=== PATIENT | male | born 1965 | race Caucasian/White ===

== ENCOUNTER 2019-09-10 14:20 | Outpatient (CLI) | payer MEDICARE, MEDICAID, SELFPAY ==
[2019-09-10 14:41] LABS: Basophils Absolute Auto 0.04 K/mm3 (0.00-0.10); Basophils Percent Auto 0.7 % (0.0-1.0); Eosinophils Absolute Auto 0.11 K/mm3 (0.02-0.50); Hematocrit 46.8 % (40.0-54.0); Hemoglobin 16.3 g/dL (14.0-18.0); Immature Granulocyte Absolute 0.02 K/mm3 (0.00-0.00); Immature Granulocyte Percent A 0.4 % (0.0-0.0); Lymphocytes Absolute Auto 1.41 K/mm3 (1.10-4.50); Lymphocytes Percent Auto 25.5 % (18.0-42.0); Mean Corpuscular HGB Conc 34.8 g/dL (32.0-36.0); Mean Corpuscular Hemoglobin 31.8 pg (27.0-31.0); Mean Corpuscular Volume 91.4 fL (78.0-102.0); Monocytes Absolute Auto 0.76 K/mm3 (0.10-0.90); Monocytes Percent Auto 13.8 % (2.0-11.0); Neutrophils Absolute Auto 3.2 K/mm3 (1.7-7.2); Neutrophils Percent Auto 57.6 % (50.0-70.0); Platelet Count Result 239 K/mm3 (150-420); Red Blood Count 5.12 M/mm3 (4.70-6.10); Red Cell Distribution Width 11.8 % (11.6-14.4); White Blood Count 5.5 K/mm3 (4.8-10.8)
[2019-09-10 15:07] LABS: Hemoglobin A1C 5.6 % (<5.7)
[2019-09-10 16:10] LABS: Thyroid Stimulating Hormone Reflex 2.29 u/IU/mL (0.36-3.74)
[2019-09-10 16:43] LABS: Alanine Aminotransferase 29 U/L (16-63); Albumin Level 4.3 g/dL (3.4-5.0); Alkaline Phosphatase 102 U/L (46-116); Anion Gap 17.3 mmol/L (7-16); Aspartate Amino Transferase 16 U/L (15-37); Bilirubin,Total 0.5 mg/dL (0.00-1.00); Blood Urea Nitrogen 12 mg/dL (7-18); Calcium 9.1 mg/dL (8.5-10.1); Carbon Dioxide 23 mmol/L (21-32); Chloride 104 mmol/L (98-108); Cholesterol 141 mg/dL (0-200); Estimated Glomerular Filt Rate 57; Glucose 92 mg/dL (70-99); HDL Direct 23 mg/dL (40-60); LDL Cholesterol Calculated 77 mg/dL (<130); Osmolality Calculated 289 mOsm/kg (285-295); Potassium 4.3 mmol/L (3.5-5.1); Sodium 140 mmol/L (136-145); Total Protein 7.4 g/dL (6.4-8.2); Triglycerides 203 mg/dL (0-150)
== END 2019-09-10 14:21 | disposition home or self-care (01) ==
PROVIDERS: PCP Family Medicine; Visit Provider Family Medicine
DX: G40.909 Epilepsy, unspecified, not intractable, without status epilepticus (principal); E66.9 Obesity, unspecified; R53.83 Other fatigue; Z79.899 Other long term (current) drug therapy
CPT/HCPCS: 36415; 80053; 80061; 83036; 84443; 85025

== ENCOUNTER 2020-02-03 12:07 | Emergency (ER) | payer OTHER, SELFPAY ==
--- NOTE | 2020-02-03 12:20 | ED.WOUNDLAC ---
HPI - Wound/Laceration General Chief Complaint: Wound/Laceration Stated Complaint: cut finger at work Time Seen by Provider: 02/03/20 12:20 Source: patient Mode of arrival: ambulatory Limitations: no limitations History of Present Illness HPI narrative: 54-year-old man comes in today complaining of a laceration on his left index finger that occurred just prior to arrival. Patient was opening a box at work and the razor knife slipped and cut his finger. He denies any numbness or tingling. He does not recall his last tetanus shot. Onset (ago): minute(s) (20) Extremity Location: Left: hand (volar index finger) Place: work Context: sharp object use Associated symptoms: pain Treatments prior to arrival: bandage Related Data Home Medications Medication Instructions Recorded Confirmed levetiracetam 1,500 mg PO TID 02/03/20 02/03/20 multivitamin with minerals [Daily 1 tablet PO DAILY 02/03/20 02/03/20 Multivitamin-Minerals] Allergies Allergy/AdvReac Type Severity Reaction Status Date / Time Iodinated Contrast Media Allergy Unknown Unknown Verified 01/19/20 12:59 Contrast allergy Allergy Intermediate Uncoded 01/19/20 12:59 Review of Systems Constitutional: Constitutional: Denies chills and Denies fever(s) Cardiovascular: Cardiovascular: Denies chest pain and Denies radiating jaw, neck or arm pain Respiratory: Respiratory: Denies cough, Denies dyspnea and Denies wheezing Gastrointestinal: Gastrointestinal: Denies abdominal pain, Denies nausea and Denies vomiting Musculoskeletal: Musculoskeletal: Denies arthralgias and Denies joint swelling Integumentary/Breasts: Skin/Breast: Denies pruritus, Denies erythema and Denies rash Neurologic: Denies vertigo, Denies dizziness and Denies syncope Hematologic/Lymphatic: Hematologic/Lymphatic: Denies easy bleeding and Denies easy bruising Allergic/Immunologic: Allergic/Immunologic: Denies lip swelling and Denies wheezing PMFSH Past Medical History Medical History Obesity (BMI 30-39.9) Seizure disorder Testicle cancer Surgical History Surgical History H/O brain surgery Family History Family History Father History of sinus cancer Sibling Ovarian cancer Social History Social History Smoking status: Never smoker Second hand tobacco smoke exposure: No Alcohol intake: never Substance use: never Exam Const: Other: Mild acute distress Resp: Effort & Inspection: normal respiratory effort and not labored Auscultation: clear to auscultation bilaterally, no rales, no rhonchi and no wheezes Cardio: Rate: regular rate Rhythm: regular rhythm Heart sounds: no murmurs Skin: General skin exam: normal color, no jaundice and no pallor Rashes: no rashes Neuro: Other: 1.8 cm longitudinal laceration on the volar aspect of the left index finger just proximal to the PIP. Extrem: General: normal to inspection and no clubbing, cyanosis or edema Psych: Appearance: well kempt Mental Status: mental status grossly normal Affect: normal affect Attitude: cooperative Thought content: Yes Normal thought content present Procedures Laceration Laceration 1: Date: 02/03/20 Time: 12:40 Site: hand Side (If applicable): left Size (cm): 1.8 Description: linear Depth: simple, single layer Local Anesthetic: lidocaine 1% Amount of anesthesia used (mL): 4 Pre-repair: wound explored and irrigated ====== Skin Level ====== Skin layer closed with: nylon Size (cm): 4-0 Number of sutures: 4 Technique: simple, interrupted ====== Subcutaneous Layer ====== ====== Muscle Layer ====== ====== Tendon Layer ====== Discharge Plan Dischar
[2020-02-03] MEDS: TETANUS,DIPHTHERIA,AC PERTUSSIS ADULT 0.5 ML (ADACEL) IM (12:27)
[2020-02-03 12:33] VITALS: BP 149/94; PULSE 106; RESP 16; TEMP 36.9; O2SAT 95
[2020-02-03 13:11] VITALS: RESP 16
--- NOTE | 2020-02-03 13:12 | PC.NURSE ---
SPO2 REMAINS 94% ON ROOM AIR AFTER AFFECTS OF DILAUDID WEAR OFF - ERP CALLS DR RINCON
== END 2020-02-03 13:11 | disposition home or self-care (01) ==
PROVIDERS: Emergency Provider Emergency Medicine; PCP Family Medicine
DX: S61.211A Laceration without foreign body of left index finger without damage to nail, initial encounter (principal); W26.0XXA Contact with knife, initial encounter
CPT/HCPCS: 12001; 90471; 90715; 99282

== ENCOUNTER 2020-03-06 19:04 | Emergency (ER) | payer MEDICARE, MEDICAID, SELFPAY ==
--- NOTE | ~2020-03-06 | XR_ITS ---
XR toe 5th LT min 2V 03/06/2020 19:33 Indication: Left fifth toe pain Procedure: 5 views left fifth toe Comparison: No prior studies for comparison. Findings: There is a nondisplaced oblique fracture of the left fifth proximal phalanx. Osteopenia. No intra-articular extension. No significant soft tissue abnormality. No foreign bodies. Impression: 1: Oblique nondisplaced extra-articular fracture left fifth proximal phalanx. Reviewed, dictated and finalized at location A. Impression: 1: Oblique nondisplaced extra-articular fracture left fifth proximal phalanx.
[2020-03-06 19:05] VITALS: BP 138/88; PULSE 88; RESP 16; TEMP 36.1
--- NOTE | 2020-03-06 19:16 | ED.LOWEXIN ---
HPI - Extremity Injury (Lower) General Chief Complaint: Unspecified Stated Complaint: lt foot injury Time Seen by Provider: 03/06/20 19:14 Source: patient Mode of arrival: ambulatory Limitations: no limitations History of Present Illness HPI Narrative: Patient states he was walking in his house and hit his 5th left toe on a chair. Did this just prior to arrival. complaint: foot injury (left fifth toe) Onset (ago): minute(s) (30) Type of Injury: blunt Place: home Severity: moderate Relieving factors: nothing Exacerbating factors: movement and palpation Context: direct blow and walking Associated symptoms: swelling Other symptoms: none Related Data Home Medications Medication Instructions Recorded Confirmed levetiracetam 1,500 mg PO BID 02/03/20 02/10/20 multivitamin with minerals [Daily 1 tablet PO DAILY 02/03/20 02/10/20 Multivitamin-Minerals] Allergies Allergy/AdvReac Type Severity Reaction Status Date / Time Iodinated Contrast Media Allergy Unknown Unknown Verified 02/17/20 08:15 Contrast allergy Allergy Intermediate Unknown Uncoded 02/10/20 07:51 Review of Systems Review of Systems: All systems reviewed & are unremarkable except as noted in HPI and below PMFSH Past Medical History Medical History Obesity (BMI 30-39.9) Seizure disorder Testicle cancer Surgical History Surgical History H/O brain surgery Family History Family History Father History of sinus cancer Sibling Ovarian cancer Social History Social History Smoking status: Never smoker Second hand tobacco smoke exposure: No Alcohol intake: never Substance use: never Exam Const: General: healthy appearing, no acute distress and alert Nutritional Appearance: well nourished Orientation/consciousness: patient oriented x3 HENMT: Head: normal to inspection Ears: external ears normal Mouth: Yes lip normal Eyes: Conjunctivae: conjunctivae normal Pupils: Equal, round and reactive pupils present EOM: EOMs intact bilaterally Neck: Neck: normal visual inspection Resp: Effort & Inspection: normal respiratory effort Auscultation: clear to auscultation bilaterally Cardio: Rate: regular rate Rhythm: regular rhythm Heart sounds: no murmurs GI: GI Palp: Yes Soft to palpation and No Tenderness to palpation present (GI) Auscultation: normal bowel sounds Back/Spine/Pelvis: Cervical Spine: cervical ROM normal Thoracic/Lumbar Spine: thoraco-lumbar ROM normal Skin: General skin exam: normal color Rashes: no rashes Neuro: General: patient oriented x3, moves all extremities, no meningeal signs and no focal motor deficits Speech: normal speech Extrem: General: normal to inspection and no pedal edema Psych: Appearance: grossly normal and well kempt Mental Status: mental status grossly normal Affect: normal affect Attitude: cooperative Thought content: Yes Normal thought content present Course Course Emergency Course: Advised patient to lorena-tape change tape every 2-3 days. Use Tylenol and/or Motrin. Initial fracture management and seated in the ER. Discharge Plan Discharge Clinical Impression: Closed fracture of phalanx of left fifth toe Qualifiers: Encounter type: initial encounter Qualified Code(s): S92.502A - Displaced unspecified fracture of left lesser toe(s), initial encounter for closed fracture Patient Disposition: Home, Self-Care Condition: Stable Instructions: Toe Fracture (ED) Additional Instructions: lorena-tape as needed, ice and elevate. Tylenol and or Motrin as needed for pain. Prescriptions: No Action levetiracetam 500 mg Tablet 1,500 mg PO BID RF: 0 multivitamin with minerals [Daily Multivitamin-Minerals] Tablet 1 tablet PO DAILY RF: 0 Follow-u
--- NOTE | 2020-03-06 20:11 | PC.NURSE ---
190 triaged, initial assessment, MD seen. Back to waiting room due to no rooms in ED 1914 to [place], 1927 return to waiting room. 1937 to room 4. MD with patient reviewing xray. 1954 lorena taped toes discharge huddle.
[2020-03-06 20:13] VITALS: BP 140/78; PULSE 72; RESP 16; TEMP 36.3; O2SAT 98
== END 2020-03-06 20:07 | disposition home or self-care (01) ==
PROVIDERS: Emergency Provider Emergency Medicine; PCP Family Medicine
DX: S92.502A Displaced unspecified fracture of left lesser toe(s), initial encounter for closed fracture (principal); W22.03XA Walked into furniture, initial encounter; Y92.019 Unspecified place in single-family (private) house as the place of occurrence of the external cause; G40.909 Epilepsy, unspecified, not intractable, without status epilepticus; Z85.47 Personal history of malignant neoplasm of testis
CPT/HCPCS: 73660; 99282; 99284

== ENCOUNTER 2020-03-24 13:15 | Outpatient (CLI) | payer MEDICARE, MEDICAID, SELFPAY ==
--- NOTE | ~2020-03-24 | XR_ITS ---
EXAMINATION: XR toe 5th LT min 2V DATE: 03/24/2020 13:44 INDICATION: Nondisplaced fracture of left fifth toe. TECHNIQUE: 3 views of left fifth toe were obtained. COMPARISON: Left fifth toe radiographs 03/06/2020 FINDINGS: There is an extra-articular oblique fracture of fifth proximal phalanx. The distal fracture fragment demonstrates 1.5 mm dorsal displacement. No callus is identified. Joint spaces are normal. IMPRESSION: 1. Extra-articular oblique fracture of fifth proximal phalanx. Reviewed, dictated and finalized at location A.
== END 2020-03-24 13:16 | disposition home or self-care (01) ==
LOC: CHSIMG 13:19
PROVIDERS: PCP Family Medicine; Visit Provider Podiatrist
DX: S92.414D Nondisplaced fracture of proximal phalanx of right great toe, subsequent encounter for fracture with routine healing (principal)
CPT/HCPCS: 73660

== ENCOUNTER 2020-04-14 09:09 | Outpatient (CLI) | payer MEDICARE, MEDICAID, SELFPAY ==
--- NOTE | ~2020-04-14 | XR_ITS ---
XR foot LT min 3V DATE: 04/14/2020 09:37 INDICATION: Fifth digit fracture TECHNIQUE: 4 views of left foot COMPARISON: 03/06/2020 left fifth toe 03/24/2020 left fifth toe FINDINGS: There is periosteal reaction along the shaft of the proximal phalanx of the fifth digit con sistent with healing nondisplaced fracture. Diffuse osteopenia. No other fracture or dislocation, periosteal reaction or bone destruction is detected. There is slight plantar and minimal posterior calcaneal enthesopathy. IMPRESSION: Healing nondisplaced fracture of proximal phalanx of fifth digit Reviewed, dictated and finalized at location A.
== END 2020-04-14 09:10 | disposition home or self-care (01) ==
LOC: CHSIMG 09:12
PROVIDERS: PCP Family Medicine; Visit Provider Podiatrist
DX: S92.502D Displaced unspecified fracture of left lesser toe(s), subsequent encounter for fracture with routine healing (principal)
CPT/HCPCS: 73630

== ENCOUNTER 2021-05-25 08:48 | Outpatient (CLI) | payer MEDICARE, MEDICAID, SELFPAY ==
[2021-05-25 09:05] LABS: Basophils Absolute Auto 0.05 K/mm3 (0.00-0.10); Basophils Percent Auto 0.8 % (0.0-1.0); Eosinophils Absolute Auto 0.19 K/mm3 (0.02-0.50); Eosinophils Percent Auto 3.1 % (1.0-6.0); Hematocrit 48.3 % (40.0-54.0); Hemoglobin 16.2 g/dL (14.0-18.0); Immature Granulocyte Absolute 0.04 K/mm3 (0.00-0.00); Immature Granulocyte Percent A 0.6 % (0.0-0.0); Lymphocytes Absolute Auto 1.62 K/mm3 (1.10-4.50); Lymphocytes Percent Auto 26.3 % (18.0-42.0); Mean Corpuscular HGB Conc 33.5 g/dL (32.0-36.0); Mean Corpuscular Hemoglobin 32.1 pg (27.0-31.0); Mean Corpuscular Volume 95.8 fL (78.0-102.0); Mean Platelet Volume 10.3 fl (8.7-11.0); Monocytes Absolute Auto 0.69 K/mm3 (0.10-0.90); Monocytes Percent Auto 11.2 % (2.0-11.0); Neutrophils Absolute Auto 3.6 K/mm3 (1.7-7.2); Platelet Count Result 236 K/mm3 (150-420); Red Blood Count 5.04 M/mm3 (4.70-6.10); White Blood Count 6.2 K/mm3 (4.8-10.8)
[2021-05-25 10:10] LABS: Alanine Aminotransferase 41 U/L (16-63); Albumin Level 3.9 g/dL (3.4-5.0); Alkaline Phosphatase 82 U/L (46-116); Anion Gap 14 mmol/L (8-16); Aspartate Amino Transferase 28 U/L (15-37); Bilirubin,Total 0.6 mg/dL (0.00-1.00); Blood Urea Nitrogen 17 mg/dL (7-18); Calcium 8.7 mg/dL (8.5-10.1); Carbon Dioxide 21 mmol/L (21-32); Chloride 105 mmol/L (98-108); Cholesterol 153 mg/dL (0-200); Estimated Glomerular Filt Rate > 60; Glucose 98 mg/dL (70-99); HDL Direct 25 mg/dL (40-60); LDL Cholesterol Calculated 93 mg/dL (<130); Osmolality Calculated 291 mOsm/kg (285-295); Potassium 4.9 mmol/L (3.5-5.1); Sodium 140 mmol/L (136-145); Triglycerides 175 mg/dL (0-150)
[2021-05-25 10:38] LABS: Thyroid Stimulating Hormone Reflex 1.58 u/IU/mL (0.36-3.74)
== END 2021-05-25 08:49 | disposition home or self-care (01) ==
LOC: CHSLAB 08:52
PROVIDERS: PCP Family Medicine; Visit Provider Family Medicine
DX: I10 Essential (primary) hypertension (principal); E78.5 Hyperlipidemia, unspecified
CPT/HCPCS: 36415; 80053; 80061; 84443; 85025

== ENCOUNTER 2021-08-12 10:11 | Emergency (ER) | payer MEDICARE, MEDICAID, SELFPAY ==
[2021-08-12 10:36] VITALS: BP 137/82; PULSE 106; RESP 18; TEMP 37.7; O2SAT 99
[2021-08-12 11:12] LABS: SARS-CoV-2 RNA PCR Positive (Negative)
--- NOTE | 2021-08-12 11:19 | ED.URI ---
HPI - URI/Sore Throat General Chief Complaint: Upper Respiratory Infection Stated Complaint: cough,chills, runny nose Source: patient Mode of arrival: ambulatory History of Present Illness HPI Narrative: this is a 55-year-old gentleman that presents with nasal congestion and drainage with no shortness of breath temperature at 99.7 with no nausea vomiting no shortness of breath no chest pain no abdominal pain no diarrhea constipation. MD elicited complaint: nasal congestion Context: sick contacts Related Data Home Medications Medication Instructions Recorded Confirmed levetiracetam 1,500 mg PO BID 02/03/20 08/12/21 multivitamin with minerals [Daily 1 tablet PO DAILY 02/03/20 08/12/21 Multivitamin-Minerals] Tylenol 1,000 mg PO DAILY 08/12/21 08/12/21 Allergies Allergy/AdvReac Type Severity Reaction Status Date / Time Iodinated Contrast Media Allergy Unknown Unknown Verified 08/12/21 10:34 Contrast allergy Allergy Intermediate Unknown Uncoded 05/25/21 08:37 Review of Systems Review of Systems: All systems reviewed & are unremarkable except as noted in HPI and below PMFSH Past Medical History Medical History Benign essential HTN Low Back Pain Obesity (BMI 30-39.9) Seizure disorder Testicle cancer Surgical History Surgical History H/O brain surgery Family History Family History Father History of sinus cancer Sibling Ovarian cancer Social History Social History Smoking status: Never smoker Second hand tobacco smoke exposure: No Alcohol intake: never Substance use: never Gender identity (if verbalized by the patient): Male Sexual Orientation (if Verbalized by the Patient): Straight or Heterosexual Exam Const: General: no acute distress Orientation/consciousness: patient oriented x3 HENMT: Head: normal to inspection Eyes: Conjunctivae: conjunctivae normal Pupils: Equal, round and reactive pupils present Neck: Neck: normal visual inspection and no lymphadenopathy Chest: Chest palpation & inspection: normal inspection of the chest Resp: Effort & Inspection: normal respiratory effort Auscultation: clear to auscultation bilaterally Cardio: Rate: regular rate Rhythm: regular rhythm GI: GI Palp: Yes Soft to palpation : Testes: Testes normal Back/Spine/Pelvis: Back: no CVA tenderness Skin: General skin exam: normal color Rashes: no rashes Neuro: General: patient oriented x3 and moves all extremities Extrem: General: normal to inspection and no pedal edema Course Course Emergency Course: Patient tested positive for COVID advised to self isolate, drink plenty of fluids and Tylenol or Motrin for fever. Vital Signs Vital signs: Vital Signs Temperature 37.7 C H 08/12/21 10:36 Pulse Rate 106 H 08/12/21 10:36 Respiratory Rate 18 08/12/21 10:36 Blood Pressure 137/82 08/12/21 10:36 Pulse Oximetry 99 08/12/21 10:36 Temperature 37.7 C H 08/12/21 10:36 Pulse Rate 106 H 08/12/21 10:36 Respiratory Rate 18 08/12/21 10:36 Blood Pressure 137/82 08/12/21 10:36 Pulse Oximetry 99 08/12/21 10:36 MDM - URI/Sore Throat Lab Data Labs: Lab Results 08/12/21 Range/Units 10:25 SARS-CoV-2 RNA (RT-PCR) Positive A (Negative) Critical Care Time Critical Care Time Critical Care Time: No Discharge Plan Discharge Clinical Impression: COVID-19 Patient Disposition: Home, Self-Care Condition: Stable Instructions: Antibiotic Form, COVID-19 (Coronavirus Disease 2019) (ED) Additional Instructions: advised to self isolate for 10 days, can drink plenty of fluids and take Tylenol or Motrin as needed. Prescriptions: No Action Tylenol 1,000 mg PO DAILY RF: 0 levetiracetam 500 mg Tablet
== END 2021-08-12 11:43 | disposition home or self-care (01) ==
PROVIDERS: Emergency Provider Emergency Medicine; PCP Family Medicine
DX: U07.1 COVID-19 (principal); I10 Essential (primary) hypertension; G40.909 Epilepsy, unspecified, not intractable, without status epilepticus; Z85.47 Personal history of malignant neoplasm of testis
CPT/HCPCS: 99282; 99283; C9803; U0003; U0005

== ENCOUNTER 2021-10-26 11:02 | Outpatient (CLI) | payer MEDICARE, MEDICAID, SELFPAY ==
[2021-10-26 11:25] LABS: Hematocrit 49.6 % (40.0-54.0); Hemoglobin 16.8 g/dL (14.0-18.0); Mean Corpuscular HGB Conc 33.9 g/dL (32.0-36.0); Mean Corpuscular Hemoglobin 31.5 pg (27.0-31.0); Mean Corpuscular Volume 92.9 fL (78.0-102.0); Mean Platelet Volume 9.6 fl (8.7-11.0); Platelet Count Result 244 K/mm3 (150-420); Red Blood Count 5.34 M/mm3 (4.70-6.10); Red Cell Distribution Width 11.9 % (11.6-14.4)
[2021-10-26 11:39] LABS: Hemoglobin A1C 5.6 % (<5.7)
[2021-10-26 12:23] LABS: Alanine Aminotransferase 47 U/L (16-63); Albumin Level 4.2 g/dL (3.4-5.0); Alkaline Phosphatase 79 U/L (46-116); Anion Gap 12 mmol/L (8-16); Aspartate Amino Transferase 16 U/L (15-37); Bilirubin,Total 0.5 mg/dL (0.00-1.00); Blood Urea Nitrogen 21 mg/dL (7-18); Calcium 9.6 mg/dL (8.5-10.1); Carbon Dioxide 25 mmol/L (21-32); Chloride 101 mmol/L (98-108); Estimated Glomerular Filt Rate 58; Glucose 89 mg/dL (70-99); Osmolality Calculated 288 mOsm/kg (285-295); Potassium 4.2 mmol/L (3.5-5.1); Sodium 138 mmol/L (136-145); Total Protein 7.3 g/dL (6.4-8.2); Vitamin B12 492 pg/mL (193-986)
[2021-10-26 12:25] LABS: Folic Acid > 20.0 ng/mL (8.6->20)
[2021-10-26 12:30] LABS: Thyroid Stimulating Hormone Reflex 1.78 u/IU/mL (0.36-3.74)
== END 2021-10-26 11:03 | disposition home or self-care (01) ==
PROVIDERS: PCP Family Medicine; Visit Provider Family Medicine
DX: G62.9 Polyneuropathy, unspecified (principal); E11.9 Type 2 diabetes mellitus without complications; E53.8 Deficiency of other specified B group vitamins
CPT/HCPCS: 36415; 80053; 82607; 82746; 83036; 84443; 85027

== ENCOUNTER 2021-11-10 22:36 | Emergency (ER) | payer MEDICARE, MEDICAID, SELFPAY ==
--- NOTE | ~2021-11-10 | XR_ITS ---
XR chest 1V portable DATE: 11/10/2021 23:10 INDICATION: Cough. Central chest pain for 2 days. TECHNIQUE: Portable upright apical lordotic AP chest on 11/10/2021 at 2312 hours COMPARISON: September 05, 2018 2 view chest FINDINGS: Normal heart size. No hilar or mediastinal enlargement. No pulmonary infiltrate or consolid ation, pleural effusion or pulmonary vascular congestion or pneumothorax. IMPRESSION: No active cardiopulmonary disease Reviewed, dictated and finalized at location A.
[2021-11-10 22:45] VITALS: BP 163/101; PULSE 99; RESP 18; TEMP 36.2; O2SAT 95
--- NOTE | 2021-11-10 23:01 | ED.GENADULT ---
HPI - General Adult General Chief complaint: Upper Respiratory Infection Stated complaint: cough, trouble swallowing Source: patient Mode of arrival: ambulatory Limitations: no limitations History of Present Illness HPI narrative: Tim came to the emergency department with a cough, runny nose and congestion that has been getting worse over the last few days. No fever, chest pain, SOB, N/V reported. Related Data Home Medications Medication Instructions Recorded Confirmed levetiracetam 1,500 mg PO BID 02/03/20 11/10/21 multivitamin with minerals [Daily 1 tablet PO DAILY 02/03/20 11/10/21 Multivitamin-Minerals] Tylenol 1,000 mg PO DAILY PRN 08/12/21 11/10/21 Allergies Allergy/AdvReac Type Severity Reaction Status Date / Time Iodinated Contrast Media Allergy Unknown Unknown Verified 11/10/21 22:53 Contrast allergy Allergy Intermediate Unknown Uncoded 05/25/21 08:37 Review of Systems Constitutional: Constitutional: Denies chills, Denies fever(s) and Denies weakness Eyes: Eyes: Reports no additional eye complaints ENT: Reports system reviewed and no additional complaints, except as documented Cardiovascular: Cardiovascular: Reports no additional cardiovascular complaints Respiratory: Respiratory: Reports as per HPI Gastrointestinal: Gastrointestinal: Reports no additional gastrointestinal complaints Genitourinary: Genitourinary: Reports no additional male genitourinary complaints Musculoskeletal: Musculoskeletal: Reports no additional musculoskeletal complaints Integumentary/Breasts: Skin/Breast: Reports system reviewed and no additional complaints, except as docu Neurologic: Reports system reviewed and no additional complaints, except as documented Psychiatric: Psychiatric: Reports no additional psychiatric complaints Endocrine: Endocrine: Reports no additional endocrine complaints Hematologic/Lymphatic: Hematologic/Lymphatic: Reports no additional hematologic/lymphatic complaints Allergic/Immunologic: Allergic/Immunologic: Reports no additional allergic/immunologic complaints [facility] Past Medical History Medical History Benign essential HTN Obesity (BMI 30-39.9) Seizure disorder Testicle cancer Surgical History Surgical History H/O brain surgery Family History Family History Father History of sinus cancer Sibling Ovarian cancer Social History Social History Second hand tobacco smoke exposure: No Alcohol intake: never Substance use: never Gender identity (if verbalized by the patient): Male Sexual Orientation (if Verbalized by the Patient): Straight or Heterosexual Exam Const: General: no acute distress and alert Orientation/consciousness: patient oriented x3 Limitations: No altered mental status HENMT: Head: normal to inspection Other: atraumatic. Posterior oropharynx cobblestoning, +rhinorrhea, boggy nasal turbinates Eyes: Conjunctivae: conjunctivae normal Pupils: Equal, round and reactive pupils present Neck: Neck: normal visual inspection Chest: Chest palpation & inspection: normal inspection of the chest Resp: Effort & Inspection: normal respiratory effort Auscultation: clear to auscultation bilaterally Cardio: Rate: regular rate GI: Inspection: non-distended GI Palp: Yes Soft to palpation and No Tenderness to palpation present (GI) Skin: General skin exam: normal color Rashes: no rashes Neuro: General: patient oriented x3 and moves all extremities Extrem: General: normal to inspection Psych: Appearance: grossly normal Mental Status: mental status grossly normal Course Course Emergency Course: Ordered CXR and flu swab. Had flu 3 months ago. Ordered benadryl and Tessalon Pearles XR chest 1V portable DATE:
[2021-11-10] MEDS: BENZONATATE 100 MG CAPSULE 200 MG PO (23:16)
[2021-11-10] MEDS: diphenhydrAMINE HCl CAP 25 MG CAPSULE 50 MG PO (23:16)
[2021-11-10 23:35] LABS: Influenza Control Valid (Valid)
== END 2021-11-10 23:47 | disposition home or self-care (01) ==
PROVIDERS: Emergency Provider Family Medicine; PCP Family Medicine
DX: J06.9 Acute upper respiratory infection, unspecified (principal)
CPT/HCPCS: 71045; 87804; 99283; A9270

== ENCOUNTER 2022-03-09 11:37 | Emergency (ER) | payer MEDICARE, MEDICAID, SELFPAY ==
[2022-03-09] VITALS (27 sets, daily range): BP systolic 108–142; BP diastolic 69–97; PULSE 77–104; RESP 12–22; TEMP 35.6–36.6; O2SAT 91–99
--- NOTE | ~2022-03-09 | XR_ITS ---
EXAMINATION: XR chest 1V portable DATE: 03/09/2022 12:30 INDICATION: Chest pain. Dyspnea. TECHNIQUE: A single frontal view of the chest was obtained. COMPARISON: Chest single view 11/10/2021, CT abdomen and pelvis 08/24/2014 FINDINGS: There is mild atelectasis at left lung base. No pleural effusion or pneumothorax. The heart size is normal. IMPRESSION: 1. Mild atelectasis at left lung base. Reviewed, dictated and finalized at location A.
--- NOTE | 2022-03-09 11:57 | ECG_ITS ---
Measurements Intervals [place] Rate: 101 P: 59 NH: 154 QRS: -51 QRSD: 94 T: 42 QT: 327 QTc: 424 Interpretive Statements SINUS TACHYCARDIA PATTERN CONSISTENT WITH PULMONARY DISEASE LEFT ANTERIOR FASCICULAR BLOCK ABNORMAL ECG NO PREVIOUS ECG AVAILABLE FOR COMPARISON Electronically Signed On 03-09-2022 15:53:38 CDT by Justo Bennett M.D.
[2022-03-09] MEDS: ASPIRIN 81 MG CHEWABLE TABLET 324 MG PO (12:05)
--- NOTE | 2022-03-09 12:05 | ED.GENADULT ---
HPI - General Adult General Chief complaint: Shortness of Breath/Dyspnea Stated complaint: SOB/chest pain History of Present Illness HPI narrative: The patient is a 56-year-old male with history of hypertension, obesity, seizure disorder, and a prior history of irineo COVID-19. He is a nonsmoker. He has no known hyperlipidemia. No prior history of myocardial infarctions or strokes. He presents with a 30 minute episode of chest discomfort, more pressure-like rather than sharp pain, in the substernal region, nonradiating, with associated dyspnea and mild dizziness. 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 No similar previous history. No abdominal pain. No nausea or vomiting. No diaphoresis with the pain but he did sweat earlier while unloading the semi. No other complaints. No fevers or chills or diaphoresis or respiratory symptoms or cough. The dyspnea dizziness and chest pain have both resolved at the present time and he feels back to baseline. Related Data Home Medications Medication Instructions Recorded Confirmed levetiracetam 500 mg tablet 1,500 mg PO BID 02/03/20 03/09/22 multivitamin with minerals (Daily 1 tablet PO DAILY 02/03/20 03/09/22 Multivitamin-Minerals tablet) Allergies Allergy/AdvReac Type Severity Reaction Status Date / Time Iodinated Contrast Media Allergy Unknown Unknown Verified 03/09/22 12:13 Contrast allergy Allergy Intermediate Unknown Uncoded 03/09/22 12:13 Review of Systems Review of Systems: All systems reviewed & are unremarkable except as noted in HPI and below Constitutional: Constitutional: Reports no additional constitutional complaints, Denies anorexia, Denies body ache(s), Denies chills, Denies excessive sweating, Denies fatigue, Denies fever(s), Denies frequent falls, Denies headache(s), Denies malaise and Denies poor appetite Eyes: Eyes: Reports no additional eye complaints, Denies blurry vision, Denies change in vision, Denies irritation, Denies itchy eyes and Denies photophobia ENT: Reports system reviewed and no additional complaints, except as documented, Reports Normal hearing present, Denies change in voice, Denies dysphagia, Denies vertigo, Reports dizziness (resolved at present), Denies ear discharge, Denies headache(s), Denies hearing loss, Denies hoarseness, Denies nasal congestion, Denies neck pain, Denies sinus pressure, Denies sore throat and Denies throat swelling Cardiovascular: Cardiovascular: Reports no additional cardiovascular complaints, Reports chest pain (substernal; resolved now), Denies syncope, Denies rapid heart rate, Denies irregular heart rhythm, Denies leg edema, Denies dyspnea and Denies slow heart rate Respiratory: Respiratory: Reports no additional respiratory complaints, Denies cough, Reports dyspnea (resolved now), Denies stridor and Denies wheezing Gastrointestinal: Gastrointestinal: Reports no additional gastrointestinal complaints, Denies abdominal pain, Denies melena, Denies hematochezia, Denies dysphagia, Denies diarrhea, Denies nausea and Denies vomiting Genitourinary: Genitourinary: Denies hematuria, Denies oliguria, Denies dysuria, Denies flank pain, Denies urinary frequency and Denies urinary urgency Musculoskeletal: Musculoskeletal: Reports no additional musculoskeletal complaints, Denies abnormal gait, Denies back pain, Denies myalgias, Denies arthralgias, Denies joint swelling, Denies limited range of motion, Denies muscle cramps, Denies muscle weakness, Denies neck pain and Denies numbness Integumentary/Breasts: Skin/Breast: Reports system reviewed and no additional complaints, except as docu, Denies breast pain, Denies change in pigmentation, Denies pruritus, Denies erythema and Denies wounds Neurologic: Reports system reviewed and no additional complaints, except as documented, Reports Normal hearing present, Denies Abnormal speech present, Denies abnormal gait, Denies confusion, Den
[2022-03-09 12:14] LABS: Basophils Absolute Auto 0.05 K/mm3 (0.00-0.10); Basophils Percent Auto 0.6 % (0.0-1.0); Eosinophils Absolute Auto 0.14 K/mm3 (0.02-0.50); Eosinophils Percent Auto 1.7 % (1.0-6.0); Hematocrit 46.3 % (40.0-54.0); Hemoglobin 15.9 g/dL (14.0-18.0); Immature Granulocyte Absolute 0.05 K/mm3 (0.00-0.00); Immature Granulocyte Percent A 0.6 % (0.0-0.0); Lymphocytes Absolute Auto 1.23 K/mm3 (1.10-4.50); Lymphocytes Percent Auto 14.6 % (18.0-42.0); Mean Corpuscular HGB Conc 34.3 g/dL (32.0-36.0); Mean Corpuscular Hemoglobin 32.3 pg (27.0-31.0); Mean Corpuscular Volume 94.1 fL (78.0-102.0); Monocytes Absolute Auto 0.74 K/mm3 (0.10-0.90); Monocytes Percent Auto 8.8 % (2.0-11.0); Neutrophils Absolute Auto 6.2 K/mm3 (1.7-7.2); Neutrophils Percent Auto 73.7 % (50.0-70.0); Platelet Count Result 252 K/mm3 (150-420); Red Blood Count 4.92 M/mm3 (4.70-6.10); Red Cell Distribution Width 12.1 % (11.6-14.4); White Blood Count 8.4 K/mm3 (4.8-10.8)
[2022-03-09 12:27] LABS: D Dimer 0.21 mg/L (0.19-0.50)
[2022-03-09 12:36] LABS: Alanine Aminotransferase 46 U/L (16-63); Albumin Level 4.1 g/dL (3.4-5.0); Alkaline Phosphatase 86 U/L (46-116); Anion Gap 12 mmol/L (8-16); Aspartate Amino Transferase 22 U/L (15-37); Bilirubin,Total 0.6 mg/dL (0.00-1.00); Blood Urea Nitrogen 20 mg/dL (7-18); Calcium 9.3 mg/dL (8.5-10.1); Carbon Dioxide 24 mmol/L (21-32); Chloride 104 mmol/L (98-108); Estimated CRCL calculation 64 ml/min; Estimated Glomerular Filt Rate 47; Glucose 106 mg/dL (70-99); NT Pro B Type Natriuretic Pept < 11 pg/mL (0-125); Osmolality Calculated 292 mOsm/kg (285-295); Sodium 140 mmol/L (136-145); Total Protein 7.5 g/dL (6.4-8.2); Troponin I 8.1 ng/L (0.00-60.4)
[2022-03-09 12:37] LABS: CRP < 0.2 mg/dL (0.0-0.9)
[2022-03-09 13:16] LABS: Erythrocyte Sedimentation Rate 4 mm/hr (0-20)
[2022-03-09 13:40] LABS: SARS-CoV-2 RNA PCR Negative (Negative)
[2022-03-09] MEDS: traMADol HCL (*CRX) 50 MG TABLET 100 MG PO (14:28)
[2022-03-09] MEDS: SODIUM CHLORIDE 0.9% IV 1,000 ML 999 ML IV CONT (14:28)
[2022-03-09] MEDS: ACETAMINOPHEN 500 MG TABLET 1000 MG PO (14:29)
[2022-03-09 15:03] LABS: Troponin I 8.3 ng/L (0.00-60.4)
--- NOTE | 2022-03-09 19:08 | ED.GENADULT ---
HPI - General Adult General Chief complaint: Shortness of Breath/Dyspnea Stated complaint: SOB/chest pain History of Present Illness HPI narrative: The patient is a 56-year-old male with history of hypertension, obesity, seizure disorder, and a prior history of irineo COVID-19.? He is a nonsmoker.? He has no known hyperlipidemia.? No prior history of myocardial infarctions or strokes. He was seen earlier today for chest pain. He had 2 troponins and an extensive workup including a chest x-ray and EKG all of which was unremarkable; he was discharged home. He did have mild dehydration and 1 L of fluid was given intravenously. He was at home in his bathroom, and slipped and fell while in the bathtub, landing on the right lower ribs laterally. No bruising noted. No loss of consciousness. No substernal chest pain or discomfort. No dyspnea. The pain is localized to that area and is nonradiating. He comes for evaluation. No other complaints. No neck pain, no back pain. Related Data Home Medications Medication Instructions Recorded Confirmed levetiracetam 500 mg tablet 1,500 mg PO BID 02/03/20 03/09/22 multivitamin with minerals (Daily 1 tablet PO DAILY 02/03/20 03/09/22 Multivitamin-Minerals tablet) Allergies Allergy/AdvReac Type Severity Reaction Status Date / Time Iodinated Contrast Media Allergy Unknown Unknown Verified 03/09/22 20:18 Contrast allergy Allergy Intermediate Unknown Uncoded 03/09/22 12:13 Review of Systems Review of Systems: All systems reviewed & are unremarkable except as noted in HPI and below Constitutional: Constitutional: Reports no additional constitutional complaints, Denies anorexia, Denies body ache(s), Denies chills, Denies excessive sweating, Denies fatigue, Denies fever(s), Denies frequent falls, Denies headache(s), Denies malaise and Denies poor appetite Eyes: Eyes: Reports no additional eye complaints, Denies blurry vision, Denies change in vision, Denies irritation, Denies itchy eyes and Denies photophobia ENT: Reports system reviewed and no additional complaints, except as documented, Reports Normal hearing present, Denies change in voice, Denies dysphagia, Denies vertigo, Denies dizziness, Denies ear discharge, Denies headache(s), Denies hearing loss, Denies hoarseness, Denies nasal congestion, Denies neck pain, Denies sinus pressure, Denies sore throat and Denies throat swelling Cardiovascular: Cardiovascular: Reports no additional cardiovascular complaints, Denies chest pain, Denies syncope, Denies rapid heart rate, Denies irregular heart rhythm, Denies leg edema, Denies dyspnea and Denies slow heart rate Respiratory: Respiratory: Reports no additional respiratory complaints, Denies cough, Denies dyspnea, Denies stridor and Denies wheezing Gastrointestinal: Gastrointestinal: Reports no additional gastrointestinal complaints, Denies abdominal pain, Denies melena, Denies hematochezia, Denies dysphagia, Denies diarrhea, Denies nausea and Denies vomiting Genitourinary: Genitourinary: Denies hematuria, Denies oliguria, Denies dysuria, Denies flank pain, Denies urinary frequency and Denies urinary urgency Musculoskeletal: Musculoskeletal: Reports no additional musculoskeletal complaints (right lateral rib pain as noted), Denies abnormal gait, Denies back pain, Denies myalgias, Denies arthralgias, Denies joint swelling, Denies limited range of motion, Denies muscle cramps, Denies muscle weakness, Denies neck pain and Denies numbness Integumentary/Breasts: Skin/Breast: Reports system reviewed and no additional complaints, except as docu, Denies breast pain, Denies change in pigmentation, Denies pruritus, Denies erythema and Denies wounds Neurologic: Reports system reviewed and no additional complaints, except as documented, Reports Normal hearing present, Denies Abnormal speech present, Denies abnormal gait, Denies confusion, Denies vertigo, Denies dizziness, Denies syncope, Denies frequent falls, Denie
== END 2022-03-09 15:48 | disposition home or self-care (01) ==
PROVIDERS: Emergency Provider Emergency Medicine; PCP Family Medicine
DX: R07.9 Chest pain, unspecified (principal); E86.0 Dehydration; I10 Essential (primary) hypertension; Z85.47 Personal history of malignant neoplasm of testis
CPT/HCPCS: 36415; 71045; 80053; 83880; 84484; 85025; 85380; 85652; 86140; 93005; 96360; 99284; A9270; C9803; J7030; U0003; U0005

== ENCOUNTER 2022-03-09 18:36 | Emergency (ER) | payer MEDICARE, MEDICAID, SELFPAY ==
[2022-03-09 18:52] VITALS: BP 126/85; PULSE 88; RESP 18; TEMP 36.3; O2SAT 95
--- NOTE | 2022-03-09 19:08 | ER_ITS ---
This report was moved to the correct visit, [id number] on 05/21/22. Original r eport was signed by Chidi Oliveira MD 03/09/222042. HPI - General Adult General Chief complaint: Shortness of Breath/Dyspnea Stated complaint: SOB/chest pain History of Present Illness HPI narrative: The patient is a 56-year-old male with history of hypertension, obesity, seizure disorder, and a prior history of irineo COVID-19.? He is a nonsmoker.? He has no known hyperlipidemia.? No prior history of myocardial infarctions or strokes. He was seen earlier today for chest pain. He had 2 troponins and an extensive workup including a chest x-ray and EKG all of which was unremarkable; he was discharged home. He did have mild dehydration and 1 L of fluid was given intravenously. He was at home in his bathroom, and slipped and fell while in the bathtub, landing on the right lower ribs laterally. No bruising noted. No loss of consciousness. No substernal chest pain or discomfort. No dyspnea. The pain is localized to that area and is nonradiating. He comes for evaluation. No other complaints. No neck pain, no back pain. Related Data Home Medications Medication Instructions Recorded Confirmed levetiracetam 500 mg tablet 1,500 mg PO BID 02/03/20 03/09/22 multivitamin with minerals (Daily 1 tablet PO DAILY 02/03/20 03/09/22 Multivitamin-Minerals tablet) Allergies Allergy/AdvReac Type Severity Reaction Status Date / Time Iodinated Contrast Media Allergy Unknown Unknown Verified 03/09/22 20:18 Contrast allergy Allergy Intermediate Unknown Uncoded 03/09/22 12:13 Review of Systems Review of Systems: All systems reviewed & are unremarkable except as noted in HPI and below Constitutional: Constitutional: Reports no additional constitutional complaints, Denies anorexia, Denies body ache(s), Denies chills, Denies excessive sweating, Denies fatigue, Denies fever(s), Denies frequent falls, Denies headache(s), Denies malaise and Denies poor appetite Eyes: Eyes: Reports no additional eye complaints, Denies blurry vision, Denies change in vision, Denies irritation, Denies itchy eyes and Denies photophobia ENT: Reports system reviewed and no additional complaints, except as documented, Reports Normal hearing present, Denies change in voice, Denies dysphagia, Denies vertigo, Denies dizziness, Denies ear discharge, Denies headache(s), Denies hearing loss, Denies hoarseness, Denies nasal congestion, Denies neck pain, Denies sinus pressure, Denies sore throat and Denies throat swelling Cardiovascular: Cardiovascular: Reports no additional cardiovascular complaints, Denies chest pain, Denies syncope, Denies rapid heart rate, Denies irregular heart rhythm, Denies leg edema, Denies dyspnea and Denies slow heart rate Respiratory: Respiratory: Reports no additional respiratory complaints, Denies cough, Denies dyspnea, Denies stridor and Denies wheezing Gastrointestinal: Gastrointestinal: Reports no additional gastrointestinal complaints, Denies abdominal pain, Denies melena, Denies hematochezia, Denies dysphagia, Denies diarrhea, Denies nausea and Denies vomiting Genitourinary: Genitourinary: Denies hematuria, Denies oliguria, Denies dysuria, Denies flank pain, Denies urinary frequency and Denies urinary urgency Musculoskeletal: Musculoskeletal: Reports no additional musculoskeletal complaints (right lateral rib pain as noted), Denies abnormal gait, Denies back pain, Denies myalgias, Denies arthralgias, Denies joint swelling, Denies limited range of motion, Denies muscle cramps, Denies muscle weakness, Denies neck pain and Denies numbness Integumentary/Breasts: Skin/Breast:
[2022-03-09 20:25] VITALS: BP 110/83; PULSE 95; RESP 18; TEMP 36.2; O2SAT 96
== END 2022-03-09 20:27 | disposition home or self-care (01) ==
PROVIDERS: Emergency Provider Emergency Medicine; PCP Family Medicine
DX: R07.81 Pleurodynia (principal); I10 Essential (primary) hypertension; G40.909 Epilepsy, unspecified, not intractable, without status epilepticus
CPT/HCPCS: 99282; 99284

== ENCOUNTER 2022-04-11 09:25 | Outpatient (CLI) | payer MEDICARE, MEDICAID, SELFPAY ==
[2022-04-11 10:08] LABS: Hemoglobin A1C 5.7 % (<5.7)
[2022-04-11 10:46] LABS: Cholesterol 156 mg/dL (0-200); HDL Direct 28 mg/dL (40-60); LDL Cholesterol Calculated 97 mg/dL (<130); Triglycerides 156 mg/dL (0-150)
[2022-04-11 10:48] LABS: Thyroid Stimulating Hormone Reflex 1.49 u/IU/mL (0.36-3.74)
[2022-04-16 07:56] LABS: Levetiracetam Keppra 43.8
== END 2022-04-11 09:26 | disposition home or self-care (01) ==
LOC: CHSLAB 09:28
PROVIDERS: PCP Family Medicine; Visit Provider Family Medicine
DX: G40.909 Epilepsy, unspecified, not intractable, without status epilepticus (principal); E11.9 Type 2 diabetes mellitus without complications; I10 Essential (primary) hypertension
CPT/HCPCS: 36415; 80061; 80177; 83036; 84443

== ENCOUNTER 2022-07-20 02:52 | Emergency (ER) | payer MEDICARE, MEDICAID, SELFPAY ==
[2022-07-20 02:52] VITALS: BP 155/98; PULSE 90; RESP 16; TEMP 36.1; O2SAT 98
[2022-07-20 03:53] LABS: Influenza A QL RT-PCR Negative (Negative); Influenza B QL RT-PCR Negative (Negative); SARS-CoV-2 RNA PCR Negative (Negative)
--- NOTE | 2022-07-20 04:41 | ED.URI ---
HPI - URI/Sore Throat General Chief Complaint: Upper Respiratory Infection Stated Complaint: Upper Respitory Complaints Source: patient Mode of arrival: ambulatory Limitations: no limitations History of Present Illness HPI Narrative: This is a 56-year-old gentleman that presents with some cough congestion clear nasal discharge with no shortness of breath no audible wheezing no fever chills. Patient saw his primary care physician about 3 days ago and was given some treatment and otherwise no audible wheezing no abdominal pain no nausea vomiting. MD elicited complaint: cough, sore throat, rhinorrhea, nasal congestion and sinus pain Related Data Home Medications Medication Instructions Recorded Confirmed levetiracetam 500 mg tablet 1,500 mg PO BID 02/03/20 07/20/22 multivitamin with minerals (Daily 1 tablet PO DAILY 02/03/20 07/20/22 Multivitamin-Minerals tablet) Allergies Allergy/AdvReac Type Severity Reaction Status Date / Time Iodinated Contrast Media Allergy Unknown Unknown Verified 07/20/22 02:59 Contrast allergy Allergy Intermediate Unknown Uncoded 07/20/22 02:59 Review of Systems Review of Systems: All systems reviewed & are unremarkable except as noted in HPI and below PMFSH Past Medical History Medical History Benign essential HTN Obesity (BMI 30-39.9) Seizure disorder Testicle cancer Surgical History Surgical History H/O brain surgery Family History Family History Father History of sinus cancer Sibling Ovarian cancer Social History Social History Smoking status: Never smoker Second hand tobacco smoke exposure: No Alcohol intake: never Substance use: never Lack of Transportation: No Lack of Food: Never True Current Housing: I Have Housing Concerned About Future Housing: No Difficulty Paying Gas/Electric Bills: No Difficulty Paying for Meds: No Currently Unemployed: No Education: High School Diploma/GED Difficulty w/ Childcare or Family Care: No Gender identity (if verbalized by the patient): Male Sexual Orientation (if Verbalized by the Patient): Straight or Heterosexual Exam Const: General: healthy appearing Nutritional Appearance: well nourished Orientation/consciousness: patient oriented x3 Limitations: no limitations HENMT: Head: normal to inspection Face/Nose/Sinus: Normal external nose present Face and sinus: normal facial exam Mouth: Yes Normal oral and palatal mucosa present Eyes: Conjunctivae: conjunctivae normal Pupils: Equal, round and reactive pupils present Neck: Neck: normal visual inspection Chest: Chest palpation & inspection: normal inspection of the chest Resp: Effort & Inspection: normal respiratory effort Auscultation: clear to auscultation bilaterally Cardio: Rate: regular rate Rhythm: regular rhythm GI: GI Palp: Yes Soft to palpation Auscultation: normal bowel sounds : General: Yes bladder normal to palpation Back/Spine/Pelvis: Back: no CVA tenderness Skin: General skin exam: normal color Rashes: no rashes Wounds: no wounds Neuro: General: patient oriented x3, moves all extremities, no meningeal signs and no focal motor deficits Extrem: General: normal to inspection, no clubbing, cyanosis or edema and no pedal edema Psych: Mental Status: mental status grossly normal Affect: normal affect Attitude: cooperative Course Course Emergency Course: COVID flu and RSV negative advised to continue current medical regimen. Vital Signs Vital signs: Vital Signs Temperature 36.1 C L 07/20/22 02:52 Pulse Rate 90 07/20/22 02:52 Respiratory Rate 16 07/20/22 02:52 Blood Pressure 155/98 H 07/20/22 02:52 Pulse Oximetry 98 07/20/22 02:52 Oxygen Delivery Room Air
--- NOTE | 2022-07-20 04:46 | PC.NURSE ---
pt was sleeping upon reassessment.
[2022-07-20 04:51] VITALS: BP 142/98; PULSE 88; RESP 18; O2SAT 98
== END 2022-07-20 04:51 | disposition home or self-care (01) ==
PROVIDERS: Emergency Provider Emergency Medicine; PCP Nurse Practitioner Family
DX: B34.9 Viral infection, unspecified (principal); I10 Essential (primary) hypertension; Z20.822 Contact with and (suspected) exposure to COVID-19
CPT/HCPCS: 87636; 99283

== ENCOUNTER 2022-08-08 21:23 | Emergency (ER) | payer MEDICARE, MEDICAID, SELFPAY ==
--- NOTE | ~2022-08-08 | XR_ITS ---
EXAMINATION: XR chest 2V Exam Date/Time: 08/08/2022 22:23 [facility] TENDER HISTORY: productive cough with midsternal chest pain x 3 days Comparison: 03/09/2022. RESULT: Lines, tubes, and devices: None. Lungs and pleura: Clear. Cardiomediastinal silhouette: Stable. Other: No acute osseous or upper abdominal finding. IMPRESSION: No acute cardiopulmonary process. Reviewed, dictated and finalized at location K. N TENDER
[2022-08-08 21:37] VITALS: BP 144/93; PULSE 85; RESP 16; TEMP 36.6; O2SAT 97
--- NOTE | 2022-08-08 22:06 | ED.URI ---
HPI - URI/Sore Throat General Chief Complaint: Upper Respiratory Infection Stated Complaint: cough Time Seen by Provider: 08/08/22 22:07 Related Data Home Medications Medication Instructions Recorded Confirmed levetiracetam 500 mg tablet 1,500 mg PO BID 02/03/20 08/08/22 multivitamin with minerals (Daily 1 tablet PO DAILY 02/03/20 08/08/22 Multivitamin-Minerals tablet) Allergies Allergy/AdvReac Type Severity Reaction Status Date / Time Iodinated Contrast Media Allergy Unknown Unknown Verified 08/08/22 21:36 Contrast allergy Allergy Intermediate Unknown Uncoded 08/08/22 21:36 Review of Systems Review of Systems: All systems reviewed & are unremarkable except as noted in HPI and below Constitutional: Constitutional: Reports no additional constitutional complaints, Denies chills, Denies fatigue, Denies fever(s) and Denies weakness Eyes: Eyes: Reports no additional eye complaints ENT: Reports system reviewed and no additional complaints, except as documented and Reports nasal congestion Cardiovascular: Cardiovascular: Reports no additional cardiovascular complaints Respiratory: Respiratory: Denies chest congestion, Reports cough, Denies dyspnea and Reports wheezing Gastrointestinal: Gastrointestinal: Reports no additional gastrointestinal complaints Genitourinary: Genitourinary: Reports no additional male genitourinary complaints Musculoskeletal: Musculoskeletal: Reports no additional musculoskeletal complaints Integumentary/Breasts: Skin/Breast: Reports system reviewed and no additional complaints, except as docu Neurologic: Reports system reviewed and no additional complaints, except as documented Psychiatric: Psychiatric: Reports no additional psychiatric complaints Endocrine: Endocrine: Reports no additional endocrine complaints Hematologic/Lymphatic: Hematologic/Lymphatic: Reports no additional hematologic/lymphatic complaints Allergic/Immunologic: Allergic/Immunologic: Reports no additional allergic/immunologic complaints [facility] Past Medical History Medical History Benign essential HTN Obesity (BMI 30-39.9) Seizure disorder Testicle cancer Surgical History Surgical History H/O brain surgery Family History Family History Father History of sinus cancer Sibling Ovarian cancer Social History Social History Smoking status: Never smoker Second hand tobacco smoke exposure: No Alcohol intake: never Substance use: never Lack of Transportation: No Lack of Food: Never True Current Housing: I Have Housing Concerned About Future Housing: No Difficulty Paying Gas/Electric Bills: No Difficulty Paying for Meds: No Currently Unemployed: No Education: High School Diploma/GED Difficulty w/ Childcare or Family Care: No Gender identity (if verbalized by the patient): Male Sexual Orientation (if Verbalized by the Patient): Straight or Heterosexual Exam Narrative: Alert male patient who appears in no acute distress. Stable vital signs with the exception of blood pressure being slightly elevated in the ER of 144/93. Patient is afebrile. SpO2 is 97% on room air. HEENT is unremarkable. There is no sinus tenderness. There is are no rhinorrhea. Posterior pharyngeal wall is clear. Neck is supple. Chest wall is nontender .. Breath sounds are audible bilaterally and are clear. There are no associated reveals rhonchi or wheezes. There is no noticeable retractions. Heart tones are regular. No murmurs are appreciated. Abdomen is nontender and obese. Extremities are atraumatic. Skin is warm and dry. Neurologic exam is grossly normal. Mood and affect are normal. Course Course Emergency Course: I have reviewed the chest x-ray as well as th
[2022-08-08 23:15] VITALS: BP 146/80; PULSE 82; RESP 18; TEMP 36.7; O2SAT 97
== END 2022-08-08 23:15 | disposition home or self-care (01) ==
PROVIDERS: Emergency Provider Emergency Medicine; PCP Family Medicine
DX: R05.9 Cough, unspecified (principal); I10 Essential (primary) hypertension; G40.909 Epilepsy, unspecified, not intractable, without status epilepticus; E66.9 Obesity, unspecified; Z68.38 Body mass index [BMI] 38.0-38.9, adult
CPT/HCPCS: 71046; 99283

== ENCOUNTER 2022-09-15 22:28 | Emergency (ER) | payer MEDICARE, MEDICAID, SELFPAY ==
[2022-09-15 22:30] VITALS: BP 149/86; PULSE 74; RESP 20; TEMP 36.4; O2SAT 96
--- NOTE | 2022-09-15 22:47 | ED.URI ---
HPI - URI/Sore Throat General Chief Complaint: Upper Respiratory Infection Stated Complaint: Cough Source: patient Mode of arrival: ambulatory Limitations: no limitations History of Present Illness HPI Narrative: this is a 56-year-old gentleman that presents with a 2 day history of sinus congestion with postnasal drip sinus pressure cough that is mildly productive of clear sputum with no shortness of breath no audible wheezing no fever chills no chest pain. MD elicited complaint: cough and sore throat Onset (ago): day(s) Consistency: constant Severity: mild Description of mucous: clear Exacerbating factors: nothing Relieving factors: nothing Associated symptoms: denies other symptoms Related Data Home Medications Medication Instructions Recorded Confirmed levetiracetam 500 mg tablet 1,500 mg PO BID 02/03/20 09/15/22 multivitamin with minerals (Daily 1 tablet PO DAILY 02/03/20 09/15/22 Multivitamin-Minerals tablet) Allergies Allergy/AdvReac Type Severity Reaction Status Date / Time Iodinated Contrast Media Allergy Unknown Unknown Verified 09/06/22 11:03 Contrast allergy Allergy Intermediate Unknown Uncoded 09/06/22 11:03 Review of Systems Review of Systems: All systems reviewed & are unremarkable except as noted in HPI and below PMFSH Past Medical History Medical History Benign essential HTN Obesity (BMI 30-39.9) Seizure disorder Testicle cancer Surgical History Surgical History H/O brain surgery Family History Family History Father History of sinus cancer Sibling Ovarian cancer Social History Social History Smoking status: Never smoker Second hand tobacco smoke exposure: No Alcohol intake: never Substance use: never Lack of Transportation: No Lack of Food: Never True Current Housing: I Have Housing Concerned About Future Housing: No Difficulty Paying Gas/Electric Bills: No Difficulty Paying for Meds: No Currently Unemployed: No Education: High School Diploma/GED Difficulty w/ Childcare or Family Care: No Living arrangements: alone Gender identity (if verbalized by the patient): Male Sexual Orientation (if Verbalized by the Patient): Straight or Heterosexual Exam Const: General: healthy appearing Nutritional Appearance: well nourished Orientation/consciousness: patient oriented x3 Limitations: no limitations HENMT: Head: normal to inspection Ears: external ears normal Face/Nose/Sinus: Normal external nose present Face and sinus: normal facial exam Mouth: Yes Normal oral and palatal mucosa present Eyes: Conjunctivae: conjunctivae normal Pupils: Equal, round and reactive pupils present EOM: EOMs intact bilaterally Direct Ophthalmoscopy: no photophobia Neck: Neck: normal visual inspection Chest: Chest palpation & inspection: normal inspection of the chest Resp: Effort & Inspection: normal respiratory effort Auscultation: clear to auscultation bilaterally Cardio: Rate: regular rate Rhythm: regular rhythm GI: GI Palp: Yes Soft to palpation Auscultation: normal bowel sounds : General: Yes bladder normal to palpation Back/Spine/Pelvis: Back: no CVA tenderness Skin: General skin exam: normal color Rashes: no rashes Wounds: no wounds Neuro: General: patient oriented x3, moves all extremities and no meningeal signs Extrem: General: normal to inspection Psych: Mental Status: mental status grossly normal Affect: normal affect Course Course Emergency Course: Will give patient a dose of p.o. Augmentin Vital Signs Vital signs: Vital Signs Temperature 36.4 C L 09/15/22 22:30 Pulse Rate 74 09/15/22 22:30 Respiratory Rate 20 09/15/22 22:30 Blood Pressure 149/86 H 09/15/22 22:30 Pulse Oximetry
[2022-09-15] MEDS: AMOXICILLIN/CLAVULANATE K 875-125 MG TAB 1 TABLET PO (22:52)
[2022-09-15 23:03] VITALS: BP 120/84; PULSE 72; RESP 18; TEMP 36.6; O2SAT 97
== END 2022-09-15 23:10 | disposition home or self-care (01) ==
PROVIDERS: Emergency Provider Emergency Medicine; PCP Family Medicine
DX: J32.9 Chronic sinusitis, unspecified (principal); I10 Essential (primary) hypertension; Z85.47 Personal history of malignant neoplasm of testis
CPT/HCPCS: 99283; A9270

== ENCOUNTER 2022-11-16 23:27 | Emergency (ER) | payer MEDICARE, MEDICAID, SELFPAY ==
[2022-11-16 23:35] VITALS: BP 140/90; PULSE 90; RESP 20; TEMP 37; O2SAT 95
--- NOTE | 2022-11-16 23:46 | ED.GENADULT ---
HPI - General Adult General Chief complaint: Extremity Problem,Nontraumatic Stated complaint: LEFT SHOULDER PAIN History of Present Illness HPI narrative: 57yo man presents with new onset pain to the outside of his left shoulder, onset tonight when laying down and putting pressure on the shoulder joint. No pain with movement. No recent heavy lifting or trauma. No fevers, chills, or rash. Pain is moderate severity, 4 out of 10. MD complaint: 57yo man presents with new onset pain to the outside of his left shoulder Related Data Home Medications Medication Instructions Recorded Confirmed levetiracetam 500 mg tablet 1,500 mg PO BID 02/03/20 09/15/22 multivitamin with minerals (Daily 1 tablet PO DAILY 02/03/20 09/15/22 Multivitamin-Minerals tablet) Allergies Allergy/AdvReac Type Severity Reaction Status Date / Time Iodinated Contrast Media Allergy Unknown Unknown Verified 10/03/22 07:37 Contrast allergy Allergy Intermediate Unknown Uncoded 10/03/22 07:37 Review of Systems Review of Systems: All systems reviewed & are unremarkable except as noted in HPI and below Constitutional: Constitutional: Denies chills and Denies fever(s) Cardiovascular: Cardiovascular: Denies chest pain Respiratory: Respiratory: Denies dyspnea PMFSH Past Medical History Medical History Benign essential HTN Obesity (BMI 30-39.9) Seizure disorder Testicle cancer Surgical History Surgical History H/O brain surgery Family History Family History Father History of sinus cancer Sibling Ovarian cancer Social History Social History Smoking status: Never smoker Second hand tobacco smoke exposure: No Alcohol intake: never Substance use: never Lack of Transportation: No Lack of Food: Never True Current Housing: I Have Housing Concerned About Future Housing: No Difficulty Paying Gas/Electric Bills: No Difficulty Paying for Meds: No Currently Unemployed: No Education: High School Diploma/GED Difficulty w/ Childcare or Family Care: No Living arrangements: alone Gender identity (if verbalized by the patient): Male Sexual Orientation (if Verbalized by the Patient): Straight or Heterosexual Exam Const: General: healthy appearing, no acute distress and alert HENMT: Other: atraumatic Eyes: Conjunctivae: conjunctivae normal Neck: Other: supple Resp: Effort & Inspection: normal respiratory effort and not labored Cardio: Rate: regular rate Rhythm: regular rhythm GI: Inspection: non-distended Skin: General skin exam: normal color, no jaundice and no pallor Neuro: General: patient oriented x3 and moves all extremities Extrem: General: normal to inspection Course Vital Signs Vital signs: Vital Signs Temperature 37.0 C 11/16/22 23:35 Pulse Rate 90 11/16/22 23:35 Respiratory Rate 20 11/16/22 23:35 Blood Pressure 140/90 11/16/22 23:35 Pulse Oximetry 95 11/16/22 23:35 Oxygen Delivery Room Air 11/16/22 23:35 Temperature 37.0 C 11/17/22 00:05 Pulse Rate 100 11/17/22 00:05 Respiratory Rate 20 11/17/22 00:05 Blood Pressure 136/80 11/17/22 00:05 Pulse Oximetry 95 11/17/22 00:05 Oxygen Delivery Room Air 11/17/22 00:05 Medical Decision Making MDM Narrative Medical decision making narrative: Soreness about left humeral head DDx bursitis, contusion, deltoid sprain, glenohumeral arthritis Medical Records Medical records reviewed: Yes I reviewed the external patient's medical records. Vital Signs Vital Signs: Vital Signs Temperature 37.0 C 11/16/22 23:35 Pulse Rate 90 11/16/22 23:35 Respiratory Rate 20 11/16/22 23:35 Blood Pressure 140/90 11/16/22 23:35 Pulse Oximetry 95 11/16/22 23:35 Oxygen Delivery Ro
[2022-11-17] MEDS: KETOROLAC (*BKC) 60 MG/2 ML VIAL IM (00:01)
[2022-11-17 00:05] VITALS: BP 136/80; PULSE 100; RESP 20; TEMP 37; O2SAT 95
== END 2022-11-17 00:07 | disposition home or self-care (01) ==
PROVIDERS: Emergency Provider Emergency Medicine
DX: M25.512 Pain in left shoulder (principal); I10 Essential (primary) hypertension; Z85.47 Personal history of malignant neoplasm of testis
CPT/HCPCS: 96372; 99283; J1885

== ENCOUNTER 2023-02-01 10:04 | Emergency (ER) | payer MEDICARE, MEDICAID, SELFPAY ==
[2023-02-01] VITALS (9 sets, daily range): BP systolic 110–125; BP diastolic 69–85; PULSE 84–105; RESP 13–20; TEMP 35.9–36.8; O2SAT 90–98
--- NOTE | ~2023-02-01 | XR_ITS ---
EXAMINATION: XR chest 2V DATE: 02/01/2023 10:40 INDICATION: Shortness of breath TECHNIQUE: PA and lateral views of the chest are obtained. COMPARISON: 08/08/2022 FINDINGS: The lungs are free of acute opacities. No pleural effusion or pneumothorax. The cardiomedia stinal silhouette is normal. There is mild thoracic spondylosis. IMPRESSION: 1. No acute cardiopulmonary abnormality. Reviewed, dictated and finalized at [facility].
--- NOTE | 2023-02-01 10:14 | ED.SOB ---
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 He says he became more short of breath and thought he needed to be checked out. There has been air quality alerts in last couple of days as well as high temperatures and high humidity. He denies any fever chills, he denies any productive cough, he denies any chest pain, nausea vomiting. MD elicited complaint: shortness of breath Pertinent past history: COPD Onset (ago): hour(s) (3) Context: occurred during exertion Timing: intermittent Severity: moderate Exacerbating factors: exertion Relieving factors: rest Associated symptoms: denies other symptoms Treatment prior to arrival: none Related Data Home oxygen amount: none Home Medications Medication Instructions Recorded Confirmed levetiracetam 500 mg tablet 1,500 mg PO BID 02/03/20 02/01/23 multivitamin with minerals (Daily 1 tablet PO DAILY 02/03/20 02/01/23 Multivitamin-Minerals tablet) Allergies Allergy/AdvReac Type Severity Reaction Status Date / Time Iodinated Contrast Media Allergy Unknown Unknown Verified 10/03/22 07:37 Contrast allergy Allergy Intermediate Unknown Uncoded 10/03/22 07:37 Review of Systems Review of Systems: All systems reviewed & are unremarkable except as noted in HPI and below Constitutional: Constitutional: Denies chills and Denies fever(s) Cardiovascular: Cardiovascular: Denies chest pain and Denies rapid heart rate PMFSH Past Medical History Medical History Benign essential HTN Obesity (BMI 30-39.9) Seizure disorder Testicle cancer Surgical History Surgical History H/O brain surgery Family History Family History Father History of sinus cancer Sibling Ovarian cancer Social History Social History Smoking status: Never smoker Second hand tobacco smoke exposure: No Alcohol intake: never Substance use: never Lack of Transportation: No Lack of Food: Never True Current Housing: I Have Housing Concerned About Future Housing: No Difficulty Paying Gas/Electric Bills: No Difficulty Paying for Meds: No Currently Unemployed: No Education: High School Diploma/GED Difficulty w/ Childcare or Family Care: No Living arrangements: alone Gender identity (if verbalized by the patient): Male Sexual Orientation (if Verbalized by the Patient): Straight or Heterosexual Exam Const: General: healthy appearing, no acute distress and alert Nutritional Appearance: obese Orientation/consciousness: patient oriented x3 Limitations: no limitations HENMT: Head: normal to inspection Ears: external ears normal Face/Nose/Sinus: Normal external nose present Face and sinus: normal facial exam Mouth: Yes moist mucous membranes Eyes: Conjunctivae: conjunctivae normal Pupils: Equal, round and reactive pupils present EOM: EOMs intact bilaterally Neck: Neck: normal visual inspection Resp: Effort & Inspection: normal respiratory effort Auscultation: clear to auscultation bilaterally Cardio: Rate: regular rate Rhythm: regular rhythm GI: GI Palp: Yes Soft to palpation and No Tenderness to palpation present (GI) Auscultation: normal bowel sounds Back/Spine/Pelvis: Cervical Spine: cervical ROM normal Thoracic/Lumbar Spine: thoraco-lumbar ROM normal Skin: General skin exam: normal
[2023-02-01 10:51] LABS: Basophils Absolute Auto 0.04 K/mm3 (0.00-0.10); Basophils Percent Auto 0.6 % (0.0-1.0); Eosinophils Absolute Auto 0.07 K/mm3 (0.02-0.50); Hematocrit 47.9 % (40.0-54.0); Hemoglobin 16.5 g/dL (14.0-18.0); Immature Granulocyte Absolute 0.01 K/mm3 (0.00-0.00); Immature Granulocyte Percent A 0.1 % (0.0-0.0); Lymphocytes Absolute Auto 1.06 K/mm3 (1.10-4.50); Lymphocytes Percent Auto 15.8 % (18.0-42.0); Mean Corpuscular HGB Conc 34.4 g/dL (32.0-36.0); Mean Corpuscular Hemoglobin 31.5 pg (27.0-31.0); Mean Corpuscular Volume 91.6 fL (78.0-102.0); Mean Platelet Volume 9.9 fl (8.7-11.0); Monocytes Absolute Auto 0.64 K/mm3 (0.10-0.90); Monocytes Percent Auto 9.5 % (2.0-11.0); Neutrophils Absolute Auto 4.9 K/mm3 (1.7-7.2); Platelet Count Result 275 K/mm3 (150-420); Red Blood Count 5.23 M/mm3 (4.70-6.10); Red Cell Distribution Width 11.9 % (11.6-14.4); White Blood Count 6.7 K/mm3 (4.8-10.8)
[2023-02-01 11:14] LABS: Alanine Aminotransferase 33 U/L (16-63); Alkaline Phosphatase 84 U/L (46-116); Anion Gap 13 mmol/L (8-16); Aspartate Amino Transferase 15 U/L (15-37); Bilirubin,Total 0.8 mg/dL (0.00-1.00); Blood Urea Nitrogen 18 mg/dL (7-18); CRP < 0.5 mg/dL (0.0-0.9); Calcium 9.4 mg/dL (8.5-10.1); Carbon Dioxide 23 mmol/L (21-32); Chloride 104 mmol/L (98-108); Estimated CRCL calculation 64 ml/min; Estimated Glomerular Filt Rate 49; Glucose 103 mg/dL (70-99); NT Pro B Type Natriuretic Pept 28 pg/mL (0-125); Osmolality Calculated 291 mOsm/kg (285-295); Potassium 3.8 mmol/L (3.5-5.1); Sodium 140 mmol/L (136-145); Total Protein 7.4 g/dL (6.4-8.2)
--- NOTE | 2023-02-01 11:16 | PC.NURSE ---
resting per cot. lights out for comfort. no needs at this time. call [place] in reach. enc to ring for assist if needed
--- NOTE | 2023-02-01 11:18 | ECG_ITS ---
Measurements Intervals [place] Rate: 93 P: 43 AR: 157 QRS: -38 QRSD: 99 T: 18 QT: 332 QTc: 414 Interpretive Statements SINUS RHYTHM LEFT AXIS DEVIATION [QRS AXIS < -30] PATTERN CONSISTENT WITH PULMONARY DISEASE COMPARED TO ECG 03/09/2022 11:53:51 THERE IS NO SIGNIFICANT DIFFERENCE Electronically Signed On 02-01-2023 17:36:24 CDT by Raman Mcpherson M.D.
== END 2023-02-01 11:50 | disposition home or self-care (01) ==
PROVIDERS: Emergency Provider Emergency Medicine; PCP Family Medicine
DX: R06.00 Dyspnea, unspecified (principal); I10 Essential (primary) hypertension; Z85.47 Personal history of malignant neoplasm of testis
CPT/HCPCS: 36415; 71046; 80053; 83735; 83880; 84484; 85025; 86140; 93005; 99283; 99284

== ENCOUNTER 2023-02-18 08:45 | Emergency (ER) | payer MEDICARE, MEDICAID, SELFPAY ==
[2023-02-18 08:46] VITALS: BP 135/81; PULSE 77; RESP 20; TEMP 37.2; O2SAT 97
--- NOTE | 2023-02-18 08:46 | ECG_ITS ---
Measurements Intervals [place] Rate: 69 P: 51 LA: 161 QRS: -26 QRSD: 96 T: 35 QT: 368 QTc: 396 Interpretive Statements SINUS RHYTHM WITH SINUS ARRHYTHMIA DELAYED PRECORDIAL R/S TRANSITION BASELINE ARTIFACT- I, II, III, AVR, AVL, AVF BORDERLINE ECG COMPARED TO ECG 02/01/2023 11:25:13 SINUS ARRHYTHMIA NOW PRESENT Electronically Signed On 02-18-2023 9:37:17 CDT by Adair Max D.O.
[2023-02-18 08:53] VITALS: O2SAT 96
--- NOTE | 2023-02-18 09:02 | ED.GENADULT ---
HPI - General Adult General Chief complaint: Chest Pain Stated complaint: Chest pain Time Seen by Provider: 02/18/23 09:00 History of Present Illness HPI narrative: 57yo man presents after an episode of chest pain yesterday lasting 15 minutes, left-sided, resolved and did not return and wants examined. Has never had this before. Feels comfortable today. No fevers, chills, cough, congestion, leg pain or swelling. Related Data Home Medications Medication Instructions Recorded Confirmed levetiracetam 500 mg tablet 1,500 mg PO BID 02/03/20 02/18/23 multivitamin with minerals (Daily 1 tablet PO DAILY 02/03/20 02/18/23 Multivitamin-Minerals tablet) lisinopril 10 mg tablet 10 mg PO DAILY 02/18/23 02/18/23 Allergies Allergy/AdvReac Type Severity Reaction Status Date / Time Iodinated Contrast Media Allergy Unknown Unknown Verified 02/18/23 08:55 Contrast allergy Allergy Intermediate Unknown Uncoded 02/18/23 08:55 Review of Systems Review of Systems: All systems reviewed & are unremarkable except as noted in HPI and below Constitutional: Constitutional: Denies fever(s) ENT: Denies dysphagia Cardiovascular: Cardiovascular: Reports chest pain Respiratory: Respiratory: Denies dyspnea PMFSH Past Medical History Medical History Benign essential HTN Obesity (BMI 30-39.9) Seizure disorder Testicle cancer Surgical History Surgical History H/O brain surgery Family History Family History Father History of sinus cancer Sibling Ovarian cancer Social History Social History Smoking status: Never smoker Second hand tobacco smoke exposure: No Alcohol intake: never Substance use: never Lack of Transportation: No Lack of Food: Never True Current Housing: I Have Housing Concerned About Future Housing: No Difficulty Paying Gas/Electric Bills: No Difficulty Paying for Meds: No Currently Unemployed: No Education: High School Diploma/GED Difficulty w/ Childcare or Family Care: No Living arrangements: alone Gender identity (if verbalized by the patient): Male Sexual Orientation (if Verbalized by the Patient): Straight or Heterosexual Exam Const: General: healthy appearing and no acute distress Nutritional Appearance: well nourished Eyes: Conjunctivae: conjunctivae normal Neck: Neck: no meningeal signs Resp: Effort & Inspection: normal respiratory effort and not labored Auscultation: clear to auscultation bilaterally Cardio: Rate: regular rate Rhythm: regular rhythm Heart sounds: no murmurs GI: Inspection: non-distended GI Palp: Yes Soft to palpation and No Tenderness to palpation present (GI) Skin: General skin exam: normal color Course Vital Signs Vital signs: Vital Signs Temperature 37.2 C 02/18/23 08:46 Pulse Rate 77 02/18/23 08:46 Respiratory Rate 20 02/18/23 08:46 Blood Pressure 135/81 02/18/23 08:46 Pulse Oximetry 97 02/18/23 08:46 Oxygen Delivery Room Air 02/18/23 08:46 Temperature 37.2 C 02/18/23 08:46 Pulse Rate 77 02/18/23 08:46 Respiratory Rate 20 02/18/23 08:46 Blood Pressure 135/81 02/18/23 08:46 Pulse Oximetry 96 02/18/23 08:53 Oxygen Delivery Room Air 02/18/23 08:53 Medical Decision Making MDM Narrative Medical decision making narrative: episode of chest pain, resolved DDx heartburn, gerd, gastritis, indigestion, stable angina, pleurisy HEART score = [id number] = 1 Vital Signs Vital Signs: Vital Signs Temperature 37.2 C 02/18/23 08:46 Pulse Rate 77 02/18/23 08:46 Respiratory Rate 20 02/18/23 08:46 Blood Pressure 135/81 02/18/23 08:46 Pulse Oximetry 97 02/18/23 08:46 Oxygen Delivery Room Air 02/18/23 08:46 Temperature 37.2 C
[2023-02-18 09:26] LABS: Basophils Absolute Auto 0.04 K/mm3 (0.00-0.10); Basophils Percent Auto 0.7 % (0.0-1.0); Eosinophils Absolute Auto 0.14 K/mm3 (0.02-0.50); Eosinophils Percent Auto 2.4 % (1.0-6.0); Hematocrit 47.8 % (40.0-54.0); Hemoglobin 16.2 g/dL (14.0-18.0); Immature Granulocyte Absolute 0.02 K/mm3 (0.00-0.00); Immature Granulocyte Percent A 0.3 % (0.0-0.0); Lymphocytes Absolute Auto 1.37 K/mm3 (1.10-4.50); Mean Corpuscular HGB Conc 33.9 g/dL (32.0-36.0); Mean Corpuscular Hemoglobin 31.2 pg (27.0-31.0); Mean Corpuscular Volume 92.1 fL (78.0-102.0); Mean Platelet Volume 10.3 fl (8.7-11.0); Monocytes Absolute Auto 0.59 K/mm3 (0.10-0.90); Monocytes Percent Auto 10.3 % (2.0-11.0); Neutrophils Absolute Auto 3.6 K/mm3 (1.7-7.2); Neutrophils Percent Auto 62.3 % (50.0-70.0); Platelet Count Result 234 K/mm3 (150-420); Red Blood Count 5.19 M/mm3 (4.70-6.10); White Blood Count 5.7 K/mm3 (4.8-10.8)
[2023-02-18 09:44] LABS: Alanine Aminotransferase 34 U/L (16-63); Albumin Level 3.9 g/dL (3.4-5.0); Alkaline Phosphatase 71 U/L (46-116); Anion Gap 7 mmol/L (8-16); Aspartate Amino Transferase 23 U/L (15-37); Bilirubin,Total 0.6 mg/dL (0.00-1.00); Blood Urea Nitrogen 21 mg/dL (7-18); Calcium 9.1 mg/dL (8.5-10.1); Carbon Dioxide 27 mmol/L (21-32); Chloride 104 mmol/L (98-108); Estimated CRCL calculation 78 ml/min; Estimated Glomerular Filt Rate > 60; Glucose 107 mg/dL (70-99); Osmolality Calculated 289 mOsm/kg (285-295); Potassium 4.1 mmol/L (3.5-5.1); Sodium 138 mmol/L (136-145); Total Protein 7.1 g/dL (6.4-8.2); Troponin I 6.2 ng/L (0.00-60.4)
[2023-02-18 09:49] VITALS: PULSE 76
[2023-02-18 10:58] VITALS: BP 122/78; PULSE 70; RESP 20; TEMP 36.8; O2SAT 98
== END 2023-02-18 11:15 | disposition home or self-care (01) ==
PROVIDERS: Emergency Provider Emergency Medicine; PCP Family Medicine
DX: R07.9 Chest pain, unspecified (principal); I10 Essential (primary) hypertension
CPT/HCPCS: 36415; 80053; 84484; 85025; 93005; 99284

== ENCOUNTER 2023-04-01 08:21 | Outpatient (CLI) | payer MEDICARE, MEDICAID, SELFPAY ==
--- NOTE | 2023-04-01 08:27 | EST_ITS ---
Patient Info Name: Tim Núñez Age: 57 years : 1965 Gender: Male Ht: 71 in Wt: 260 lbs BSA: 2.47 m2 HR: 102 bpm BP: 155 / 93 mmHg Heart Rhythm: Tachycardia, Sinus Rhythm Technical Quality: Good Exam Date: 04/01/2023 8:53 AM Exam Location: [facility] Patient Status: Outpatient Admit Date: 04/01/2023 Staff Ordering Physician: Manuel Rangel DO Attending Provider: Manuel Rangel DO Exam Type: CA stress test treadmill Study Info A treadmill exercise stress test was performed. History/Risk Factors Hypertension: Yes Summary 1. 1. Negative Uriel exercise stress test for ischemic ST changes by ECG criteria. 2. 2. Reduced functional capacity, achieving 9 METs of workload. 3. 3. Appropriate HR response to exercise. 4. 4. Appropriate HR recovery at 1 minute post exercise. 5. 5. No imaging with stress testing. Protocol: Manual Mode Stress ECG Details Stage: REST Duration (min): 1 min : 27 sec Miramontes: --- Speed (mph): 0.0 Grade (%): 0 HR (bpm): 102 SBP (mmHg): 155 DBP (mmHg): 93 METS: --- Stage: REST Duration (min): 18 min : 27 sec Miramontes: --- Speed (mph): 0.0 Grade (%): 0 HR (bpm): 95 SBP (mmHg): 155 DBP (mmHg): 93 METS: --- Stage: STAGE 1 Duration (min): 1 min : 0 sec Miramontes: --- Speed (mph): 1.7 Grade (%): 10 HR (bpm): 105 SBP (mmHg): 155 DBP (mmHg): 93 METS: --- Stage: STAGE 1 Duration (min): 2 min : 0 sec Miramontes: --- Speed (mph): 1.7 Grade (%): 10 HR (bpm): 106 SBP (mmHg): 155 DBP (mmHg): 93 METS: --- Stage: STAGE 1 Duration (min): 3 min : 0 sec Miramontes: --- Speed (mph): 1.7 Grade (%): 10 HR (bpm): 112 SBP (mmHg): 133 DBP (mmHg): 81 METS: --- Stage: STAGE 2 Duration (min): 1 min : 0 sec Miramontes: --- Speed (mph): 2.5 Grade (%): 12 HR (bpm): 115 SBP (mmHg): 133 DBP (mmHg): 81 METS: --- Stage: STAGE 2 Duration (min): 2 min : 0 sec Miramontes: --- Speed (mph): 2.5 Grade (%): 12 HR (bpm): 122 SBP (mmHg): 133 DBP (mmHg): 81 METS: --- Stage: STAGE 2 Duration (min): 3 min : 0 sec Miramontes: --- Speed (mph): 2.5 Grade (%): 12 HR (bpm): 123 SBP (mmHg): 133 DBP (mmHg): 81 METS: --- Stage: STAGE 3 Duration (min): 1 min : 0 sec Miramontes: --- Speed (mph): 3.2 Grade (%): 14 HR (bpm): 135 SBP (mmHg): 133 DBP (mmHg): 81 METS: --- Stage: STAGE 3 Duration (min): 2 min : 0 sec Miramontes: --- Speed (mph): 3.2 Grade (%): 14 HR (bpm): 143 SBP (mmHg): 133 DBP (mmHg): 81 METS: --- Stage: STAGE 3 Duration (min): 2 min : 0 sec Miramontes: --- Speed (mph): 3.2 Grade (%): 14 HR (bpm): 143 SBP (mmHg): 133 DBP (mmHg): 81 METS: --- Stage: RECOVERY Duration (min): 0 min : 59 sec Miramontes: --- Speed (mph): 0.0 Grade (%): 0 HR (bpm): 130 SBP (mmHg): 133 DBP (mmHg): 81 METS: --- Stage: RECOVERY Duration (min):
== END 2023-04-01 08:22 | disposition home or self-care (01) ==
LOC: CHSCARD 08:23
PROVIDERS: PCP Family Medicine; Visit Provider Family Medicine
DX: R07.9 Chest pain, unspecified (principal)
CPT/HCPCS: 93017

== ENCOUNTER 2023-05-12 09:12 | Emergency (ER) | payer MEDICARE, MEDICAID, SELFPAY ==
--- NOTE | ~2023-05-12 | CT_ITS ---
EXAMINATION: CT abdomen pelvis wo con DATE: 05/12/2023 09:49 INDICATION: Lower abdominal pain, cramping, constipation. History of testicular cancer. TECHNIQUE: Computed tomography (CT) of the abdomen and pelvis was performed without intravenous contr ast. Automated exposure control and iterative reconstruction technique were employed. Exam dose: 150 1.12 mGy-cm total exam DLP. COMPARISON: 08/24/2014 CT abdomen pelvis FINDINGS: The lung bases are clear. Coronary artery calcifications. Normal heart size. No pericardial or pleural effusion. There is cholelithiasis. No gallbladder wall thickening or pericholecystic fluid or fat stranding is noted. The liver, spleen, pancreas are unremarkable. No bile duct or pancreatic duct dilatation. There is minimal residual soft tissue thickening in the left periaortic area with some surgical clips and calcification, compared to dramatic mass lesion and/or lymphadenopathy noted in this region on . There is a history of testicular cancer in this may have been metastatic lymphadenopathy on 08/24/2014. With the exception of this minimal residual soft tissue thickening with partial calcifica tion, no periaortic or aortocaval, mesenteric or pelvic lymphadenopathy or mass lesion is noted. The prostate gland and seminal vesicles are unremarkable. There is atherosclerotic calcification but normal caliber of the abdominal aorta. There is a prominent amount of fecal material in the colon consistent with clinical complaint of cons tipation. No bowel obstruction or intraperitoneal free air. Included skeletal structures are unremarkable. IMPRESSION: Cholelithiasis Prominent amount fecal material in the colon consistent with clinical complaint of constipation Reviewed, dictated and finalized at [facility]. Reviewed, dictated and finalized at location [facility].
[2023-05-12 09:12] VITALS: BP 151/97; PULSE 84; RESP 18; TEMP 36.5; O2SAT 97
--- NOTE | 2023-05-12 09:21 | ECG_ITS ---
Measurements Intervals [place] Rate: 83 P: 49 [place]: 160 QRS: -34 QRSD: 89 T: 38 QT: 342 QTc: 402 Interpretive Statements SINUS RHYTHM LEFT AXIS DEVIATION [QRS AXIS < -30] PATTERN CONSISTENT WITH PULMONARY DISEASE ABNORMAL ECG COMPARED TO ECG 02/18/2023 09:00:16 LEFT-AXIS DEVIATION NOW PRESENT Electronically Signed On 05-13-2023 9:30:57 CDT by Lalo Lugo M.D.
--- NOTE | 2023-05-12 09:35 | ED.ABDPAIN ---
HPI - Abdominal Pain General Chief Complaint: Abdominal Pain Stated Complaint: abdominal pain Time Seen by Provider: 05/12/23 09:18 Source: patient Mode of arrival: ambulatory Limitations: no limitations History of Present Illness HPI narrative: patient is a 57-year-old male with abdominal pain since he woke this morning. MD elicited complaint: abdominal pain Pertinent past history: none Onset (ago): hour(s) (3) Pain Consistency: intermittent Location: RLQ, LLQ and suprapubic Severity: mild Pain scale (0-10): 4 Quality: cramping and aching Radiation: none Migration to: no migration Exacerbating factors: nothing Relieving factors: nothing Associated symptoms: denies other symptoms Related Data Home Medications Medication Instructions Recorded Confirmed levetiracetam 500 mg tablet 1,500 mg PO BID 02/03/20 05/08/23 multivitamin with minerals (Daily 1 tablet PO DAILY 02/03/20 05/08/23 Multivitamin-Minerals tablet) lisinopril 10 mg tablet 10 mg PO DAILY 02/18/23 05/08/23 Allergies Allergy/AdvReac Type Severity Reaction Status Date / Time Iodinated Contrast Media Allergy Unknown Unknown Verified 05/08/23 15:15 Contrast allergy Allergy Intermediate Unknown Uncoded 05/08/23 15:15 Review of Systems Review of Systems: All systems reviewed & are unremarkable except as noted in HPI and below Constitutional: Constitutional: Reports no additional constitutional complaints Eyes: Eyes: Reports no additional eye complaints ENT: Reports system reviewed and no additional complaints, except as documented Cardiovascular: Cardiovascular: Reports no additional cardiovascular complaints Respiratory: Respiratory: Reports no additional respiratory complaints Gastrointestinal: Gastrointestinal: Reports no additional gastrointestinal complaints Genitourinary: Genitourinary: Reports no additional male genitourinary complaints Musculoskeletal: Musculoskeletal: Reports no additional musculoskeletal complaints Integumentary/Breasts: Skin/Breast: Reports system reviewed and no additional complaints, except as docu Neurologic: Reports system reviewed and no additional complaints, except as documented Psychiatric: Psychiatric: Reports no additional psychiatric complaints Endocrine: Endocrine: Reports no additional endocrine complaints Hematologic/Lymphatic: Hematologic/Lymphatic: Reports no additional hematologic/lymphatic complaints Allergic/Immunologic: Allergic/Immunologic: Reports no additional allergic/immunologic complaints PMFSH Past Medical History Medical History Benign essential HTN Obesity (BMI 30-39.9) Seizure disorder Testicle cancer Surgical History Surgical History H/O brain surgery Family History Family History Father History of sinus cancer Sibling Ovarian cancer Social History Social History Smoking status: Never smoker Second hand tobacco smoke exposure: No Alcohol intake: never Substance use: never Lack of Transportation: No Lack of Food: Never True Current Housing: I Have Housing Concerned About Future Housing: No Difficulty Paying Gas/Electric Bills: No Difficulty Paying for Meds: No Currently Unemployed: No Education: High School Diploma/GED Difficulty w/ Childcare or Family Care: No Living arrangements: alone Gender identity (if verbalized by the patient): Male Sexual Orientation (if Verbalized by the Patient): Straight or Heterosexual Exam Const: General: healthy appearing, no acute distress and alert HENMT: Head: normal to inspection Ears: external ears normal Face/Nose/Sinus: Normal external nose present Eyes: Conjunctivae: conjunctivae normal Pupils: Equal, round and reactive pupils present EOM: EOMs intact bilat
[2023-05-12 10:19] LABS: Basophils Absolute Auto 0.05 K/mm3 (0.00-0.10); Basophils Percent Auto 0.8 % (0.0-1.0); Eosinophils Absolute Auto 0.11 K/mm3 (0.02-0.50); Eosinophils Percent Auto 1.9 % (1.0-6.0); Hematocrit 47.2 % (40.0-54.0); Hemoglobin 16.2 g/dL (14.0-18.0); Immature Granulocyte Absolute 0.03 K/mm3 (0.00-0.00); Immature Granulocyte Percent A 0.5 % (0.0-0.0); Lymphocytes Absolute Auto 1.38 K/mm3 (1.10-4.50); Lymphocytes Percent Auto 23.4 % (18.0-42.0); Mean Corpuscular HGB Conc 34.3 g/dL (32.0-36.0); Mean Corpuscular Hemoglobin 31.9 pg (27.0-31.0); Mean Corpuscular Volume 92.9 fL (78.0-102.0); Monocytes Absolute Auto 0.81 K/mm3 (0.10-0.90); Monocytes Percent Auto 13.7 % (2.0-11.0); Neutrophils Absolute Auto 3.5 K/mm3 (1.7-7.2); Neutrophils Percent Auto 59.7 % (50.0-70.0); Platelet Count Result 240 K/mm3 (150-420); Red Blood Count 5.08 M/mm3 (4.70-6.10); Red Cell Distribution Width 11.7 % (11.6-14.4); White Blood Count 5.9 K/mm3 (4.8-10.8)
[2023-05-12 10:21] LABS: Appearance Urine Clear (Clear); Bilirubin Urine Negative (Negative); Blood Urine Negative (Negative); Color Urine Light Yellow (Yellow); Glucose Urine UA Negative (Negative); Ketones Urine Negative (Negative); Leukocyte Esterase Ur Negative LEU/UL (Negative); Nitrate Urine Negative (Negative); Protein Urine Negative (Negative); Specific Grav Ur 1.015 (1.010-1.020); Urobilinogen Urine 0.2 mg/dL (0.2-1.0); pH Urine 6.5 (5.0-8.0)
[2023-05-12 10:25] LABS: Add Urine Microscopic? NO
[2023-05-12 10:32] LABS: Partial Thromboplastin Time 30.4 SEC (23.90-30.70); Prothrombin Time 10.5 Seconds (9.50-12.10)
[2023-05-12 10:36] LABS: Alanine Aminotransferase 34 U/L (16-63); Albumin Level 3.8 g/dL (3.4-5.0); Alkaline Phosphatase 74 U/L (46-116); Anion Gap 11 mmol/L (8-16); Aspartate Amino Transferase 15 U/L (15-37); Bilirubin,Total 0.6 mg/dL (0.00-1.00); Blood Urea Nitrogen 18 mg/dL (7-18); Calcium 9.3 mg/dL (8.5-10.1); Carbon Dioxide 24 mmol/L (21-32); Chloride 102 mmol/L (98-108); Estimated Glomerular Filt Rate > 60; Glucose 101 mg/dL (70-99); Lipase 50 U/L (16-77); Osmolality Calculated 285 mOsm/kg (285-295); Potassium 4.3 mmol/L (3.5-5.1); Sodium 137 mmol/L (136-145); Total Protein 6.9 g/dL (6.4-8.2); Troponin I 4.1 ng/L (0.00-60.4)
== END 2023-05-12 10:43 | disposition home or self-care (01) ==
PROVIDERS: Emergency Provider Emergency Medicine; PCP Family Medicine
DX: K59.00 Constipation, unspecified (principal); G40.909 Epilepsy, unspecified, not intractable, without status epilepticus; I10 Essential (primary) hypertension
CPT/HCPCS: 36415; 74176; 80053; 81003; 83690; 84484; 85025; 85610; 85730; 93005; 99284

== ENCOUNTER 2023-06-16 17:35 | Emergency (ER) | payer MEDICARE, MEDICAID, SELFPAY ==
[2023-06-16 17:41] VITALS: BP 136/78; PULSE 83; RESP 18; TEMP 36.8; O2SAT 98
--- NOTE | 2023-06-16 18:21 | ED.EAR ---
HPI - Ear Problem General Chief complaint: Ear Stated complaint: ear ringing Time Seen by Provider: 06/16/23 17:37 Source: patient Mode of arrival: ambulatory Limitations: no limitations History of Present Illness HPI Narrative: Pt presents to ER with CC of left ear buzzing and ringing for several days. He has not seen a PCP. No pain, ear discharge or any other symptoms. Have some decreased in hearing. Related Data Home Medications Medication Instructions Recorded Confirmed levetiracetam 500 mg tablet 1,500 mg PO BID 02/03/20 06/16/23 multivitamin with minerals (Daily 1 tablet PO DAILY 02/03/20 06/16/23 Multivitamin-Minerals tablet) lisinopril 10 mg tablet 10 mg PO DAILY 02/18/23 06/16/23 Allergies Allergy/AdvReac Type Severity Reaction Status Date / Time Iodinated Contrast Media Allergy Unknown Unknown Verified 06/16/23 17:53 Contrast allergy Allergy Intermediate Unknown Uncoded 06/16/23 17:53 Review of Systems Constitutional: Constitutional: Reports as per HPI and Reports no additional constitutional complaints Eyes: Eyes: Reports as per HPI and Reports no additional eye complaints ENT: Reports system reviewed and no additional complaints, except as documented and Reports as per HPI Cardiovascular: Cardiovascular: Reports as per HPI and Reports no additional cardiovascular complaints Respiratory: Respiratory: Reports as per HPI and Reports no additional respiratory complaints Gastrointestinal: Gastrointestinal: Reports as per HPI and Reports no additional gastrointestinal complaints Genitourinary: Genitourinary: Reports as per HPI Musculoskeletal: Musculoskeletal: Reports no additional musculoskeletal complaints and Reports as per HPI Integumentary/Breasts: Skin/Breast: Reports system reviewed and no additional complaints, except as docu and Reports as per HPI Neurologic: Reports system reviewed and no additional complaints, except as documented and Reports as per HPI Psychiatric: Psychiatric: Reports no additional psychiatric complaints and Reports as per HPI Endocrine: Endocrine: Reports no additional endocrine complaints and Reports as per HPI Hematologic/Lymphatic: Hematologic/Lymphatic: Reports no additional hematologic/lymphatic complaints and Reports as per HPI Allergic/Immunologic: Allergic/Immunologic: Reports no additional allergic/immunologic complaints and Reports as per HPI PMFSH Past Medical History Medical History Benign essential HTN Obesity (BMI 30-39.9) Seizure disorder Testicle cancer Surgical History Surgical History H/O brain surgery Family History Family History Father History of sinus cancer Sibling Ovarian cancer Social History Social History Smoking status: Never smoker Second hand tobacco smoke exposure: No Alcohol intake: never Substance use: never Lack of Transportation: No Lack of Food: Never True Current Housing: I Have Housing Concerned About Future Housing: No Difficulty Paying Gas/Electric Bills: No Difficulty Paying for Meds: No Currently Unemployed: No Education: High School Diploma/GED Difficulty w/ Childcare or Family Care: No Living arrangements: alone Gender identity (if verbalized by the patient): Male Sexual Orientation (if Verbalized by the Patient): Straight or Heterosexual Exam Const: General: cooperative, healthy appearing, comfortable, no acute distress, well developed, alert, awake, average body habitus and well nourished Nutritional Appearance: average body habitus and well nourished Orientation/consciousness: oriented to person, oriented to place and oriented to time Limitations: no limitations HENMT: Head: normal to inspection Ears: hearing grossly normal bilaterally and e
--- NOTE | 2023-06-16 18:50 | PC.NURSE ---
Ear irrigated, large amount of ear wax removed. Patient states he can hear much better and buzzing noise is gone.
[2023-06-16 19:11] VITALS: BP 137/78; PULSE 83; RESP 18; TEMP 36.8; O2SAT 98
== END 2023-06-16 19:11 | disposition home or self-care (01) ==
PROVIDERS: Emergency Provider Emergency Medicine
DX: H61.22 Impacted cerumen, left ear (principal); H93.12 Tinnitus, left ear; I10 Essential (primary) hypertension; Z85.47 Personal history of malignant neoplasm of testis
CPT/HCPCS: 99282

== ENCOUNTER 2023-08-21 03:44 | Emergency (ER) | payer MEDICARE, MEDICAID, SELFPAY ==
[2023-08-21 03:45] VITALS: BP 147/95; PULSE 80; RESP 20; TEMP 36.5; O2SAT 98
--- NOTE | 2023-08-21 03:55 | ED.GENADULT ---
HPI - General Adult General Chief complaint: Unspecified Stated complaint: Sore Throat Time Seen by Provider: 08/21/23 03:54 History of Present Illness HPI narrative: Pt presents with a sore throat and mucous in throat for 3 days. Pt denies fever. Pt denies sick contacts. Related Data Home Medications Medication Instructions Recorded Confirmed levetiracetam 500 mg tablet 1,500 mg PO BID 02/03/20 08/21/23 multivitamin with minerals (Daily 1 tablet PO DAILY 02/03/20 08/21/23 Multivitamin-Minerals tablet) lisinopril 10 mg tablet 10 mg PO DAILY 02/18/23 08/21/23 Allergies Allergy/AdvReac Type Severity Reaction Status Date / Time Iodinated Contrast Media Allergy Unknown Unknown Verified 08/21/23 03:51 Contrast allergy Allergy Intermediate Unknown Uncoded 06/24/23 09:32 Review of Systems Review of Systems: All systems reviewed & are unremarkable except as noted in HPI and below PMFSH Past Medical History Medical History Benign essential HTN Obesity (BMI 30-39.9) Seizure disorder Testicle cancer Surgical History Surgical History H/O brain surgery Family History Family History Father History of sinus cancer Sibling Ovarian cancer Social History Social History Smoking status: Never smoker Second hand tobacco smoke exposure: No Alcohol intake: never Substance use: never Lack of Transportation: No Lack of Food: Never True Current Housing: I Have Housing Concerned About Future Housing: No Difficulty Paying Gas/Electric Bills: No Difficulty Paying for Meds: No Currently Unemployed: No Education: High School Diploma/GED Difficulty w/ Childcare or Family Care: No Living arrangements: alone Gender identity (if verbalized by the patient): Male Sexual Orientation (if Verbalized by the Patient): Straight or Heterosexual Exam Const: General: cooperative, healthy appearing, comfortable and no acute distress Orientation/consciousness: patient oriented x3 Limitations: no limitations HENMT: Head: normal to inspection Mouth: Yes Normal oral and palatal mucosa present Throat: posterior oropharynx normal, tonsils normal and uvula midline Neck: Neck: normal visual inspection, full ROM, no lymphadenopathy, no meningeal signs, trachea midline and supple Resp: Effort & Inspection: normal respiratory effort Auscultation: clear to auscultation bilaterally Cardio: Rate: regular rate Rhythm: regular rhythm Course Vital Signs Vital signs: Vital Signs Temperature 97.7 F 08/21/23 03:45 Pulse Rate 80 08/21/23 03:45 Respiratory Rate 20 08/21/23 03:45 Blood Pressure 147/95 H 08/21/23 03:45 Pulse Oximetry 98 08/21/23 03:45 Oxygen Delivery Room Air 08/21/23 03:45 Temperature 97.7 F 08/21/23 03:45 Pulse Rate 80 08/21/23 03:45 Respiratory Rate 20 08/21/23 03:45 Blood Pressure 147/95 H 08/21/23 03:45 Pulse Oximetry 98 08/21/23 03:45 Oxygen Delivery Room Air 08/21/23 03:45 Medical Decision Making MDM Narrative Medical decision making narrative: viral vs strep but morelikely viral. will screen for covid,flu, rsv and strep, all tests neg Vital Signs Vital Signs: Vital Signs Temperature 97.7 F 08/21/23 03:45 Pulse Rate 80 08/21/23 03:45 Respiratory Rate 20 08/21/23 03:45 Blood Pressure 147/95 H 08/21/23 03:45 Pulse Oximetry 98 08/21/23 03:45 Oxygen Delivery Room Air 08/21/23 03:45 Temperature 97.7 F 08/21/23 03:45 Pulse Rate 80 08/21/23 03:45 Respiratory Rate 20 08/21/23 03:45 Blood Pressure 147/95 H 08/21/23 03:45 Pulse Oximetry 98 08/21/23 03:45 Oxygen Delivery Room Air 08/21/23 03:45 Lab Data Labs: Lab Results 08/21/23 Range/Units 03
[2023-08-21 04:24] LABS: Strep Group A RT-PCR NOT DETECTED (Negative)
[2023-08-21 04:35] LABS: Influenza A QL RT-PCR Negative (Negative); Influenza B QL RT-PCR Negative (Negative); RSV RNA, RT-PCR Negative (Negative); SARS-CoV-2 RNA PCR Negative (Negative)
== END 2023-08-21 04:44 | disposition home or self-care (01) ==
PROVIDERS: Emergency Provider Emergency Medicine; PCP Nurse Practitioner Family
DX: J06.9 Acute upper respiratory infection, unspecified (principal); I10 Essential (primary) hypertension; Z85.47 Personal history of malignant neoplasm of testis; Z79.899 Other long term (current) drug therapy; Z20.822 Contact with and (suspected) exposure to COVID-19
CPT/HCPCS: 87637; 87651; 99283

== ENCOUNTER 2023-08-22 13:50 | Emergency (ER) | payer MEDICARE, MEDICAID, SELFPAY ==
--- NOTE | ~2023-08-22 | XR_ITS ---
EXAMINATION: XR chest 2V DATE: 08/22/2023 14:08 INDICATION: Mid chest pain with cough TECHNIQUE: PA and lateral views of the chest were obtained. COMPARISON: Chest radiograph dated 02/01/2023 FINDINGS: The lungs remain clear with no focal airspace opacities, pulmonary edema, pleural effusion or pneumot horax. The cardiomediastinal silhouette is normal. A few old healed anterior inferior right rib fract ures. IMPRESSION: 1. No acute cardiopulmonary disease. Reviewed, dictated and finalized at location [facility]. [facility]
[2023-08-22 13:57] VITALS: BP 148/95; PULSE 106; RESP 16; TEMP 36.4; O2SAT 97
[2023-08-22 14:06] VITALS: BP 148/95; PULSE 106; RESP 16; TEMP 36.4; O2SAT 97
[2023-08-22 14:19] VITALS: O2SAT 98
--- NOTE | 2023-08-22 14:21 | ED.URI ---
HPI - URI/Sore Throat General Chief Complaint: Upper Respiratory Infection Stated Complaint: pain in chest when coughing Time Seen by Provider: 08/22/23 13:58 Source: patient Mode of arrival: ambulatory Limitations: no limitations History of Present Illness HPI Narrative: patient presents with last 3 to 4 days was seen yesterday in the emergency department and COVID RSV influenza and strep that was performed was all negative, patient is concerned that has a productive cough yellow sputum denies any shortness of breath no nausea or vomiting no chest pain no abdominal no fever chills MD elicited complaint: cough Onset (ago): day(s) Consistency: constant Severity: moderate Description of mucous: yellow Related Data Home Medications Medication Instructions Recorded Confirmed levetiracetam 500 mg tablet 1,500 mg PO BID 02/03/20 08/22/23 multivitamin with minerals (Daily 1 tablet PO DAILY 02/03/20 08/22/23 Multivitamin-Minerals tablet) lisinopril 10 mg tablet 10 mg PO DAILY 02/18/23 08/22/23 Allergies Allergy/AdvReac Type Severity Reaction Status Date / Time Iodinated Contrast Media Allergy Unknown Unknown Verified 08/22/23 13:58 Contrast allergy Allergy Intermediate Unknown Uncoded 06/24/23 09:32 Review of Systems Review of Systems: All systems reviewed & are unremarkable except as noted in HPI and below PMFSH Past Medical History Medical History Benign essential HTN Obesity (BMI 30-39.9) Seizure disorder Testicle cancer Surgical History Surgical History H/O brain surgery Family History Family History Father History of sinus cancer Sibling Ovarian cancer Social History Social History Smoking status: Never smoker Second hand tobacco smoke exposure: No Alcohol intake: never Substance use: never Lack of Transportation: No Lack of Food: Never True Current Housing: I Have Housing Concerned About Future Housing: No Difficulty Paying Gas/Electric Bills: No Difficulty Paying for Meds: No Currently Unemployed: No Education: High School Diploma/GED Difficulty w/ Childcare or Family Care: No Living arrangements: alone Gender identity (if verbalized by the patient): Male Sexual Orientation (if Verbalized by the Patient): Straight or Heterosexual Exam Const: General: healthy appearing Nutritional Appearance: well nourished Orientation/consciousness: patient oriented x3 Limitations: no limitations HENMT: Head: normal to inspection Chest: Chest palpation & inspection: normal inspection of the chest Resp: Effort & Inspection: normal respiratory effort Auscultation: clear to auscultation bilaterally Cardio: Rate: regular rate Rhythm: regular rhythm GI: GI Palp: Yes Soft to palpation Skin: General skin exam: normal color Rashes: no rashes Course Course Emergency Course: patient seen yesterday in the emergency department and had a negative COVID negative RSV influenza and strep performed was negative as well. X-ray performed shows acute will send Karen Weeks to his local pharmacy advise Tylenol as needed for any chest discomfort Vital Signs Vital signs: Vital Signs Temperature 36.4 C 08/22/23 13:57 Pulse Rate 106 H 08/22/23 13:57 Respiratory Rate 16 08/22/23 13:57 Blood Pressure 148/95 H 08/22/23 13:57 Pulse Oximetry 97 08/22/23 13:57 Oxygen Delivery Room Air 08/22/23 13:57 Temperature 36.4 C 08/22/23 14:06 Pulse Rate 106 H 08/22/23 14:06 Respiratory Rate 16 08/22/23 14:06 Blood Pressure 148/95 H 08/22/23 14:06 Pulse Oximetry 98 08/22/23 14:19 Oxygen Delivery Room Air 08/22/23 14:19 Critical Care Time Critical Care Time Critical Care Time: No Discharge Plan Discharge
== END 2023-08-22 14:36 | disposition home or self-care (01) ==
LOC: CHSED 14:32
PROVIDERS: Emergency Provider Emergency Medicine; PCP Family Medicine
DX: J06.9 Acute upper respiratory infection, unspecified (principal); R05.9 Cough, unspecified; I10 Essential (primary) hypertension; Z85.47 Personal history of malignant neoplasm of testis; Z79.899 Other long term (current) drug therapy
CPT/HCPCS: 71046; 99283

== ENCOUNTER 2023-10-06 19:52 | Emergency (ER) | payer MEDICARE, MEDICAID, SELFPAY ==
[2023-10-06 19:56] VITALS: BP 120/85; PULSE 89; RESP 18; TEMP 36.7; O2SAT 96
--- NOTE | 2023-10-06 20:23 | ED.UPPEXIN ---
HPI - Extremity Injury (Upper) General Chief Complaint: Extremity Injury, Upper Stated Complaint: shoulder pain Source: patient Mode of arrival: ambulatory Limitations: no limitations History of Present Illness HPI narrative: Patient is a 57-year-old male with a lean right upper extremity in the arm pain since this morning. The pain is sharp and staying in that same spot. The pain is reproducible when he touches the area. It hurts when he moves the arm. No chest pain. There was no injury. Onset (ago): hour(s) (8) Other Extremity Injury: Right: arm Other injuries: RLE Place: home Severity: moderate Severity scale (1-10): 8 Relieving factors: none Exacerbating factors: movement of extremity and other ( Palpation of area) Context: other ( no injury) Associated symptoms: denies other symptoms Related Data Home Medications Medication Instructions Recorded Confirmed levetiracetam 500 mg tablet 1,500 mg PO BID 02/03/20 08/22/23 multivitamin with minerals (Daily 1 tablet PO DAILY 02/03/20 08/22/23 Multivitamin-Minerals tablet) Allergies Allergy/AdvReac Type Severity Reaction Status Date / Time Iodinated Contrast Media Allergy Unknown Unknown Verified 10/06/23 19:56 Contrast allergy Allergy Intermediate Unknown Uncoded 10/06/23 19:56 Review of Systems Review of Systems: All systems reviewed & are unremarkable except as noted in HPI and below Constitutional: Constitutional: Reports no additional constitutional complaints Eyes: Eyes: Reports no additional eye complaints ENT: Reports system reviewed and no additional complaints, except as documented Cardiovascular: Cardiovascular: Reports no additional cardiovascular complaints Respiratory: Respiratory: Reports no additional respiratory complaints Gastrointestinal: Gastrointestinal: Reports no additional gastrointestinal complaints Genitourinary: Genitourinary: Reports no additional male genitourinary complaints Musculoskeletal: Musculoskeletal: Reports no additional musculoskeletal complaints Integumentary/Breasts: Skin/Breast: Reports system reviewed and no additional complaints, except as docu Neurologic: Reports system reviewed and no additional complaints, except as documented Psychiatric: Psychiatric: Reports no additional psychiatric complaints Endocrine: Endocrine: Reports no additional endocrine complaints Hematologic/Lymphatic: Hematologic/Lymphatic: Reports no additional hematologic/lymphatic complaints Allergic/Immunologic: Allergic/Immunologic: Reports no additional allergic/immunologic complaints PMFSH Past Medical History Medical History Benign essential HTN Obesity (BMI 30-39.9) Seizure disorder Testicle cancer Surgical History Surgical History H/O brain surgery Family History Family History Father History of sinus cancer Sibling Ovarian cancer Social History Social History Smoking status: Never smoker Second hand tobacco smoke exposure: No Alcohol intake: never Substance use: never Lack of Transportation: No Lack of Food: Never True Current Housing: I Have Housing Concerned About Future Housing: No Difficulty Paying Gas/Electric Bills: No Difficulty Paying for Meds: No Currently Unemployed: No Education: High School Diploma/GED Difficulty w/ Childcare or Family Care: No Living arrangements: alone Gender identity (if verbalized by the patient): Male Sexual Orientation (if Verbalized by the Patient): Straight or Heterosexual Exam Const: General: healthy appearing Nutritional Appearance: well nourished Orientation/consciousness: patient oriented x3 HENMT: Head: normal to inspection Ears: external ears normal Face/Nose/Sinus: Normal external nose pre
--- NOTE | 2023-10-06 22:16 | ECG_ITS ---
Measurements Intervals [place] Rate: 93 P: 32 [place]: 136 QRS: -56 QRSD: 98 T: 11 QT: 342 QTc: 426 Interpretive Statements SINUS RHYTHM LEFT ANTERIOR FASCICULAR BLOCK BASELINE ARTIFACT- II, III, AVF, V1-V2 ABNORMAL ECG COMPARED TO ECG 05/12/2023 09:33:18 LEFT ANTERIOR FASCICULAR BLOCK NOW PRESENT Electronically Signed On 10-07-2023 6:50:51 [employer] by Adair Max D.O.
[2023-10-06] MEDS: KETOROLAC (*BKC) 60 MG/2 ML VIAL IM (22:38)
[2023-10-06 23:11] VITALS: BP 141/88; PULSE 89; RESP 14; O2SAT 96
== END 2023-10-06 23:13 | disposition home or self-care (01) ==
PROVIDERS: Emergency Provider Emergency Medicine; PCP Family Medicine
DX: M79.601 Pain in right arm (principal); I10 Essential (primary) hypertension; Z85.47 Personal history of malignant neoplasm of testis
CPT/HCPCS: 93005; 96372; 99283; J1885

== ENCOUNTER 2023-12-05 12:45 | Emergency (ER) | payer MEDICAID, SELFPAY ==
[2023-12-05 12:45] VITALS: BP 119/81; PULSE 93; RESP 17; TEMP 37.2; O2SAT 97
--- NOTE | 2023-12-05 12:52 | ED.BACK ---
HPI - Back Pain/Injury General Chief Complaint: Back Pain/Injury Stated Complaint: back pain Time Seen by Provider: 12/05/23 12:45 Source: patient Mode of arrival: ambulatory Limitations: no limitations History of Present Illness HPI Narrative: this is a 58-year-old male that presents after he stepped off a curb earlier this morning and twisting his left lower back causing spasm and pain with no radiation of his pain into his lower extremities no shortness of breath no abdominal pain no fever chills. MD elicited complaint: back pain and back injury Onset (ago): hour(s) Timing: constant Severity: moderate Pain scale (0-10): 6 Quality: spasming Related Data Home Medications Medication Instructions Recorded Confirmed levetiracetam 500 mg tablet 1,500 mg PO BID 02/03/20 12/05/23 multivitamin with minerals (Daily 1 tablet PO DAILY 02/03/20 12/05/23 Multivitamin-Minerals tablet) acetaminophen 325 mg capsule 325 mg PO Q6H PRN Pain 11/15/23 12/05/23 Allergies Allergy/AdvReac Type Severity Reaction Status Date / Time Iodinated Contrast Media Allergy Unknown Unknown Verified 12/05/23 12:53 Contrast allergy Allergy Intermediate Unknown Uncoded 12/05/23 12:53 Review of Systems Review of Systems: All systems reviewed & are unremarkable except as noted in HPI and below PMFSH Past Medical History Medical History Benign essential HTN Obesity (BMI 30-39.9) Seizure disorder Testicle cancer Surgical History Surgical History H/O brain surgery Family History Family History Father History of sinus cancer Sibling Ovarian cancer Social History Social History Smoking status: Never smoker Second hand tobacco smoke exposure: No Alcohol intake: never Substance use: never Lack of Transportation: No Lack of Food: Never True Current Housing: I Have Housing Concerned About Future Housing: No Difficulty Paying Gas/Electric Bills: No Difficulty Paying for Meds: No Currently Unemployed: No Education: High School Diploma/GED Difficulty w/ Childcare or Family Care: No Living arrangements: alone Gender identity (if verbalized by the patient): Male Sexual Orientation (if Verbalized by the Patient): Straight or Heterosexual Exam Const: General: healthy appearing and no acute distress Nutritional Appearance: well nourished Orientation/consciousness: patient oriented x3 Limitations: no limitations Chest: Chest palpation & inspection: normal inspection of the chest Resp: Effort & Inspection: normal respiratory effort Auscultation: clear to auscultation bilaterally Cardio: Rate: regular rate Rhythm: regular rhythm GI: GI Palp: Yes Soft to palpation Auscultation: normal bowel sounds Back/Spine/Pelvis: Other: Left lower back pain L4 left paravertebral tenderness with palpation Skin: General skin exam: normal color Rashes: no rashes Neuro: General: patient oriented x3 Cranial nerves: Yes Nystagmus not present Extrem: General: normal to inspection Psych: Mental Status: mental status grossly normal Course Course Emergency Course: patient with some left lower back pain spasm, administered 60mg IM Toradol after reassessment patient's pain level has improved. Vital Signs Vital signs: Vital Signs Temperature 37.2 C 12/05/23 12:45 Pulse Rate 93 12/05/23 12:45 Respiratory Rate 17 12/05/23 12:45 Blood Pressure 119/81 12/05/23 12:45 Pulse Oximetry 97 12/05/23 12:45 Oxygen Delivery Room Air 12/05/23 12:45 Temperature 37.2 C 12/05/23 12:45 Pulse Rate 93 12/05/23 12:45 Respiratory Rate 17 12/05/23 12:45 Blood Pressure 119/81 12/05/23 12:45 Pulse Oximetry 97 12/05/23 12:45 Oxygen Delivery Room Air
[2023-12-05] MEDS: KETOROLAC (*BKC) 60 MG/2 ML VIAL IM (13:04)
[2023-12-05 13:26] VITALS: BP 116/85; PULSE 85; RESP 16; TEMP 37.1; O2SAT 97
== END 2023-12-05 13:26 | disposition home or self-care (01) ==
PROVIDERS: Emergency Provider Emergency Medicine; PCP Family Medicine
DX: S39.012A Strain of muscle, fascia and tendon of lower back, initial encounter (principal); X50.0XXA Overexertion from strenuous movement or load, initial encounter; G40.909 Epilepsy, unspecified, not intractable, without status epilepticus; I10 Essential (primary) hypertension
CPT/HCPCS: 96372; 99283; J1885

== ENCOUNTER 2023-12-12 08:33 | Outpatient (CLI) | payer MEDICARE, MEDICAID, SELFPAY ==
[2023-12-23 13:56] VITALS: BMI 36.2
--- NOTE | 2023-12-23 13:56 | WPDHOMESLEEP ---
Sleep Study - Home Unattended Date of Study: 12/12/23 Ordering Provider: Manuel Rangel DO Interpreting Provider: Feli Herring DO Home Sleep Study Type: Watch PAT Height: 1.8 m Weight: 117.934 kg Body Mass Index: 36.2 Neck Circumference (inches): 17.5 Slater: 10 Reason for Sleep Study Difficulty sleeping Sleep History The patient is a 58-year-old male with hypertension, seizure disorder and history of testicular cancer that had a sleep study ordered by his primary care physician for evaluation of sleep apnea. The patient denies awakening from sleep short of breath. He denies awakening at night with heartburn, belching or cough. He denies snoring. He denies having trouble sleeping when he has a cold. He denies waking up gasping for air throughout the night. He denies having breathing problems at night observed by himself or others. He denies sweating excessively at night. He denies having heart palpitations or irregular heartbeats during the night. He rarely falls asleep during the day and rarely falls asleep while driving. He denies sleep paralysis and cataplexy. He rarely has trouble at school or work due to sleepiness. He rarely experiences vivid dreamlike scenes upon awakening or falling asleep. He denies feeling afraid of going to sleep. He denies having nightmares. He rarely remembers his dreams. He denies having thoughts racing through his mind. He denies feeling sad, depressed and anxious. He denies having muscular tension. He denies noticing parts of his body jerk. He occasionally kicks during the night. He denies having crawling and aching feelings in his legs and denies having leg pain during the night. He occasionally grinds his teeth during sleep but never awakens with morning jaw pain. He is frequently bothered by pain during the day and frequently awakened by pain during the night. He occasionally wakes up feeling stiff in the morning. He occasionally wakes up with sore or achy muscles. He frequently wakes up with pain in the neck, spine and other joints. He goes to bed at 10:30 p.m. on weekdays and at 11:00 p.m. on the weekends. It takes him 10 minutes to fall asleep. He wakes up 3 times throughout the night for unknown reasons. He will sit up for about an hour and then go back to bed. It usually takes him 2 hours to fall back asleep. He wakes up at 7:00 a.m. on both weekdays and weekends. He typically gets 7 hours of sleep per night. He will stay in bed for 5-10 minutes after waking up in the morning. He currently lives alone. He will consume caffeinated beverages within 2 hours of bedtime. He denies engaging in physical exercise before bedtime. He will read watch television before falling asleep. He will take naps in the afternoon or the evening and they are refreshing. He will consume caffeinated beverages throughout the day. He denies tobacco, alcohol and recreational drug use. [facility] Past Medical History Medical History Benign essential HTN Obesity (BMI 30-39.9) Seizure disorder Testicle cancer Surgical History Surgical History H/O brain surgery Family History Family History Father History of sinus cancer Sibling Ovarian cancer Social History Social History Smoking status: Never smoker Second hand tobacco smoke exposure: No Alcohol intake: never Substance use: never Lack of Transportation: No Lack of Food: Never True Current Housing: I Have Housing Concerned About Future Housing: No Difficulty Paying Gas/Electric Bills: No Difficulty Paying for Meds: No Currently Unemployed: No Education: High School Diploma/GED Difficulty w/ Childcare or Family Care: No Living arrangements: alone Gender identity (
== END 2023-12-16 15:08 | disposition home or self-care (01) ==
LOC: ANHCSM 08:36
PROVIDERS: PCP Family Medicine; Visit Provider Family Medicine
DX: G47.33 Obstructive sleep apnea (adult) (pediatric) (principal); R40.0 Somnolence
CPT/HCPCS: 95800

== ENCOUNTER 2024-02-10 01:20 | Emergency (ER) | payer MEDICARE, MEDICAID, SELFPAY ==
[2024-02-10 01:22] VITALS: BP 154/91; PULSE 82; RESP 18; TEMP 36.2; O2SAT 95
--- NOTE | 2024-02-10 01:27 | ED.GENADULT ---
HPI - General Adult General Chief complaint: Unspecified Stated complaint: hard time swallowing Time Seen by Provider: 02/10/24 01:27 Source: patient Mode of arrival: ambulatory Limitations: no limitations History of Present Illness HPI narrative: patient is a 58-year-old male with AA right foot numbness every few nights and a pain /difficulty swallowing this evening for a few minutes. Both problems have resolved at this time. He decided that he would come to the ER for an evaluation. Onset (ago): hour(s) (1) Location: mouth ( throat) and lower extremity ( Right foot) Radiation: non-radiation Severity: mild Severity scale (1-10): 1 Quality: burning Pain Consistency: intermittent and now resolved Relieving factors: none Exacerbating factors: none Associated symptoms: denies other symptoms Treatments prior to arrival: none Related Data Home Medications Medication Instructions Recorded Confirmed levetiracetam 500 mg tablet 1,500 mg PO BID 02/03/20 02/10/24 multivitamin with minerals (Daily 1 tablet PO DAILY 02/03/20 02/10/24 Multivitamin-Minerals tablet) acetaminophen 325 mg capsule 325 mg PO Q6H PRN Pain 11/15/23 02/10/24 Allergies Allergy/AdvReac Type Severity Reaction Status Date / Time Iodinated Contrast Media Allergy Unknown Unknown Verified 12/05/23 12:53 Contrast allergy Allergy Intermediate Unknown Uncoded 12/05/23 12:53 Review of Systems Review of Systems: All systems reviewed & are unremarkable except as noted in HPI and below Constitutional: Constitutional: Reports no additional constitutional complaints Eyes: Eyes: Reports no additional eye complaints ENT: Reports system reviewed and no additional complaints, except as documented Cardiovascular: Cardiovascular: Reports no additional cardiovascular complaints Respiratory: Respiratory: Reports no additional respiratory complaints Gastrointestinal: Gastrointestinal: Reports no additional gastrointestinal complaints Genitourinary: Genitourinary: Reports no additional male genitourinary complaints Musculoskeletal: Musculoskeletal: Reports no additional musculoskeletal complaints Integumentary/Breasts: Skin/Breast: Reports system reviewed and no additional complaints, except as docu Neurologic: Reports system reviewed and no additional complaints, except as documented Psychiatric: Psychiatric: Reports no additional psychiatric complaints Endocrine: Endocrine: Reports no additional endocrine complaints Hematologic/Lymphatic: Hematologic/Lymphatic: Reports no additional hematologic/lymphatic complaints Allergic/Immunologic: Allergic/Immunologic: Reports no additional allergic/immunologic complaints [facility] Past Medical History Medical History Benign essential HTN Obesity (BMI 30-39.9) Seizure disorder Testicle cancer Surgical History Surgical History H/O brain surgery Family History Family History Father History of sinus cancer Sibling Ovarian cancer Social History Social History Smoking status: Never smoker Second hand tobacco smoke exposure: No Alcohol intake: never Substance use: never Lack of Transportation: No Lack of Food: Never True Current Housing: I Have Housing Concerned About Future Housing: No Difficulty Paying Gas/Electric Bills: No Difficulty Paying for Meds: No Currently Unemployed: No Education: High School Diploma/GED Difficulty w/ Childcare or Family Care: No Living arrangements: alone Gender identity (if verbalized by the patient): Male Sexual Orientation (if Verbalized by the Patient): Straight or Heterosexual Exam Const: General: cooperative, healthy appearing and comfortable HENMT: Head: normal to inspection, No palpable skull fracture prese
[2024-02-10 01:53] VITALS: BP 126/86; PULSE 75; RESP 18; O2SAT 98
== END 2024-02-10 01:53 | disposition home or self-care (01) ==
PROVIDERS: Emergency Provider Emergency Medicine; PCP Family Medicine
DX: R13.10 Dysphagia, unspecified (principal); R20.0 Anesthesia of skin; I10 Essential (primary) hypertension
CPT/HCPCS: 99281

== ENCOUNTER 2024-02-14 11:31 | Outpatient (CLI) | payer MEDICARE, MEDICAID, SELFPAY ==
[2024-02-14 11:53] LABS: Basophils Absolute Auto 0.05 K/mm3 (0.00-0.10); Basophils Percent Auto 0.9 % (0.0-1.0); Eosinophils Absolute Auto 0.09 K/mm3 (0.02-0.50); Eosinophils Percent Auto 1.6 % (1.0-6.0); Hematocrit 47.1 % (40.0-54.0); Hemoglobin 16.6 g/dL (14.0-18.0); Immature Granulocyte Absolute 0.03 K/mm3 (0.00-0.00); Immature Granulocyte Percent A 0.5 % (0.0-0.0); Lymphocytes Absolute Auto 1.32 K/mm3 (1.10-4.50); Lymphocytes Percent Auto 22.9 % (18.0-42.0); Mean Corpuscular HGB Conc 35.2 g/dL (32-36); Mean Corpuscular Volume 90.8 fL (78.0-102.0); Mean Platelet Volume 9.9 fl (8.7-11.0); Monocytes Absolute Auto 0.81 K/mm3 (0.10-0.90); Monocytes Percent Auto 14.1 % (2.0-11.0); Neutrophils Absolute Auto 3.46 K/mm3 (1.70-7.20); Platelet Count Result 246 K/mm3 (150-420); Red Blood Count 5.19 M/mm3 (4.70-6.10); Red Cell Distribution Width 11.7 % (11.6-14.4); White Blood Count 5.8 K/mm3 (4.8-10.8)
[2024-02-14 12:34] LABS: Hemoglobin A1C 5.3 % (<5.7)
[2024-02-14 13:23] LABS: Alanine Aminotransferase 46 U/L (16-63); Albumin Level 4.2 g/dL (3.4-5.0); Alkaline Phosphatase 81 U/L (46-116); Anion Gap 13 mmol/L (4-12); Aspartate Amino Transferase 23 U/L (15-37); Bilirubin,Total 0.6 mg/dL (0.00-1.00); Blood Urea Nitrogen 14 mg/dL (7-18); Calcium 9.1 mg/dL (8.5-10.1); Carbon Dioxide 22 mmol/L (21-32); Chloride 101 mmol/L (98-108); Estimated Glomerular Filt Rate 50; Glucose 94 mg/dL (70-99); Osmolality Calculated 282 mOsm/kg (285-295); Potassium 4.4 mmol/L (3.5-5.1); Sodium 136 mmol/L (136-145); Total Protein 7.1 g/dL (6.4-8.2); Vitamin B12 459 pg/mL (193-986)
[2024-02-14 13:24] LABS: Folic Acid > 20.0 ng/mL (8.6->20); Thyroid Stimulating Hormone Reflex 1.67 u/IU/mL (0.36-3.74)
== END 2024-02-14 11:32 | disposition home or self-care (01) ==
LOC: CHSLAB 11:33
PROVIDERS: PCP Family Medicine; Visit Provider Family Medicine
DX: E53.8 Deficiency of other specified B group vitamins (principal); E03.9 Hypothyroidism, unspecified; E11.9 Type 2 diabetes mellitus without complications; G62.9 Polyneuropathy, unspecified
CPT/HCPCS: 36415; 80053; 82607; 82746; 83036; 84443; 85025

== ENCOUNTER 2024-02-15 11:18 | Emergency (ER) | payer MEDICARE, MEDICAID, SELFPAY ==
--- NOTE | ~2024-02-15 | CT_ITS ---
EXAMINATION: CT brain wo con DATE: 02/15/2024 13:14 INDICATION: Dizziness TECHNIQUE: Computed tomography (CT) of the head was performed without intravenous contrast. Sagittal and coronal reconstructions were performed. The mA was adjusted according to patient size. Iterative reconstruction technique was employed. The dose-length product was 681.00 mGy-cm. 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 No acute in tracranial hemorrhage, acute infarction or abnormal extra axial fluid collection. Ventricles are norm al and symmetric. No mass/mass effect. The orbits, paranasal sinuses and mastoid air cells are normal . IMPRESSION: 1. No acute intracranial process. 2. 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 Correlate w ith surgical history. Reviewed, dictated and finalized at location A. IMPRESSION: 1. No acute intracranial process. 2. 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 Correlate with surgical history.
[2024-02-15 11:23] VITALS: BP 78/58; PULSE 93; RESP 20; TEMP 36.6; O2SAT 96
[2024-02-15 12:00] VITALS: BP 94/62
--- NOTE | 2024-02-15 12:24 | ED.DIZZY ---
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 He had been standing since 03/03 and around 10:00 a.m. he developed lightheaded and dizzy. No nausea/vomiting. No chest pain or shortness of no focal neuro deficits. No ear complaints the patient called EMS and was brought to the hospital. He had the initial blood pressure 78/58. The patient received approximately 1 L of IV fluids following which his dizziness has improved. MD elicited complaint: dizziness and lightheadedness Onset (ago): hour(s) ( 3 hours) Timing: gradual onset Severity: mild Description: lightheadedness History of similar symptoms: No Exacerbating factors: nothing Relieving factors: nothing Associated symptoms: denies other symptoms Related Data Home Medications Medication Instructions Recorded Confirmed levetiracetam 500 mg tablet 1,500 mg PO BID 02/03/20 02/10/24 multivitamin with minerals (Daily 1 tablet PO DAILY 02/03/20 02/10/24 Multivitamin-Minerals tablet) acetaminophen 325 mg capsule 325 mg PO Q6H PRN Pain 11/15/23 02/10/24 Allergies Allergy/AdvReac Type Severity Reaction Status Date / Time Iodinated Contrast Media Allergy Unknown Unknown Verified 02/14/24 07:40 Contrast allergy Allergy Intermediate Unknown Uncoded 02/14/24 07:40 Review of Systems Review of Systems: All systems reviewed & are unremarkable except as noted in HPI and below Constitutional: Constitutional: Reports as per HPI and Reports no additional constitutional complaints Eyes: Eyes: Reports as per HPI and Reports no additional eye complaints ENT: Reports system reviewed and no additional complaints, except as documented and Reports as per HPI Cardiovascular: Cardiovascular: Reports as per HPI and Reports no additional cardiovascular complaints Respiratory: Respiratory: Reports as per HPI and Reports no additional respiratory complaints Gastrointestinal: Gastrointestinal: Reports as per HPI and Reports no additional gastrointestinal complaints Genitourinary: Genitourinary: Reports no additional male genitourinary complaints and Reports as per HPI Musculoskeletal: Musculoskeletal: Reports no additional musculoskeletal complaints and Reports as per HPI Integumentary/Breasts: Skin/Breast: Reports system reviewed and no additional complaints, except as docu and Reports as per HPI Neurologic: Reports system reviewed and no additional complaints, except as documented, Reports as per HPI and Reports dizziness Psychiatric: Psychiatric: Reports no additional psychiatric complaints and Reports as per HPI Endocrine: Endocrine: Reports no additional endocrine complaints and Reports as per HPI Hematologic/Lymphatic: Hematologic/Lymphatic: Reports no additional hematologic/lymphatic complaints and Reports as per HPI Allergic/Immunologic: Allergic/Immunologic: Reports no additional allergic/immunologic complaints and Reports as per HPI PMFSH Past Medical History Medical History Benign essential HTN Obesity (BMI 30-39.9) Seizure disorder Testicle cancer Surgical History Surgical History H/O brain surgery Family History Family History Father History of sinus cancer Sibling Ovarian cancer Social History Social History Smoking status: Never smoker Second hand tobacco smoke exposure: No Alcohol intake: never Substance use: never Lack of Transportation: No Lack of Food
--- NOTE | 2024-02-15 12:56 | ECG_ITS ---
Test Date: 2024-02-15 13:43:46 Measurements Intervals [place] Rate: 75 P: 35 NM: 167 QRS: -36 QRSD: 95 T: 36 QT: 370 QTc: 415 Interpretive Statements SINUS RHYTHM LEFT AXIS DEVIATION PATTERN CONSISTENT WITH PULMONARY DISEASE BORDERLINE ECG No previous ECG available for comparison Electronically Signed On 02-15-2024 20:59:22 CDT by Adair Max D.O.
[2024-02-15] MEDS: LACTATED RINGERS 1,000 ML 999 ML IV CONT (13:34)
[2024-02-15 13:47] LABS: Basophils Absolute Auto 0.04 K/mm3 (0.00-0.10); Basophils Percent Auto 0.5 % (0.0-1.0); Eosinophils Absolute Auto 0.09 K/mm3 (0.02-0.50); Eosinophils Percent Auto 1.2 % (1.0-6.0); Hematocrit 52.1 % (40.0-54.0); Hemoglobin 16.6 g/dL (14.0-18.0); Immature Granulocyte Absolute 0.04 K/mm3 (0.00-0.00); Immature Granulocyte Percent A 0.5 % (0.0-0.0); Lymphocytes Absolute Auto 1.27 K/mm3 (1.10-4.50); Lymphocytes Percent Auto 17.1 % (18.0-42.0); Mean Corpuscular HGB Conc 31.9 g/dL (32-36); Mean Corpuscular Hemoglobin 31.8 pg (27.0-31.0); Mean Corpuscular Volume 99.8 fL (78.0-102.0); Mean Platelet Volume 10.6 fl (8.7-11.0); Monocytes Absolute Auto 0.85 K/mm3 (0.10-0.90); Monocytes Percent Auto 11.5 % (2.0-11.0); Neutrophils Absolute Auto 5.12 K/mm3 (1.70-7.20); Neutrophils Percent Auto 69.2 % (50.0-70.0); Platelet Count Result 165 K/mm3 (150-420); Red Blood Count 5.22 M/mm3 (4.70-6.10); Red Cell Distribution Width 12.1 % (11.6-14.4); White Blood Count 7.4 K/mm3 (4.8-10.8)
[2024-02-15 13:58] LABS: Prothrombin Time 10.6 Seconds (9.50-12.1)
[2024-02-15 14:04] LABS: Alanine Aminotransferase 34 U/L (16-63); Albumin Level 3.9 g/dL (3.4-5.0); Alkaline Phosphatase 69 U/L (46-116); Anion Gap 10 mmol/L (4-12); Aspartate Amino Transferase 15 U/L (15-37); Bilirubin,Total 0.8 mg/dL (0.00-1.00); Blood Urea Nitrogen 17 mg/dL (7-18); Calcium 8.9 mg/dL (8.5-10.1); Carbon Dioxide 25 mmol/L (21-32); Chloride 104 mmol/L (98-108); Estimated CRCL calculation 58 ml/min; Estimated Glomerular Filt Rate 42; Glucose 96 mg/dL (70-99); Osmolality Calculated 289 mOsm/kg (285-295); Sodium 139 mmol/L (136-145); Total Protein 6.9 g/dL (6.4-8.2); Troponin I 4.6 ng/L (0.00-60.4)
[2024-02-15 14:06] LABS: Lactic Acid Reflex 0.9 mmol/L (0.4-2.0)
[2024-02-15 14:30] VITALS: BP 133/85; PULSE 75; RESP 20; TEMP 37.1; O2SAT 98
[2024-02-15 14:33] VITALS: BP 96/73
[2024-02-15 14:34] VITALS: BP 112/75
[2024-02-15 14:59] VITALS: BP 112/78; PULSE 84; RESP 20; O2SAT 97
== END 2024-02-15 14:59 | disposition home or self-care (01) ==
PROVIDERS: Emergency Provider Internal Medicine Critical Care Medicine; PCP Family Medicine
DX: I12.0 Hypertensive chronic kidney disease with stage 5 chronic kidney disease or end stage renal disease (principal); N18.5 Chronic kidney disease, stage 5; T67.5XXA Heat exhaustion, unspecified, initial encounter; R42 Dizziness and giddiness; Z79.899 Other long term (current) drug therapy; Z85.47 Personal history of malignant neoplasm of testis
CPT/HCPCS: 36415; 70450; 80053; 83605; 84484; 85025; 85610; 93005; 96360; 99284; J7120

== ENCOUNTER 2024-02-15 19:42 | Outpatient (CLI) | payer MEDICARE, MEDICAID, SELFPAY ==
[2024-02-17 11:37] VITALS: BMI 36.2
--- NOTE | 2024-02-17 11:37 | WPDSLEEPSTUD ---
Sleep Study Date of Study: 02/15/24 Ordering Provider: Manuel Rangel DO Interpreting Physician: Feli Herring DO Sleep Study Type: CPAP Titration Height: 1.8 m Weight: 117.934 kg Body Mass Index: 36.2 Neck Circumference (inches): 17.5 [place]: 10 Reason for Sleep Study The patient had a WatchPAT home sleep test on 12/12/2023 that showed an overall AHI of 32.4, desaturation down to 85% and a EVERARDO of 7.7. Sleep History The patient is a 58-year-old male with hypertension, seizure disorder and history of testicular cancer that had a sleep study ordered by his primary care physician for evaluation of sleep apnea. The patient denies awakening from sleep short of breath. He denies awakening at night with heartburn, belching or cough. He denies snoring. He denies having trouble sleeping when he has a cold. He denies waking up gasping for air throughout the night. He denies having breathing problems at night observed by himself or others. He denies sweating excessively at night. He denies having heart palpitations or irregular heartbeats during the night. He rarely falls asleep during the day and rarely falls asleep while driving. He denies sleep paralysis and cataplexy. He rarely has trouble at school or work due to sleepiness. He rarely experiences vivid dreamlike scenes upon awakening or falling asleep. He denies feeling afraid of going to sleep. He denies having nightmares. He rarely remembers his dreams. He denies having thoughts racing through his mind. He denies feeling sad, depressed and anxious. He denies having muscular tension. He denies noticing parts of his body jerk. He occasionally kicks during the night. He denies having crawling and aching feelings in his legs and denies having leg pain during the night. He occasionally grinds his teeth during sleep but never awakens with morning jaw pain. He is frequently bothered by pain during the day and frequently awakened by pain during the night. He occasionally wakes up feeling stiff in the morning. He occasionally wakes up with sore or achy muscles. He frequently wakes up with pain in the neck, spine and other joints. He goes to bed at 10:30 p.m. on weekdays and at 11:00 p.m. on the weekends. It takes him 10 minutes to fall asleep. He wakes up 3 times throughout the night for unknown reasons. He will sit up for about an hour and then go back to bed. It usually takes him 2 hours to fall back asleep. He wakes up at 7:00 a.m. on both weekdays and weekends. He typically gets 7 hours of sleep per night. He will stay in bed for 5-10 minutes after waking up in the morning. He currently lives alone. He will consume caffeinated beverages within 2 hours of bedtime. He denies engaging in physical exercise before bedtime. He will read watch television before falling asleep. He will take naps in the afternoon or the evening and they are refreshing. He will consume caffeinated beverages throughout the day. He denies tobacco, alcohol and recreational drug use. [facility] Past Medical History Medical History Benign essential HTN Obesity (BMI 30-39.9) Seizure disorder Testicle cancer Surgical History Surgical History H/O brain surgery Family History Family History Father History of sinus cancer Sibling Ovarian cancer Social History Social History Smoking status: Never smoker Second hand tobacco smoke exposure: No Alcohol intake: never Substance use: never Lack of Transportation: No Lack of Food: Never True Current Housing: I Have Housing Concerned About Future Housing: No Difficulty Paying Gas/Electric Bills: No Difficulty Paying for Meds: No Currently Unemployed: No Education: High School Diploma/G
== END 2024-02-16 06:50 | disposition home or self-care (01) ==
PROVIDERS: PCP Family Medicine; Visit Provider Family Medicine
DX: G47.33 Obstructive sleep apnea (adult) (pediatric) (principal); R40.0 Somnolence
CPT/HCPCS: 95811

== ENCOUNTER 2024-06-15 00:28 | Emergency (ER) | payer MEDICARE, MEDICAID, SELFPAY ==
[2024-06-15 00:30] VITALS: BP 151/91; PULSE 82; RESP 16; TEMP 35.9; O2SAT 96
--- NOTE | 2024-06-15 00:47 | PC.NURSE ---
COVID PCR obtained and taken to lab
[2024-06-15 01:52] LABS: Strep Group A RT-PCR NOT DETECTED (Negative)
[2024-06-15 02:03] LABS: Influenza A QL RT-PCR Negative (Negative); Influenza B QL RT-PCR Negative (Negative); RSV RNA, RT-PCR Negative (Negative); SARS-CoV-2 RNA PCR Negative (Negative)
--- NOTE | 2024-06-15 02:27 | ED_ITS ---
HPI - General Adult General Chief complaint: Unspecified Stated complaint: upper respiratory History of Present Illness HPI narrative: Tim is a 58M with a PMH of DONNIE, HTN and a seizure disorder that presented to the ED with a sore throat. He went to go to bed and found his throat was dry. He drank a glass of ice water 10 mintues ago and it was not improved so he came to the ED. There is no CP, dyspnea, dysphagia, fevers or headache reported. Related Data Home Medications Medication Instructions Recorded Confirmed levetiracetam 500 mg tablet 1,500 mg PO BID 02/03/20 06/15/24 multivitamin with minerals (Daily 1 tablet PO DAILY 02/03/20 06/15/24 Multivitamin-Minerals tablet) acetaminophen 325 mg capsule 325 mg PO Q6H PRN Pain 11/15/23 06/15/24 Allergies Allergy/AdvReac Type Severity Reaction Status Date / Time Iodinated Contrast Media Allergy Unknown Unknown Verified 06/15/24 00:57 Contrast allergy Allergy Intermediate Unknown Uncoded 06/15/24 00:57 Review of Systems Review of Systems: All systems reviewed & are unremarkable except as noted in HPI and below PMFSH Past Medical History Medical History Benign essential HTN Obesity (BMI 30-39.9) Seizure disorder Testicle cancer Surgical History Surgical History H/O brain surgery Family History Family History Father History of sinus cancer Sibling Ovarian cancer Social History Social History Smoking status: Never smoker Second hand tobacco smoke exposure: No Alcohol intake: never Substance use: never Lack of Transportation: No Lack of Food: Never True Current Housing: I Have Housing Concerned About Future Housing: No Difficulty Paying Gas/Electric Bills: No Difficulty Paying for Meds: No Currently Unemployed: No Education: High School Diploma/GED Difficulty w/ Childcare or Family Care: No Living arrangements: alone Gender identity (if verbalized by the patient): Male Sexual Orientation (if Verbalized by the Patient): Straight or Heterosexual Exam Const: General: cooperative, healthy appearing, comfortable, no acute distress, well developed, alert, awake and Physically active Orie ntation/consciousness: oriented to person, oriented to place and oriented to time HENMT: Head: normal to inspection, normocephalic and atraumatic Ears: hearing grossly normal bilaterally and external ears normal Face/Nose/Sinus: Normal external nose present Mouth: Yes Normal oral and palatal mucosa present Throat: posterior oropharynx normal Other: NO lymphadenopathy Eyes: General: appearance normal, both eyes and all related structures Periorbital: periorbital findings normal Sclera: sclerae normal Pupils: Equal, round and reactive pupils present Neck: Neck: normal visual inspection Chest: Chest palpation & inspection: normal inspection of the chest Resp: Effort & Inspection: normal respiratory effort, able to speak in complete sentences and no respiratory distress Auscultation: clear to auscultation bilaterally Cardio: Jugular venous distension: no JVD Rate: regular rate Rhythm: regular rhythm GI: Inspection: normal to inspection GI Palp: Yes Soft to palpation Auscultation: normal bowel sounds Skin: General skin exam: normal color and no rashes or lesions noted Neuro: General: oriented to person, oriented to place and oriented to time Cranial nerves: Yes Equal, round and reactive pupils present Extrem: General: normal to inspection Course Course Emergency Course: COVID/Flu and strep testing negative Vital Signs Vital signs: Vital Signs Temperature 96.7 F L 06/15/24 00:30 Pulse Rate 82 06/15/24 00:30 Respiratory Rate 16 06/15/24 00:30 Blood Pressure 151/91 H 06/15/24 00:30 Pulse Oximetry 96 06/15/24 00:30 Oxygen Delivery Room Air 06/15/24 00:30 Temperature 96.7 F L 06/15/24 00:30 Pulse Rate 82 06/15/24 00:30 Respiratory Rate 16 06/15/24 00:30 Blood Pressure 151/91 H 06/15/24 00:30 Pulse Oximetry 96 06/15/24 00:30 Oxygen Delivery Room Air 06/15/24 00:30 Medical Decision Making Vital Signs Vital Signs: Vital Signs Temperature 96.7 F L 06/15/24 00:30 Pulse Rate 82 06/15/24 00:30 Respiratory Rate 16 06/15/24 00:30 Blood Pressure 151/91 H 06/15/24 00:30 Pulse Oximetry 96 06/15/24 00:30 Oxygen Delivery Room Air 06/15/24 00:30 Temperature 96.7 F L 06/15/24 00:30 Pulse Rate 82 06/15/24 00:30 Respiratory Rate 16 06/15/24 00:30 Blood Pressure 151/91 H 06/15/24 00:30 Pulse Oximetry 96 06/15/24 00:30 Oxygen Delivery Room Air 06/15/24 00:30 Lab Data Labs: Lab Results 06/15/24 06/15/24 Range/Units 01:06 01:07 Influenza A (RT-PCR) Negative (Negative) Influenza B (RT-PCR) Negative (Negative) RSV (RT-PCR) Negative (Negative) SARS-CoV-2 RNA (RT-PCR) Negative (Negative) Group A Strep (PCR) Not detected (Negative) Discharge Plan Discharge Clinical Impression: Acute sore throat Patient Disposition: Home, Self-Care Condition: Stable Instructions: Benzocaine (By mouth) Prescriptions: No Action levetiracetam 500 mg Tablet 1,500 mg PO BID Daily Multivitamin-Minerals Tablet 1 tablet PO DAILY acetaminophen 325 mg capsule 325 mg PO Q6H PRN (Reason: Pain) lisinopril 10 mg tablet See Rx Instructions .ROUTE .COMPLEX Qty: 90 0RF Dose Instruction: TAKE ONE TABLET BY MOUTH DAILY Rx Instructions: TAKE ONE TABLET BY MOUTH DAILY Follow-up/Referrals: Manuel Rangel DO [Primary Care Provider] -
== END 2024-06-15 02:35 | disposition home or self-care (01) ==
PROVIDERS: Emergency Provider Family Medicine; PCP Family Medicine
DX: J02.9 Acute pharyngitis, unspecified (principal); I10 Essential (primary) hypertension; Z85.47 Personal history of malignant neoplasm of testis; Z20.822 Contact with and (suspected) exposure to COVID-19
CPT/HCPCS: 87637; 87651; 99283

== ENCOUNTER 2024-07-17 13:34 | Emergency (ER) | payer MEDICARE, MEDICAID, SELFPAY ==
--- NOTE | ~2024-07-17 | XR_ITS ---
Portable chest x-ray Comparison: 08/22/2023 Clinical History: Chest pain Findings: Lungs are clear, without focal consolidation or pleural effusion. Cardiomediastinal silho uette is stable. Bones and soft tissues are unremarkable. Impression: Normal chest. Reviewed, dictated and finalized at [facility]. [employer] Impression: Normal chest.
--- OUTSIDE RECORDS SUMMARY | 2024-07-17 13:37 | XMS_ITS | Patient Health Record ---
Author Organization [facility] Address [address] [place], [place] [id number] Care Team Providers Care Bit Welder Name Role Phone Manuel Rangel Primary Care Provider AKI Stevenson Unavailable [phone] RIC VIZCAINO Unavailable [phone] Allergies Allergen (clinical drug ingredient) Drug/Non Drug Allergy documented on EMR Reaction Allergy Type Onset Date Status Iodinated contrast media (substance) IVP Dye, Iodine Containing (uncoded) Unknown Allergy 03/14/2020 active Reason For Referral No Information Medications Medication SIG (Take, Route, Frequency, Duration) Notes Start Date End Date Status Ammonium Lactate 12 % 1 application Exte rnally Twice a day 09/05/2023 Active levETIRAcetam 500 MG Oral for 30 Days Active Lisinopril 10 MG Oral for 90 Days Active Fluticasone Propionate 50 MCG/ACT Nasal for 60 Days Active Amoxicillin-Pot Clavulanate 500-125 MG Oral for 7 Days Active HYDROcodone-Acetaminophen 5-325 MG Oral for 7 Days Active Methocarbamol 500 MG Oral for 10 Days Active Immunizations Vaccine Route Administration Date Status Comme nts Influenza, seasonal, injecta ble, preservative free, 3 yrs and above Unknown 05/08/2023 Administered Vital Signs Height-cm 185.42 cm 01/09/2024 Weight-kg 127.01 kg 01/09/2024 Height 73.00 in 01/09/2024 Weight 280 lbs 01/09/2024 BMI 36.94 kg/m2 01/09/2024 Encounters Encounter Location Date Provider Diagnosis [facility] [address] [place], [place] [id number] 09/05/2023 RIC DAVYDOV Tinea unguium B35.1 ; Xerosis cutis L85.3 ; Unspecified atherosclerosis of [place] arteries of extremities, bilateral legs I70.203 ; Other hammer toe(s) (acquired), right foot M20.41 ; Other hammer toe(s) (acquired), left foot M20.42 ; Pain in right toe(s) M79.674 and Pain in left toe(s) M79.[address] [id number] 11/07/2023 RIC DAVYDOV Tinea unguium B35.1 ; Xerosis cutis L85.3 ; Unspecified atherosclerosis of [place] arteries of extremities, bilateral legs I70.203 ; Other hammer toe(s) (acquired), right foot M20.41 ; Other hammer toe(s) (acquired), left foot M20.42 ; Pain in right toe(s) M79.674 and Pain in left toe(s) M79.675 [facility] [address] [place], [place] [id number] 01/09/2024 RIC DAVYDOV Tinea unguium B35.1 ; Xerosis cutis L85.3 ; Unspecified atherosclerosis of [place] arteries of extremities, bilateral legs I70.203 ; Other hammer toe(s) (acquired), right foot M20.41 ; Other hammer toe(s) (acquired), left foot M20.42 ; Pain in right toe(s) M79.674 and Pain in left toe(s) M79.[address] [id number] 03/12/2024 RIC DAVYDOV Tinea unguium B35.1 ; Xerosis cutis L85.3 ; Unspecified atherosclerosis of [place] arteries of extremities, bilateral legs I70.203 ; Other hammer toe(s) (acquired), right foot M20.41 ; Other hammer toe(s) (acquired), left foot M20.42 ; Pain in right toe(s) M79.674 and Pain in left toe(s) M79.[address] [id number] 06/04/2024 RIC VIZCAINO Tinea unguium B35.1 ; Xerosis cutis L85.3 ; Unspecified atherosclerosis of [place] arteries of extremities, bilateral legs I70.203 ; Other hammer toe(s) (acquired), right foot M20.41 ; Other hammer toe(s) (acquired), left foot M20.42 ; Pain in right toe(s) M79.674 and Pain in left toe(s) M79.675 Assessments Encounter Date Diagnosis (ICD Code) Assessment Notes Treatment Notes Treatment Clinical Notes Section Notes 09/05/2023 Tinea unguium (ICD-10 - B35.1) Aseptic debridement of elongated thickened nails x 10 using sterile nippers, nails were debrided in length and thickness by 30% utilizing a nail nipper without incident. The patient was educated regarding all treatment options that include topical and oral antifungal treatments. I discussed the options of taking a sample of the nail to confirm diagnosis. Nail clippings were not sent for pathology analysis. The patient was educated why and how the fungal infection evolved in their feet and the patient was given information regarding how to prevent further infection. The patient was told to keep feet dry and change socks. The patient was told to be careful with old shoes and excessive sweating. The patient was educated regarding both OTC and prescription treatments. 09/05/2023 Xerosis cutis (ICD-10 - L85.3) The patient was educated regarding proper hydration of their feet/ankles and the patient was given several recommendations for proper creams to protect/hydrate and keep the area healthy. Continue with use of lotion to be applied to feet daily. 11/07/2023 Xerosis cutis (ICD-10 - L85.3) The patient was educated regarding proper hydration of their feet/ankles and the patient was given several recommendations for proper creams to protect/hydrate and keep the area healthy. Continue with use of lotion to be applied to feet daily. 11/07/2023 Tinea unguium (ICD-10 - B35.1) Aseptic debridement of elongated thickened nails x 10 using sterile nippers, nails were debrided in length and thickness by 30% utilizing a nail nipper without incident. The patient was educated regarding all treatment options that include topical and oral antifungal treatments. I discussed the options of taking a sample of the nail to confirm diagnosis. Nail clippings were not sent for pathology analysis. The patient was educated why and how the fungal infection evolved in their feet and the patient was given information regarding how to prevent further infection. The patient was told to keep feet dry and change socks. The patient was told to be careful with old shoes and excessive sweating. The patient was educated regarding both OTC and prescription treatments. 01/09/2024 Tinea unguium (ICD-10 - B35.1) Aseptic debridement of elongated thickened nails x 10 using sterile nippers, nails were debrided in length and thickness by 30% utilizing a nail nipper without incident. The patient was educated regarding all treatment options that include topical and oral antifungal treatments. I discussed the options of taking a sample of the nail to confirm diagnosis. Nail clippings were not sent for pathology analysis. The patient was educated why and how the fungal infection evolved in their feet and the patient was given information regarding how to prevent further infection. The patient was told to keep feet dry and change socks. The patient was told to be careful with old shoes and excessive sweating. The patient was educated regarding both OTC and prescription treatments. 01/09/2024 Xerosis cutis (ICD-10 - L85.3) The patient was educated regarding proper hydration of their feet/ankles and the patient was given several recommendations for proper creams to protect/hydrate and keep the area healthy. Continue with use of lotion to be applied to feet daily. 03/12/2024 Xerosis cutis (ICD-10 - L85.3) The patient was educated regarding proper hydration of their feet/ankles and the patient was given several recommendations for proper creams to protect/hydrate and keep the area healthy. Continue with use of lotion to be applied to feet daily. 03/12/2024 Tinea unguium (ICD-10 - B35.1) Aseptic debridement of elongated thickened nails x 10 using sterile nippers, nails were debrided in length and thickness by 30% utilizing a nail nipper without incident. The patient was educated regarding all treatment options that include topical and oral antifungal treatments. I discussed the options of taking a sample of the nail to confirm diagnosis. Nail clippings were not sent for pathology analysis. The patient was educated why and how the fungal infection evolved in their feet and the patient was given information regarding how to prevent further infection. The patient was told to keep feet dry and change socks. The patient was told to be careful with old shoes and excessive sweating. The patient was educated regarding both OTC and prescription treatments. 06/04/2024 Tinea unguium (ICD-10 - B35.1) Aseptic debridement of elongated thickened nails x 10 using sterile nippers, nails were debrided in length and thickness by 30% utilizing a nail nipper without incident. The patient was educated regarding all treatment options that include topical and oral antifungal treatments. I discussed the options of taking a sample of the nail to confirm diagnosis. Nail clippings were not sent for pathology analysis. The patient was educated why and how the fungal infection evolved in their feet and the patient was given information regarding how to prevent further infection. The patient was told to keep feet dry and change socks. The patient was told to be careful with old shoes and excessive sweating. The patient was educated regarding both OTC and prescription treatments. 06/04/2024 Xerosis cutis (ICD-10 - L85.3) The patient was educated regarding proper hydration of their feet/ankles and the patient was given several recommendations for proper creams to protect/hydrate and keep the area healthy. Continue with use of lotion to be applied to feet daily. 06/04/2024 Unspecified atherosclerosis of [place] arteries of extremities, 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 - I70.203) Patient educated on risks and aggravating factors of PVD, including conservative treatment options such as a diet and exercise regimen to aid in slowing progression of vascular disease 03/12/2024 Unspecified atherosclerosis of [place] arteries of extremities, 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 - I70.203) Patient educated on risks and aggravating factors of PVD, including conservative treatment options such as a diet and exercise regimen to aid in slowing progression of vascular disease 01/09/2024 Unspecified atherosclerosis of [place] arteries of extremities, 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 - I70.203) Patient educated on risks and aggravating factors of PVD, including conservative treatment options such as a diet and exercise regimen to aid in slowing progression of vascular disease 11/07/2023 Unspecified atherosclerosis of [place] arteries of extremities, 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 - I70.203) Patient educated on risks and aggravating factors of PVD, including conservative treatment options such as a diet and exercise regimen to aid in slowing progression of vascular disease 09/05/2023 Unspecified atherosclerosis of [place] arteries of extremities, 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 - I70.203) Patient educated on risks and aggravating factors of PVD, including conservative treatment options such as a diet and exercise regimen to aid in slowing progression of vascular disease 09/05/2023 Other hammer toe(s) (acquired), right foot (ICD-10 - M20.41) The patient was educated regarding how to mechanically stabilize their deformity. The patient was given education about shoe recommendations specific for the condition. The patient was educated about custom orthotics and how appropriate shoes and orthotics can prevent further worsening of the deformity. The patient was educated about how bad shoe habits can worsen the condition. NSAIDS, P.T., injections and other conservative treatments were discussed. Both surgical and non surgical treatments were discussed, but conservative options were emphasized. 11/07/2023 Other hammer toe(s) (acquired), right foot (ICD-10 - M20.41) The patient was educated regarding how to mechanically stabilize their deformity. The patient was given education about shoe recommendations specific for the condition. The patient was educated about custom orthotics and how appropriate shoes and orthotics can prevent further worsening of the deformity. The patient was educated about how bad shoe habits can worsen the condition. NSAIDS, P.T., injections and other conservative treatments were discussed. Both surgical and non surgical treatments were discussed, but conservative options were emphasized. 03/12/2024 Other hammer toe(s) (acquired), right foot (ICD-10 - M20.41) The patient was educated regarding how to mechanically stabilize their deformity. The patient was given education about shoe recommendations specific for the condition. The patient was educated about custom orthotics and how appropriate shoes and orthotics can prevent further worsening of the deformity. The patient was educated about how bad shoe habits can worsen the condition. NSAIDS, P.T., injections and other conservative treatments were discussed. Both surgical and non surgical treatments were discussed, but conservative options were emphasized. 01/09/2024 Other hammer toe(s) (acquired), right foot (ICD-10 - M20.41) The patient was educated regarding how to mechanically stabilize their deformity. The patient was given education about shoe recommendations specific for the condition. The patient was educated about custom orthotics and how appropriate shoes and orthotics can prevent further worsening of the deformity. The patient was educated about how bad shoe habits can worsen the condition. NSAIDS, P.T., injections and other conservative treatments were discussed. Both surgical and non surgical treatments were discussed, but conservative options were emphasized. 06/04/2024 Other hammer toe(s) (acquired), right foot (ICD-10 - M20.41) The patient was educated regarding how to mechanically stabilize their deformity. The patient was given education about shoe recommendations specific for the condition. The patient was educated about custom orthotics and how appropriate shoes and orthotics can prevent further worsening of the deformity. The patient was educated about how bad shoe habits can worsen the condition. NSAIDS, P.T., injections and other conservative treatments were discussed. Both surgical and non surgical treatments were discussed, but conservative options were emphasized. 06/04/2024 Other hammer toe(s) (acquired), left foot (ICD-10 - M20.42) 01/09/2024 Other hammer toe(s) (acquired), left foot (ICD-10 - M20.42) 03/12/2024 Other hammer toe(s) (acquired), left foot (ICD-10 - M20.42) 11/07/2023 Other hammer toe(s) (acquired), left foot (ICD-10 - M20.42) 09/05/2023 Other hammer toe(s) (acquired), left foot (ICD-10 - M20.42) 09/05/2023 Pain in right toe(s) (ICD-10 - M79.674) 11/07/2023 Pain in right toe(s) (ICD-10 - M79.674) 03/12/2024 Pain in right toe(s) (ICD-10 - M79.674) 01/09/2024 Pain in right toe(s) (ICD-10 - M79.674) 06/04/2024 Pain in right toe(s) (ICD-10 - M79.674) 06/04/2024 Pain in left toe(s) (ICD-10 - M79.675) 01/09/2024 Pain in left toe(s) (ICD-10 - M79.675) 03/12/2024 Pain in left toe(s) (ICD-10 - M79.675) 11/07/2023 Pain in left toe(s) (ICD-10 - M79.675) 09/05/2023 Pain in left toe(s) (ICD-10 - M79.675) Plan Of Treatment No Information Insurance Providers Payer Name Payer Address Payer Phone Subscriber Number Group Number Insured Name Patient Relationship to Insured Coverage Start Date Coverage End Date [employer] [address] [place] [phone] [id number] MOHINDER BEAR Self - patient is the insured
--- OUTSIDE RECORDS SUMMARY | 2024-07-17 13:37 | XMS_ITS ---
Author Organization [facility] Address [address] [place], [place] [id number] Care Team Providers Care Dental Laboratory Technician Name Role Phone Manuel Rangel Primary Care Provider AKI Stevenson Unavailable [phone] RIC VIZCAINO Unavailable [phone] REASON FOR VISIT *General care Medications Medication SIG (Take, Route, Frequency, Duration) Notes Start Date End Date Status Fluticasone Propionate 50 MCG/ACT Nasal for 60 Days Active Methocarbamol 500 MG Oral for 10 Days Active Amoxicillin-Pot Clavulanate 500-125 MG Oral for 7 Days Active levETIRAcetam 500 MG Oral for 30 Days Active Lisinopril 10 MG Oral for 90 Days Active HYDROcodone-Acetaminophen 5-325 MG Oral for 7 Days Active Ammonium Lactate 12 % 1 application Exte rnally Twice a day 09/05/2023 Active Encounters Encounter Location Date Provider Diagnosis [address] [id number] 03/12/2024 RIC VIZCAINO Tinea unguium B35.1 ; Xerosis cutis L85.3 ; Unspecified atherosclerosis of [place] arteries of extremities, bilateral legs I70.203 ; Other hammer toe(s) (acquired), right foot M20.41 ; Other hammer toe(s) (acquired), left foot M20.42 ; Pain in right toe(s) M79.674 and Pain in left toe(s) M79.675 Assessments Encounter Date Diagnosis (ICD Code) Assessment Notes Treatment Notes Treatment Clinical Notes Section Notes 03/12/2024 Tinea unguium (ICD-10 - B35.1) Aseptic [...] educated regarding both OTC and prescription treatments. 03/12/2024 Xerosis cutis (ICD-10 - L85.3) The patient was educated regarding proper hydration of their feet/ankles and the patient was given several recommendations for proper creams to protect/hydrate and keep the area healthy. Continue with use of lotion to be applied to feet daily. 03/12/2024 Unspecified atherosclerosis of [place] arteries of extremities, 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 - I70.203) Patient educated on risks and aggravating factors of PVD, including conservative treatment options such as a diet and exercise regimen to aid in slowing progression of vascular disease 03/12/2024 Other hammer toe(s) (acquired), right foot [...] were emphasized. 03/12/2024 Other hammer toe(s) (acquired), left foot (ICD-10 - M20.42) 03/12/2024 Pain in right toe(s) (ICD-10 - M79.674) 03/12/2024 Pain in left toe(s) (ICD-10 - M79.675) Plan Of Treatment Treatment Notes Assessment Notes Tinea unguium Aseptic debridement of elongated thickened nails x [...] educated regarding both OTC and prescription treatments. Xerosis cutis The patient was educ ated regarding proper hydration of their feet/ankles and the patient was given several recommendations for proper creams to protect/hydrate and keep the area healthy. Continue with use of lotion to be applied to feet daily. Unspecified atherosclerosis of kar[place] arteries of extremities, bilateral legs Patient educated on risks and aggravating factors of PVD, including conservative treatment options such as a diet and exercise regimen to aid in slowing progression of vascular disease Other hammer toe(s) (acquired), right fo ot The patient was educated regarding how to [...] were discussed, but conservative options were emphasized. Next Appt Details Follow Up: 3 Months, Reason: Progress Notes * ANNIAL FDOB: [birth year] (58 yo M)Acc No.[id number]:03/12/2024 Patient:?ANNIA BEARL Abdon Provider:?RIC VIZCAINO :1965???Age:58 Y???Sex:Male Justice e:03/12/2024 Address:[facility] [address] [facility] Pcp:Manuel Rangel Subjective: * Chief Complaints: * ???1. *General care. * HPI: ???HPI:?General care?Patient presents to the office for at risk foot care. Patient states that their nails are thickened, elongated and painful. Patient states that it is aggravated by shoe gear. Onset is gradual. Patient denies being diabetic., Patient denies taking blood thinners., Date last seen by Dr. Rangel was 02/2024., Initials mca.? * ROS:?General / Constitutional:?Patient denies?weakness.?Respiratory:?Patient denies?chronic cough, shortness of breath, sputum production.?Cardiovascular:?Patient denies?chest pain, history of [place], irregular heartbeat.?Musculoskeletal:?Patient complains of?hammertoes.?Peripheral Vascular:?Patient denies?blanching of skin, cold extremities, decreased sensation in extremities.?Skin:?Patient complains of?fungal nails, nail changes.?Neurologic:?Patient denies?dizziness, gait abnormality, headache.? * Medical History:? * Family History:?Father: PRN - Father: :: Cancer,,known absent , :: Pneumonia,,known absent .?Mother: PRN - Mother: :: Diabetes,,known absent .?Sister: SIB - Sister: :: Cancer,,known absent .? * Social History:?Migrated Social History:?Migrated Social History: Smoking Status : Never used tobacco , History of tobacco use :. * Medications:?Taking levETIRA cetam 500 MG Tablet Oral , Taking Lisinopril 10 MG Tablet Oral , Taking Amoxicillin-Pot Clavulanate 500-125 MG Tablet Oral , Taking Fluticasone Propionate 50 MCG/ACT Suspension Nasal , Taking Methocarbamol 500 MG Tablet Oral , Taking HYDROcodone-Acetaminophen 5-325 MG Tablet Oral , Taking Ammonium Lactate 12 % Lotion 1 application Externally Twice a day Objective: * Examination: ???Physical Examination: ???Vascular: Dorsalis Pedis pulse noted at 1/4 right foot and 1/4 left foot and Posterior Tibial pulse noted at 1/4 right foot and 1/4 left foot, Capillary refill times noted to be less than three seconds x ten, Temperature gradient noted to be warm to cool to bilateral foot, pedal hair present to bilateral foot and no varicosities are noted ?Dermatologic: there are no open lesions, no signs of active clinical infection, no erythema noted, no ecchymoses, nails are elongated thickened and dystrophic with subungual debris x ten, diffuse plantar xerosis noted to bilateral foot with no signs of annular scaling noted ?Musculoskeletal: there is pain to palpation onto nail plate x ten, no calf pain noted bilaterally, arch height noted at 2/5 non-weight bearing bilaterally, first metatarsophalangeal joint range of motion 30 deg non-weight bearing bilaterally, flexible fifth digit hammer toe deformity noted to bilateral foot reducible with kelikian push up test ?Neurology: protective sensation intact to light touch bilateral digits one through five, vibratory sensation intact to first metatarsophalangeal joint bilaterally. Assessment: * Assessment: 1.?Tinea unguium - B35.1 (Pr imary)?2.?Xerosis cutis - L85.3?3.?Unspecified atherosclerosis of [place] arteries of extremities, bilateral legs - I70.203?4.?Other hammer toe(s) (acquired), right foot - M20.41?5.?Other hammer toe(s) (acquired), left foot - M20.42?6.?Pain in right toe(s) - M79.674?7.?Pain in left toe(s) - M79.675? Plan: * Treatment: 2.?Xerosis cutis? Notes: The patient was educated regarding proper hydration of their feet/ankles and the patient was given several recommendations for proper creams to protect/hydrate and keep the area healthy. Continue with use of lotion to be applied to feet daily. ?? 3.?Unspecified atheroscleros is of [place] arteries of extremities, bilateral legs? Notes: Patient educated on risks and aggravating factors of PVD, including conservative treatment options such as a diet and exercise regimen to aid in slowing progression of vascular disease ?? 4.?Other hammer toe(s) (acqu ired), right foot? Notes: The patient was educated regarding how to [...] were discussed, but conservative options were emphasized. ?? * Follow Up:?3 Months * Billing Information: * Visit Code:? 39316 Office Visit, Est Pt., Level 3. * Procedure Codes:? 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 Patient states that their nails are thickened, elongated and painful. Patient states that it is aggravated by shoe gear. Onset is gradual. Patient denies being diabetic., Patient denies taking blood thinners., Date last seen by Dr. Rangel was 02/2024., Initials mca Examination Category Sub-Category Detail Notes Category Not es Physical Examination Vascular: Dorsalis Pedis pulse noted at 1/4 right foot and 1/4 left foot and Posterior Tibial pulse noted at 1/4 right foot and 1/4 left foot, Capillary refill times noted to be less than three seconds x ten, Temperature gradient noted to be warm to cool to bilateral foot, pedal hair present to bilateral foot and no varicosities are noted Dermatologic: there are no open lesions, no signs of active clinical infection, no erythema noted, no ecchymoses, nails are elongated thickened and dystrophic with subungual debris x ten, diffuse plantar xerosis noted to bilateral foot with no signs of annular scaling noted Musculoskeletal: there is pain to palpation onto nail plate x ten, no calf pain noted bilaterally, arch height noted at 2/5 non-weight bearing bilaterally, first metatarsophalangeal joint range of motion 30 deg non-weight bearing bilaterally, flexible fifth digit hammer toe deformity noted to bilateral foot reducible with kelikian push up test Neurology: protective sensation intact to light touch bilateral digits one through five, vibratory sensation intact to first metatarsophalangeal joint bilaterally
--- OUTSIDE RECORDS SUMMARY | 2024-07-17 13:37 | XMS_ITS ---
Author Organization [facility] Address [address] [place], [place] [phone] Care Team Providers Care Dictaphone Typist Name Role Phone Manuel Rangel Primary Care Provider AKI Stevenson Unavailable [phone] RIC VIZCAINO Unavailable [phone] REASON FOR VISIT *General care Encounters Encounter Location Date Provider Diagnosis [address] [id number] 05/14/2024 RIC VIZCAINO Plan Of Treatment No Information Progress Notes * MOHINDER BEAR FDOB: 6 (58 yo M)Acc No.[id number]:05/14/2024 Patient:MOHINDER TRAN Provider:NII VIZCAINO :1965???Age:58 Y???Sex:Male Justice e:05/14/2024 [facility] Pcp:Manuel Rangel Subjective: * Chief Complaints: * ???1. *General care. * Medical History:? Objective: * Vitals:? Assessment: Plan: * Treatment: * Billing Information: * Visit Code:? * Procedure Codes:? * Electronic signature of JOSEFINA VIZCAINO DPM on 07/17/2024 at 01:36 PM CERTIFIED NUTRITIONIST Sign off status: Pending * Provider:NII VIZCAINO Date:?05/14/2024 Generated for Curtis mejia/Lani/eTedwinsmitting on:?07/17/2024 01:36 PM CERTIFIED NUTRITIONIST
--- OUTSIDE RECORDS SUMMARY | 2024-07-17 13:37 | XMS_ITS ---
Author Organization [facility] Address [address] [place], [place] [address] Care Team Providers Care Truer Pinion And Wheel Name Role Phone Manuel Rangel Primary Care Provider AKI Stevenson Unavailable [phone] RIC VIZCAINO Unavailable [phone] Allergies Allergen (clinical drug ingredient) Drug/Non Drug Allergy documented on EMR Reaction Allergy Type Onset Date Status Iodinated contrast media (substance) IVP Dye, Iodine Containing (uncoded) Unknown Allergy 03/14/2020 active REASON FOR VISIT *General care Medications Medication SIG (Take, Route, Frequency, Duration) Notes Start Date End Date Status Ammonium Lactate 12 % 1 application Exte rnally Twice a day 09/05/2023 Active Fluticasone Propionate 50 MCG/ACT Nasal for 60 Days Active Amoxicillin-Pot Clavulanate 500-125 MG Oral for 7 Days Active HYDROcodone-Acetaminophen 5-325 MG Oral for 7 Days Active Methocarbamol 500 MG Oral for 10 Days Active levETIRAcetam 500 MG Oral for 30 Days Active Lisinopril 10 MG Oral for 90 Days Active Encounters Encounter Location Date Provider Diagnosis [facility] [address] [place], [place] [id number] 06/04/2024 RIC VIZCAINO Tinea unguium B35.1 ; Xerosis cutis L85.3 ; Unspecified atherosclerosis of [place] arteries of extremities, bilateral legs I70.203 ; Other hammer toe(s) (acquired), right foot M20.41 ; Other hammer toe(s) (acquired), left foot M20.42 ; Pain in right toe(s) M79.674 and Pain in left toe(s) M79.675 Assessments Encounter Date Diagnosis (ICD Code) Assessment Notes Treatment Notes Treatment Clinical Notes Section Notes 06/04/2024 Tinea unguium (ICD-10 - B35.1) Aseptic [...] to feet daily. 06/04/2024 Unspecified atherosclerosis of [place] arteries of extremities, 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 - I70.203) Patient educated on risks and aggravating factors of PVD, including conservative treatment options such as a diet and exercise regimen to aid in slowing progression of vascular disease 06/04/2024 Other hammer toe(s) (acquired), right foot [...] toe(s) (acquired), left foot (ICD-10 - M20.42) 06/04/2024 Pain in right toe(s) (ICD-10 - [...] applied to feet daily. Unspecified atherosclerosis of [place] arteries of extremities, bilateral legs Patient educated [...] Up: 3 Months, Reason: Progress Notes * MOHINDER BEAR FDOB: [birth year] (58 yo M)Acc No.[id number]:06/04/2024 Patient:?ANNIA BEARL Abdon Provider:NII VIZCAINO :1965???Age:58 Y???Sex:Male Justice e:06/04/2024 Address:[address] [place] [id number] Pcp:Manuel Rangel Subjective: * Chief Complaints: * ???1. *General care. * HPI: ???HPI:?General care?Patient presents to the office for at risk foot care. Patient states that their nails are thickened, elongated and painful. Patient states that it is aggravated by shoe gear. Onset is gradual. Patient denies being diabetic., Patient denies taking blood thinners., Date last seen by ?was unknown., Initials mca.? * ROS:?General / Constitutional:?Patient denies?weakness.?Respiratory:?Patient denies?chronic cough, shortness of breath, sputum production.?Cardiovascular:?Patient denies?chest pain, history of [place], irregular heartbeat.?Musculoskeletal:?Patient complains of?hammertoes.?Peripheral Vascular:?Patient denies?blanching of skin, cold extremities, decreased sensation in extremities.?Skin:?Patient complains of?fungal nails, nail changes.?Neurologic:?Patient denies?dizziness, gait abnormality, headache.? * Medical History:? * Medications:?Taking levETIRA cetam 500 MG Tablet Oral , Taking Lisinopril 10 MG Tablet Oral , Taking Amoxicillin-Pot Clavulanate 500-125 MG Tablet Oral , Taking Fluticasone Propionate 50 MCG/ACT Suspension Nasal , Taking Methocarbamol 500 MG Tablet Oral , Taking HYDROcodone-Acetaminophen 5-325 MG Tablet Oral , Taking Ammonium Lactate 12 % Lotion 1 application Externally Twice a day * Allergies:?IVP Dye, Iodine C ontaining: Allergy - Onset Date 03/14/2020. Objective: * Vitals:? * Examination: ???Physical Examination: ???Vascular: Dorsalis Pedis [...] * Assessment: 1.?Tinea unguium - B35.1 (Pr imary)???2.?Xerosis cutis - L85.3???3.?Unspecified atherosclerosis of [place] arteries of extremities, bilateral legs - I70.203???4.?Other hammer toe(s) (acquired), right foot - M20.41???5. Other hammer toe(s) (acquired), left foot - M20.42???6.?Pain in right toe(s) - M79.674???7.?Pain in left toe(s) - M79.675??? Plan: * Treatment: 2.?Xerosis cutis? Notes: The patient was educated regarding proper hydration of their feet/ankles and the patient was given several recommendations for proper creams to protect/hydrate and keep the area healthy. Continue with use of lotion to be applied to feet daily. ?? 3.?Unspecified atheroscleros is of [place] arteries of extremities, bilateral legs? Notes: Patient [...] Months * Billing Information: * Visit Code:? 67403 Office Visit, Est Pt., Level 3. * Procedure Codes:? * CENTER SOLUTIONS ARCHITECT Sign off status: Completed true * Provider:?RIC VIZCAINO Date:?06/04/2024 Generated for Curtis mejia/Lani/Romeo on:?07/17/2024 01:36 PM DATA CENTER SOLUTIONS ARCHITECT History and Physical Notes * HPI (History [...] Date last seen by Dr. Rangel was unknown., Initials mca Examination Category Sub-Category Detail Notes [...]
--- NOTE | 2024-07-17 14:15 | PC.NURSE ---
pt watching tv. denies chest pain or discomfort. pt states i feel fine . no coughing episodes while in the er. dr jenkins in with pt, discussing plan of care.
[2024-07-17] MEDS: KETOROLAC (*BKC) 60 MG/2 ML VIAL IM (14:35)
[2024-07-17 14:39] VITALS: BP 120/90; PULSE 71; RESP 18; O2SAT 98
--- NOTE | 2024-07-17 14:59 | ED_ITS ---
HPI - Chest Pain General Chief Complaint: Chest Pain Stated Complaint: cough, chest pain Time Seen by Provider: 07/17/24 13:45 Source: patient Mode of arrival: ambulatory Limitations: no limitations History of Present Illness HPI narrative: patient is a 50-year-old male with a significant past medical history that presents today with chest pain from coughing. Patient says that he had a very bad coughing spell that lasted about 5 minutes and he kept coughing and that his chest started hurting. Chest pain was dull flank also positive coughing he said he was coughing very hard. He denies any shortness of breath denies any other symptoms. He has no cardiovascular history does not had denies any other chest pain denies any other cardiac symptoms. This was caused by the cough. He says right now the pain is around a 0/10 and pain is gone. MD complaint: chest pain Onset (ago): minute(s) Timing of current episode: episodic Prior episodes: No Onset: during exertion Pain location: substernal Pain radiation: none Pain scale (0-10): 0 Exacerbating factors: nothing Risk Factors Coronary artery disease risk factors: none Related Data Home Medications ?Medication ?Instructions ?Recorded ?Confirmed ?Last Taken ?Type levetiracetam 500 mg tablet 1,500 mg PO BID 02/03/20 06/15/24 06/15/24 History multivitamin with minerals (Daily 1 tablet PO DAILY 02/03/20 06/15/24 06/15/24 History Multivitamin-Minerals tablet) acetaminophen 325 mg capsule 325 mg PO Q6H PRN Pain 11/15/23 06/15/24 06/15/24 History Allergies Allergy/AdvReac Type Severity Reaction Status Date / Time Iodinated Contrast Media Allergy Unknown Unknown Verified 06/15/24 00:57 Contrast allergy Allergy Intermediate Unknown Uncoded 06/15/24 00:57 Review of Systems Review of Systems: All systems reviewed & are unremarkable except as noted in HPI and below Constitutional: Constitutional: Reports as per HPI Eyes: Eyes: Reports no additional eye complaints ENT: Reports system reviewed and no additional complaints, except as documented Cardiovascular: Cardiovascular: Reports no additional cardiovascular complaints Respiratory: Respiratory: Reports no additional respiratory complaints Gastrointestinal: Gastrointestinal: Reports no additional gastrointestinal complaints Genitourinary: Genitourinary: Reports no additional male genitourinary complaints Musculoskeletal: Musculoskeletal: Reports as per HPI Integumentary/Breasts: Skin/Breast: Reports system reviewed and no additional complaints, except as docu Neurologic: Reports system reviewed and no additional complaints, except as documented Psychiatric: Psychiatric: Reports no additional psychiatric complaints Endocrine: Endocrine: Reports no additional endocrine complaints Hematologic/Lymphatic: Hematologic/Lymphatic: Reports no additional hematologic/lymphatic complaints Allergic/Immunologic: Allergic/Immunologic: Reports no additional allergic/immunologic complaints PMFSH Past Medical History Medical History Benign essential HTN Testicle cancer Obesity (BMI 30-39.9) Seizure disorder Surgical History Surgical History H/O brain surgery Family History Family History Father History of sinus cancer Sibling Ovarian cancer Social History Social History Smoking status: Never smoker Second hand tobacco smoke exposure: No Alcohol intake: never Substance use: never Lack of Transportation: No Lack of Food: Never True Current Housing: I Have Housing Concerned About Future Housing: No Difficulty Paying Gas/Electric Bills: No Difficulty Paying for Meds: No Currently Unemployed: No Education: High School Diploma/GED Difficulty w/ Childcare or Family Care: No Living arrangements: alone Gender identity (if verbalized by the patient): Male Sexual Orientation (if Verbalized by the Patient): Straight or Heterosexual Course Vital Signs Vital signs: Vital Signs Oxygen Delivery Room Air 07/17/24 13:35 Pulse Rate 71 07/17/24 14:39 Respiratory Rate 18 07/17/24 14:39 Blood Pressure 120/90 07/17/24 14:39 Pulse Oximetry 98 07/17/24 14:39 Oxygen Delivery Room Air 07/17/24 14:39 MDM - Chest Pain MDM Narrative Medical decision making narrative: Patient says chest pain from coughing too hard. This is most likely just calls chondritis costochondritic pain from the coughing. Will do a chest x-ray just to ensure there is no fracture dislocated ribs from coughing and this is just costochondritis. Also come shot or offer the edema and any pain. Differential Diagnosis Differential diagnosis: Likely costochondritis Medical Records Data Attestation: I reviewed the patient's medical records. Lab Data Attestation: I reviewed the patient's lab results. Discharge Plan Discharge Clinical Impression: Costochondritis Patient Disposition: Home, Self-Care Condition: Stable Instructions: Costochondritis (ED) Patient Language: Uzbek Prescriptions: No Action levetiracetam 500 mg Tablet 1,500 mg PO BID Daily Multivitamin-Minerals Tablet 1 tablet PO DAILY acetaminophen 325 mg capsule 325 mg PO Q6H PRN (Reason: Pain) lisinopril 10 mg tablet See Rx Instructions .ROUTE .COMPLEX Qty: 90 0RF Dose Instruction: TAKE ONE TABLET BY MOUTH DAILY Rx Instructions: TAKE ONE TABLET BY MOUTH DAILY Follow-up/Referrals: Manuel Rangel DO [Primary Care Provider] - Time of Disposition: 15:09
[2024-07-17 15:13] VITALS: BP 120/60; PULSE 71; RESP 20; O2SAT 98
== END 2024-07-17 15:13 | disposition home or self-care (01) ==
PROVIDERS: Emergency Provider Family Medicine; PCP Family Medicine
DX: M94.0 Chondrocostal junction syndrome [Tietze] (principal); I10 Essential (primary) hypertension; G40.909 Epilepsy, unspecified, not intractable, without status epilepticus; Z85.47 Personal history of malignant neoplasm of testis
CPT/HCPCS: 71045; 96372; 99283; J1885

== ENCOUNTER 2024-07-28 13:55 | Emergency (ER) | payer MEDICARE, MEDICAID, SELFPAY ==
[2024-07-28 14:02] VITALS: BP 108/85; PULSE 94; RESP 20; TEMP 36.6; O2SAT 96
--- NOTE | 2024-07-28 14:06 | ED_ITS ---
HPI - URI/Sore Throat General Chief Complaint: Upper Respiratory Infection Stated Complaint: sick Time Seen by Provider: 07/28/24 14:06 Source: patient Mode of arrival: ambulatory Limitations: no limitations History of Present Illness HPI Narrative: 58-year-old male with a history of hypertension, brain surgery in 2000, seizure disorder on Keppra and Topamax, left testicular cancer status post orchiectomy/ RT/chemo, CKD,recent upper respiratory tract infection presents to the ED with a 1 day history of -- sore throat -- running nose -- cough which is nonproductive. No fever or chills no chest pain or shortness of breath no nausea/vomiting /abdominal pain / diarrhea. MD elicited complaint: cough, sore throat and nasal congestion Consistency: constant Description of mucous: clear Able to tolerate fluids by mouth: Yes Exacerbating factors: nothing Relieving factors: nothing Associated symptoms: denies other symptoms, sore throat and cough Treatments prior to arrival: none Related Data Home Medications ?Medication ?Instructions ?Recorded ?Confirmed ?Last Taken ?Type levetiracetam 500 mg tablet 1,500 mg PO BID 02/03/20 06/15/24 06/15/24 History multivitamin with minerals (Daily 1 tablet PO DAILY 02/03/20 06/15/24 06/15/24 History Multivitamin-Minerals tablet) acetaminophen 325 mg capsule 325 mg PO Q6H PRN Pain 11/15/23 06/15/24 06/15/24 History Allergies Allergy/AdvReac Type Severity Reaction Status Date / Time Iodinated Contrast Media Allergy Unknown Unknown Verified 07/28/24 14:01 Contrast allergy Allergy Intermediate Unknown Uncoded 07/28/24 14:01 Review of Systems 2 Review of Systems: All systems reviewed & are unremarkable except as noted in HPI and below Constitutional: Constitutional: Reports as per HPI and Reports no additional constitutional complaints Eyes: Eyes: Reports as per HPI and Reports no additional eye complaints ENT: Reports system reviewed and no additional complaints, except as documented, Reports as per HPI and Reports sore throat Cardiovascular: Cardiovascular: Reports as per HPI and Reports no additional cardiovascular complaints Respiratory: Respiratory: Reports as per HPI, Reports no additional respiratory complaints and Reports cough Gastrointestinal: Gastrointestinal: Reports as per HPI and Reports no additional gastrointestinal complaints Genitourinary: Genitourinary: Reports no additional male genitourinary complaints and Reports as per HPI Musculoskeletal: Musculoskeletal: Reports as per HPI Integumentary/Breasts: Skin/Breast: Reports system reviewed and no additional complaints, except as docu and Reports as per HPI Neurologic: Reports system reviewed and no additional complaints, except as documented and Reports as per HPI Psychiatric: Psychiatric: Reports no additional psychiatric complaints and Reports as per HPI Endocrine: Endocrine: Reports no additional endocrine complaints and Reports as per HPI Hematologic/Lymphatic: Hematologic/Lymphatic: Reports no additional hematologic/lymphatic complaints and Reports as per HPI Allergic/Immunologic: Allergic/Immunologic: Reports no additional allergic/immunologic complaints and Reports as per HPI [facility] Past Medical History Medical History Benign essential HTN Testicle cancer Obesity (BMI 30-39.9) Seizure disorder Surgical History Surgical History H/O brain surgery Family History Family History Father History of sinus cancer Sibling Ovarian cancer Social History Social History Smoking status: Never smoker Second hand tobacco smoke exposure: No Alcohol intake: never Substance use: never Lack of Transportation: No Lack of Food: Never True Current Housing: I Have Housing Concerned About Future Housing: No Difficulty Paying Gas/Electric Bills: No Difficulty Paying for Meds: No Currently Unemployed: No Education: High School Diploma/GED Difficulty w/ Childcare or Family Care: No Living arrangements: alone Gender identity (if verbalized by the patient): Male Sexual Orientation (if Verbalized by the Patient): Straight or Heterosexual Exam 2 Narrative: vitals are stable Const: General: healthy appearing and no acute distress Nutritional Appearance: well nourished Orientation/consciousness: patient oriented x3 Limitations: no limitations HENMT: Head: normal to inspection Ears: external ears normal F krystyna/Nose/Sinus: Normal external nose present Face and sinus: normal facial exam Mouth: Yes Normal oral and palatal mucosa present Throat: posterior oropharynx normal Eyes: Conjunctivae: conjunctivae normal Pupils: Equal, round and reactive pupils present EOM: EOMs intact bilaterally Direct Ophthalmoscopy: no photophobia Neck: Neck: normal visual inspection, no lymphadenopathy and no meningeal signs Chest: Chest palpation & inspection: normal inspection of the chest Resp: Effort & Inspection: normal respiratory effort Auscultation: clear to auscultation bilaterally Cardio: Rate: regular rate Rhythm: regular rhythm GI: GI Palp: Yes Soft to palpation Auscultation: normal bowel sounds O ther: no tenderness/rigidity /rebound : General: Yes no CVA tenderness Back/Spine/Pelvis: Back: no CVA tenderness Skin: General skin exam: normal color Rashes: no rashes Wounds: no wounds Neuro: General: patient oriented x3, moves all extremities, no meningeal signs, no focal motor deficits and CN's II-XI intact bilaterally Cranial nerves: Yes Nystagmus not present Speech: normal speech Gait exam (Neuro): Normal gait present Extrem: General: normal to inspection and no clubbing, cyanosis or edema Psych: Mental Status: mental status grossly normal Affect: normal affect Attitude: cooperative Course Course Emergency Course: upper respiratory tract infection- patient tested positive for COVID Vital Signs Vital signs: Vital Signs Oxygen Delivery Room Air 07/28/24 13:55 Temperature 36.6 C 07/28/24 14:02 Pulse Rate 94 07/28/24 14:02 Respiratory Rate 20 07/28/24 14:02 Blood Pressure 108/85 07/28/24 14:02 Pulse Oximetry 96 07/28/24 14:02 Oxygen Delivery Room Air 07/28/24 14:02 MDM - URI/Sore Throat MDM Narrative Medical decision making narrative: upper respiratory tract infection secondary to COVID; patient does not have any respiratory symptoms. he is saturating 96% on room air with a respiratory rate of 20 CKD- BUN/ creatinine was noted to be 18/1.27 Differential Diagnosis Differential diagnosis: Likely upper respiratory infection Lab Data 07/28/24 14:40 07/28/24 14:41 Labs: Lab Results 07/28/24 07/28/24 07/28/24 Range/Units 14:23 14:40 14:41 WBC 7.2 (4.8-10.8) K/mm3 RBC 5.02 (4.70-6.10) M/mm3 Hgb 16.2 (14.0-18.0) g/dL Hct 45.7 (40.0-54.0) % MCV 91.0 (78.0-102.0) fL MCH 32.3 H (27.0-31.0) pg MCHC 35.4 (32-36) g/dL RDW 11.9 (11.6-14.4) % Plt Count 242 (150-420) K/mm3 MPV 9.6 (8.7-11.0) fl Immature Gran % (Auto) 0.6 H (0.0-0.0) % Neut % (Auto) 70.9 H (50.0-70.0) % Lymph % (Auto) 14.3 L (18.0-42.0) % [place] % (Auto) 11.4 H (2.0-11.0) % Eos % (Auto) 2.2 (1.0-6.0) % Baso % (Auto) 0.6 (0.0-1.0) % Lymph # (Auto) 1.03 L (1.10-4.50) K/mm3 [place] # (Auto) 0.82 (0.10-0.90) K/mm3 Eos # (Auto) 0.16 (0.02-0.50) K/mm3 Baso # (Auto) 0.04 (0.00-0.10) K/mm3 Abs Immat Gran (auto) 0.04 H (0.00-0.00) K/mm3 Absolute Neuts (auto) 5.09 (1.70-7.20) K/mm3 Absolute Nucleated RBC 0.00 (0.00-0.00) K/mm3 Nucleated RBC % 0.0 (0-0.0) % Sodium 138 (136-145) mmol/L Potassium 4.0 (3.5-5.1) mmol/L Chloride 103 (98-108) mmol/L Carbon Dioxide 25 (21-32) mmol/L Anion Gap 10 (4-12) mmol/L BUN 18 (7-18) mg/dL Creatinine 1.27 (0.70-1.30) mg/dL Estim Creat Clear Calc 78 ml/min Estimated GFR 58 L (59 - ) Glucose 102 H (70-99) mg/dL Calculated Osmolality 287 (285-295) mOsm/kg Calcium 8.8 (8.5-10.1) mg/dL Total Bilirubin 0.9 (0.00-1.00) mg/dL AST 19 (15-37) U/L ALT 32 (16-63) U/L Alkaline Phosphatase 78 (46-116) U/L Total Protein 7.0 (6.4-8.2) g/dL Albumin 3.7 (3.4-5.0) g/dL Influenza A (RT-PCR) Negative (Negative) Influenza B (RT-PCR) Negative (Negative) RSV (RT-PCR) Negative (Negative) SARS-CoV-2 RNA (RT-PCR) Positive A (Negative) Group A Strep (PCR) Not detected (Negative) Discharge Plan Discharge Clinical Impression: COVID-19 Patient Disposition: Home, Self-Care Condition: Stable Instructions: Antibiotic Form, COVID-19 (Coronavirus Disease 2019) (ED) Patient Language: Chinese Prescriptions: No Action levetiracetam 500 mg Tablet 1,500 mg PO BID Daily Multivitamin-Minerals Tablet 1 tablet PO DAILY acetaminophen 325 mg capsule 325 mg PO Q6H PRN (Reason: Pain) lisinopril 10 mg tablet See Rx Instructions .ROUTE .COMPLEX Qty: 90 0RF Dose Instruction: TAKE ONE TABLET BY MOUTH DAILY Rx Instructions: TAKE ONE TABLET BY MOUTH DAILY Follow-up/Referrals: Manuel Rangel DO [Primary Care Provider] - Time of Disposition: 16:17
[2024-07-28 14:45] LABS: Basophils Absolute Auto 0.04 K/mm3 (0.00-0.10); Basophils Percent Auto 0.6 % (0.0-1.0); Eosinophils Absolute Auto 0.16 K/mm3 (0.02-0.50); Eosinophils Percent Auto 2.2 % (1.0-6.0); Hematocrit 45.7 % (40.0-54.0); Hemoglobin 16.2 g/dL (14.0-18.0); Immature Granulocyte Absolute 0.04 K/mm3 (0.00-0.00); Immature Granulocyte Percent A 0.6 % (0.0-0.0); Lymphocytes Absolute Auto 1.03 K/mm3 (1.10-4.50); Lymphocytes Percent Auto 14.3 % (18.0-42.0); Mean Corpuscular HGB Conc 35.4 g/dL (32-36); Mean Corpuscular Hemoglobin 32.3 pg (27.0-31.0); Mean Platelet Volume 9.6 fl (8.7-11.0); Monocytes Absolute Auto 0.82 K/mm3 (0.10-0.90); Monocytes Percent Auto 11.4 % (2.0-11.0); Neutrophils Absolute Auto 5.09 K/mm3 (1.70-7.20); Neutrophils Percent Auto 70.9 % (50.0-70.0); Platelet Count Result 242 K/mm3 (150-420); Red Blood Count 5.02 M/mm3 (4.70-6.10); Red Cell Distribution Width 11.9 % (11.6-14.4); White Blood Count 7.2 K/mm3 (4.8-10.8)
--- NOTE | 2024-07-28 14:47 | PC.NURSE ---
Covid culture sent to lab
[2024-07-28 15:02] LABS: Alanine Aminotransferase 32 U/L (16-63); Albumin Level 3.7 g/dL (3.4-5.0); Alkaline Phosphatase 78 U/L (46-116); Anion Gap 10 mmol/L (4-12); Aspartate Amino Transferase 19 U/L (15-37); Bilirubin,Total 0.9 mg/dL (0.00-1.00); Blood Urea Nitrogen 18 mg/dL (7-18); Calcium 8.8 mg/dL (8.5-10.1); Carbon Dioxide 25 mmol/L (21-32); Chloride 103 mmol/L (98-108); Estimated CRCL calculation 78 ml/min; Estimated Glomerular Filt Rate 58; Glucose 102 mg/dL (70-99); Osmolality Calculated 287 mOsm/kg (285-295); Sodium 138 mmol/L (136-145)
[2024-07-28 15:13] LABS: Strep Group A RT-PCR NOT DETECTED (Negative)
--- NOTE | 2024-07-28 15:31 | PC.NURSE ---
PT IS PLAYING A GAME ON HIS CELLPHONE WITHOUT DISTRESS. WATER PROVIDED. PT IS AWAITING RESULTS. DENIES ANY OTHER NEEDS OR COMPLAINTS. WILL CONTINUE TO MONITOR.
[2024-07-28 15:47] LABS: SARS-CoV-2 RNA PCR Positive (Negative)
[2024-07-28 15:48] LABS: Influenza A QL RT-PCR Negative (Negative); Influenza B QL RT-PCR Negative (Negative); RSV RNA, RT-PCR Negative (Negative)
[2024-07-28 16:25] VITALS: BP 110/80; PULSE 88; RESP 18; O2SAT 98
== END 2024-07-28 16:25 | disposition home or self-care (01) ==
PROVIDERS: Emergency Provider Internal Medicine Critical Care Medicine; PCP Family Medicine
DX: U07.1 COVID-19 (principal); I12.9 Hypertensive chronic kidney disease with stage 1 through stage 4 chronic kidney disease, or unspecified chronic kidney disease; N18.9 Chronic kidney disease, unspecified; Z85.47 Personal history of malignant neoplasm of testis
CPT/HCPCS: 36415; 80053; 85025; 87637; 87651; 99283

== ENCOUNTER 2024-08-24 07:20 | Emergency (ER) | payer MEDICARE, MEDICAID, SELFPAY ==
[2024-08-24] VITALS (7 sets, daily range): BP systolic 112–155; BP diastolic 77–93; PULSE 93–97; RESP 15–24; TEMP 36.2; O2SAT 95–97
--- NOTE | ~2024-08-24 | XR_ITS ---
EXAMINATION: XR chest 1V portable DATE: 08/24/2024 07:45 INDICATION: Chest pain. TECHNIQUE: A single frontal view of the chest was obtained. COMPARISON: Chest single view 07/17/2024 FINDINGS: There is mild atelectasis in the lower lung zones. No pleural effusion or pneumothorax. The heart size is normal. IMPRESSION: 1. Mild atelectasis in the lower lung zones. Reviewed, dictated and finalized at location [] N BUILDING DESIGN SPECIALIST
--- NOTE | 2024-08-24 07:22 | ECG_ITS ---
Test Date: 2024-08-24 07:27:45 Measurements Intervals [place] Rate: 91 P: 29 [place]: 123 QRS: -18 QRSD: 110 T: -4 QT: 352 QTc: 434 Interpretive Statements SINUS RHYTHM INDETERMINATE AXIS PATTERN CONSISTENT WITH PULMONARY DISEASE Compared to ECG 02/15/2024 13:43:46 Indeterminate axis now present Left-axis deviation no longer present Electronically Signed On 08-24-2024 18:05:22 GRIP by Salud Kelly M.D.
--- NOTE | 2024-08-24 07:37 | PC.NURSE ---
Pt resting on cot in room with call light. Cardiac monitoring initiated. in room with pt.
[2024-08-24 07:56] LABS: Basophils Absolute Auto 0.05 K/mm3 (0.00-0.10); Basophils Percent Auto 0.7 % (0.0-1.0); Eosinophils Absolute Auto 0.24 K/mm3 (0.02-0.50); Eosinophils Percent Auto 3.4 % (1.0-6.0); Hematocrit 47.4 % (40.0-54.0); Hemoglobin 16.1 g/dL (14.0-18.0); Immature Granulocyte Absolute 0.03 K/mm3 (0.00-0.00); Immature Granulocyte Percent A 0.4 % (0.0-0.0); Lymphocytes Absolute Auto 1.79 K/mm3 (1.10-4.50); Lymphocytes Percent Auto 25.6 % (18.0-42.0); Mean Corpuscular Hemoglobin 31.3 pg (27.0-31.0); Mean Platelet Volume 9.9 fl (8.7-11.0); Monocytes Absolute Auto 0.83 K/mm3 (0.10-0.90); Monocytes Percent Auto 11.9 % (2.0-11.0); Neutrophils Absolute Auto 4.06 K/mm3 (1.70-7.20); Platelet Count Result 240 K/mm3 (150-420); Red Blood Count 5.15 M/mm3 (4.70-6.10); Red Cell Distribution Width 11.9 % (11.6-14.4)
[2024-08-24 08:08] LABS: D Dimer 0.19 mg/L (0.19-0.50)
[2024-08-24 08:21] LABS: Alanine Aminotransferase 37 U/L (16-63); Alkaline Phosphatase 77 U/L (46-116); Anion Gap 11 mmol/L (4-12); Aspartate Amino Transferase 13 U/L (15-37); Bilirubin,Total 0.7 mg/dL (0.00-1.00); Blood Urea Nitrogen 30 mg/dL (7-18); Calcium 9.1 mg/dL (8.5-10.1); Carbon Dioxide 24 mmol/L (21-32); Chloride 104 mmol/L (98-108); Estimated CRCL calculation 68 ml/min; Estimated Glomerular Filt Rate 50; Glucose 118 mg/dL (70-99); NT Pro B Type Natriuretic Pept < 11 pg/mL (0-125); Osmolality Calculated 295 mOsm/kg (285-295); Potassium 4.2 mmol/L (3.5-5.1); Sodium 139 mmol/L (136-145); Total Protein 7.1 g/dL (6.4-8.2); Troponin I 7.2 ng/L (0.00-60.4)
--- NOTE | 2024-08-24 08:33 | PC.NURSE ---
MD in room with pt discussing test results.
--- NOTE | 2024-08-24 08:34 | ED_ITS ---
HPI - Chest Pain General Chief Complaint: Chest Pain Stated Complaint: chest pain Time Seen by Provider: 08/24/24 07:35 Source: patient Mode of arrival: ambulatory Limitations: no limitations History of Present Illness HPI narrative: Patient is a 50-year-old male with a significant past medical history that presents today for chest pain. Patient has midsternal chest pain he says this started this morning. He said for the last hour he woke up and had midsternal chest pain from sleep. He has no cardiac history. The chest pain is reproducible and is more Of the costochondral type chest pain MD complaint: chest pain Onset (ago): hour(s) Timing of current episode: constant Prior episodes: No Onset: during rest Pain location: substernal Pain radiation: none Severity: mild Pain scale (0-10): 2 Quality: tightness and aching Relieving factors: medication-other Exacerbating factors: supine Treatment prior to arrival: none Risk Factors Coronary artery disease risk factors: none Thoracic aortic dissection risk factors: none Related Data Home Medications ?Medication ?Instructions ?Recorded ?Confirmed ?Last Taken ?Type levetiracetam 500 mg tablet 1,500 mg PO BID 02/03/20 06/15/24 06/15/24 History multivitamin with minerals (Daily 1 tablet PO DAILY 02/03/20 06/15/24 06/15/24 History Multivitamin-Minerals tablet) acetaminophen 325 mg capsule 325 mg PO Q6H PRN Pain 11/15/23 06/15/24 06/15/24 History Allergies Allergy/AdvReac Type Severity Reaction Status Date / Time Iodinated Contrast Media Allergy Unknown Hives Verified 08/24/24 07:36 Contrast allergy Allergy Intermediate Unknown Uncoded 07/28/24 14:01 Review of Systems 2 Review of Systems: All systems reviewed & are unremarkable except as noted in HPI and below Constitutional: Constitutional: Reports as per HPI Eyes: Eyes: Reports no additional eye complaints ENT: Reports system reviewed and no additional complaints, except as documented Cardiovascular: Cardiovascular: Reports as per HPI and Reports chest pain Respiratory: Respiratory: Reports no additional respiratory complaints Gastrointestinal: Gastrointestinal: Reports no additional gastrointestinal complaints Genitourinary: Genitourinary: Reports no additional male genitourinary complaints Musculoskeletal: Musculoskeletal: Reports as per HPI Integumentary/Breasts: Skin/Breast: Reports system reviewed and no additional complaints, except as docu Neurologic: Reports system reviewed and no additional complaints, except as documented Psychiatric: Psychiatric: Reports no additional psychiatric complaints Endocrine: Endocrine: Reports no additional endocrine complaints Hematologic/Lymphatic: Hematologic/Lymphatic: Reports no additional hematologic/lymphatic complaints Allergic/Immunologic: Allergic/Immunologic: Reports no additional allergic/immunologic complaints [facility] Past Medical History Medical History Benign essential HTN Testicle cancer Obesity (BMI 30-39.9) Seizure disorder Surgical History Surgical History H/O brain surgery Family History Family History Father History of sinus cancer Sibling Ovarian cancer Social History Social History Smoking status: Never smoker Second hand tobacco smoke exposure: No Alcohol intake: never Substance use: never Lack of Transportation: No Lack of Food: Never True Current Housing: I Have Housing Concerned About Future Housing: No Difficulty Paying Gas/Electric Bills: No Difficulty Paying for Meds: No Currently Unemployed: No Education: High School Diploma/GED Difficulty w/ Childcare or Family Care: No Living arrangements: alone Gender identity (if verbalized by the patient): Male Sexual Orientation (if Verbalized by the Patient): Straight or Heterosexual Exam 2 Const: General: cooperative, healthy appearing and comfortable HENMT: Head: normal to inspection, No palpable skull fracture present and normocephalic Eyes: General: appearance normal, both eyes and all related structures V isual Wray: normal visual wray by confrontation Neck: Neck: normal visual inspection, full ROM and no lymphadenopathy Chest: Chest palpation & inspection: normal inspection of the chest and normal palpation of entire chest wall Resp: Effort & Inspection: normal respiratory effort and able to speak in complete sentences Cardio: Jugular venous distension: no JVD Palpation: normal PMI Rate: r egular rate Rhythm: regular rhythm GI: Inspection: normal to inspection and abdominal wall ecchymosis : General: Yes bimanual renal exam normal bilaterally Back/Spine/Pelvis: Back: no CVA tenderness Skin: General skin exam: normal color, no rashes or lesions noted and elasticity normal Neuro: General: oriented to person, oriented to place and oriented to time Extrem: General: normal to inspection, full ROM and capillary refill normal Psych: Appearance: grossly normal Mental Status: mental status grossly normal Speech and movement: Normal speech and movement present Course Vital Signs Vital signs: Vital Signs Temperature 97.1 F L 08/24/24 07:20 Pulse Rate 94 08/24/24 07:20 Respiratory Rate 20 08/24/24 07:20 Blood Pressure 138/93 H 08/24/24 07:20 Pulse Oximetry 97 08/24/24 07:20 Oxygen Delivery Room Air 08/24/24 07:20 Temperature 97.1 F L 08/24/24 07:20 Pulse Rate 93 08/24/24 08:31 Respiratory Rate 22 H 08/24/24 08:31 Blood Pressure 126/79 08/24/24 08:31 Pulse Oximetry 95 08/24/24 07:46 Oxygen Delivery Room Air 08/24/24 07:20 MDM - Chest Pain MDM Narrative Medical decision making narrative: patient is chest pain is reproducible is most likely costochondral type pain he has no heart history. Will do full cardiac workup on her and do a chest x-ray EKG cardiac troponin his BNP level CBC CMP. If everything comes back normal will diagnosis as costochondritis and advise taking ibuprofen for this. Differential Diagnosis Differential diagnosis: Likely costochondritis and chest pain Medical Records Data Attestation: I reviewed the patient's medical records. Lab Data Attestation: I reviewed the patient's lab results. 08/24/24 07:50 08/24/24 07:50 Labs: Lab Results 08/24/24 Range/Units 07:50 WBC 7.0 (4.8-10.8) K/mm3 RBC 5.15 (4.70-6.10) M/mm3 Hgb 16.1 (14.0-18.0) g/dL Hct 47.4 (40.0-54.0) % MCV 92.0 (78.0-102.0) fL MCH 31.3 H (27.0-31.0) pg MCHC 34.0 (32-36) g/dL RDW 11.9 (11.6-14.4) % Plt Count 240 (150-420) K/mm3 MPV 9.9 (8.7-11.0) fl Immature Gran % (Auto) 0.4 H (0.0-0.0) % Neut % (Auto) 58.0 (50.0-70.0) % Lymph % (Auto) 25.6 (18.0-42.0) % [place] % (Auto) 11.9 H (2.0-11.0) % Eos % (Auto) 3.4 (1.0-6.0) % Baso % (Auto) 0.7 (0.0-1.0) % Lymph # (Auto) 1.79 (1.10-4.50) K/mm3 [place] # (Auto) 0.83 (0.10-0.90) K/mm3 Eos # (Auto) 0.24 (0.02-0.50) K/mm3 Baso # (Auto) 0.05 (0.00-0.10) K/mm3 Abs Immat Gran (auto) 0.03 H (0.00-0.00) K/mm3 Absolute Neuts (auto) 4.06 (1.70-7.20) K/mm3 Absolute Nucleated RBC 0.00 (0.00-0.00) K/mm3 Nucleated RBC % 0.0 (0-0.0) % D-Dimer 0.19 (0.19-0.50) mg/L Sodium 139 (136-145) mmol/L Potassium 4.2 (3.5-5.1) mmol/L Chloride 104 (98-108) mmol/L Carbon Dioxide 24 (21-32) mmol/L Anion Gap 11 (4-12) mmol/L BUN 30 H (7-18) mg/dL Creatinine 1.46 H (0.70-1.30) mg/dL Estim Creat Clear Calc 68 ml/min Estimated GFR 50 L (59 - ) Glucose 118 H (70-99) mg/dL Calculated Osmolality 295 (285-295) mOsm/kg Calcium 9.1 (8.5-10.1) mg/dL Total Bilirubin 0.7 (0.00-1.00) mg/dL AST 13 L (15-37) U/L ALT 37 (16-63) U/L Alkaline Phosphatase 77 (46-116) U/L Troponin I 7.2 (0.00-60.4) ng/L NT-Pro-B Natriuret Pep < 11 (0-125) pg/mL Total Protein 7.1 (6.4-8.2) g/dL Albumin 4.0 (3.4-5.0) g/dL Discharge Plan Discharge Clinical Impression: Costochondritis, Chest pain Patient Disposition: Home, Self-Care Condition: Stable Instructions: Costochondritis (ED) Patient Language: Angolan Prescriptions: No Action levetiracetam 500 mg Tablet 1,500 mg PO BID Daily Multivitamin-Minerals Tablet 1 tablet PO DAILY acetaminophen 325 mg capsule 325 mg PO Q6H PRN (Reason: Pain) lisinopril 10 mg tablet See Rx Instructions .ROUTE .COMPLEX Qty: 90 0RF Dose Instruction: TAKE ONE TABLET BY MOUTH DAILY Rx Instructions: TAKE ONE TABLET BY MOUTH DAILY Follow-up/Referrals: Manuel Rangel DO [Primary Care Provider] - Time of Disposition: 08:42
== END 2024-08-24 08:44 | disposition home or self-care (01) ==
PROVIDERS: Emergency Provider Family Medicine; PCP Family Medicine
DX: M94.0 Chondrocostal junction syndrome [Tietze] (principal); I10 Essential (primary) hypertension; Z85.47 Personal history of malignant neoplasm of testis
CPT/HCPCS: 36415; 71045; 80053; 83880; 84484; 85025; 85380; 93005; 99284

== ENCOUNTER 2024-09-04 23:46 | Emergency (ER) | payer MEDICARE, MEDICAID, SELFPAY ==
[2024-09-04 23:48] VITALS: BP 155/108; PULSE 102; RESP 18; TEMP 36.4; O2SAT 98
--- OUTSIDE RECORDS SUMMARY | 2024-09-04 23:48 | XMS_ITS | Clinical Summary ---
Author Organization [facility] Address [address] [place] [address]. [place], [place] [id number] [place] [id number] Care Team Providers Care Wire Communications Engineer Name Role Phone Manuel Rangel DO Primary Care Provider [phone] Allergies Active Allergy Reactions Criticality Noted Date Comments Iodinated Contrast Media Hives 02/21/2024 Medications acetaminophen (TYLENOL) 325 MG tablet Take 1 tablet (325 mg total) by mouth daily. Active levETIRAcetam (KEPPRA) 500 MG tablet Take 3 tablets (1,500 mg total) by mouth 2 (two) times daily. 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 [employer] Gender Identity Not on file Sexual Orientation Not on file Last Filed Vital Signs Vital Sign Reading Time Taken Comments Blood Pressure 132/83 02/21/2024 12:58 PM CDT Pulse 80 02/21/2024 12:58 PM CDT Temperature 36.2 ??C (97.1 ??F) 02/21/2024 12:58 PM C DT Respiratory Rate 16 02/21/2024 12:58 PM CDT Oxygen Saturation 96% 02/21/2024 12:58 PM CDT Inhaled Oxygen Concentration - - Weight 125.8 kg (277 lb 6 oz) 02/21/2024 12:58 P M CDT Height 182.9 cm (6') 02/21/2024 12:58 PM CDT Body Mass Index 37.62 02/21/2024 12:58 PM CDT Plan of Treatment Health Maintenance Due Date Last Done Comments Colorectal Cancer Screening Colonoscopy (10 Years) 1965 Annual Physical 1968 Hepatitis C 10/09/1983 Hepatitis B Vaccines (1 of 3 - 19+ 3-dose series) 1984 Zoster Vaccines (1 of 2) 10/09/2015 COVID-19 Vaccine (4 - 2023-2 5 season) 2024 11/22/2021, 12/13/2020, 11/15/2020 Influenza Adult (#1) 2024 05/25/2021, 06/03/2020, 05/08/2012 DTaP, Tdap and Td Vaccines ( 2 - Td or Tdap) 02/02/2030 02/03/2020 Pneumococcal Vaccine: Pediatrics (0 to 5 Years) and At-Risk Patients (6 to 64 Years) Aged Out 10/01/2014 No longer eligible b ased on patient's age to complete this topic Meningococcal B Vaccine Aged Out No l onger eligible based on patient's age to complete this topic Meningococcal Vaccine Aged Out No yuri helen eligible based on patient's age to complete this topic RSV Immunizations Under 20 Months Aged Out No longer eligible b ased on patient's age to complete this topic Insurance [employer] MEDICAID Care Teams Wire Communications Engineer Relationship Specialty Start Date End Date Manuel Rangel DO [address] [place] [address] PCP - General FAMILY PRACTICE 02/21/24
--- OUTSIDE RECORDS SUMMARY | 2024-09-04 23:48 | XMS_ITS | Encounter Summary ---
Author Organization [facility] Address [address] [place] [address] Phone Care Team Providers Care Chemical Strength Tester Name Role Phone Augustin Parrish MD Primary Care Provider [phone] Giuseppe Pemberton DO Primary Care Provider + 5-2220 Augustin Parrish MD Primary Care Provider [phone] Giuseppe Pemberton DO Primary Care Provider + 5-2220 Augustin Parrish MD Primary Care Provider [phone] Giuseppe Pemberton DO Primary Care Provider + 5-2220 Augustin Parrish MD Primary Care Provider + [phone] Giuseppe Pemberton DO Primary Care Provider + 5-2220 Augustin Parrish MD Primary Care Provider + [phone] Giuseppe Pemberton DO Primary Care Provider + [phone] Augustin Parrish MD Primary Care Provider [phone] Giuseppe Pemberton DO Primary Care Provider + 5-2220 Augustin Parrish MD Primary Care Provider [phone] Augustin Parrish MD Primary Care Provider [phone] Giuseppe Pemberton DO Primary Care Provider + 5-2220 Augustin Parrish MD Primary Care Provider [phone] Giuseppe Pemberton DO Primary Care Provider +[phone] Augustin Parrish MD Primary Care Provider [phone] Giuseppe Pemberton DO Primary Care Provider +[phone] Augustin Parrish MD Primary Care Provider [phone] Giuseppe Pemberton DO Primary Care Provider +[phone] Augustin Parrish MD Primary Care Provider [phone] Miscellaneous, Not In File Primary Care Provider Unavailable No, Physician Primary Care Provider [phone] Manuel Rangel DO Primary Care Provider Encounter Details Date Type Department Care Team (Latest Contact Info) Description 1965 Orders Only [facility] ONCOLOGY Scanning, Provider Social History Tobacco Use Types Packs/Day Years Used Date Smoking Tobacco: Never Assessed Sex and Gender Information Value Date Recorded Sex Assigned at Not on file 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 Gender Identity Not on file Sexual Orientation Not on file documented as of this encounter Plan of Treatment Not on file documented as of this encounter Procedures Procedure Name Priority Date/Time Associated Diagnosis Comments SCAN - LABS 1965 documented in this encounter Results * SCAN - LABS (1965) us Provider Scanning Final Result documented in this encounter Visit Diagnoses Not on filedocumented in this encounter Care Teams Chemical Strength Tester Relationship Specialty Start Date End Date Augustin Parrish MD [address] [address] PCP - General 11/08/16 11/26/16 Giuseppe Pemberton DO [address] [place] [address] PCP - General 11/27/16 01/01/17 Augustin Parrish MD [address] [place] [address] PCP - General 01/02/17 01/08/17 Giuseppe Pemberton DO [address] [place] [address] PCP - General 01/09/17 01/09/17 Augustin Parrish MD [address] [place] [address] PCP - General 01/10/17 01/24/17 Giuseppe Pemberton DO [address] [place] [address] PCP - General 01/25/17 02/06/17 Augustin Parrish MD [address] [place] [address] PCP - General 02/07/17 04/30/17 Giuseppe Pemberton DO [address] [place] [address] PCP - General 05/01/17 05/01/17 Augustin Parrish MD [address] [place] [address] PCP - General 05/02/17 05/21/17 Giuseppe Pemberton DO [address] [place] [address] PCP - General 05/22/17 07/30/17 Augustin Parrish MD [email or web address] [place] [address] PCP - General 07/31/17 08/15/17 Giuseppe Pemberton DO [address] [place] [address] PCP - General 08/16/17 08/22/17 Augustin Parrish MD [email or web address] [place] [address] PCP - General 08/23/17 08/25/17 Augustin Parrish MD [address] [place] [address] PCP - General 08/26/17 08/27/17 Giuseppe Pemberton DO [address] [place] [address] PCP - General 08/28/17 11/24/17 Augustin Parrish MD [email or web address] [place] [address] PCP - General 11/25/17 12/04/17 Giuseppe Pemberton DO [address] [place] [address] PCP - General Internal Medicine 12/05/17 12/08/17 Augustin Parrish MD [email or web address] [place] [address] PCP - General 12/09/17 12/10/17 Giuseppe Pemberton DO [address] [place] [address] PCP - General 12/11/17 12/15/17 Augustin Parrish MD [address] [place] [address] PCP - General 12/16/17 12/17/17 Giuseppe Pemberton DO [address] [place] [address] PCP - General 12/18/17 06/17/18 Augustin Parrish MD [email or web address] [place] [address] PCP - General 06/18/18 12/15/20 Miscellaneous, Not In File PCP - General 12/16/20 No, Physician PCP - General 04/24/21 03/12/22 Manuel Rangel DO [facility] [place] [address] PCP - General 03/13/22 documented as of this encounter
--- OUTSIDE RECORDS SUMMARY | 2024-09-04 23:48 | XMS_ITS | Clinical Summary ---
Author Organization [facility] Address [address] [place] [address] Care Team Providers Care Director Safety Name Role Phone Manuel Rangel DO Primary Care Provider Allergies Active Allergy Reactions Criticality Noted Date Comments Iodinated Contrast Media Hives Medium 06/02/2018 Medications multivitamin tabletIndicatio ns:Vitamin Deficiency Prevention Active lisinopriL (PRINIVIL,ZESTR IL) 10 mg tablet 1 Active PreviDent 5000 Booster Plus 1.1 % paste 2 Active levETIRAcetam (KEPPRA) 500 mg tablet Take 3 tablets (1,500 mg total) by mouth 2 (two) times a day 540 tablet 3 5 09/02/19 26 Active levETIRAcetam (KEPPRA) 500 mg tablet Take 3 tablets (1,500 mg total) by mouth 2 (two) times a day 540 tablet 3 4 09/02/19 25 Discontinu ed(Reorder ) Active Problems Problem Noted Date Diagnosed Date Prostate cancer screening 06/23/2019 Family history of ovarian cancer 11/26/2018 Temporal lobe epilepsy, 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 Anemia 12/31/2014 Adrenal mass 08/27/2014 Encounters Date Type Department Care Team Description 09/02/2024 9:00 AM CIRCUIT WALKER Office Visit [facility] Epilepsy [address] [place] [address] [place] [address] Wilman Knott MD PhD Temporal lobe epilepsy, intractable (HCC) (Primary Dx); Seizure (HCC) from Last 3 Months Immunizations Name Administration Dates Next Due Influenza, Trivalent, IM (MDV) 05/08/2012 Influenza, Unspecified 06/03/2020 Pneumococcal Polysaccharide PPV23 10/01/2014 Surgical History Surgery Date Site/Laterality Comments AL ORCHIECTOMY RADICAL TUMOR INGUINAL APPROACH Radical Orchiectomy Right - inguinal orchiectomy 09/09/14 (Added by TW Conv) Family History Medical History Relation Name Comments Febrile seizures Mother Febrile i zure - (Added by TW Conv) Ovarian cancer Sister Ovarian cance r - (Added by TW Conv) Relation Name Status Comments Mother Sister Social History Tobacco Use Types Packs/Day Years Used Date Smoking Tobacco: Never Smokeless Tobacco: Never Tobacco Cessation:Counseling Given: No Alcohol Use Standard Drinks/Week Comments No 0 (1 standard drink = 0.6 oz pur e alcohol) Sex and Gender Information Value Date Recorded Sex Assigned at Not on file 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 Sex 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 Gender Identity Not on file Sexual Orientation Not on file Obstetrics History Last Filed Vital Signs Vital Sign Reading Time Taken Comments Blood Pressure 114/77 09/02/2024 7:32 AM CIRCUIT WALKER Pulse 109 09/02/2024 7:32 AM CIRCUIT WALKER Temperature 36.7 ??C (98 ??F) 12/26/2023 8:22 AM CDT Respiratory Rate 16 12/26/2023 8:22 AM CDT Oxygen Saturation 95% 12/26/2023 8:22 AM CDT Inhaled Oxygen Concentration - - Weight 124.3 kg (274 lb) 09/02/2024 7:32 AM CIRCUIT WALKER Height 177.8 cm (5' 10 ) 09/02/2024 7:32 AM CIRCUIT WALKER Body Mass Index 39.31 09/02/2024 7:32 AM CIRCUIT WALKER Plan of Treatment Health Maintenance Due Date Last Done Comments Colon Cancer Screening-Colonoscopy 1965 Depression Screening 1965 Hepatitis C Screening 1965 DTaP/Tdap/Td Vaccine (1 - Tdap) 1976 Hepatitis B Screening 10/09/1983 Regular Well Visit/Exam 18-64 10/09/1983 Zoster Vaccine (1 of 2) 10/09/2015 Prostate Cancer Screening-PSA 06/22/2022, 06/24/2019, 06/23/2018 Influenza Vaccine (#1) 2024 0, 05/08/2012 Pneumococcal vaccine <65 Aged Out 10/01/2014 No longer eligible based on patient's age to complete this topic Procedures Procedure Name Priority Date/Time Associated Diagnosis Comments PSA SCREEN Routine 06/22/2020 7:37 AM CIRCUIT WALKER from Last 3 Months or Most Recently Relevant to Health Maintenance Results * PSA screen (06/22/2020 7:37 AM CIRCUIT WALKER) PSA-Total 0.34 <=3.90 ng/mL [facility] Comment: Interpretive Data ?AGE ? SEX ?REFERENCE INTERVAL 0 minutes-150 years ?Female ?None 0 minutes-49 years ? Male ?None ? 50-59 years ? Male ?0-3.90 ? 60-69 years ? Male ?0-5.40 ? 70-79 years ? Male ?0-6.20 ? 80-150 years ?Male ?0-6.20 Current interpretive data last revised 2018. Blood specimen (specimen) 06/22/2020 7:37 AM CIRCUIT WALKER 06/22/2020 8:39 AM CIRCUIT WALKER us Uriel Rodriguez MD LAB BLOOD ORDERABLES Final Result [facility] One [facility] Department [place] [address] from Last 3 Months or Most Recently Relevant to Health Maintenance Insurance [facility] MEDICARE SOLUTIONS MEDICARE [facility] MEDICARE SOLUTIONS IDNM [employer]ETNA [facility] Care Teams Director Safety Relationship Specialty Start Date End Date Manuel Rangel DO [address] [place] [address] PCP - General 03/13/22
--- OUTSIDE RECORDS SUMMARY | 2024-09-04 23:48 | XMS_ITS ---
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 Past Plans No past plan information found. Radiation Treatments * No radiation treatments are documented for this patient in [facility]. Treatments may have been administered in another system. Lifetime Dose Tracking * Chemical Lifetime Dose Automatic Entry Manual Entr y DLP 5,708 mGycm 5,708 mGycm 0 mGycm
--- OUTSIDE RECORDS SUMMARY | 2024-09-04 23:48 | XMS_ITS | Referral Summary ---
Author Organization [facility] Address [address] [place] [address] Care Team Providers Care Liquor Clerk Name Role Phone Manuel Rangel DO Primary Care Provider Encounters Date Type Department Care Team Description 09/02/2024 9:00 AM RESTAURANT TEAM MEMBER Office Visit [facility] Epilepsy [address] [place] [address] [place] [address] Wilman Knott MD PhD Temporal lobe epilepsy, intractable (HCC) (Primary Dx); Seizure (HCC) from Last 3 Months Allergies Active Allergy Reactions Criticality Noted Date [...] testis 05/23/2015 Anemia 12/31/2014 Adrenal mass 08/27/2014 Immunizations Name Administration Dates Next Due Influenza, Trivalent, IM (MDV) 05/08/2012 Influenza, Unspecified 06/03/2020 Pneumococcal Polysaccharide PPV23 10/01/2014 Social History Tobacco Use Types Packs/Day Years Used Date Smoking Tobacco: Never Smokeless Tobacco: Never Tobacco Cessation:Counseling Given: No Alcohol Use Standard Drinks/Week Comments No 0 (1 standard drink = 0.6 oz pur e alcohol) Sex and Gender Information Value Date Recorded Sex Assigned at Not on file 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 Gender Identity Not on file Sexual Orientation Not on file Last Filed Vital Signs Vital Sign Reading Time Taken Comments Blood Pressure 114/77 09/02/2024 7:32 AM RESTAURANT TEAM MEMBER Pulse 109 09/02/2024 7:32 AM RESTAURANT TEAM MEMBER Temperature 36.7 ??C (98 ??F) 12/26/2023 8:22 AM CDT Respiratory Rate 16 12/26/2023 8:22 AM CDT Oxygen Saturation 95% 12/26/2023 8:22 AM CDT Inhaled Oxygen Concentration - - Weight 124.3 kg (274 lb) 09/02/2024 7:32 AM RESTAURANT TEAM MEMBER Height 177.8 cm (5' 10 ) 09/02/2024 7:32 AM RESTAURANT TEAM MEMBER Body Mass Index 39.31 09/02/2024 7:32 AM RESTAURANT TEAM MEMBER Plan of Treatment Not on file Procedures Procedure Name Priority Date/Time Associated Diagnosis Comments PSA SCREEN Routine 06/22/2020 7:37 AM RESTAURANT TEAM MEMBER from Last 3 Months or Most Recently Relevant to Health Maintenance Results * PSA screen (06/22/2020 7:37 AM RESTAURANT TEAM MEMBER) PSA-Total 0.34 <=3.90 ng/mL [facility] Comment: Interpretive Data ?AGE ? SEX ?REFERENCE INTERVAL 0 minutes-150 years ?Female ?None 0 minutes-49 years ? Male ?None ? 50-59 years ? Male ?0-3.90 ? 60-69 years ? Male ?0-5.40 ? 70-79 years ? Male ?0-6.20 ? 80-150 years ?Male ?0-6.20 Current interpretive data last revised 2018. Blood specimen (specimen) 06/22/2020 7:37 AM RESTAURANT TEAM MEMBER 06/22/2020 8:39 AM RESTAURANT TEAM MEMBER us Uriel Rodriguez MD LAB BLOOD ORDERABLES Final Result Performing Organization Address City/State/[facility] Co de Phone Number [facility] One [facility] Department [place] [address] from Last 3 Months or Most Recently Relevant to Health Maintenance Insurance [facility] MEDICARE SOLUTIONS [facility] Address: [address] [address] [place] [address] MEDICARE [employer] MEDICARE SOLUTIONS [facility] Care Teams Liquor Clerk Relationship Specialty Start Date End Date Manuel Rangel DO [address] [place] [address] PCP - General 03/13/22
--- NOTE | 2024-09-05 00:09 | ED_ITS ---
HPI - Back Pain/Injury General Chief Complaint: Back Pain/Injury Stated Complaint: back pain Time Seen by Provider: 09/05/24 00:08 Source: patient Mode of arrival: ambulatory Limitations: no limitations History of Present Illness HPI Narrative: Patient is a 58-year-old male with lower back pain over the past few weeks. He said it has gotten worse and is keeping him up at night now at this time. No major injury. He does lots of bowling. no loss of urine or retention of urine. No anesthesia. No bowel loss or retention. MD elicited complaint: back pain Pertinent past history: prior back pain Onset (ago): day(s) (3) Timing: intermittent Severity: moderate Pain scale (0-10): 5 Similar Symptoms Previously: Yes Quality: sharp Location: lumbar spine Radiation: none Exacerbating factors: movement Relieving factors: none Context: other ( Patient started to have lower back pain over the past few weeks and worse over the past few days without major injury) Associated symptoms: denies other symptoms Treatments prior to arrival: acetaminophen Related Data Home Medications ?Medication ?Instructions ?Recorded ?Confirmed ?Last Taken ?Type levetiracetam 500 mg tablet 1,500 mg PO BID 02/03/20 06/15/24 06/15/24 History multivitamin with minerals (Daily 1 tablet PO DAILY 02/03/20 06/15/24 06/15/24 History Multivitamin-Minerals tablet) acetaminophen 325 mg capsule 325 mg PO Q6H PRN Pain 11/15/23 06/15/24 06/15/24 History Allergies Allergy/AdvReac Type Severity Reaction Status Date / Time Iodinated Contrast Media Allergy Unknown Hives Verified 08/24/24 07:36 Contrast allergy Allergy Intermediate Unknown Uncoded 07/28/24 14:01 Review of Systems Review of Systems: All systems reviewed & are unremarkable except as noted in HPI and below Constitutional: Constitutional: Reports no additional constitutional complaints Eyes: Eyes: Reports no additional eye complaints ENT: Reports system reviewed and no additional complaints, except as documented Cardiovascular: Cardiovascular: Reports no additional cardiovascular complaints Respiratory: Respiratory: Reports no additional respiratory complaints Gastrointestinal: Gastrointestinal: Reports no additional gastrointestinal complaints Genitourinary: Genitourinary: Reports no additional male genitourinary complaints Musculoskeletal: Musculoskeletal: Reports no additional musculoskeletal complaints Integumentary/Breasts: Skin/Breast: Reports system reviewed and no additional complaints, except as docu Neurologic: Reports system reviewed and no additional complaints, except as documented Psychiatric: Psychiatric: Reports no additional psychiatric complaints Endocrine: Endocrine: Reports no additional endocrine complaints Hematologic/Lymphatic: Hematologic/Lymphatic: Reports no additional hematologic/lymphatic complaints Allergic/Immunologic: Allergic/Immunologic: Reports no additional allergic/immunologic complaints PMFSH Past Medical History Medical History Benign essential HTN Testicle cancer Obesity (BMI 30-39.9) Seizure disorder Surgical History Surgical History H/O brain surgery Family History Family History Father History of sinus cancer Sibling Ovarian cancer Social History Social History Smoking status: Never smoker Second hand tobacco smoke exposure: No Alcohol intake: never Substance use: never Lack of Transportation: No Lack of Food: Never True Current Housing: I Have Housing Concerned About Future Housing: No Difficulty Paying Gas/Electric Bills: No Difficulty Paying for Meds: No Currently Unemployed: No Education: High School Diploma/GED Difficulty w/ Childcare or Family Care: No Living arrangements: alone Gender identity (if verbalized by the patient): Male Sexual Orientation (if Verbalized by the Patient): Straight or Heterosexual Exam Const: General: healthy appearing Nutritional Appearance: well nourished Orientation/consciousness: patient oriented x3 HENMT: Head: normal to inspection Ears: external ears normal Face/Nose/Sinus: Normal external nose present Eyes: Conjunctivae: conjunctivae normal Pupils: Equal, round and reactive pupils present EOM: EOMs intact bilaterally Neck: Neck: normal visual inspection Chest: Chest palpation & inspection: normal inspection of the chest Resp: Effort & Inspection: normal respiratory effort and not labored Auscultation: clear to auscultation bilaterally and no crackles Cardio: Rate: regular rate Rhythm: regular rhythm Heart sounds: no murmurs GI: Inspection: non-distended GI Palp: Yes Soft to palpation and No Tenderness to palpation present (GI) Auscultation: normal bowel sounds : General: Yes bladder normal to palpation Back/Spine/Pelvis: Back: no CVA tenderness Other: Tender lumbar spine paraspinal areas; midline normal; no sciatica Skin: General skin exam: normal color Rashes: no rashes Wounds: no wounds Neuro: General: patient oriented x3 Cranial nerves: Yes Nystagmus not present Speech: normal speech Extrem: General: normal to inspection Psych: Mental Status: mental status grossly normal Affect: normal affect Attitude: cooperative Course Vital Signs Vital signs: Vital Signs Temperature 36.4 C 09/04/24 23:48 Pulse Rate 102 H 09/04/24 23:48 Respiratory Rate 18 09/04/24 23:48 Blood Pressure 155/108 H 09/04/24 23:48 Pulse Oximetry 98 09/04/24 23:48 Oxygen Delivery Room Air 09/04/24 23:48 Temperature 36.4 C 09/04/24 23:48 Pulse Rate 102 H 09/04/24 23:48 Respiratory Rate 18 09/04/24 23:48 Blood Pressure 155/108 H 09/04/24 23:48 Pulse Oximetry 98 09/04/24 23:48 Oxygen Delivery Room Air 09/04/24 23:48 MDM - Back Pain/Injury MDM Narrative Medical decision making narrative: patient is a 58-year-old male with lower back pain. We will do pain management at this time. Discharge Plan Discharge Clinical Impression: Lumbago Qualifiers: Chronicity: acute Back pain laterality: unspecified Sciatica presence: without sciatica Qualified Code(s): M54.50 - Low back pain, unspecified Patient Disposition: Home, Self-Care Condition: Stable Instructions: Acute Low Back Pain (ED) Patient Language: Latvian Prescriptions: New orphenadrine citrate 100 mg tablet extended release 100 mg PO BID PRN (Reason: pain) Qty: 20 0RF No Action levetiracetam 500 mg Tablet 1,500 mg PO BID Daily Multivitamin-Minerals Tablet 1 tablet PO DAILY acetaminophen 325 mg capsule 325 mg PO Q6H PRN (Reason: Pain) lisinopril 10 mg tablet See Rx Instructions .ROUTE .COMPLEX Qty: 90 0RF Dose Instruction: TAKE ONE TABLET BY MOUTH DAILY Rx Instructions: TAKE ONE TABLET BY MOUTH DAILY Follow-up/Referrals: Manuel Rangel DO [Primary Care Provider] - Time of Disposition: 00:38
--- OUTSIDE RECORDS SUMMARY | 2024-09-05 00:25 | XMS_ITS | Referral Summary ---
Author Organization [facility] Address [address] [place] [address] Care Team Providers Care Stripper Soft Plastic Name Role Phone Manuel Rangel DO Primary Care Provider Encounters Date Type Department Care Team Description 09/02/2024 9:00 AM FABRICATION SPECIALIST Office Visit [facility] Epilepsy [address] [place] [address] [place] [address] Wilman Knott MD PhD Temporal [...] on file Legal Sex Male 9:12 PM FABRICATION SPECIALIST Gender Identity Not on file Sexual Orientation Not on file Last Filed Vital Signs Vital Sign Reading Time Taken Comments Blood Pressure 114/77 09/02/2024 7:32 AM FABRICATION SPECIALIST Pulse 109 09/02/2024 7:32 AM FABRICATION SPECIALIST Temperature 36.7 ??C (98 ??F) 12/26/2023 8:22 AM CDT Respiratory Rate 16 12/26/2023 8:22 AM CDT Oxygen Saturation 95% 12/26/2023 8:22 AM CDT Inhaled Oxygen Concentration - - Weight 124.3 kg (274 lb) 09/02/2024 7:32 AM FABRICATION SPECIALIST Height 177.8 cm (5' 10 ) 09/02/2024 7:32 AM FABRICATION SPECIALIST Body Mass Index 39.31 09/02/2024 7:32 AM FABRICATION SPECIALIST Plan of Treatment Not on file Procedures Procedure Name Priority Date/Time Associated Diagnosis Comments PSA SCREEN Routine 06/22/2020 7:37 AM FABRICATION SPECIALIST from Last 3 Months or Most Recently Relevant to Health Maintenance Results * PSA screen (06/22/2020 7:37 AM FABRICATION SPECIALIST) PSA-Total 0.34 <=3.90 ng/mL [facility] Comment: Interpretive Data ?AGE ? SEX ?REFERENCE INTERVAL 0 minutes-150 years ?Female ?None 0 minutes-49 years ? Male ?None ? 50-59 years ? Male ?0-3.90 ? 60-69 years ? Male ?0-5.40 ? 70-79 years ? Male ?0-6.20 ? 80-150 years ?Male ?0-6.20 Current interpretive data last revised 2018. Blood specimen (specimen) 06/22/2020 7:37 AM FABRICATION SPECIALIST 06/22/2020 8:39 AM FABRICATION SPECIALIST us Uriel Rodriguez MD LAB BLOOD ORDERABLES Final Result Performing Organization Address City/State/[facility] Co de Phone Number [facility] One [facility] Department [place] [address] from Last 3 Months or Most Recently Relevant to Health Maintenance Insurance [facility] MEDICARE SOLUTIONS MEDICARE [place] MEDICARE SOLUTIONS [facility] Care Teams Stripper Soft Plastic Relationship Specialty Start Date End Date Manuel Rangel DO [address] [place] [address] PCP - General 03/13/22
--- OUTSIDE RECORDS SUMMARY | 2024-09-05 00:25 | XMS_ITS | Clinical Summary ---
Author Organization [facility] Address [address] [place] [address]. 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
--- OUTSIDE RECORDS SUMMARY | 2024-09-05 00:25 | XMS_ITS | Encounter Summary ---
Author Organization [facility] Address [address] [place] [address] Phone Care Team Providers Care Cna Per Diem Name Role Phone Augustin Parrish MD Primary Care Provider [phone] Giuseppe Pemberton DO Primary Care Provider + 5-2220 Augustin Parrish MD Primary Care Provider [phone] Giuseppe Pemberton DO Primary Care Provider + 5-2220 Augustin Parrish MD Primary Care Provider [phone] Giuseppe Pemberton DO Primary Care Provider + 5-2220 Augustin Parrish MD Primary Care Provider + [phone] Giuseppe Pemberton DO Primary Care Provider + 5-2220 Augustin Parrish MD Primary Care Provider + [phone] Giuseppe Pemberton DO Primary Care Provider + [phone] Augustin Parrish MD Primary Care Provider [phone] Giuseppe Pemberton DO Primary Care Provider + 5-2220 Augustin Parrish MD Primary Care Provider [phone] Augustin Parrish MD Primary Care Provider [phone] Giuseppe Pemberton DO Primary Care Provider + 5-2220 Augustin Parrish MD Primary Care Provider [phone] Giuseppe Pemberton DO Primary Care Provider +[phone] Augustin Parrish MD Primary Care Provider [phone] Giuseppe Pemberton DO Primary Care Provider +[phone] Augustin Parrish MD Primary Care Provider +[phone] Giuseppe Pemberton DO Primary Care Provider +[phone] Augustin Parrish MD Primary Care Provider [phone] Miscellaneous, Not In File Primary Care Provider Unavailable No, Physician Primary Care Provider [phone] Manuel Rangel DO Primary Care Provider Encounter Details Date Type Department Care Team (Latest Contact Info) Description 1965 Orders Only REECE OB ONCOLOGY Scanning, Provider Social History Tobacco Use Types Packs/Day Years Used Date Smoking Tobacco: Never Assessed Sex and Gender Information Value Date Recorded Sex Assigned at Not on file 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 Gender Identity Not on file Sexual Orientation [...] on filedocumented in this encounter Care Teams Cna Per Diem Relationship Specialty Start Date End Date Augustin Parrish MD [address] [address] PCP - General 11/08/16 11/26/16 Giuseppe Pemberton DO [address] [place] [address] PCP - General 11/27/16 01/01/17 Augustin Parrish MD [address] [place] [address] PCP - General 01/02/17 01/08/17 Giuseppe Pemberton DO [address] [place] [address] PCP - General 01/09/17 01/09/17 Augustin Parrish MD [address] [place] [address] PCP - General 01/10/17 01/24/17 Giuseppe Pemberton DO [address] [place] [address] PCP - General 01/25/17 02/06/17 Augustin Parrish MD [address] [place] [address] PCP - General 02/07/17 04/30/17 Giuseppe Pemberton DO [address] [place] [address] PCP - General 05/01/17 05/01/17 Augustin Parrish MD [address] [place] [address] PCP - General 05/02/17 05/21/17 Giuseppe Pemberton DO [address] [place] [address] PCP - General 05/22/17 07/30/17 Augustin Parrish MD [email or web address] [place] [address] PCP - General 07/31/17 08/15/17 Giuseppe Pemberton DO [address] [place] [address] PCP - General 08/16/17 08/22/17 Augustin Parrish MD [email or web address] [place] [address] PCP - General 08/23/17 08/25/17 Augustin Parrish MD [address] [place] [address] PCP - General 08/26/17 08/27/17 Giuseppe Pemberton DO [address] [place] [address] PCP - General 08/28/17 11/24/17 Augustin Parrish MD [email or web address] [place] [address] PCP - General 11/25/17 12/04/17 Giuseppe Pemberton DO [address] [place] [address] PCP - General Internal Medicine 12/05/17 12/08/17 Augustin Parrish MD [email or web address] [place] [address] PCP - General 12/09/17 12/10/17 Giuseppe Pemberton DO [address] [place] [address] PCP - General 12/11/17 12/15/17 Augustin Parrish MD [address] [place] [address] PCP - General 12/16/17 12/17/17 Giuseppe Pembreton DO [address] [place] [address] PCP - General 12/18/17 06/17/18 Augustin Parrish MD [email or web address] [place] [address] PCP - General 06/18/18 12/15/20 Miscellaneous, Not In File PCP - General 12/16/20 No, Physician PCP - General 04/24/21 03/12/22 Manuel Rangel [place] [facility] [place] [address] PCP - General 03/13/22 documented as of this encounter
--- OUTSIDE RECORDS SUMMARY | 2024-09-05 00:25 | XMS_ITS ---
Author Organization [facility] Address [address] [place] [address] Care Team Providers Care Shell Coremaker Name Role Phone Manuel Rangel DO Primary [...] treatments are documented for this patient in [facility]. Treatments may have been administered in another system. Lifetime Dose Tracking * Chemical Lifetime Dose Automatic Entry Manual Entr y DLP 5,708 mGycm 5,708 mGycm 0 mGycm
--- OUTSIDE RECORDS SUMMARY | 2024-09-05 00:25 | XMS_ITS | Clinical Summary ---
Author Organization [facility] Address [address] [place] [address] Care Team Providers Care Sanitary Inspector Name Role Phone Manuel Rangel DO Primary [...] Department Care Team Description 09/02/2024 9:00 AM GREENHOUSE STAFF Office Visit [facility] Epilepsy [address] [facility] 6th [place] [address] [place] [address] Wilman Knott MD PhD Temporal lobe epilepsy, intractable (HCC) (Primary Dx); Seizure (HCC) from Last 3 Months Immunizations Name Administration Dates Next Due Influenza, Trivalent, IM (MDV) 05/08/2012 Influenza, Unspecified 06/03/2020 Pneumococcal Polysaccharide PPV23 10/01/2014 Surgical History Surgery Date Site/Laterality Comments [place] ORCHIECTOMY RADICAL TUMOR INGUINAL APPROACH Radical Orchiectomy [...] on file Legal Sex Male 9:12 PM GREENHOUSE STAFF Gender Identity Not on file Sexual Orientation Not on file Obstetrics History Last Filed Vital Signs Vital Sign Reading Time Taken Comments Blood Pressure 114/77 09/02/2024 7:32 AM GREENHOUSE STAFF Pulse 109 09/02/2024 7:32 AM GREENHOUSE STAFF Temperature 36.7 ??C (98 ??F) 12/26/2023 8:22 AM CDT Respiratory Rate 16 12/26/2023 8:22 AM CDT Oxygen Saturation 95% 12/26/2023 8:22 AM CDT Inhaled Oxygen Concentration - - Weight 124.3 kg (274 lb) 09/02/2024 7:32 AM GREENHOUSE STAFF Height 177.8 cm (5' 10 ) 09/02/2024 7:32 AM GREENHOUSE STAFF Body Mass Index 39.31 09/02/2024 7:32 AM GREENHOUSE STAFF Plan of Treatment Health Maintenance Due Date [...] Comments PSA SCREEN Routine 06/22/2020 7:37 AM GREENHOUSE STAFF from Last 3 Months or Most Recently Relevant to Health Maintenance Results * PSA screen (06/22/2020 7:37 AM GREENHOUSE STAFF) PSA-Total 0.34 <=3.90 ng/mL SHAMAR [facility] Comment: Interpretive Data ?AGE ? SEX ?REFERENCE INTERVAL 0 minutes-150 years ?Female ?None 0 minutes-49 years ? Male ?None ? 50-59 years ? Male ?0-3.90 ? 60-69 years ? Male ?0-5.40 ? 70-79 years ? Male ?0-6.20 ? 80-150 years ?Male ?0-6.20 Current interpretive data last revised 2018. Blood specimen (specimen) 06/22/2020 7:37 AM GREENHOUSE STAFF 06/22/2020 8:39 AM GREENHOUSE STAFF us Uriel Rodriguez MD LAB BLOOD ORDERABLES Final Result [facility] Department [place] [address] from Last 3 Months or Most Recently Relevant to Health Maintenance Insurance [facility] MEDICARE SOLUTIONS MEDICARE [facility] MEDICARE SOLUTIONS [facility] AETNA [facility] Care Teams Sanitary Inspector Relationship Specialty Start Date End Date Manuel Rangel DO [address] [place] [address] PCP - General 03/13/22
[2024-09-05] MEDS: KETOROLAC (*BKC) 60 MG/2 ML VIAL IM (00:55)
== END 2024-09-05 00:57 | disposition home or self-care (01) ==
PROVIDERS: Emergency Provider Emergency Medicine; PCP Family Medicine
DX: M54.50 Low back pain, unspecified (principal)
CPT/HCPCS: 96372; 99283; J1885

== ENCOUNTER 2024-09-05 18:52 | Emergency (ER) | payer MEDICARE, MEDICAID, SELFPAY ==
[2024-09-05 18:52] VITALS: BP 136/79; PULSE 116; RESP 16; TEMP 36.6; O2SAT 95
--- OUTSIDE RECORDS SUMMARY | 2024-09-05 18:54 | XMS_ITS | Referral Summary ---
Author Organization [facility] Address [address] [place] [address] Care Team Providers Care Minilab Operator Name Role Phone Manuel Rangel DO Primary Care Provider Encounters Date Type Department Care Team Description 09/02/2024 9:00 AM ACCOUNTANT SUPERVISOR Office Visit [facility] Epilepsy [address] [facility] 6th [place] [address] [place] [address] Wilman Knott MD PhD Temporal [...] on file Legal Sex Male 9:12 PM ACCOUNTANT SUPERVISOR Gender Identity Not on file Sexual Orientation Not on file Last Filed Vital Signs Vital Sign Reading Time Taken Comments Blood Pressure 114/77 09/02/2024 7:32 AM ACCOUNTANT SUPERVISOR Pulse 109 09/02/2024 7:32 AM ACCOUNTANT SUPERVISOR Temperature 36.7 ??C (98 ??F) 12/26/2023 8:22 AM CDT Respiratory Rate 16 12/26/2023 8:22 AM CDT Oxygen Saturation 95% 12/26/2023 8:22 AM CDT Inhaled Oxygen Concentration - - Weight 124.3 kg (274 lb) 09/02/2024 7:32 AM ACCOUNTANT SUPERVISOR Height 177.8 cm (5' 10 ) 09/02/2024 7:32 AM ACCOUNTANT SUPERVISOR Body Mass Index 39.31 09/02/2024 7:32 AM ACCOUNTANT SUPERVISOR Plan of Treatment Not on file Procedures Procedure Name Priority Date/Time Associated Diagnosis Comments PSA SCREEN Routine 06/22/2020 7:37 AM ACCOUNTANT SUPERVISOR from Last 3 Months or Most Recently Relevant to Health Maintenance Results * PSA screen (06/22/2020 7:37 AM ACCOUNTANT SUPERVISOR) PSA-Total 0.34 <=3.90 ng/mL SHAMAR [facility] Comment: Interpretive Data ?AGE ? SEX ?REFERENCE INTERVAL 0 minutes-150 years ?Female ?None 0 minutes-49 years ? Male ?None ? 50-59 years ? Male ?0-3.90 ? 60-69 years ? Male ?0-5.40 ? 70-79 years ? Male ?0-6.20 ? 80-150 years ?Male ?0-6.20 Current interpretive data last revised 2018. Blood specimen (specimen) 06/22/2020 7:37 AM ACCOUNTANT SUPERVISOR 06/22/2020 8:39 AM ACCOUNTANT SUPERVISOR us Uriel Rodriguez MD LAB BLOOD ORDERABLES Final Result Performing Organization Address City/State/[facility] Co de Phone Number SHAMAR [facility] Department [place] [address] from Last 3 Months or Most Recently Relevant to Health Maintenance Insurance [facility] MEDICARE SOLUTIONS MEDICARE [facility] MEDICARE SOLUTIONS [facility] Care Teams Minilab Operator Relationship Specialty Start Date End Date Manuel Rangel DO [address] [place] [address] PCP - General 03/13/22
--- OUTSIDE RECORDS SUMMARY | 2024-09-05 18:54 | XMS_ITS | Clinical Summary ---
Author Organization [facility] Address [address] [place] [address] Care Team Providers Care Rubber Roller Grinder Name Role Phone Manuel Rangel DO Primary [...] Department Care Team Description 09/02/2024 9:00 AM PROGRAM ANALYST Office Visit [facility] Epilepsy [address] [facility] 6th [place] [address] [place] [address] Wilman Knott MD PhD Temporal [...] on file Legal Sex Male 9:12 PM PROGRAM ANALYST Gender Identity Not on file Sexual Orientation Not on file Obstetrics History Last Filed Vital Signs Vital Sign Reading Time Taken Comments Blood Pressure 114/77 09/02/2024 7:32 AM PROGRAM ANALYST Pulse 109 09/02/2024 7:32 AM PROGRAM ANALYST Temperature 36.7 ??C (98 ??F) 12/26/2023 8:22 AM CDT Respiratory Rate 16 12/26/2023 8:22 AM CDT Oxygen Saturation 95% 12/26/2023 8:22 AM CDT Inhaled Oxygen Concentration - - Weight 124.3 kg (274 lb) 09/02/2024 7:32 AM PROGRAM ANALYST Height 177.8 cm (5' 10 ) 09/02/2024 7:32 AM PROGRAM ANALYST Body Mass Index 39.31 09/02/2024 7:32 AM PROGRAM ANALYST Plan of Treatment Health Maintenance Due Date [...] Comments PSA SCREEN Routine 06/22/2020 7:37 AM PROGRAM ANALYST from Last 3 Months or Most Recently Relevant to Health Maintenance Results * PSA screen (06/22/2020 7:37 AM PROGRAM ANALYST) PSA-Total 0.34 <=3.90 ng/mL [facility] Comment: Interpretive Data ?AGE ? SEX ?REFERENCE INTERVAL 0 minutes-150 years ?Female ?None 0 minutes-49 years ? Male ?None ? 50-59 years ? Male ?0-3.90 ? 60-69 years ? Male ?0-5.40 ? 70-79 years ? Male ?0-6.20 ? 80-150 years ?Male ?0-6.20 Current interpretive data last revised 2018. Blood specimen (specimen) 06/22/2020 7:37 AM PROGRAM ANALYST 06/22/2020 8:39 AM PROGRAM ANALYST us Uriel Rodriguez MD LAB BLOOD ORDERABLES Final Result [facility] [place] [address] from Last 3 Months or Most Recently Relevant to Health Maintenance Insurance [facility] MEDICARE SOLUTIONS MEDICARE [facility] MEDICARE SOLUTIONS [facility] AETNA [facility] Care Teams Rubber Roller Grinder Relationship Specialty Start Date End Date Manuel Rangel DO [address] [place] [address] PCP - General 03/13/22
--- OUTSIDE RECORDS SUMMARY | 2024-09-05 18:54 | XMS_ITS | Encounter Summary ---
Author Organization [facility] Address [address] [place] [address] Phone Care Team Providers Care Biomedical Engineering Aide Name Role Phone Augustin Parrish MD Primary Care Provider [phone] Giuseppe Pemberton DO Primary Care Provider + 5-2220 Augustin Parrish MD Primary Care Provider [phone] Giuseppe Pemberton DO Primary Care Provider + 5-2220 Augustin Parrish MD Primary Care Provider [phone] Giuseppe Pemberton DO Primary Care Provider + 5-2220 Augustin Parrish MD Primary Care Provider [phone] Giuseppe Pemberton DO Primary Care Provider + 5-2220 Augustin Parrish MD Primary Care Provider + [phone] Giuseppe Pemberton DO Primary Care Provider + 5-222 Augustin Parrish MD Primary Care Provider [phone] Giuseppe Pemberton DO Primary Care Provider + 5-2220 Augustin Parrish MD Primary Care Provider [phone] Augustin Parrish MD Primary Care Provider [phone] Giuseppe Pemberton DO Primary Care Provider + 5-2220 Augustin Parrish MD Primary Care Provider [phone] Giuseppe Pemberton DO Primary Care Provider +[phone] Augustin Parrish MD Primary Care Provider [phone] Giuseppe Pemberton DO Primary Care Provider +[phone] Augustin Parrish MD Primary Care Provider [phone] Giuseppe Pemberton DO Primary Care Provider +[phone] Augustin Parrish MD Primary Care Provider [phone] Miscellaneous, Not In File Primary Care Provider Unavailable No, Physician Primary Care Provider [phone] Manuel Rangel DO Primary Care Provider Encounter Details Date Type Department Care Team (Latest Contact Info) Description 1965 Orders Only REECE OB ONCOLOGY Scanning, Provider Social History Tobacco Use Types Packs/Day Years Used Date Smoking Tobacco: Never Assessed Sex and Gender Information Value Date Recorded Sex Assigned at Not on file 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 Gender Identity Not on file Sexual Orientation [...] on filedocumented in this encounter Care Teams Biomedical Engineering Aide Relationship Specialty Start Date End Date Augustin Parrish MD [address] [address] PCP - General 11/08/16 11/26/16 Giuseppe Pemberton DO [address] [place] [address] PCP - General 11/27/16 01/01/17 Augustin Parrish MD [address] [place] [address] PCP - General 01/02/17 01/08/17 Giuseppe Pemberton DO [address] [place] [address] PCP - General 01/09/17 01/09/17 Augustin Parrish MD [address] [place] [address] PCP - General 01/10/17 01/24/17 Giuseppe Pemberton DO [address] [place] [address] PCP - General 01/25/17 02/06/17 Augustin Parrish MD [address] [place] [address] PCP - General 02/07/17 04/30/17 Giuseppe Pemberton DO [address] [place] [address] PCP - General 05/01/17 05/01/17 Augustin Parrish MD [address] [place] [address] PCP - General 05/02/17 05/21/17 Giuseppe Pemberton DO [address] [place] [address] PCP - General 05/22/17 07/30/17 Augustin Parrish MD [address] [place] [address] PCP - General 07/31/17 08/15/17 Giuseppe Pemberton DO [address] [place] [address] PCP - General 08/16/17 08/22/17 Augustin Parrish MD [address] [place] [address] PCP - General 08/23/17 08/25/17 Augustin Parrish MD [address] [place] [address] PCP - General 08/26/17 08/27/17 Giuseppe Pemberton DO [address] [place] [address] PCP - General 08/28/17 11/24/17 Augustin Parrish MD [address] [place] [address] PCP - General 11/25/17 12/04/17 Giuseppe Pemberton DO [address] [place] [address] PCP - General Internal Medicine 12/05/17 12/08/17 Augustin Parrish MD [address] [place] [address] PCP - General 12/09/17 12/10/17 Giuseppe Pemberton DO [address] [place] [address] PCP - General 12/11/17 12/15/17 Augustin Parrish MD [address] [place] [address] PCP - General 12/16/17 12/17/17 Giuseppe Pemberton DO [address] [place] [address] PCP - General 12/18/17 06/17/18 Augustin Parrish MD [address] [place] [address] PCP - General 06/18/18 12/15/20 Miscellaneous, Not In File PCP - General 12/16/20 No, Physician PCP - General 04/24/21 03/12/22 Manuel Rangel DO [facility] [place] [address] PCP - General 03/13/22 documented as of this encounter
--- OUTSIDE RECORDS SUMMARY | 2024-09-05 18:54 | XMS_ITS | Clinical Summary ---
Author Organization [facility] Address [address] [place] [address]. 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
--- OUTSIDE RECORDS SUMMARY | 2024-09-05 18:54 | XMS_ITS ---
Author Organization [facility] Address [address] [place] [address] Care Team Providers Care Auto Adjudication Specialist Name Role Phone Manuel Rangel DO Primary [...] treatments are documented for this patient in [facility]. Treatments may have been administered in another system. Lifetime Dose Tracking * Chemical Lifetime Dose Automatic Entry Manual Entr y DLP 5,708 mGycm 5,708 mGycm 0 mGycm
--- NOTE | 2024-09-05 19:39 | PC.NURSE ---
patient stated that he was going to leave because his pain medication kicked in and he was no longer having jaw pain. Patient states that he is sorry he took up our time and would come back if his pain came back.
--- OUTSIDE RECORDS SUMMARY | 2024-09-05 20:32 | XMS_ITS | Clinical Summary ---
Author Organization [facility] Address [address] [place] [address] Care Team Providers Care Maintenance And Operations Supervisor Name Role Phone Manuel Rangel DO Primary [...] Department Care Team Description 09/02/2024 9:00 AM SALES ENABLEMENT SPECIALIST Office Visit [facility] Epilepsy [address] [facility] 6th [place] [address] [place] [address] Wilman Knott MD PhD Temporal lobe epilepsy, intractable (HCC) (Primary Dx); Seizure (HCC) from Last 3 Months Immunizations Name Administration Dates Next Due Influenza, Trivalent, IM (MDV) 05/08/2012 Influenza, Unspecified 06/03/2020 Pneumococcal Polysaccharide PPV23 10/01/2014 Surgical History Surgery Date Site/Laterality Comments [place] ORCHIECTOMY RADICAL TUMOR INGUINAL APPROACH Radical Orchiectomy [...] on file Legal Sex Male 9:12 PM SALES ENABLEMENT SPECIALIST Gender Identity Not on file Sexual Orientation Not on file Obstetrics History Last Filed Vital Signs Vital Sign Reading Time Taken Comments Blood Pressure 114/77 09/02/2024 7:32 AM SALES ENABLEMENT SPECIALIST Pulse 109 09/02/2024 7:32 AM SALES ENABLEMENT SPECIALIST Temperature 36.7 ??C (98 ??F) 12/26/2023 8:22 AM CDT Respiratory Rate 16 12/26/2023 8:22 AM CDT Oxygen Saturation 95% 12/26/2023 8:22 AM CDT Inhaled Oxygen Concentration - - Weight 124.3 kg (274 lb) 09/02/2024 7:32 AM SALES ENABLEMENT SPECIALIST Height 177.8 cm (5' 10 ) 09/02/2024 7:32 AM SALES ENABLEMENT SPECIALIST Body Mass Index 39.31 09/02/2024 7:32 AM SALES ENABLEMENT SPECIALIST Plan of Treatment Health Maintenance Due Date [...] Comments PSA SCREEN Routine 06/22/2020 7:37 AM SALES ENABLEMENT SPECIALIST from Last 3 Months or Most Recently Relevant to Health Maintenance Results * PSA screen (06/22/2020 7:37 AM SALES ENABLEMENT SPECIALIST) PSA-Total 0.34 <=3.90 ng/mL SHAMAR [facility] Comment: Interpretive Data ?AGE ? SEX ?REFERENCE INTERVAL 0 minutes-150 years ?Female ?None 0 minutes-49 years ? Male ?None ? 50-59 years ? Male ?0-3.90 ? 60-69 years ? Male ?0-5.40 ? 70-79 years ? Male ?0-6.20 ? 80-150 years ?Male ?0-6.20 Current interpretive data last revised 2018. Blood specimen (specimen) 06/22/2020 7:37 AM SALES ENABLEMENT SPECIALIST 06/22/2020 8:39 AM SALES ENABLEMENT SPECIALIST us Uriel Rodriguez MD LAB BLOOD ORDERABLES Final Result [facility] Department [place] [address] from Last 3 Months or Most Recently Relevant to Health Maintenance Insurance [facility] MEDICARE SOLUTIONS MEDICARE [facility] MEDICARE SOLUTIONS [place] AETNA [facility] Care Teams Maintenance And Operations Supervisor Relationship Specialty Start Date End Date Manuel Rangel DO [address] [place] [address] PCP - General 03/13/22
--- OUTSIDE RECORDS SUMMARY | 2024-09-05 20:32 | XMS_ITS | Clinical Summary ---
Author Organization [facility] Address [address] [place] [address]. 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
--- OUTSIDE RECORDS SUMMARY | 2024-09-05 20:32 | XMS_ITS | Referral Summary ---
Author Organization [facility] Address [address] [place] [address] Care Team Providers Care Software Test And Validation Engineer Name Role Phone Manuel Rangel DO Primary Care Provider Encounters Date Type Department Care Team Description 09/02/2024 9:00 AM ROLLER VARNISHER Office Visit [facility] Epilepsy [address] [facility] 6th [place] [address] [place] [address] Wilman Knott MD PhD Temporal [...] on file Legal Sex Male 9:12 PM ROLLER VARNISHER Gender Identity Not on file Sexual Orientation Not on file Last Filed Vital Signs Vital Sign Reading Time Taken Comments Blood Pressure 114/77 09/02/2024 7:32 AM ROLLER VARNISHER Pulse 109 09/02/2024 7:32 AM ROLLER VARNISHER Temperature 36.7 ??C (98 ??F) 12/26/2023 8:22 AM CDT Respiratory Rate 16 12/26/2023 8:22 AM CDT Oxygen Saturation 95% 12/26/2023 8:22 AM CDT Inhaled Oxygen Concentration - - Weight 124.3 kg (274 lb) 09/02/2024 7:32 AM ROLLER VARNISHER Height 177.8 cm (5' 10 ) 09/02/2024 7:32 AM ROLLER VARNISHER Body Mass Index 39.31 09/02/2024 7:32 AM ROLLER VARNISHER Plan of Treatment Not on file Procedures Procedure Name Priority Date/Time Associated Diagnosis Comments PSA SCREEN Routine 06/22/2020 7:37 AM ROLLER VARNISHER from Last 3 Months or Most Recently Relevant to Health Maintenance Results * PSA screen (06/22/2020 7:37 AM ROLLER VARNISHER) PSA-Total 0.34 <=3.90 ng/mL [facility] Comment: Interpretive Data ?AGE ? SEX ?REFERENCE INTERVAL 0 minutes-150 years ?Female ?None 0 minutes-49 years ? Male ?None ? 50-59 years ? Male ?0-3.90 ? 60-69 years ? Male ?0-5.40 ? 70-79 years ? Male ?0-6.20 ? 80-150 years ?Male ?0-6.20 Current interpretive data last revised 2018. Blood specimen (specimen) 06/22/2020 7:37 AM ROLLER VARNISHER 06/22/2020 8:39 AM ROLLER VARNISHER us Uriel Rodriguez MD LAB BLOOD ORDERABLES Final Result Performing Organization Address City/State/[facility] Co de Phone Number [facility] One [facility] Department [place] [address] from Last 3 Months or Most Recently Relevant to Health Maintenance Insurance [facility] MEDICARE SOLUTIONS [facility] MEDICARE Address: [address] [address] [place] [address] MEDICARE [place] MEDICARE SOLUTIONS [facility] Care Teams Software Test And Validation Engineer Relationship Specialty Start Date End Date Manuel Rangel DO [address] [place] [address] PCP - General 03/13/22
--- OUTSIDE RECORDS SUMMARY | 2024-09-05 20:32 | XMS_ITS | Encounter Summary ---
Author Organization [facility] Address [address] [place] [address] Phone Care Team Providers Care Pricer Name Role Phone Augustin Parrish MD Primary Care Provider [phone] Giuseppe Pemberton DO Primary Care Provider + 5-2220 Augustin Parrish MD Primary Care Provider [phone] Giuseppe Pemberton DO Primary Care Provider + 5-2220 Augustin Parrish MD Primary Care Provider [phone] Giuseppe Pemberton DO Primary Care Provider + 5-2220 Augustin Parrish MD Primary Care Provider + [phone] Giuseppe Pemberton DO Primary Care Provider + 5-2220 Augustin Parrish MD Primary Care Provider + [phone] Giuseppe Pemberton DO Primary Care Provider + 5-222 Augustin Parrish MD Primary Care Provider +[phone] Giuseppe Pemberton DO Primary Care Provider + 5-2220 Augustin Parrish MD Primary Care Provider [phone] Augustin Parrish MD Primary Care Provider [phone] Giuseppe Pemberton DO Primary Care Provider + 5-2220 Augustin Parrish MD Primary Care Provider [phone] Giuseppe Pemberton DO Primary Care Provider +8-26 Augustin Parrish MD Primary Care Provider [phone] Giuseppe Pemberton DO Primary Care Provider +[phone] Augustin Parrish MD Primary Care Provider [phone] Giuseppe Pemberton DO Primary Care Provider +[phone] Augustin Parrish MD Primary Care Provider [phone] Miscellaneous, Not In File Primary Care Provider Unavailable No, Physician Primary Care Provider [phone] Manuel Rangel DO Primary Care Provider Encounter Details Date Type Department Care Team (Latest Contact Info) Description 1965 Orders Only [facility]CE OB ONCOLOGY Scanning, Provider Social History Tobacco Use Types Packs/Day Years Used Date Smoking Tobacco: Never Assessed Sex and Gender Information Value Date Recorded Sex Assigned at Not on file Legal Sex Male 9:12 PM YAM CURER Gender Identity Not on file Sexual Orientation [...] on filedocumented in this encounter Care Teams Pricer Relationship Specialty Start Date End Date Augustin Parrish MD [address] [address] PCP - General 11/08/16 11/26/16 Giuseppe Pemberton DO [address] [place] [address] PCP - General 11/27/16 01/01/17 Augustin Parrish MD [address] [place] [address] PCP - General 01/02/17 01/08/17 Giuseppe Pemberton DO [address] [place] [address] PCP - General 01/09/17 01/09/17 Augustin Parrish MD [address] [place] [address] PCP - General 01/10/17 01/24/17 Giuseppe Pemberton DO [address] [place] [address] PCP - General 01/25/17 02/06/17 Augustin Parrish MD [address] [place] [address] PCP - General 02/07/17 04/30/17 Giuseppe Pemberton DO [address] [place] [address] PCP - General 05/01/17 05/01/17 Augustin Parrish MD [address] [place] [address] PCP - General 05/02/17 05/21/17 Giuseppe Pemberton DO [address] [place] [address] PCP - General 05/22/17 07/30/17 Augustin Parrish MD [address] [place] [address] PCP - General 07/31/17 08/15/17 Giuseppe Pemberton DO [address] [place] [address] PCP - General 08/16/17 08/22/17 Augustin Parrish MD [address] [place] [address] PCP - General 08/23/17 08/25/17 Augustin Parrish MD [address] [place] [address] PCP - General 08/26/17 08/27/17 Giuseppe Pemberton DO [address] [place] [address] PCP - General 08/28/17 11/24/17 Augustin Parrish MD [address] [place] [address] PCP - General 11/25/17 12/04/17 Giuseppe Pemberton DO [address] [place] [address] PCP - General Internal Medicine 12/05/17 12/08/17 Augustin Parrish MD [address] [place] [address] PCP - General 12/09/17 12/10/17 Giuseppe Pemberton DO [address] [place] [address] PCP - General 12/11/17 12/15/17 Augustin Parrish MD [address] [place] [address] PCP - General 12/16/17 12/17/17 Giuseppe Pemberton DO [address] [place] [address] PCP - General 12/18/17 06/17/18 Augustin Parrish MD [address] [place] [address] PCP - General 06/18/18 12/15/20 Miscellaneous, Not In File PCP - General 12/16/20 No, Physician PCP - General 04/24/21 03/12/22 Manuel Rangel DO [facility] [place] [address] PCP - General 03/13/22 documented as of this encounter
--- OUTSIDE RECORDS SUMMARY | 2024-09-05 20:32 | XMS_ITS ---
Author Organization [facility] Address [address] [place] [address] Care Team Providers Care Copy Reader Name Role Phone Manuel Rangel DO Primary [...] treatments are documented for this patient in [facility]. Treatments may have been administered in another system. Lifetime Dose Tracking * Chemical Lifetime Dose Automatic Entry Manual Entr y DLP 5,708 mGycm 5,708 mGycm 0 mGycm
== END 2024-09-05 19:39 | disposition left against medical advice (07) ==
LOC: CHSED 20:30
PROVIDERS: Emergency Provider Internal Medicine Critical Care Medicine; PCP Family Medicine
DX: M54.50 Low back pain, unspecified (principal); I10 Essential (primary) hypertension
CPT/HCPCS: 99199

== ENCOUNTER 2024-09-07 20:12 | Emergency (ER) | payer MEDICARE, MEDICAID, SELFPAY ==
--- NOTE | ~2024-09-07 | XR_ITS ---
EXAMINATION: XR chest 2V Exam Date/Time: 09/07/2024 20:18 MEDICAL DEVICE ASSEMBLER HISTORY: cough Comparison: 08/24/2024. RESULT: Lines, tubes, and devices: None. Lungs and pleura: Clear. Cardiomediastinal silhouette: Stable. Other: No acute osseous or upper abdominal finding. IMPRESSION: No acute cardiopulmonary process. Reviewed, dictated and finalized at location K. CAL DEVICE ASSEMBLER
--- OUTSIDE RECORDS SUMMARY | 2024-09-07 20:13 | XMS_ITS | Referral Summary ---
Author Organization [facility] Address [address] [place] [address] Care Team Providers Care Want Ad Supervisor Name Role Phone Manuel Rangel DO Primary Care Provider Encounters Date Type Department Care Team Description 09/02/2024 9:00 AM BOX TOE BUFFER Office Visit [facility] Epilepsy [address] [facility] 6[address] [place] [address] [place] [address] Wilman Knott MD PhD Temporal [...] on file Legal Sex Male 9:12 PM BOX TOE BUFFER Gender Identity Not on file Sexual Orientation Not on file Last Filed Vital Signs Vital Sign Reading Time Taken Comments Blood Pressure 114/77 09/02/2024 7:32 AM BOX TOE BUFFER Pulse 109 09/02/2024 7:32 AM BOX TOE BUFFER Temperature 36.7 ??C (98 ??F) 12/26/2023 8:22 AM CDT Respiratory Rate 16 12/26/2023 8:22 AM CDT Oxygen Saturation 95% 12/26/2023 8:22 AM CDT Inhaled Oxygen Concentration - - Weight 124.3 kg (274 lb) 09/02/2024 7:32 AM BOX TOE BUFFER Height 177.8 cm (5' 10 ) 09/02/2024 7:32 AM BOX TOE BUFFER Body Mass Index 39.31 09/02/2024 7:32 AM BOX TOE BUFFER Plan of Treatment Not on file Procedures Procedure Name Priority Date/Time Associated Diagnosis Comments PSA SCREEN Routine 06/22/2020 7:37 AM BOX TOE BUFFER from Last 3 Months or Most Recently Relevant to Health Maintenance Results * PSA screen (06/22/2020 7:37 AM BOX TOE BUFFER) PSA-Total 0.34 <=3.90 ng/mL [facility] Comment: Interpretive Data ?AGE ? SEX ?REFERENCE INTERVAL 0 minutes-150 years ?Female ?None 0 minutes-49 years ? Male ?None ? 50-59 years ? Male ?0-3.90 ? 60-69 years ? Male ?0-5.40 ? 70-79 years ? Male ?0-6.20 ? 80-150 years ?Male ?0-6.20 Current interpretive data last revised 2018. Blood specimen (specimen) 06/22/2020 7:37 AM BOX TOE BUFFER 06/22/2020 8:39 AM BOX TOE BUFFER us Uriel Rodriguez MD LAB BLOOD ORDERABLES Final Result Performing Organization Address City/State/[facility] Co de Phone Number [facility] One [facility] [place] [address] from Last 3 Months or Most Recently Relevant to Health Maintenance Insurance [facility] MEDICARE SOLUTIONS MEDICARE [employer] MEDICARE SOLUTIONS [facility] Care Teams Want Ad Supervisor Relationship Specialty Start Date End Date Manuel Rangel DO [address] [place] [address] PCP - General 03/13/22
--- OUTSIDE RECORDS SUMMARY | 2024-09-07 20:13 | XMS_ITS | Encounter Summary ---
Author Organization [facility] Address [address] [place] [address] Phone Care Team Providers Care Leather Cutter Name Role Phone Augustin Parrish MD Primary Care Provider [phone] Giuseppe Pemberton DO Primary Care Provider + 5-2220 Augustin Parrish MD Primary Care Provider [phone] Giuseppe Pemberton DO Primary Care Provider + 5-2220 Augustin Parrish MD Primary Care Provider [phone] Giuseppe Pemberton DO Primary Care Provider + 5-1 Augustin Parrish MD Primary Care Provider + [phone] Giuseppe Pemberton DO Primary Care Provider + 5-2220 Augustin Parrish MD Primary Care Provider + [phone] Giuseppe Pemberton DO Primary Care Provider + 5-222 Augustin Parrish MD Primary Care Provider [phone] Giuseppe Pemberton DO Primary Care Provider + 5-2220 Augustin Parrish MD Primary Care Provider [phone] Augustin Parrish MD Primary Care Provider [phone] Giuseppe Pemberton DO Primary Care Provider + 5-2220 Augustin Parrish MD Primary Care Provider [phone] Giuseppe Pemberton DO Primary Care Provider +2-50 Augustin Parrish MD Primary Care Provider [phone] Giuseppe Pemberton DO Primary Care Provider +[phone] Augustin Parrish MD Primary Care Provider [phone] Giuseppe Pemberton DO Primary Care Provider +[phone] Augustin Parrish MD Primary Care Provider [phone] Miscellaneous, Not In File Primary Care Provider Unavailable No, Physician Primary Care Provider [phone] Manuel Rangel DO Primary Care Provider Encounter Details Date Type Department Care Team (Latest Contact Info) Description 1965 Orders Only REECE OB ONCOLOGY Scanning, Provider Social History Tobacco Use Types Packs/Day Years Used Date Smoking Tobacco: Never Assessed Sex and Gender Information Value Date Recorded Sex Assigned at Not on file 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 Gender Identity Not on file Sexual Orientation [...] on filedocumented in this encounter Care Teams Leather Cutter Relationship Specialty Start Date End Date Augustin Parrish MD [address] [address] PCP - General 11/08/16 11/26/16 Giuseppe Pemberton DO [address] [place] [address] PCP - General 11/27/16 01/01/17 Augustin Parrish MD [address] [place] [address] PCP - General 01/02/17 01/08/17 Giuseppe Pemberton DO [address] [place] [address] PCP - General 01/09/17 01/09/17 Augustin Parrish MD [address] [place] [address] PCP - General 01/10/17 01/24/17 Giuseppe Pemberton DO [address] [place] [address] PCP - General 01/25/17 02/06/17 Augustin Parrish MD [address] [place] [address] PCP - General 02/07/17 04/30/17 Giuseppe Pemberton DO [address] [place] [address] PCP - General 05/01/17 05/01/17 Augustin Parrish MD [address] [place] [address] PCP - General 05/02/17 05/21/17 Giuseppe Pemberton DO [address] [place] [address] PCP - General 05/22/17 07/30/17 Augustin Parrish MD [address] [place] [address] PCP - General 07/31/17 08/15/17 Giuseppe Pemberton DO [address] [place] [address] PCP - General 08/16/17 08/22/17 Augustin Parrish MD [address] [place] [address] PCP - General 08/23/17 08/25/17 Augustin Parrish MD [address] [place] [address] PCP - General 08/26/17 08/27/17 Giuseppe Pemberton DO [address] [place] [address] PCP - General 08/28/17 11/24/17 Augustin Parrish MD [address] [place] [address] PCP - General 11/25/17 12/04/17 Giuseppe Pemberton DO [address] [place] [address] PCP - General Internal Medicine 12/05/17 12/08/17 Augustin Parrish MD [address] [place] [address] PCP - General 12/09/17 12/10/17 Giuseppe Pemberton DO [address] [place] [address] PCP - General 12/11/17 12/15/17 Augustin Parrish MD [address] [place] [address] PCP - General 12/16/17 12/17/17 Giuseppe Pemberton DO [address] [place] [address] PCP - General 12/18/17 06/17/18 Augustin Parrish MD [address] [place] [address] PCP - General 06/18/18 12/15/20 Miscellaneous, Not In File PCP - General 12/16/20 No, Physician PCP - General 04/24/21 03/12/22 Manuel Rangel [place] [facility] [place] [address] PCP - General 03/13/22 documented as of this encounter
--- OUTSIDE RECORDS SUMMARY | 2024-09-07 20:13 | XMS_ITS | Clinical Summary ---
Author Organization [facility] Address [address] [place] [address]. [place], [place] [address] [place] [address] Care Team Providers Care Flat Sheet Maker Name Role Phone Manuel Rangel DO Primary Care Provider [phone] Allergies Active Allergy Reactions Criticality Noted Date [...] on file Legal Sex Male 5:54 PM RODEO CLOWN Gender Identity Not on file Sexual Orientation [...] this topic Insurance [employer] MEDICA[employer] Care Teams Flat Sheet Maker Relationship Specialty Start Date End Date Manuel Rangel DO [address] [place] [address] PCP - General FAMILY PRACTICE 02/21/24
--- OUTSIDE RECORDS SUMMARY | 2024-09-07 20:14 | XMS_ITS | Clinical Summary ---
Author Organization [facility] Address [address] [place] [address] Care Team Providers Care Phlebotomist Name Role Phone Manuel Rangel DO Primary [...] Department Care Team Description 09/02/2024 9:00 AM BALL SORTER Office Visit [facility] Epilepsy [address] [facility] 6th [place] [address] [place] [address] Wilman Knott MD PhD Temporal lobe epilepsy, intractable (HCC) (Primary Dx); Seizure (HCC) from Last 3 Months Immunizations Name Administration Dates Next Due Influenza, Trivalent, IM (MDV) 05/08/2012 Influenza, Unspecified 06/03/2020 Pneumococcal Polysaccharide PPV23 10/01/2014 Surgical History Surgery Date Site/Laterality Comments MS ORCHIECTOMY RADICAL TUMOR INGUINAL APPROACH Radical Orchiectomy [...] on file Legal Sex Male 9:12 PM BALL SORTER Gender Identity Not on file Sexual Orientation Not on file Obstetrics History Last Filed Vital Signs Vital Sign Reading Time Taken Comments Blood Pressure 114/77 09/02/2024 7:32 AM BALL SORTER Pulse 109 09/02/2024 7:32 AM BALL SORTER Temperature 36.7 ??C (98 ??F) 12/26/2023 8:22 AM CDT Respiratory Rate 16 12/26/2023 8:22 AM CDT Oxygen Saturation 95% 12/26/2023 8:22 AM CDT Inhaled Oxygen Concentration - - Weight 124.3 kg (274 lb) 09/02/2024 7:32 AM BALL SORTER Height 177.8 cm (5' 10 ) 09/02/2024 7:32 AM BALL SORTER Body Mass Index 39.31 09/02/2024 7:32 AM BALL SORTER Plan of Treatment Health Maintenance Due Date [...] Comments PSA SCREEN Routine 06/22/2020 7:37 AM BALL SORTER from Last 3 Months or Most Recently Relevant to Health Maintenance Results * PSA screen (06/22/2020 7:37 AM BALL SORTER) PSA-Total 0.34 <=3.90 ng/mL [facility] Comment: Interpretive Data ?AGE ? SEX ?REFERENCE INTERVAL 0 minutes-150 years ?Female ?None 0 minutes-49 years ? Male ?None ? 50-59 years ? Male ?0-3.90 ? 60-69 years ? Male ?0-5.40 ? 70-79 years ? Male ?0-6.20 ? 80-150 years ?Male ?0-6.20 Current interpretive data last revised 2018. Blood specimen (specimen) 06/22/2020 7:37 AM BALL SORTER 06/22/2020 8:39 AM BALL SORTER us Uriel Rodriguez MD LAB BLOOD ORDERABLES Final Result [facility] One [facility] Department [place] [address] from Last 3 Months or Most Recently Relevant to Health Maintenance Insurance [facility] MEDICARE SOLUTIONS MEDICARE [facility] MEDICARE SOLUTIONS [employer] [facility] Care Teams Phlebotomist Relationship Specialty Start Date End Date Manuel Rangel DO [address] [place] [address] PCP - General 03/13/22
--- OUTSIDE RECORDS SUMMARY | 2024-09-07 20:14 | XMS_ITS ---
Author Organization [facility] Address [address] [place] [address] Care Team Providers Care Co Teacher Name Role Phone Manuel Rangel DO Primary [...] treatments are documented for this patient in [facility]. Treatments may have been administered in another system. Lifetime Dose Tracking * Chemical Lifetime Dose Automatic Entry Manual Entr y DLP 5,708 mGycm 5,708 mGycm 0 mGycm
[2024-09-07 20:15] VITALS: BP 152/83; PULSE 109; RESP 18; TEMP 36.3; O2SAT 95
--- NOTE | 2024-09-07 20:17 | PC.NURSE ---
COVID PCR obtained and taken to lab
--- NOTE | 2024-09-07 20:19 | ED_ITS ---
HPI - URI/Sore Throat General Chief Complaint: Upper Respiratory Infection Stated Complaint: cough Time Seen by Provider: 09/07/24 20:18 Source: patient and family Mode of arrival: ambulatory Limitations: no limitations History of Present Illness HPI Narrative: patient is a 58-year-old male with a cough and some chest discomfort only with coughing. This started this evening and today. MD elicited complaint: cough and nasal congestion Pertinent past history: other ( Negative) Onset (ago): day(s) (1) Consistency: intermittent Severity: mild Pain scale (0-10): 1 Description of mucous: clear Able to tolerate fluids by mouth: Yes Exacerbating factors: other ( coughing) Relieving factors: rest Context: sick contacts Associated symptoms: fever, cough, chest pain ( only with coughing) and shortness of breath Treatments prior to arrival: none Related Data Home Medications ?Medication ?Instructions ?Recorded ?Confirmed ?Last Taken ?Type levetiracetam 500 mg tablet 1,500 mg PO BID 02/03/20 06/15/24 06/15/24 History multivitamin with minerals (Daily 1 tablet PO DAILY 02/03/20 06/15/24 06/15/24 History Multivitamin-Minerals tablet) acetaminophen 325 mg capsule 325 mg PO Q6H PRN Pain 11/15/23 06/15/24 06/15/24 History Allergies Allergy/AdvReac Type Severity Reaction Status Date / Time Iodinated Contrast Media Allergy Unknown Hives Verified 09/05/24 01:01 Contrast allergy Allergy Intermediate Unknown Uncoded 09/05/24 01:01 Review of Systems Review of Systems: All systems reviewed & are unremarkable except as noted in HPI and below Constitutional: Constitutional: Reports no additional constitutional complaints Eyes: Eyes: Reports no additional eye complaints ENT: Reports system reviewed and no additional complaints, except as documented Cardiovascular: Cardiovascular: Reports no additional cardiovascular complaints Respiratory: Respiratory: Reports no additional respiratory complaints Gastrointestinal: Gastrointestinal: Reports no additional gastrointestinal complaints Genitourinary: Genitourinary: Reports no additional male genitourinary complaints Musculoskeletal: Musculoskeletal: Reports no additional musculoskeletal complaints Integumentary/Breasts: Skin/Breast: Reports system reviewed and no additional complaints, except as docu Neurologic: Reports system reviewed and no additional complaints, except as documented Psychiatric: Psychiatric: Reports no additional psychiatric complaints Endocrine: Endocrine: Reports no additional endocrine complaints Hematologic/Lymphatic: Hematologic/Lymphatic: Reports no additional hematologic/lymphatic complaints Allergic/Immunologic: Allergic/Immunologic: Reports no additional allergic/immunologic complaints COUNT INCLUDES THE [facility] Past Medical History Medical History Benign essential HTN Testicle cancer Obesity (BMI 30-39.9) Seizure disorder Surgical History Surgical History H/O brain surgery Family History Family History Father History of sinus cancer Sibling Ovarian cancer Social History Social History Smoking status: Never smoker Second hand tobacco smoke exposure: No Alcohol intake: never Substance use: never Lack of Transportation: No Lack of Food: Never True Current Housing: I Have Housing Concerned About Future Housing: No Difficulty Paying Gas/Electric Bills: No Difficulty Paying for Meds: No Currently Unemployed: No Education: High School Diploma/GED Difficulty w/ Childcare or Family Care: No Living arrangements: alone Gender identity (if verbalized by the patient): Male Sexual Orientation (if Verbalized by the Patient): Straight or Heterosexual Exam Const: General: healthy appearing Nutritional Appearance: well nourished Orientation/consciousness: patient oriented x3 Limitations: no limitations HENMT: Head: normal to inspection Ears: external ears normal Face/Nose/Sinus: Normal external nose present Eyes: Conjunctivae: conjunctivae normal Pupils: Equal, round and reactive pupils present EOM: EOMs intact bilaterally Neck: Neck: normal visual inspection Chest: Chest palpation & inspection: normal inspection of the chest Resp: Effort & Inspection: normal respiratory effort and not labored Auscultation: clear to auscultation bilaterally and no crackles Cardio: Rate: regular rate Rhythm: regular rhythm Heart sounds: no murmurs GI: Inspection: non-distended GI Palp: Yes Soft to palpation and No Tenderness to palpation present (GI) Auscultation: normal bowel sounds : General: Yes bladder normal to palpation Back/Spine/Pelvis: Back: no CVA tenderness Skin: General skin exam: normal color Rashes: no rashes Wounds: no wounds Neuro: General: patient oriented x3 Cranial nerves: Yes Nystagmus not present Speech: normal speech Extrem: General: normal to inspection Psych: Mental Status: mental status grossly normal Affect: normal affect Attitude: cooperative Course Vital Signs Vital signs: Vital Signs Temperature 36.3 C L 09/07/24 20:15 Pulse Rate 109 H 09/07/24 20:15 Respiratory Rate 18 09/07/24 20:15 Blood Pressure 152/83 H 09/07/24 20:15 Pulse Oximetry 95 09/07/24 20:15 Oxygen Delivery Room Air 09/07/24 20:15 Temperature 37.8 C H 09/07/24 21:45 Pulse Rate 102 H 09/07/24 21:45 Respiratory Rate 18 09/07/24 21:45 Blood Pressure 144/84 H 09/07/24 21:45 Pulse Oximetry 96 09/07/24 21:45 Oxygen Delivery Room Air 09/07/24 21:45 MDM - URI/Sore Throat MDM Narrative Medical decision making narrative: patient is a 58-year-old male with cough and congestion and pain with coughing. We will do a chest x-ray and a COVID swab panel. Lab Data Attestation: I reviewed the patient's lab results. Labs: Lab Results 09/07/24 Range/Units 20:23 Influenza A (RT-PCR) Negative (Negative) Influenza B (RT-PCR) Negative (Negative) RSV (RT-PCR) Negative (Negative) SARS-CoV-2 RNA (RT-PCR) Negative (Negative) Imaging Data Attestation: I personally reviewed and interpreted this imaging study as follows: Radiologist's impression: Chest x-rays negative for acute process Discharge Plan Discharge Clinical Impression: Bronchitis, Pleurisy Patient Disposition: Home, Self-Care Condition: Stable Instructions: Acute Bronchitis (ED) Additional Instructions: patient instructed to take Tylenol when he gets home. Patient Language: Russian Prescriptions: New albuterol sulfate [Ventolin HFA] 90 mcg/actuation HFA aerosol inhaler 2 inh inhalation QID PRN (Reason: shortness of breath or wheezing) Qty: 6.7 0RF prednisone 20 mg tablet 40 mg PO DAILY 2 Days Qty: 4 0RF benzonatate 200 mg capsule 200 mg PO TID PRN (Reason: cough) Qty: 30 0RF azithromycin 250 mg tablet See Rx Instructions .ROUTE .COMPLEX Qty: 6 0RF Rx Instructions: For 250 mg dose pack: take 500 mg today (day 1), then 250 mg for 4 days (days 2-5) No Action levetiracetam 500 mg Tablet 1,500 mg PO BID Daily Multivitamin-Minerals Tablet 1 tablet PO DAILY orphenadrine citrate 100 mg tablet extended release 100 mg PO BID PRN (Reason: pain) Qty: 20 0RF acetaminophen 325 mg capsule 325 mg PO Q6H PRN (Reason: Pain) lisinopril 10 mg tablet See Rx Instructions .ROUTE .COMPLEX Qty: 90 0RF Dose Instruction: TAKE ONE TABLET BY MOUTH DAILY Rx Instructions: TAKE ONE TABLET BY MOUTH DAILY Follow-up/Referrals: Manuel Rangel DO [Primary Care Provider] - Time of Disposition: 21:14
[2024-09-07 20:56] LABS: SARS-CoV-2 RNA PCR Negative (Negative)
[2024-09-07 20:57] LABS: Influenza A QL RT-PCR Negative (Negative); Influenza B QL RT-PCR Negative (Negative); RSV RNA, RT-PCR Negative (Negative)
[2024-09-07] MEDS: BENZONATATE 100 MG CAPSULE 200 MG PO (21:25)
[2024-09-07] MEDS: predniSONE 20 MG TABLET 40 MG PO (21:26)
[2024-09-07 21:45] VITALS: BP 144/84; PULSE 102; RESP 18; TEMP 37.8; O2SAT 96
== END 2024-09-07 21:47 | disposition home or self-care (01) ==
PROVIDERS: Emergency Provider Emergency Medicine; PCP Family Medicine
DX: J40 Bronchitis, not specified as acute or chronic (principal); R09.1 Pleurisy; I10 Essential (primary) hypertension; Z85.47 Personal history of malignant neoplasm of testis; Z20.822 Contact with and (suspected) exposure to COVID-19
CPT/HCPCS: 71046; 87637; 99283; A9270; J7512

== ENCOUNTER 2024-09-12 04:11 | Emergency (ER) | payer MEDICARE, MEDICAID, SELFPAY ==
--- NOTE | ~2024-09-12 | XR_ITS ---
EXAMINATION: XR chest 2V DATE: 09/12/2024 04:27 INDICATION: Cough. Chest congestion. Wheezing. TECHNIQUE: Frontal and lateral views of the chest were obtained. COMPARISON: Chest 2 views 09/07/2024 FINDINGS: There is no pneumonia, pleural effusion, or pneumothorax. The heart size is normal. IMPRESSION: 1. No acute cardiopulmonary disease. Reviewed, dictated and finalized at location A. HEAD LINE WORKER
--- OUTSIDE RECORDS SUMMARY | 2024-09-12 04:13 | XMS_ITS ---
Author Organization [facility] Address [address] [place] [address] Care Team Providers Care Industrial Maintenance Electrician Name Role Phone Manuel Rangel DO Primary [...] treatments are documented for this patient in [facility]. Treatments may have been administered in another system. Lifetime Dose Tracking * Chemical Lifetime Dose Automatic Entry Manual Entr y DLP 5,708 mGycm 5,708 mGycm 0 mGycm
--- OUTSIDE RECORDS SUMMARY | 2024-09-12 04:13 | XMS_ITS | Clinical Summary ---
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 Gender Identity Not on file Sexual Orientation Not on file Last Filed Vital Signs Vital Sign Reading Time Taken Comments Blood Pressure 132/83 02/21/2024 12:58 PM CDT Pulse 80 02/21/2024 12:58 PM CDT Temperature 36.2 C (97.1 F) 02/21/2024 12:58 PM CDT Respiratory Rate 16 02/21/2024 12:58 PM CDT [...] (1 of 2) 10/09/2015 COVID-19 Vaccine (4 2023-2 5 season) 2024 11/22/2021, 12/13/2020, 11/15/2020 [...] patient's age to complete this topic Insurance AET MEDICAID Care Teams Spotter Relationship Specialty Start Date End Date Manuel Rangel DO [address] [place] [address] PCP - General FAMILY PRACTICE 02/21/24
--- OUTSIDE RECORDS SUMMARY | 2024-09-12 04:13 | XMS_ITS | Encounter Summary ---
Author Organization [facility] Address [address] [place] [address] Phone Care Team Providers Care Facilities Supervisor Name Role Phone Augustin Parrish MD Primary Care Provider [phone] Giuseppe Pemberton DO Primary Care Provider + 5-2220 Augustin Parrish MD Primary Care Provider [phone] iGuseppe Pemberton DO Primary Care Provider + 5-2220 Augutsin Parrish MD Primary Care Provider [phone] Giuseppe Pemberton DO Primary Care Provider + 5-2220 Augustin Parrish MD Primary Care Provider [phone] Giuseppe Pemberton DO Primary Care Provider + 5-2220 Augustin Parrish MD Primary Care Provider + [phone] Giuseppe Pemberton DO Primary Care Provider + [phone] Augustin Parrish MD Primary Care Provider [phone] Giuseppe Pemberton DO Primary Care Provider + 5-2220 Augustin Parrish MD Primary Care Provider [phone] Augustin Parrish MD Primary Care Provider [phone] Giuseppe Pemberton DO Primary Care Provider + 5-2220 Augustin Parrish MD Primary Care Provider [phone] Giuseppe Pemberton DO Primary Care Provider +[phone] Augustin Parrish MD Primary Care Provider [phone] Giuseppe Pemberton DO Primary Care Provider +[phone] Augustin Parrish MD Primary Care Provider [phone] Giuseppe Pemberton DO Primary Care Provider +[phone] Augustin Parrish MD Primary Care Provider [phone] Miscellaneous, Not In File Primary Care Provider Unavailable No, Physician Primary Care Provider [phone] Manuel Rangel DO Primary Care Provider Encounter Details Date Type Department Care Team (Latest Contact Info) Description 1965 Orders Only [facility] Scanning, Provider Social History Tobacco Use Types Packs/Day Years Used Date Smoking Tobacco: Never Assessed Sex and Gender Information Value Date Recorded Sex Assigned at Not on file 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 Gender Identity Not on file Sexual [...] on filedocumented in this encounter Care Teams Facilities Supervisor Relationship Specialty Start Date End Date Augustin Parrish MD [address] [address] PCP - General 11/08/16 11/26/16 Giuseppe Pemberton DO [address] [place] [address] PCP - General 11/27/16 01/01/17 Augustin Parrish MD [address] [place] [address] PCP - General 01/02/17 01/08/17 Giuseppe Pemberton DO [address] [place] [address] PCP - General 01/09/17 01/09/17 Augustin Parrish MD [address] [place] [address] PCP - General 01/10/17 01/24/17 Giuseppe Pemberton DO [address] [place] [address] PCP - General 01/25/17 02/06/17 Augustin Parrish MD [address] [place] [address] PCP - General 02/07/17 04/30/17 Giuseppe Pemberton DO [address] [place] [address] PCP - General 05/01/17 05/01/17 Augustin Parrish MD [address] [place] [address] PCP - General 05/02/17 05/21/17 Giuseppe Pemberton DO [address] [place] [address] PCP - General 05/22/17 07/30/17 Augustin Parrish MD [address] [place] [address] PCP - General 07/31/17 08/15/17 Giuseppe Pemberton DO [address] [place] [address] PCP - General 08/16/17 08/22/17 Augustin Parrish MD [address] [place] [address] PCP - General 08/23/17 08/25/17 Augustin Parrish MD [address] [place] [address] PCP - General 08/26/17 08/27/17 Giuseppe Pemberton DO [address] [place] [address] PCP - General 08/28/17 11/24/17 Augustin Parrish MD [address] [place] [address] PCP - General 11/25/17 12/04/17 Giuseppe Pemberton DO [address] [place] [address] PCP - General Internal Medicine 12/05/17 12/08/17 Augustin Parrish MD [address] [place] [address] PCP - General 12/09/17 12/10/17 Giuseppe Pemberton DO [address] [place] [address] PCP - General 12/11/17 12/15/17 Augustin Parrish MD [address] [place] [address] PCP - General 12/16/17 12/17/17 Giuseppe Pemberton DO [address] [place] [address] PCP - General 12/18/17 06/17/18 Augustin Parrish MD [address] [place] [address] PCP - General 06/18/18 12/15/20 Miscellaneous, Not In File PCP - General 12/16/20 No, Physician PCP - General 04/24/21 03/12/22 Manuel Rangel DO [facility] [place] [address] PCP - General 03/13/22 documented as of this encounter
--- OUTSIDE RECORDS SUMMARY | 2024-09-12 04:13 | XMS_ITS ---
Author Organization [facility] Address [address] [place], [place] [id number] Care Team Providers Care Supervisor Publications Production Name Role Phone Manuel Rangel Primary Care Provider AKI Teixeira Unavailable [phone] RIC VIZCAINO Unavailable [phone] Allergies Allergen (clinical drug ingredient) Drug/Non Drug [...] Active Encounters Encounter Location Date Provider Diagnosis [facility] [place] [address] [place], [place] [id number] 06/04/2024 RIC VIZCAINO Tinea unguium B35.1 ; Xerosis cutis L85.3 ; Unspecified atherosclerosis of [place] arteries of extremities, bilateral legs I70.203 ; [...] to feet daily. 06/04/2024 Unspecified atherosclerosis of [place] arteries of extremities, 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 - [...] applied to feet daily. Unspecified atherosclerosis of [place] arteries of extremities, bilateral legs Patient educated [...] Appt Details Follow Up: 3 Months, Reason: Provider Name:EVELYN CHRISTIANSEN, 08:50:00 AM, [address] [place] [address], [phone], Progress Notes * MOHINDER BEAR FDOB: [birth year] (58 yo M)Acc No.[id number]:06/04/2024 Patient: MOHINDER SAPP Provider: Ilana VIZCAINO :1965 A ge:58 Y S ex:Male Date:06/04/2024 [facility] [facility] Pcp:Manuel Rangel Subjective: * Chief Complaints: * 1 . *General care. * HPI: H PI: General care P atient presents to the office for at risk foot care. Patient states that their nails are thickened, elongated and painful. Patient states that it is aggravated by shoe gear. Onset is gradual. Patient denies being diabetic., Patient denies taking blood thinners., Date last seen by w as unknown., Initials mca. * ROS: G eneral / Constitutional: Patient denies w eakness. R espiratory: Patient denies c hronic cough, shortness of breath, sputum production. C ardiovascular: Patient denies c hest pain, history of NV, irregular heartbeat. M usculoskeletal: Patient complains of h ammertoes. P eripheral Vascular: Patient denies b lanching of skin, cold extremities, decreased sensation in extremities. S kin: Patient complains of f ungal nails, nail changes. ? N eurologic: Patient denies d izziness, gait abnormality, headache. * Medical History: * Medications: T aking levETIRAcetam 500 MG Tablet Oral , Taking Lisinopril 10 MG Tablet Oral , Taking Amoxicillin-Pot Clavulanate 500-125 MG Tablet Oral , Taking Fluticasone Propionate 50 MCG/ACT Suspension Nasal , Taking Methocarbamol 500 MG Tablet Oral , Taking HYDROcodone-Acetaminophen 5-325 MG Tablet Oral , Taking Ammonium Lactate 12 % Lotion 1 application Externally Twice a day * Allergies: I DIRECTOR OF DIGITAL PLATFORMS Dye, Iodine Containing: Allergy - Onset Date 03/14/2020. Objective: * Vitals: * Examination: P hysical Examination: V ascular: Dorsalis Pedis pulse noted at 1/4 right [...] first metatarsophalangeal joint bilaterally. Assessment: * Assessment: 1. T inea unguium - B35.1 (Primary) 2 . X erosis cutis - L85.3 ?3. U nspecified atherosclerosis of [place] arteries of extremities, bilateral legs - I70.203? 4. O ther hammer toe(s) (acquired), right foot - M20.41 5 . Other hammer toe(s) (acquired), left foot - M20.42 6 . P ain in right toe(s) - M79.674 7 . P ain in left toe(s) - M79.675 Plan: * Treatment: 2. X erosis cutis Notes: The patient was educated regarding proper hydration of their feet/ankles and the patient was given several recommendations for proper creams to protect/hydrate and keep the area healthy. Continue with use of lotion to be applied to feet daily. 3. U nspecified atherosclerosis of [place] arteries of extremities, bilateral legs Notes: Patient educated on risks and aggravating factors of PVD, including conservative treatment options such as a diet and exercise regimen to aid in slowing progression of vascular disease ? 4. O ther hammer toe(s) (acquired), right foot Notes: The patient was educated regarding how [...] were discussed, but conservative options were emphasized. * Follow Up: 3 Months * Billing Information: * Visit Code: 51922 Office Visit, Est Pt., Level 3. * Procedure Codes: * ICATOR SPECIAL ITEMS Sign off status: Completed true * Provider: Ilana VIZCAINO Date: 1 Generated for Curtis mejia/Lani/Romeo on: 0 09/12/2024 04:13 AM FABRICATOR SPECIAL ITEMS History and Physical Notes * HPI (History [...]
--- OUTSIDE RECORDS SUMMARY | 2024-09-12 04:13 | XMS_ITS | Clinical Summary ---
Author Organization [facility] Address [address] [place] [address] Care Team Providers Care Ice Delivery Driver Name Role Phone Manuel Rangel DO Primary [...] Department Care Team Description 09/02/2024 9:00 AM PINSETTER MECHANIC HELPER Office Visit [facility] Epilepsy [address] [facility] 6th [place] [address] [place] [address] Wilman Knott MD PhD Temporal lobe epilepsy, intractable (HCC) (Primary Dx); Seizure (HCC) from Last 3 Months Immunizations Name Administration Dates Next Due Influenza, Trivalent, IM (MDV) 05/08/2012 Influenza, Unspecified 06/03/2020 Pneumococcal Polysaccharide PPV23 10/01/2014 Surgical History Surgery Date Site/Laterality Comments NV ORCHIECTOMY RADICAL TUMOR INGUINAL APPROACH Radical Orchiectomy Right - inguinal orchiectomy 09/09/14 (Added by TW Conv) Family History Medical History Relation Name Comments Febrile seizures Mother Febrile sei zure - (Added by TW Conv) Ovarian [...] on file Legal Sex Male 9:12 PM PINSETTER MECHANIC HELPER Gender Identity Not on file Sexual Orientation Not on file Obstetrics History Last Filed Vital Signs Vital Sign Reading Time Taken Comments Blood Pressure 114/77 09/02/2024 7:32 AM PINSETTER MECHANIC HELPER Pulse 109 09/02/2024 7:32 AM PINSETTER MECHANIC HELPER Temperature 36.7 C (98 F) 12/26/2023 8:22 AM CDT Respiratory Rate 16 12/26/2023 8:22 AM CDT Oxygen Saturation 95% 12/26/2023 8:22 AM CDT Inhaled Oxygen Concentration - - Weight 124.3 kg (274 lb) 09/02/2024 7:32 AM PINSETTER MECHANIC HELPER Height 177.8 cm (5' 10 ) 09/02/2024 7:32 AM PINSETTER MECHANIC HELPER Body Mass Index 39.31 09/02/2024 7:32 AM PINSETTER MECHANIC HELPER Plan of Treatment Health Maintenance Due Date [...] Comments PSA SCREEN Routine 06/22/2020 7:37 AM PINSETTER MECHANIC HELPER from Last 3 Months or Most Recently Relevant to Health Maintenance Results * PSA screen (06/22/2020 7:37 AM PINSETTER MECHANIC HELPER) PSA-Total 0.34 <=3.90 ng/mL [facility] Comment: Interpretive Data AGE SEX REFERENCE INTERVAL 0 minutes-150 years Female None 0 minutes-49 years Male None 50-59 years Male 0-3.90 60-69 years Male 0-5.40 70-79 years Male 0-6.20 80-150 years Male 0-6.20 Current interpretive data last revised 2018. Blood specimen (specimen) 06/22/2020 7:37 AM PINSETTER MECHANIC HELPER 06/22/2020 8:39 AM PINSETTER MECHANIC HELPER us Uriel Rodriguez MD LAB BLOOD ORDERABLES Final Result [facility] Department [place] [address] from Last 3 Months or Most Recently Relevant to Health Maintenance Insurance [employer] MEDICARE SOLUTIONS MEDICARE [facility] MEDICARE SOLUTIONS [facility] Care Teams Ice Delivery Driver Relationship Specialty Start Date End Date Manuel Rangel DO [address] [place] [address] PCP - General 03/13/22
--- OUTSIDE RECORDS SUMMARY | 2024-09-12 04:13 | XMS_ITS | Referral Summary ---
Author Organization [facility] Address [address] [place] [address] Care Team Providers Care Flume Tender Name Role Phone Manuel Rangel DO Primary Care Provider Encounters Date Type Department Care Team Description 09/02/2024 9:00 AM STATIONARY EQUIPMENT MECHANIC Office Visit [facility] Epilepsy [address] [facility] [address] [place] [address] [place] [address] Wilman Knott MD PhD Temporal [...] on file Legal Sex Male 9:12 PM STATIONARY EQUIPMENT MECHANIC Gender Identity Not on file Sexual Orientation Not on file Last Filed Vital Signs Vital Sign Reading Time Taken Comments Blood Pressure 114/77 09/02/2024 7:32 AM STATIONARY EQUIPMENT MECHANIC Pulse 109 09/02/2024 7:32 AM STATIONARY EQUIPMENT MECHANIC Temperature 36.7 C (98 F) 12/26/2023 8:22 AM CDT Respiratory Rate 16 12/26/2023 8:22 AM CDT Oxygen Saturation 95% 12/26/2023 8:22 AM CDT Inhaled Oxygen Concentration - - Weight 124.3 kg (274 lb) 09/02/2024 7:32 AM STATIONARY EQUIPMENT MECHANIC Height 177.8 cm (5' 10 ) 09/02/2024 7:32 AM STATIONARY EQUIPMENT MECHANIC Body Mass Index 39.31 09/02/2024 7:32 AM STATIONARY EQUIPMENT MECHANIC Plan of Treatment Not on file Procedures Procedure Name Priority Date/Time Associated Diagnosis Comments PSA SCREEN Routine 06/22/2020 7:37 AM STATIONARY EQUIPMENT MECHANIC from Last 3 Months or Most Recently Relevant to Health Maintenance Results * PSA screen (06/22/2020 7:37 AM STATIONARY EQUIPMENT MECHANIC) PSA-Total 0.34 <=3.90 ng/mL [facility] Comment: Interpretive Data AGE SEX REFERENCE INTERVAL 0 minutes-150 years Female None 0 minutes-49 years Male None 50-59 years Male 0-3.90 60-69 years Male 0-5.40 70-79 years Male 0-6.20 80-150 years Male 0-6.20 Current interpretive data last revised 2018. Blood specimen (specimen) 06/22/2020 7:37 AM STATIONARY EQUIPMENT MECHANIC 06/22/2020 8:39 AM STATIONARY EQUIPMENT MECHANIC Uriel Rodriguez MD LAB BLOOD ORDERABLES Final Result [facility] Department [place] [address] from Last 3 Months or Most Recently Relevant to Health Maintenance Insurance [facility] MEDICARE [facility] MEDICARE IDPA MEDICARE SOLUTIONS [facility] Care Teams Flume Tender Relationship Specialty Start Date End Date Manuel Rangel DO [address] [place] [address] PCP - General 03/13/22
--- OUTSIDE RECORDS SUMMARY | 2024-09-12 04:14 | XMS_ITS ---
Author Organization [facility] Address [address] [place], [place] [id number] Care Team Providers Care Digital Marketing Consultant Name Role Phone Manuel Rangel Primary Care Provider UnavailAKI Odell Unavailable [phone] RIC VIZCAINO Unavailable [phone] REASON FOR VISIT *General care Encounters Encounter Location Date Provider Diagnosis [address] [id number] 05/14/2024 RIC VIZCAINO Plan Of Treatment Next Appt Details Provider Name:EVELYN CHRISTIANSEN, 08:50:00 AM, [address] [place] [address], [phone], Progress Notes * MOHINDER BEAR FDOB: 6 (58 yo M)Acc No.[id number]:05/14/2024 Patient: MOHINDER ASPP Provider: Ilana VIZCAINO :1965 A ge:58 Y S ex:Male Date:05/14/2024 Address:[address] [place], [place] [id number] Pcp:Manuel Rangel Subjective: * Chief Complaints: * 1 . *General care. * Medical History: Objective: * Vitals: Assessment: Plan: * Treatment: * Billing Information: * Visit Code: * Procedure Codes: * Electronic signature of JOSEFINA VIZCAINO DPM on 09/12/2024 at 04:13 AM INTERNAL MEDICINE SPECIALIST Sign off status: Pending * Provider: Ilana VIZCAINO Date: 1 Generated for Curtis mejia/Lani/Romeo on: 0 09/12/2024 04:13 AM INTERNAL MEDICINE SPECIALIST
--- OUTSIDE RECORDS SUMMARY | 2024-09-12 04:14 | XMS_ITS ---
Author Organization [facility] Address [address] [place], [place] [id number] Care Team Providers Care Coil Connector Repairer Name Role Phone Manuel Rangel Primary Care Provider UnavailAKI Odell Unavailable [phone] EVELYN CHRISTIANSEN Unavailable [phone] Allergies Allergen (clinical drug ingredient) Drug/Non Drug Allergy documented on EMR Reaction Allergy Type Onset Date Status Iodinated contrast media (substance) IVP Dye, Iodine Containing (uncoded) Unknown Allergy 03/14/2020 active REASON FOR VISIT Patient presents for at-risk foot care . The patient has painful toenails that cause difficulty with ambulation and shoegear. The onset is gradual Medications Medication SIG (Take, Route, Frequency, Duration) Notes Start Date End Date Status Ammonium Lactate 12 % 1 application Exte rnally Twice a day 09/05/2023 Active levETIRAcetam 500 MG Oral for 30 Days Active Lisinopril 10 MG Oral for 90 Days Active Amoxicillin-Pot Clavulanate 500-125 MG Oral for 7 Days Active Fluticasone Propionate 50 MCG/ACT Nasal for 60 Days Active Methocarbamol 500 MG Oral for 10 Days Active HYDROcodone-Acetaminophen 5-325 MG Oral for 7 Days Active Encounters Encounter Location Date Provider Diagnosis [facility] [address] [place], [place] [id number] 08/06/2024 EVELYN CHRISTIANSEN Tinea unguium B35.1 ; Pain in right toe(s) M79.674 ; Pain in left toe(s) M79.675 and Atherosclerosis of [place] arteries of extremities with intermittent claudication, bilateral legs I70.213 Assessments Encounter Date Diagnosis (ICD Code) Assessment Notes Treatment Notes Treatment Clinical Notes Section Notes 08/06/2024 Tinea unguium (ICD-10 - B35.1) FUNGAL TOENAILS: Discussed various treatment options for fungal toenails including debridement, topical antifungals, oral antifungals, toenail avulsion, or toenail matrixectomy. NAIL DEBRIDEMENT: Nails 1-5 Bilateral were debrided extensively with nail nippers and emery board, reducing length and girth to pink healthy tissue with any subungual debris and necrotic tissue removed 08/06/2024 Pain in right toe(s) (ICD-10 - M79.674) 08/06/2024 Pain in left toe(s) (ICD-10 - M79.675) 08/06/2024 Atherosclerosis of [place] arteries of extremities with intermittent claudication, 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 - I70.213) Plan Of Treatment Treatment Notes Assessment Notes Tinea unguium FUNGAL TOENAILS: Discussed various treatment options for fungal toenails including debridement, topical antifungals, oral antifungals, toenail avulsion, or toenail matrixectomy. NAIL DEBRIDEMENT: Nails 1-5 Bilateral were debrided extensively with nail nippers and emery board, reducing length and girth to pink healthy tissue with any subungual debris and necrotic tissue removed Next Appt Details Follow Up: 10-12 Weeks, Reas on: At Risk Foot care, sooner if problems arise Provider Name:EVELYN CHRISTIANSEN, 08:50:00 AM, [address] [place] [address], [phone], Progress Notes * MOHINDER BEAR FDOB: 6 (58 yo M)Acc No.[id number]:08/06/2024 Patient: Tarah JOHANNAANNIAL Abdon Provider: María Elena Christiansen DPM :1965 A ge:58 Y S ex:Male Date:08/06/2024 Address:[address] [place], [place] [id number] Pcp:Manuel Rangel Subjective: * Chief Complaints: * P atient presents for at-risk foot care . The patient has painful toenails that cause difficulty with ambulation and shoegear. The onset is gradual * HPI: H PI: General care P atient presents to the office for at risk foot care. Patient states that their nails are thickened, elongated and painful. Patient states that it is aggravated by shoe gear. Onset is gradual. Patient denies being diabetic., Patient denies taking blood thinners., Date last seen by Dr. Rangel was 08/2023., Initials mca. sample. * ROS: G eneral / Constitutional: Patient denies w eakness. R espiratory: Patient denies c hronic cough, shortness of breath, sputum production. C ardiovascular: Patient denies c hest pain, history of NH, irregular heartbeat. M usculoskeletal: Patient complains of h ammertoes. P eripheral Vascular: Patient denies b lanching of skin, cold extremities, decreased sensation in extremities. S kin: Patient complains of f ungal nails, nail changes. ? N eurologic: Patient denies d izziness, gait abnormality, headache. * Medical History: * Surgical History: * Hospitalization/Major Diagno stic Procedure: * Medications: T akinglevETIRAcetam 500 MG Tablet Oral Lisinopril 10 MG Tablet Oral Amoxicillin- Pot Clavulanate 500-125 MG Tablet Oral Fluticasone Propionate 50 MCG/ACT Suspension Nasal Methocarbamol 500 MG Tablet Oral HYDROcodone-Acetaminophen 5-325 MG Tablet Oral Ammonium Lactate 12 % Lotion 1 application Externally Twice a day Medication List reviewed and reconciled with the patientTaking levETIRAcetam 500 MG Tablet Oral Taking Lisinopril 10 MG Tablet Oral Taking Amoxicillin-Pot Clavulanate 500-125 MG Tablet Oral Taking Fluticasone Propionate 50 MCG/ACT Suspension Nasal Taking Methocarbamol 500 MG Tablet Oral Taking HYDROcodone-Acetaminophen 5-325 MG Tablet Oral Taking Ammonium Lactate 12 % Lotion 1 application Externally Twice a day Medication List reviewed and reconciled with the patient * Allergies: I FOOD CHECKERS AND CASHIERS SUPERVISOR Dye, Iodine Containing: Allergy - Onset Date 03/14/2020 Objective: * Vitals: * Examination: C onstitutional: Constitutional T he patient is awake, alert, well developed, well groomed and well nourished. D ermatologic: Skin findings: S kin is thin, atrophic and lacking pedal hair. Nail pathology: N ails 1, 2, 3, 4, and 5 bilateral are elongated, thick, discolored, and dystrophic with subungual debris. They are painful to palpation. ? V ascular: Dorsalis pedis pulse: 1 /4 b ilateral. Posterior tibial pulse: 0 /4 b ilateral. Capillary refill: g reater than 3 seconds. Edema: N o edema, bilateral. N eurologic: Gross sensation G ross sensation is intact to light touch.? M usculoskeletal: Muscle Strength M uscle strength is 5/5 in regards to dorsiflexion, plantarflexion, inversion, and eversion in bilateral lower extremities. ? Assessment: * Assessment: 1. T inea unguium - B35.1 (Primary) 2 . P ain in right toe(s) - M79.674? 3. P ain in left toe(s) - M79.675 4 . A therosclerosis of [place] arteries of extremities with intermittent claudication, bilateral legs - I70.213 Plan: * Treatment: * Procedure Codes: * Follow Up: 1 0-12 Weeks (Reason: At Risk Foot care, sooner if problems arise) * Billing Information: * Visit Code: 72850 Office Visit, Est Pt., Level 3. * Procedure Codes: * IOTHERAPY PRACTICE MANAGER Sign off status: Completed true * Provider: María Elena Christiansen DPM Date: 0 08/06/2024 Generated for Curtis mejia/Lani/Romeo on: 0 09/12/2024 04:13 AM PHYSIOTHERAPY PRACTICE MANAGER History and Physical Notes * HPI (History [...] Date last seen by Dr. Rangel was 08/2023., Initials mca sample Examination Category Sub-Category Detail Notes Category Not es Dermatologic Skin findings: Skin is thin, at rophic and lacking pedal hair Nail pathology: Nails 1, 2, 3, 4, an d 5 bilateral are elongated, thick, discolored, and dystrophic with subungual debris. They are painful to palpation Neurologic Gross sensation Gross sensation is intact to light touch Vascular Dorsalis pedis pulse: 1/4 bilateral Edema: No edema, bilateral Capillary refill: greater than 3 secon ds Posterior tibial pulse: 0/4 bilateral Musculoskeletal Muscle Strength Muscle strength is 5/5 in regards to dorsiflexion, plantarflexion, inversion, and eversion in bilateral lower extremities Constitutional Constitutional The patient is a wake, alert, well developed, well groomed and well nourished
--- OUTSIDE RECORDS SUMMARY | 2024-09-12 04:17 | XMS_ITS | Patient Health Record ---
Author Organization [facility] Address [address] [place], [place] [id number] Care Team Providers Care Transition Coach Name Role Phone Manuel Rangel Primary Care Provider UnavailAKI Odell Unavailable [phone] EVELYN CHRISTIANSEN Unavailable [phone] CHARISRIC Unavailable [phone] Allergies Allergen (clinical drug ingredient) Drug/Non Drug Allergy documented on EMR Reaction Allergy Type Onset Date Status Iodinated contrast media (substance) IVP Dye, Iodine Containing (uncoded) Unknown Allergy 03/14/2020 active Reason For Referral No Information Medications Medication SIG (Take, Route, Frequency, Duration) Notes Start Date End Date Status Methocarbamol 500 MG Oral for 10 Days Active HYDROcodone-Acetaminophen 5-325 MG Oral for 7 Days Active Ammonium Lactate 12 % 1 application Exte rnally Twice a day 09/05/2023 Active levETIRAcetam 500 MG Oral for 30 Days Active Lisinopril 10 MG Oral for 90 Days Active Amoxicillin-Pot Clavulanate 500-125 MG Oral for 7 Days Active Fluticasone Propionate 50 MCG/ACT Nasal for 60 Days Active Immunizations Vaccine Route Administration Date Status Comme nts Influenza, seasonal, injecta ble, preservative free, 3 yrs and above Unknown 05/08/2023 Administered Vital Signs Height-cm 185.42 cm 01/09/2024 Weight-kg 127.01 kg 01/09/2024 Height 73.00 in 01/09/2024 Weight 280 lbs 01/09/2024 BMI 36.94 kg/m2 01/09/2024 Encounters Encounter Location Date Provider Diagnosis [facility] [address] [place], [place] [id number] 11/07/2023 RIC DAVYDOV Tinea unguium B35.1 ; Xerosis cutis L85.3 ; Unspecified atherosclerosis of [place] arteries of extremities, bilateral legs I70.203 ; Other hammer toe(s) (acquired), right foot M20.41 ; Other hammer toe(s) (acquired), left foot M20.42 ; Pain in right toe(s) M79.674 and Pain in left toe(s) M79.675 [facility] [address] [place], [place] [id number] 01/09/2024 RIC DAVYDOV Tinea unguium B35.1 ; Xerosis cutis L85.3 ; Unspecified atherosclerosis of [place] arteries of extremities, bilateral legs I70.203 ; Other hammer toe(s) (acquired), right foot M20.41 ; Other hammer toe(s) (acquired), left foot M20.42 ; Pain in right toe(s) M79.674 and Pain in left toe(s) M79.675 [facility] [address] [place], [place] [id number] 03/12/2024 RIC DAVYDOV Tinea unguium B35.1 ; Xerosis cutis L85.3 ; Unspecified atherosclerosis of [place] arteries of extremities, bilateral legs I70.203 ; Other hammer toe(s) (acquired), right foot M20.41 ; Other hammer toe(s) (acquired), left foot M20.42 ; Pain in right toe(s) M79.674 and Pain in left toe(s) M79.675 [facility] [address], [place] [id number] 06/04/2024 RIC DAVYDOV Tinea unguium B35.1 ; Xerosis cutis L85.3 ; Unspecified atherosclerosis of [place] arteries of extremities, bilateral legs I70.203 ; Other hammer toe(s) (acquired), right foot M20.41 ; Other hammer toe(s) (acquired), left foot M20.42 ; Pain in right toe(s) M79.674 and Pain in left toe(s) M79.675 [facility] [address] [place], [place] [id number] 08/06/2024 EVELYN CHRISTIANSEN Tinea unguium B35.1 ; Pain in right toe(s) M79.674 ; Pain in left toe(s) M79.675 and Atherosclerosis of [place] arteries of extremities with intermittent claudication, bilateral legs I70.213 Assessments Encounter Date Diagnosis (ICD Code) Assessment Notes Treatment Notes Treatment Clinical Notes Section Notes 11/07/2023 Xerosis cutis (ICD-10 - L85.3) The [...] lotion to be applied to feet daily. 08/06/2024 Tinea unguium (ICD-10 - B35.1) FUNGAL [...] Pain in left toe(s) (ICD-10 - M79.675) 06/04/2024 Unspecified atherosclerosis of [place] arteries of extremities, 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 - I70.203) Patient educated on risks and aggravating factors of PVD, including conservative treatment options such as a diet and exercise regimen to aid in slowing progression of vascular disease 03/12/2024 Unspecified atherosclerosis of [place] arteries of extremities, 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 - I70.203) Patient educated on risks and aggravating factors of PVD, including conservative treatment options such as a diet and exercise regimen to aid in slowing progression of vascular disease 01/09/2024 Unspecified atherosclerosis of [place] arteries of extremities, 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 - I70.203) Patient educated on risks and aggravating factors of PVD, including conservative treatment options such as a diet and exercise regimen to aid in slowing progression of vascular disease 11/07/2023 Unspecified atherosclerosis of [place] arteries of extremities, 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 - I70.203) Patient educated on risks and aggravating factors of PVD, including conservative treatment options such as a diet and exercise regimen to aid in slowing progression of vascular disease 11/07/2023 Other hammer toe(s) (acquired), right foot [...] were discussed, but conservative options were emphasized. 08/06/2024 Atherosclerosis of [place] arteries of extremities with intermittent claudication, 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 - I70.213) 06/04/2024 Other hammer toe(s) (acquired), left foot (ICD-10 - M20.42) 01/09/2024 Other hammer toe(s) (acquired), left foot (ICD-10 - M20.42) 03/12/2024 Other hammer toe(s) (acquired), left foot (ICD-10 - M20.42) 11/07/2023 Other hammer toe(s) (acquired), left foot (ICD-10 - M20.42) 11/07/2023 Pain in right toe(s) (ICD-10 - [...] toe(s) (ICD-10 - M79.675) Plan Of Treatment Next Appt Details Provider Name:EVELYN ЕЛЕНА, 08:50:00 AM, [address] [place] [address], [phone], Insurance Providers Payer Name Payer Address Payer Phone Subscriber Number Group Number Insured Name Patient Relationship to Insured Coverage Start Date Coverage End Date [facility] [address] [address] [place], [place] [id number] MOHINDER BEAR Self - patient is the insured
[2024-09-12] MEDS: IBUPROFEN 600 MG TABLET PO (04:29)
[2024-09-12] MEDS: ACETAMINOPHEN 325 MG TABLET 650 MG PO (04:30)
[2024-09-12 04:35] VITALS: BP 127/89; PULSE 84; RESP 18; TEMP 36.6; O2SAT 94
--- NOTE | 2024-09-12 04:37 | ED_ITS ---
HPI - URI/Sore Throat General Chief Complaint: Upper Respiratory Infection Stated Complaint: URI Source: patient Mode of arrival: ambulatory Limitations: no limitations History of Present Illness HPI Narrative: 58 years old white male came to the hospital because of Coughing and wheezing. Patient had a diagnosis of bronchitis 5 days ago and was discharged on albuterol, prednisone, Z-Miguel and test alone. Patient is telling me his symptoms are improving, he denies any fever or chills or nausea or vomiting or chest pain. Related Data Home Medications ?Medication ?Instructions ?Recorded ?Confirmed ?Last Taken ?Type levetiracetam 500 mg tablet 1,500 mg PO BID 02/03/20 09/12/24 06/15/24 History multivitamin with minerals (Daily 1 tablet PO DAILY 02/03/20 09/12/24 06/15/24 History Multivitamin-Minerals tablet) acetaminophen 325 mg capsule 325 mg PO Q6H PRN Pain 11/15/23 09/12/24 06/15/24 History Allergies Allergy/AdvReac Type Severity Reaction Status Date / Time Iodinated Contrast Media Allergy Unknown Hives Verified 09/12/24 04:20 Contrast allergy Allergy Intermediate Unknown Uncoded 09/05/24 01:01 Review of Systems Review of Systems: All systems reviewed & are unremarkable except as noted in HPI and below PMFSH Past Medical History Medical History Benign essential HTN Testicle cancer Obesity (BMI 30-39.9) Seizure disorder Surgical History Surgical History H/O brain surgery Family History Family History Father History of sinus cancer Sibling Ovarian cancer Social History Social History Smoking status: Never smoker Second hand tobacco smoke exposure: No Alcohol intake: never Substance use: never Lack of Transportation: No Lack of Food: Never True Current Housing: I Have Housing Concerned About Future Housing: No Difficulty Paying Gas/Electric Bills: No Difficulty Paying for Meds: No Currently Unemployed: No Education: High School Diploma/GED Difficulty w/ Childcare or Family Care: No Living arrangements: alone Gender identity (if verbalized by the patient): Male Sexual Orientation (if Verbalized by the Patient): Straight or Heterosexual Exam Narrative: General appearance: Well-developed, well-nourished Skin: Normal color Head: Normocephalic, nontraumatic Eyes: Clear conjunctiva ENT: Oropharynx normal, ears normal, nose normal Neck: Supple, nontender Chest and respiratory: Airway patent, no respiratory distress, no accessory muscle use Heart: Regular rate/rhythm Abdomen: Soft, nontender, no organomegaly, quiet bowel sounds Vascular: Normal peripheral pulses, normal capillary refill. Musculoskeletal: Normal range of motion, nontender back Neurologic: Alert and oriented ?3, LABORATORY ANIMAL FACILITY SUPERVISOR is normal as tested, no gross motor deficit Course Vital Signs Vital signs: Vital Signs Temperature 36.6 C 09/12/24 04:35 Pulse Rate 84 09/12/24 04:35 Respiratory Rate 18 09/12/24 04:35 Blood Pressure 127/89 09/12/24 04:35 Pulse Oximetry 94 09/12/24 04:35 Oxygen Delivery Room Air 09/12/24 04:35 Temperature 36.6 C 09/12/24 04:35 Pulse Rate 84 09/12/24 04:35 Respiratory Rate 18 09/12/24 04:35 Blood Pressure 127/89 09/12/24 04:35 Pulse Oximetry 94 09/12/24 04:35 Oxygen Delivery Room Air 09/12/24 04:35 MDM - URI/Sore Throat MDM Narrative Medical decision making narrative: Patient came because of coughing and wheezing, vital signs are stable, Physical examination showing no wheezing or rhonchi Chest x-ray showed no acute abnormalities, respiratory panel came back positive for influenza A Coughing Continue home medication Differential Diagnosis Differential diagnosis: Likely other Medical Records Attestation: I reviewed the patient's medical records. Lab Data Attestation: I reviewed the patient's lab results. Labs: Lab Results 09/12/24 Range/Units 04:30 Influenza A (RT-PCR) Positive A (Negative) Influenza B (RT-PCR) Negative (Negative) RSV (RT-PCR) Negative (Negative) SARS-CoV-2 RNA (RT-PCR) Negative (Negative) Imaging Data My impression: chest x-ray showed no acute abnormalities Critical Care Time Critical Care Time Critical Care Time: No Discharge Plan Discharge Clinical Impression: Influenza A Patient Disposition: Home, Self-Care Condition: Stable Instructions: Influenza (ED) Additional Instructions: Return if symptoms are worsening , call your family physician for appointment, take Tylenol, ibuprofen as as needed for aches and pain, continue home medications. Patient Language: Icelandic Prescriptions: New oseltamivir [Tamiflu] 75 mg capsule 75 mg PO BID Qty: 10 0RF No Action albuterol sulfate [Ventolin HFA] 90 mcg/actuation HFA aerosol inhaler 2 inh inhalation QID PRN (Reason: shortness of breath or wheezing) Qty: 6.7 0RF benzonatate 200 mg capsule 200 mg PO TID PRN (Reason: cough) Qty: 30 0RF azithromycin 250 mg tablet See Rx Instructions .ROUTE .COMPLEX Qty: 6 0RF Rx Instructions: For 250 mg dose pack: take 500 mg today (day 1), then 250 mg for 4 days (days 2-5) levetiracetam 500 mg Tablet 1,500 mg PO BID Daily Multivitamin-Minerals Tablet 1 tablet PO DAILY orphenadrine citrate 100 mg tablet extended release 100 mg PO BID PRN (Reason: pain) Qty: 20 0RF acetaminophen 325 mg capsule 325 mg PO Q6H PRN (Reason: Pain) lisinopril 10 mg tablet See Rx Instructions .ROUTE .COMPLEX Qty: 90 0RF Dose Instruction: TAKE ONE TABLET BY MOUTH DAILY Rx Instructions: TAKE ONE TABLET BY MOUTH DAILY Follow-up/Referrals: Manuel Rangel DO [Primary Care Provider] -
[2024-09-12 05:14] LABS: Influenza A QL RT-PCR Positive (Negative); Influenza B QL RT-PCR Negative (Negative); RSV RNA, RT-PCR Negative (Negative); SARS-CoV-2 RNA PCR Negative (Negative)
[2024-09-12 05:31] VITALS: BP 110/62; PULSE 87; RESP 18; O2SAT 92
== END 2024-09-12 05:34 | disposition home or self-care (01) ==
PROVIDERS: Emergency Provider Emergency Medicine; PCP Family Medicine
DX: J10.1 Influenza due to other identified influenza virus with other respiratory manifestations (principal); Z20.822 Contact with and (suspected) exposure to COVID-19
CPT/HCPCS: 71046; 87637; 99283; A9270

== ENCOUNTER 2024-09-29 16:18 | Emergency (ER) | payer MEDICARE, MEDICAID, SELFPAY ==
--- NOTE | ~2024-09-29 | XR_ITS ---
EXAMINATION: XR wrist RT min 3V DATE: 09/29/2024 16:49 INDICATION: Right wrist injury and pain. TECHNIQUE: 4 views of right wrist were obtained. COMPARISON: None. FINDINGS: Alignment is normal. No fracture. There is mild osteoarthritis of first carpometacarpal jem nt. IMPRESSION: 1. Mild osteoarthritis of first carpometacarpal joint. Reviewed, dictated and finalized at location A. SIS WIRER
[2024-09-29 16:18] VITALS: BP 124/82; PULSE 100; RESP 16; TEMP 36.3; O2SAT 95
--- NOTE | 2024-09-29 16:33 | ED_ITS ---
HPI - Extremity Injury (Upper) General Chief Complaint: Extremity Injury, Upper Stated Complaint: wrist pain Time Seen by Provider: 09/29/24 16:32 Source: patient Mode of arrival: ambulatory Limitations: no limitations History of Present Illness HPI narrative: Patient is a 58-year-old male with a right wrist injury after punching a wall with anger. He got upset about macaroni getting stuck to the heredia and punched the wall. In fact it was a door. Otherwise no other injuries. Pain in the right wrist particularly. patient is anxious due to the fact that his right hand is for bowling. complaint: injury to: right and wrist Onset (ago): hour(s) ( Two) Other Extremity Injury: Right: wrist Other injuries: none Place: home Severity: mild Severity scale (1-10): 2 Relieving factors: rest Exacerbating factors: movement of extremity and other ( palpation) Context: direct blow Associated symptoms: denies other symptoms Treatments prior to arrival: other ( none) Related Data Home Medications ?Medication ?Instructions ?Recorded ?Confirmed ?Last Taken ?Type levetiracetam 500 mg tablet 1,500 mg PO BID 02/03/20 09/12/24 06/15/24 History multivitamin with minerals (Daily 1 tablet PO DAILY 02/03/20 09/12/24 06/15/24 History Multivitamin-Minerals tablet) acetaminophen 325 mg capsule 325 mg PO Q6H PRN Pain 11/15/23 09/12/24 06/15/24 History Allergies Allergy/AdvReac Type Severity Reaction Status Date / Time Iodinated Contrast Media Allergy Unknown Hives Verified 09/29/24 16:22 Contrast allergy Allergy Intermediate Unknown Uncoded 09/29/24 16:22 Review of Systems Review of Systems: All systems reviewed & are unremarkable except as noted in HPI and below Constitutional: Constitutional: Reports no additional constitutional complaints Eyes: Eyes: Reports no additional eye complaints ENT: Reports system reviewed and no additional complaints, except as documented Cardiovascular: Cardiovascular: Reports no additional cardiovascular compla ints Respiratory: Respiratory: Reports no additional respiratory complaints Gastrointestinal: Gastrointestinal: Reports no additional gastrointestinal complaints Genitourinary: Genitourinary: Reports no additional male genitourinary compl aints Musculoskeletal: Musculoskeletal: Reports no additional musculoskeletal complaints Integumentary/Breasts: Skin/Breast: Reports system reviewed and no additional complaints, except as docu Neurologic: Reports system reviewed and no additional complaints, except as documented Psychiatric: Psychiatric: Reports no additional psychiatric complaints Endocrine: Endocrine: Reports no additional endocrine complaints Hematologic/Lymphatic: Hematologic/Lymphatic: Reports no additional hematologic/lymphatic complaints Allergic/Immunologic: Allergic/Immunologic: Reports no additional allergic/immunologic complaints PMFSH Past Medical History Medical History Benign essential HTN Testicle cancer Obesity (BMI 30-39.9) Seizure disorder Surgical History Surgical History H/O brain surgery Family History Family History Father History of sinus cancer Sibling Ovarian cancer Social History Social History Smoking status: Never smoker Second hand tobacco smoke exposure: No Alcohol intake: never Substance use: never Lack of Transportation: No Lack of Food: Never True Current Housing: I Have Housing Concerned About Future Housing: No Difficulty Paying Gas/Electric Bills: No Difficulty Paying for Meds: No Currently Unemployed: No Education: High School Diploma/GED Difficulty w/ Childcare or Family Care: No Living arrangements: alone Gender identity (if verbalized by the patient): Male Sexual Orientation (if Verbalized by the Patient): Straight or Heterosexual Exam Const: General: healthy appearing Nutritional Appearance: well nourished Orientation/consciousness: patient oriented x3 HENMT: Head: normal to inspection Ears: external ears normal Face/Nose/Sinus: Normal external nose present Eyes: Conjunctivae: conjunctivae normal Pupils: Equal, round and reactive pupils present EOM: EOMs intact bilaterally Neck: Neck: normal visual inspection Chest: Chest palpation & inspection: normal inspection of the chest Resp: Effort & Inspection: normal respiratory effort and not labored Auscultation: clear to auscultation bilaterally and no crackles Cardio: Rate: regular rate Rhythm: regular rhythm Heart sounds: no murmurs GI: Inspection: non-distended GI Palp: Yes Soft to palpation and No Tenderness to palpation present (GI) Auscultation: normal bowel sounds : General: Yes bladder normal to palpation Back/Spine/Pelvis: Back: no CVA tenderness Skin: General skin exam: normal color Rashes: no rashes Wounds: no wounds Neuro: General: patient oriented x3 Cranial nerves: Yes Nystagmus not present Speech: normal speech Extrem: General: normal to inspection Other: Tender right wrist at the distal ulnar prominence Psych: Mental Status: mental status grossly normal Affect: Anxious affect present Attitude: cooperative Course Vital Signs Vital signs: Vital Signs Temperature 36.3 C L 09/29/24 16:18 Pulse Rate 100 09/29/24 16:18 Respiratory Rate 16 09/29/24 16:18 Blood Pressure 124/82 09/29/24 16:18 Pulse Oximetry 95 09/29/24 16:18 Temperature 36.3 C L 09/29/24 16:18 Pulse Rate 100 09/29/24 16:18 Respiratory Rate 16 09/29/24 16:18 Blood Pressure 124/82 09/29/24 16:18 Pulse Oximetry 95 09/29/24 16:18 MDM - Extremity Injury (Upper) MDM Narrative Medical decision making narrative: patient is a 58-year-old male with a right wrist injury after punching a door. We will get an x-ray at this time. Imaging Data Attestation: I personally reviewed and interpreted this imaging study as follows: Radiologist's impression: X-ray right wrist is negative for acute process Discharge Plan Discharge Clinical Impression: Sprain of right wrist Qualifiers: Encounter type: initial encounter Qualified Code(s): S63.501A - Unspecified sprain of right wrist, initial encounter Patient Disposition: Home, Self-Care Condition: Stable Instructions: Wrist Sprain (ED) Patient Language: New Zealander Prescriptions: No Action albuterol sulfate [Ventolin HFA] 90 mcg/actuation HFA aerosol inhaler 2 inh inhalation QID PRN (Reason: shortness of breath or wheezing) Qty: 6.7 0RF benzonatate 200 mg capsule 200 mg PO TID PRN (Reason: cough) Qty: 30 0RF azithromycin 250 mg tablet See Rx Instructions .ROUTE .COMPLEX Qty: 6 0RF Rx Instructions: For 250 mg dose pack: take 500 mg today (day 1), then 250 mg for 4 days (days 2-5) oseltamivir [Tamiflu] 75 mg capsule 75 mg PO BID Qty: 10 0RF levetiracetam 500 mg Tablet 1,500 mg PO BID Daily Multivitamin-Minerals Tablet 1 tablet PO DAILY orphenadrine citrate 100 mg tablet extended release 100 mg PO BID PRN (Reason: pain) Qty: 20 0RF acetaminophen 325 mg capsule 325 mg PO Q6H PRN (Reason: Pain) lisinopril 10 mg tablet See Rx Instructions .ROUTE .COMPLEX Qty: 90 0RF Dose Instruction: TAKE ONE TABLET BY MOUTH DAILY Rx Instructions: TAKE ONE TABLET BY MOUTH DAILY Follow-up/Referrals: Manuel Rangel DO [Primary Care Provider] - Time of Disposition: 16:54
[2024-09-29 17:01] VITALS: BP 124/82; PULSE 100; RESP 16; TEMP 36.3; O2SAT 95
--- OUTSIDE RECORDS SUMMARY | 2024-09-29 18:34 | XMS_ITS | Clinical Summary ---
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
--- OUTSIDE RECORDS SUMMARY | 2024-09-29 18:35 | XMS_ITS | Clinical Summary ---
Author Organization [facility] Address [address] [place] [address] Care Team Providers Care Checkroom Chief Name Role Phone Manuel Rangel DO Primary [...] Department Care Team Description 09/02/2024 9:00 AM BOND ANALYST Office Visit [facility] Epilepsy [address] [facility] [address] [place] [address] [place] [address] Wilman Knott MD PhD Temporal lobe epilepsy, intractable (HCC) (Primary Dx); Seizure (HCC) from Last 3 Months Immunizations Immunization Administration Dates Next Due Influenza, Trivalent, IM (MDV) 05/08/2012 Influenza, Unspecified 06/03/2020 Pneumococcal Polysaccharide PPV23 10/01/2014 Surgical History Surgery Date Site/Laterality Comments WI ORCHIECTOMY RADICAL TUMOR INGUINAL APPROACH Radical Orchiectomy [...] on file Legal Sex Male 9:12 PM BOND ANALYST Gender Identity Not on file Sexual Orientation Not on file Obstetrics History Last Filed Vital Signs Vital Sign Reading Time Taken Comments Blood Pressure 114/77 09/02/2024 7:32 AM BOND ANALYST Pulse 109 09/02/2024 7:32 AM BOND ANALYST Temperature 36.7 C (98 F) 12/26/2023 8:22 AM CDT Respiratory Rate 16 12/26/2023 8:22 AM CDT Oxygen Saturation 95% 12/26/2023 8:22 AM CDT Inhaled Oxygen Concentration - - Weight 124.3 kg (274 lb) 09/02/2024 7:32 AM BOND ANALYST Height 177.8 cm (5' 10 ) 09/02/2024 7:32 AM BOND ANALYST Body Mass Index 39.31 09/02/2024 7:32 AM BOND ANALYST Plan of Treatment Health Maintenance Due [...] Comments PSA SCREEN Routine 06/22/2020 7:37 AM BOND ANALYST from Last 3 Months or Most Recently Relevant to Health Maintenance Results * PSA screen (06/22/2020 7:37 AM BOND ANALYST) PSA-Total 0.34 <=3.90 ng/mL SHAMAR JOHNS Comment: Interpretive Data AGE SEX REFERENCE INTERVAL 0 minutes-150 years Female None 0 minutes-49 years Male None 50-59 years Male 0-3.90 60-69 years Male 0-5.40 70-79 years Male 0-6.20 80-150 years Male 0-6.20 Current interpretive data last revised 2018. Blood specimen (specimen) 06/22/2020 7:37 AM BOND ANALYST 06/22/2020 8:39 AM BOND ANALYST us Uriel Rodriguez MD LAB BLOOD ORDERABLES Final Result [facility] Department [place] [address] from Last 3 Months or Most Recently Relevant to Health Maintenance Insurance IDMI MEDICARE SOLUTIONS MEDICARE [facility] MEDICARE SOLUTIONS [facility] Care Teams Checkroom Chief Relationship Specialty Start Date End Date Manuel Rangel DO [address] [place] [address] PCP - General 03/13/22
--- OUTSIDE RECORDS SUMMARY | 2024-09-29 18:35 | XMS_ITS | Referral Summary ---
Author Organization [facility] Address [address] [place] [address] Care Team Providers Care Clay Burner Name Role Phone Manuel Rangel DO Primary Care Provider Encounters Date Type Department Care Team Description 09/02/2024 9:00 AM LAUNDRY ROUTE DRIVER Office Visit [facility] Epilepsy [address] [facility] [address] [place] [address] [place] [address] Wilman Knott MD PhD Temporal [...] 05/23/2015 Anemia 12/31/2014 Adrenal mass 08/27/2014 Immunizations Immunization Administration Dates Next Due Influenza, [...] on file Legal Sex Male 9:12 PM LAUNDRY ROUTE DRIVER Gender Identity Not on file Sexual Orientation Not on file Last Filed Vital Signs Vital Sign Reading Time Taken Comments Blood Pressure 114/77 09/02/2024 7:32 AM LAUNDRY ROUTE DRIVER Pulse 109 09/02/2024 7:32 AM LAUNDRY ROUTE DRIVER Temperature 36.7 C (98 F) 12/26/2023 8:22 AM CDT Respiratory Rate 16 12/26/2023 8:22 AM CDT Oxygen Saturation 95% 12/26/2023 8:22 AM CDT Inhaled Oxygen Concentration - - Weight 124.3 kg (274 lb) 09/02/2024 7:32 AM LAUNDRY ROUTE DRIVER Height 177.8 cm (5' 10 ) 09/02/2024 7:32 AM LAUNDRY ROUTE DRIVER Body Mass Index 39.31 09/02/2024 7:32 AM LAUNDRY ROUTE DRIVER Plan of Treatment Not on file Procedures Procedure Name Priority Date/Time Associated Diagnosis Comments PSA SCREEN Routine 06/22/2020 7:37 AM LAUNDRY ROUTE DRIVER from Last 3 Months or Most Recently Relevant to Health Maintenance Results * PSA screen (06/22/2020 7:37 AM LAUNDRY ROUTE DRIVER) PSA-Total 0.34 <=3.90 ng/mL [facility] Comment: Interpretive Data AGE SEX REFERENCE INTERVAL 0 minutes-150 years Female None 0 minutes-49 years Male None 50-59 years Male 0-3.90 60-69 years Male 0-5.40 70-79 years Male 0-6.20 80-150 years Male 0-6.20 Current interpretive data last revised 2018. Blood specimen (specimen) 06/22/2020 7:37 AM LAUNDRY ROUTE DRIVER 06/22/2020 8:39 AM LAUNDRY ROUTE DRIVER Uriel Rodriguez MD LAB BLOOD ORDERABLES Final Result SHAMAR [facility] Department [place] [address] from Last 3 Months or Most Recently Relevant to Health Maintenance Insurance [facility] MEDICARE [facility] MEDICARE IDPA MEDICARE SOLUTIONS IDPA [facility] Care Teams Clay Burner Relationship Specialty Start Date End Date Manuel Rangel DO [address] [place] [address] PCP - General 03/13/22
--- OUTSIDE RECORDS SUMMARY | 2024-09-29 18:35 | XMS_ITS | Encounter Summary ---
Author Organization [facility] Address [address] [place] [address] Phone Care Team Providers Care Division Manager Name Role Phone Augustin Parrish MD Primary Care Provider [phone] Giuseppe Pemberton DO Primary Care Provider + 5-2220 Augustin Parrish MD Primary Care Provider [phone] Giuseppe Pemberton DO Primary Care Provider + 5-2220 Augustin Parrish MD Primary Care Provider [phone] Giuseppe Pemberton DO Primary Care Provider + 5-2220 Augustin Parrish MD Primary Care Provider [phone] Giuseppe Pemberton DO Primary Care Provider + 5-2220 Augustin Parrish MD Primary Care Provider [phone] Giuseppe Pemberton DO Primary Care Provider + [phone] Augustin Parrish MD Primary Care Provider [phone] Giuseppe Pemberton DO Primary Care Provider + 5-2220 Augustin Parrish MD Primary Care Provider [phone] Augustin Parrish MD Primary Care Provider [phone] Giuseppe Pemberton DO Primary Care Provider + 5-2220 Augustin Parrish MD Primary Care Provider [phone] Giuseppe Pemberton DO Primary Care Provider +[phone] Augustin Parrish MD Primary Care Provider [phone] Giuspepe Pemberton DO Primary Care Provider +[phone] Augustin Parrish MD Primary Care Provider [phone] Giuseppe Pemberton DO Primary Care Provider +[phone] Augustin Parrish MD Primary Care Provider [phone] Miscellaneous, Not In File Primary Care Provider Unavailable No, Physician Primary Care Provider [phone] Manuel Rangel DO Primary Care Provider Encounter Details Date Type Department Care Team (Latest Contact Info) Description 1965 Orders Only [facility] Scanning, Provider Social History Tobacco Use Types Packs/Day Years Used Date Smoking Tobacco: Never Assessed Sex and Gender Information Value Date Recorded Sex Assigned at Not on file 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 Gender Identity Not on file Sexual Orientation [...] on filedocumented in this encounter Care Teams Division Manager Relationship Specialty Start Date End Date Augustin Parrish MD [address] [address] PCP - General 11/08/16 11/26/16 Giuseppe Pemberton DO [address] [place] [address] PCP - General 11/27/16 01/01/17 Augustin Parrish MD [address] [place] [address] PCP - General 01/02/17 01/08/17 Giuseppe Pmeberton DO [address] [place] [address] PCP - General 01/09/17 01/09/17 Augustin Parrish MD [address] [place] [address] PCP - General 01/10/17 01/24/17 Giuseppe Pemberton DO [address] [place] [address] PCP - General 01/25/17 02/06/17 Augustin Parrish MD [address] [place] [address] PCP - General 02/07/17 04/30/17 Giuseppe Pemberton DO [address] [place] [address] PCP - General 05/01/17 05/01/17 Augustin Parrish MD [address] [place] [address] PCP - General 05/02/17 05/21/17 Giuseppe Pemberton DO [address] [place] [address] PCP - General 05/22/17 07/30/17 Augustin Parrish MD [address] [employer] [place] [address] PCP - General 07/31/17 08/15/17 Giuseppe Pemberton DO [address] [place] [address] PCP - General 08/16/17 08/22/17 Augustin Parrish MD [address] [employer] [place] [address] PCP - General 08/23/17 08/25/17 Augustin Parrish MD [address] [place] [address] PCP - General 08/26/17 08/27/17 Giuseppe Pemberton DO [address] [place] [address] PCP - General 08/28/17 11/24/17 Augustin Parrish MD [address] [employer] [place] [address] PCP - General 11/25/17 12/04/17 Giuseppe Pemberton DO [address] [place] [address] PCP - General Internal Medicine 12/05/17 12/08/17 Augustin Parrish MD [address] [employer] [place] [address] PCP - General 12/09/17 12/10/17 Giuseppe Pemberton DO [address] [place] [address] PCP - General 12/11/17 12/15/17 Augustin Parrish MD [address] [place] [address] PCP - General 12/16/17 12/17/17 Giuseppe Pemberton DO [address] [place] [address] PCP - General 12/18/17 06/17/18 Augustin Parrish MD [address] [employer] [place] [address] PCP - General 06/18/18 12/15/20 Miscellaneous, Not In File PCP - General 12/16/20 No, Physician PCP - General 04/24/21 03/12/22 Manuel Rangel DO [facility] [place] [address] PCP - General 03/13/22 documented as of this encounter
--- OUTSIDE RECORDS SUMMARY | 2024-09-29 18:35 | XMS_ITS ---
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 Past Treatment and Therapy Plans No past plan information found. Lifetime Dose Tracking * Chemical Lifetime Dose Automatic Entry Manual Entr y DLP 5,708 mGycm 5,708 mGycm 0 mGycm
--- OUTSIDE RECORDS SUMMARY | 2024-09-29 18:35 | XMS_ITS ---
Author Organization [facility] Address [address] [place], [place] [id number] Care Team Providers Care Sales Merchandising Specialist Name Role Phone Manuel Rangel Primary Care Provider UnavailAKI Odell Unavailable [phone] EVELYN CHRISTIANSEN Unavailable [phone] Allergies Allergen (clinical drug ingredient) Drug/Non Drug [...] Active Encounters Encounter Location Date Provider Diagnosis [facility] [address] [place], [place] [id number] 08/06/2024 EVELYN CHRISTIANSEN Tinea unguium B35.1 ; Pain in right toe(s) M79.674 ; Pain in left toe(s) M79.675 and Atherosclerosis of [place] arteries of extremities with intermittent claudication, bilateral [...] toe(s) (ICD-10 - M79.675) 08/06/2024 Atherosclerosis of [place] arteries of extremities with intermittent claudication, bilateral [...] problems arise Provider Name:EVELYN CHRISTIANSEN, 08:50:00 AM, [address] [place] [address], [phone], Progress Notes * MOHINDER BEAR FDOB: [birth year] (58 yo M)Acc No.[id number]:08/06/2024 Patient: Tarah JOHANNAANNIAL Abdon Provider: María Elena Christiansen DPM :1965 A ge:58 Y S ex:Male Date:08/06/2024 Address:[address] [place], [place] [id number] Pcp:Manuel Rangel Subjective: * Chief Complaints: * [...] Patient denies c hest pain, history of KS, irregular heartbeat. M usculoskeletal: Patient complains of [...] reconciled with the patient * Allergies: I HEAD OF COMMISSION DEPARTMENT Dye, Iodine Containing: Allergy - Onset Date [...] - M79.675 4 . A therosclerosis of [place] arteries of extremities with intermittent claudication, bilateral legs - I70.213 Plan: * Treatment: * Procedure Codes: * Follow Up: 1 0-12 Weeks (Reason: At Risk Foot care, sooner if problems arise) * Billing Information: * Visit Code: 39476 Office Visit, Est Pt., Level 3. * Procedure Codes: * IC HEALTH ADVISOR Sign off status: Completed true * Provider: María Elena Christiansen DPM Date: 0 08/06/2024 Generated for Curtis mejia/Lani/Romeo on: 0 09/29/2024 06:34 PM PUBLIC HEALTH ADVISOR History and Physical Notes * HPI (History [...]
--- OUTSIDE RECORDS SUMMARY | 2024-09-29 18:35 | XMS_ITS | Patient Health Record ---
Author Organization [facility] Address [address] [place], [place] [id number] Care Team Providers Care Circulation Supervisor Name Role Phone Manuel Rangel Primary Care Provider UnavailAKI Odell Unavailable [phone] EVELYN CHRISTIANSEN Unavailable [phone] CHARISRIC Unavailable [phone] Allergies Allergen (clinical drug ingredient) Drug/Non Drug [...] 01/09/2024 Encounters Encounter Location Date Provider Diagnosis [place] [address] [place], [place] [id number] 11/07/2023 RIC DAVYDOV Tinea unguium B35.1 ; Xerosis cutis L85.3 ; 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, bilateral legs I70.203 ; Other hammer toe(s) (acquired), right foot M20.41 ; Other hammer toe(s) (acquired), left foot M20.42 ; Pain in right toe(s) M79.674 and Pain in left toe(s) M79.675 [facility] [address] [place], [place] [id number] 01/09/2024 RIC DAVYDOV Tinea unguium B35.1 ; Xerosis cutis L85.3 ; 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, bilateral legs I70.203 ; Other hammer toe(s) (acquired), right foot M20.41 ; Other hammer toe(s) (acquired), left foot M20.42 ; Pain in right toe(s) M79.674 and Pain in left toe(s) M79.675 [facility] [address] [place], [place] [id number] 03/12/2024 RIC DAVYDOV Tinea unguium B35.1 ; Xerosis cutis L85.3 ; 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, bilateral legs I70.203 ; Other hammer toe(s) (acquired), right foot M20.41 ; Other hammer toe(s) (acquired), left foot M20.42 ; Pain in right toe(s) M79.674 and Pain in left toe(s) M79.675 [facility] [address] [place], [place] [id number] 06/04/2024 RIC DAVYDOV Tinea unguium B35.1 ; Xerosis cutis L85.3 ; 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, bilateral legs I70.203 ; Other hammer toe(s) (acquired), right foot M20.41 ; Other hammer toe(s) (acquired), left foot M20.42 ; Pain in right toe(s) M79.674 and Pain in left toe(s) M79.675 [facility] [address] [place], [place] [id number] 08/06/2024 EVELYN CHRISTIANSEN Tinea unguium B35.1 ; Pain in right toe(s) M79.674 ; Pain in left toe(s) M79.675 and Atherosclerosis of 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, bilateral [...] (ICD-10 - M79.675) 06/04/2024 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, 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 - I70.203) Patient educated on risks and aggravating factors of PVD, including conservative treatment options such as a diet and exercise regimen to aid in slowing progression of vascular disease 03/12/2024 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, 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 - I70.203) Patient educated on risks and aggravating factors of PVD, including conservative treatment options such as a diet and exercise regimen to aid in slowing progression of vascular disease 01/09/2024 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 08/06/2024 Atherosclerosis of 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, bilateral [...] Appt Details Provider Name:EVELYN ЕЛЕНА, 08:50:00 AM, [address] [place] [address], [phone], Insurance Providers Payer Name Payer Address Payer Phone Subscriber Number Group Number Insured Name Patient Relationship to Insured Coverage Start Date Coverage End Date [facility] [address] [address] [place], [place] [id number] MOHINDER BEAR Self - patient is the insured
--- OUTSIDE RECORDS SUMMARY | 2024-09-29 18:35 | XMS_ITS ---
Author Organization [facility] Address [address] [place], [place] [id number] Care Team Providers Care Block Placer Name Role Phone Manuel Rangel Primary Care Provider UnavailAKI Odell Unavailable [phone] RIC VIZCAINO Unavailable [phone] REASON FOR VISIT *General care Encounters Encounter Location Date Provider Diagnosis [address] [id number] 05/14/2024 RIC VIZCAINO Plan Of Treatment Next Appt Details Provider Name:EVELYN CHRISTIANSEN, 08:50:00 AM, [address] [place] [address], [phone], Progress Notes * MOHINDER BEAR FDOB: 6 (58 yo M)Acc No.[id number]:05/14/2024 Patient: MOHINDER SAPP Provider: Ilana VIZCAINO :1965 A ge:58 Y S ex:Male Date:05/14/2024 Address:[address] [place], [place] [id number] Pcp:Manuel Rangel Subjective: * Chief Complaints: * 1 . *General care. * Medical History: Objective: * Vitals: Assessment: Plan: * Treatment: * Billing Information: * Visit Code: * Procedure Codes: * Electronic signature of JOSEFINA VIZCAINO DPM on 09/29/2024 at 06:34 PM NURSE REVIEWER Sign off status: Pending * Provider: Ilana VIZCAINO Date: 1 Generated for Curtis mejia/Lani/Romeo on: 0 09/29/2024 06:34 PM NURSE REVIEWER
--- OUTSIDE RECORDS SUMMARY | 2024-09-29 18:49 | XMS_ITS ---
Author Organization [facility] Address [address] [place], [place] [phone] Care Team Providers Care Apartment Locator Name Role Phone Manuel Rangel Primary Care Provider AKI Teixeira Unavailable [phone] RIC VIZCAINO Unavailable [phone] Allergies Allergen (clinical drug ingredient) Drug/Non Drug [...] Active Encounters Encounter Location Date Provider Diagnosis [facility] [address] [place], [place] [id number] 06/04/2024 RIC VIZCAINO Tinea unguium B35.1 ; Xerosis cutis L85.3 ; Unspecified atherosclerosis of [place] arteries of extremities, bilateral legs I70.203 ; [...] to feet daily. 06/04/2024 Unspecified atherosclerosis of [place] arteries of extremities, 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 - [...] applied to feet daily. 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 U nspecified atherosclerosis of [place] arteries of extremities, bilateral legs - I70.203? [...] feet daily. 3. U nspecified atherosclerosis of [place] arteries of extremities, bilateral legs Notes: Patient [...] Months * Billing Information: * Visit Code: 44371 Office Visit, Est Pt., Level 3. * Procedure Codes: * ER MINER BLASTING Sign off status: Completed true * Provider: Ilana VIZCAINO Date: 1 Generated for Curtis mejia/Lani/Romeo on: 0 09/29/2024 06:34 PM COPPER MINER BLASTING History and Physical Notes * HPI (History [...]
== END 2024-09-29 17:01 | disposition home or self-care (01) ==
PROVIDERS: Emergency Provider Emergency Medicine; PCP Family Medicine
DX: S63.501A Unspecified sprain of right wrist, initial encounter (principal); I10 Essential (primary) hypertension; Z85.47 Personal history of malignant neoplasm of testis; W22.09XA Striking against other stationary object, initial encounter
CPT/HCPCS: 73110; 99283

== ENCOUNTER 2024-10-10 20:57 | Emergency (ER) | payer MEDICARE, MEDICAID, SELFPAY ==
[2024-10-10] VITALS (7 sets, daily range): BP systolic 103–119; BP diastolic 75–93; PULSE 74–86; RESP 13–20; TEMP 36.6; O2SAT 92–98
--- OUTSIDE RECORDS SUMMARY | 2024-10-10 21:00 | XMS_ITS | Referral Summary ---
Author Organization [facility] Address [address] [place] [address] Care Team Providers Care Truck Headlight Assembler Name Role Phone BobtjManuelh Primary Care Provider Encounters Date Type Department Care Team Description 09/02/2024 9:00 AM PARKING LOT SPOTTER Office Visit [facility] Epilepsy [address] [facility] 6th [place] [address] [place] [address] Wilman Knott MD PhD Temporal lobe epilepsy, intractable (HCC) (Primary Dx); Seizure (HCC) from Last 3 Months Allergies Active Allergy Reactions Criticality Noted Date Comments Iodinated Contrast Media Hives Medium 06/02/2018 Medications multivitamin tabletIndicatio ns:Vitamin Deficiency Prevention Active lisinopriL (PRINIVIL,ZESTR IL) 10 mg tablet 10/13/2020 Active PreviDent 5000 Booster Plus 1.1 % paste 08/10/2021 Active levETIRAcetam (KEPPRA) 500 mg tablet Take 3 tablets (1,500 mg total) by mouth 2 (two) times a day 540 tablet 3 09/02/2024 Active Active Problems Problem Noted Date Diagnosed Date [...] on file Legal Sex Male 9:12 PM 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 LOT 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 Gender Identity Not on file Sexual Orientation Not on file Last Filed Vital Signs Vital Sign Reading Time Taken Comments Blood Pressure 114/77 09/02/2024 7:32 AM PARKING LOT SPOTTER Pulse 109 09/02/2024 7:32 AM PARKING LOT SPOTTER Temperature 36.7 C (98 F) 12/26/2023 8:22 AM CDT Respiratory Rate 16 12/26/2023 8:22 AM CDT Oxygen Saturation 95% 12/26/2023 8:22 AM CDT Inhaled Oxygen Concentration - - Weight 124.3 kg (274 lb) 09/02/2024 7:32 AM PARKING LOT SPOTTER Height 177.8 cm (5' 10 ) 09/02/2024 7:32 AM PARKING LOT SPOTTER Body Mass Index 39.31 09/02/2024 7:32 AM PARKING LOT SPOTTER Plan of Treatment Not on file Procedures Procedure Name Priority Date/Time Associated Diagnosis Comments PSA SCREEN Routine 06/22/2020 7:37 AM PARKING LOT SPOTTER from Last 3 Months or Most Recently Relevant to Health Maintenance Results * PSA screen (06/22/2020 7:37 AM PARKING LOT SPOTTER) PSA-Total 0.34 <=3.90 ng/mL SHAMAR HORNE Comment: Interpretive Data AGE SEX REFERENCE INTERVAL 0 minutes-150 years Female None 0 minutes-49 years Male None 50-59 years Male 0-3.90 60-69 years Male 0-5.40 70-79 years Male 0-6.20 80-150 years Male 0-6.20 Current interpretive data last revised 2018. Blood specimen (specimen) 06/22/2020 7:37 AM PARKING LOT SPOTTER 06/22/2020 8:39 AM PARKING LOT SPOTTER us Uriel Rodriguez MD LAB BLOOD ORDERABLES Final Result SHAMAR JOHNS [facility] Department [place] [address] from Last 3 Months or Most Recently Relevant to Health Maintenance Insurance [facility] MEDICARE SOLUTIONS MEDICARE IDIL MEDICARE SOLUTIONS [facility] Care Teams Truck Headlight Assembler Relationship Specialty Start Date End Date Manuel Rangel DO [address] [place] [address] [facility] - General 03/13/22
--- OUTSIDE RECORDS SUMMARY | 2024-10-10 21:00 | XMS_ITS | Clinical Summary ---
Author Organization [facility] Address [address] [place] [address] Care Team Providers Care Data Lead Name Role Phone BobtjManuelh Primary Care Provider Allergies Active Allergy Reactions [...] Department Care Team Description 09/02/2024 9:00 AM PRODUCTION LINE MECHANIC Office Visit [facility] Epilepsy [address] [facility] 6[address] [place] [address] [place] [address] Wilman Knott MD PhD Temporal lobe epilepsy, intractable (HCC) (Primary Dx); Seizure (HCC) from Last 3 Months Immunizations Immunization Administration Dates Next Due Influenza, Trivalent, IM (MDV) 05/08/2012 Influenza, Unspecified 06/03/2020 Pneumococcal Polysaccharide PPV23 10/01/2014 Surgical History Surgery Date Site/Laterality Comments SC ORCHIECTOMY RADICAL TUMOR INGUINAL APPROACH Radical Orchiectomy Right - inguinal orchiectomy 09/09/14 (Added by TW Conv) Family History Medical History Relation Name Comments Febrile seizures Mother Febrile milli ramose - (Added by TW Conv) Ovarian cancer [...] on file 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 Gender Identity Not on file Sexual Orientation Not on file Obstetrics History Last Filed Vital Signs Vital Sign Reading Time Taken Comments Blood Pressure 114/77 09/02/2024 7:32 AM PRODUCTION LINE MECHANIC Pulse 109 09/02/2024 7:32 AM PRODUCTION LINE MECHANIC Temperature 36.7 C (98 F) 12/26/2023 8:22 AM CDT Respiratory Rate 16 12/26/2023 8:22 AM CDT Oxygen Saturation 95% 12/26/2023 8:22 AM CDT Inhaled Oxygen Concentration - - Weight 124.3 kg (274 lb) 09/02/2024 7:32 AM PRODUCTION LINE MECHANIC Height 177.8 cm (5' 10 ) 09/02/2024 7:32 AM PRODUCTION LINE MECHANIC Body Mass Index 39.31 09/02/2024 7:32 AM PRODUCTION LINE MECHANIC Plan of Treatment Health Maintenance Due Date [...] Comments PSA SCREEN Routine 06/22/2020 7:37 AM PRODUCTION LINE MECHANIC from Last 3 Months or Most Recently Relevant to Health Maintenance Results * PSA screen (06/22/2020 7:37 AM PRODUCTION LINE MECHANIC) PSA-Total 0.34 <=3.90 ng/mL SHAMAR HORNE Comment: Interpretive Data AGE SEX REFERENCE INTERVAL 0 minutes-150 years Female None 0 minutes-49 years Male None 50-59 years Male 0-3.90 60-69 years Male 0-5.40 70-79 years Male 0-6.20 80-150 years Male 0-6.20 Current interpretive data last revised 2018. Blood specimen (specimen) 06/22/2020 7:37 AM PRODUCTION LINE MECHANIC 06/22/2020 8:39 AM PRODUCTION LINE MECHANIC us Uriel Rodriguez MD LAB BLOOD ORDERABLES Final Result SHAMAR JOHNS [facility] Department [place] [address] from Last 3 Months or Most Recently Relevant to Health Maintenance Insurance [employer] MEDICARE SOLUTIONS MEDICARE IDPA MEDICARE SOLUTIONS [facility] Care Teams Data Lead Relationship Specialty Start Date End Date Manuel Rangel DO [address] [place] [address] PCP - General 03/13/22
--- OUTSIDE RECORDS SUMMARY | 2024-10-10 21:00 | XMS_ITS | Encounter Summary ---
Author Organization [facility] Address [address] [place] [address] Phone Care Team Providers Care Stranding Machine Operator Name Role Phone Augustin Parrish MD Primary Care Provider [phone] Giuseppe Pemberton DO Primary Care Provider + 5-2220 Augustin Parrish MD Primary Care Provider [phone] Giuseppe Pemberton DO Primary Care Provider + 5-2220 Augustin Parrish MD Primary Care Provider [phone] Giuseppe Pemberton DO Primary Care Provider + 5-2220 Augustin Parrish MD Primary Care Provider + [phone] Giuseppe Pemberton DO Primary Care Provider + 5-2220 Augustin Parrish MD Primary Care Provider + [phone] Giuseppe Pemberton DO Primary Care Provider + [phone] Augustin Parrish MD Primary Care Provider [phone] Giuseppe Pemberton DO Primary Care Provider + 5-2220 Augustin Parrish MD Primary Care Provider [phone] Augustin Parrish MD Primary Care Provider [phone] Giuseppe Pemberton DO Primary Care Provider + 5-2220 Augustin Parrish MD Primary Care Provider [phone] Giuseppe Pemberton DO Primary Care Provider +[phone] Augustin Parrish MD Primary Care Provider [phone] Giuseppe Pemberton DO Primary Care Provider +[phone] Augustin Parrish MD Primary Care Provider [phone] Giuseppe Pemberton DO Primary Care Provider +[phone] Augustin Parrish MD Primary Care Provider [phone] Miscellaneous, Not In File Primary Care Provider Unavailable No, Physician Primary Care Provider [phone] Manuel Rangel DO Primary Care Provider Encounter Details Date Type Department Care Team (Latest Contact Info) Description 1965 Orders Only [facility] Scanning, Provider Social History Tobacco Use Types Packs/Day Years Used Date Smoking Tobacco: Never Assessed Sex and Gender Information Value Date Recorded Sex Assigned at Not on file 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 Gender Identity Not on file Sexual Orientation [...] on filedocumented in this encounter Care Teams Stranding Machine Operator Relationship Specialty Start Date End Date Augustin Parrish MD [address] [address] PCP - General 11/08/16 11/26/16 Giuseppe Pemberton DO [address] [place] [address] PCP - General 11/27/16 01/01/17 Augustin Parrish MD [address] [place] [address] PCP - General 01/02/17 01/08/17 Giuseppe Pemberton DO [address] [place] [address] PCP - General 01/09/17 01/09/17 Augustin Parrish MD [address] [place] [address] PCP - General 01/10/17 01/24/17 Giuseppe Pemberton DO [address] [place] [address] PCP - General 01/25/17 02/06/17 Augustin Parrish MD [address] [place] [address] PCP - General 02/07/17 04/30/17 Giuseppe Pemberton DO [address] [place] [address] PCP - General 05/01/17 05/01/17 Augustin Parrish MD [address] [place] [address] PCP - General 05/02/17 05/21/17 Giuseppe Pemberton DO [address] [place] [address] PCP - General 05/22/17 07/30/17 Augustin Parrish MD [address] [facility] [place] [address] PCP - General 07/31/17 08/15/17 Giuseppe Pemberton DO [address] [place] [address] PCP - General 08/16/17 08/22/17 Augustin Parrish MD [address] [facility] [place] [address] PCP - General 08/23/17 08/25/17 Augustin Parrish MD [address] [place] [address] PCP - General 08/26/17 08/27/17 Giuseppe Pemberton DO [address] [place] [address] PCP - General 08/28/17 11/24/17 Augustin Parrish MD [address] [facility] [place] [address] PCP - General 11/25/17 12/04/17 Giuseppe Pemberton DO [address] [place] [address] PCP - General Internal Medicine 12/05/17 12/08/17 Augustin Parrish MD [address] [facility] [place] [address] PCP - General 12/09/17 12/10/17 Giuseppe Pemberton DO [address] [place] [address] PCP - General 12/11/17 12/15/17 Augustin Parrish MD [address] [place] [address] PCP - General 12/16/17 12/17/17 Giuseppe Pemberton DO [address] [place] [address] PCP - General 12/18/17 06/17/18 Augustin Parrish MD [address] [facility] [place] [address] PCP - General 06/18/18 12/15/20 Miscellaneous, Not In File PCP - General 12/16/20 No, Physician PCP - General 04/24/21 03/12/22 Manuel Rangel DO [facility] [place] [address] PCP - General 03/13/22 documented as of this encounter
--- OUTSIDE RECORDS SUMMARY | 2024-10-10 21:00 | XMS_ITS ---
Author Organization [facility] Address [address] [place] [address] Care Team Providers Care Test Center Manager Name Role Phone Manuel Rangel DO Primary [...]
--- OUTSIDE RECORDS SUMMARY | 2024-10-10 21:00 | XMS_ITS | Clinical Summary ---
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
--- NOTE | 2024-10-10 21:13 | ECG_ITS ---
Test Date: 2024-10-10 21:33:15 Measurements Intervals [place] Rate: 75 P: 30 WY: 171 QRS: -46 QRSD: 98 T: 32 QT: 375 QTc: 420 Interpretive Statements SINUS RHYTHM LEFT AXIS DEVIATION [QRS AXIS < -30] BORDERLINE ECG Compared to ECG 08/24/2024 07:27:45 NO DIFFERENCE Electronically Signed On 10-11-2024 08:03:37 CDT by Raman Mcpherson M.D.
[2024-10-10] MEDS: MAG HYDROX/ALUMINUM HYD/SIMETH 30 ML, PHENobarb/HYOSCY/ATROPINE/SCOP 32.4 MG, LIDOCAINE... PO (21:20)
--- OUTSIDE RECORDS SUMMARY | 2024-10-10 21:22 | XMS_ITS | Referral Summary ---
Author Organization [facility] Address [address] [place] [address] Care Team Providers Care Business Communications Instructor Name Role Phone BobtjManuelh Primary Care Provider Encounters Date Type Department Care Team Description 09/02/2024 9:00 AM FACILITY SPECIALIST Office Visit [facility] Epilepsy [address] [facility] 6th [place] [address] [place] [address] Wilman Knott MD PhD Temporal [...] on file Legal Sex Male 9:12 PM FACILITY SPECIALIST Gender Identity Not on file Sexual Orientation Not on file Last Filed Vital Signs Vital Sign Reading Time Taken Comments Blood Pressure 114/77 09/02/2024 7:32 AM FACILITY SPECIALIST Pulse 109 09/02/2024 7:32 AM FACILITY SPECIALIST Temperature 36.7 C (98 F) 12/26/2023 8:22 AM CDT Respiratory Rate 16 12/26/2023 8:22 AM CDT Oxygen Saturation 95% 12/26/2023 8:22 AM CDT Inhaled Oxygen Concentration - - Weight 124.3 kg (274 lb) 09/02/2024 7:32 AM FACILITY SPECIALIST Height 177.8 cm (5' 10 ) 09/02/2024 7:32 AM FACILITY SPECIALIST Body Mass Index 39.31 09/02/2024 7:32 AM FACILITY SPECIALIST Plan of Treatment Not on file Procedures Procedure Name Priority Date/Time Associated Diagnosis Comments PSA SCREEN Routine 06/22/2020 7:37 AM FACILITY SPECIALIST from Last 3 Months or Most Recently Relevant to Health Maintenance Results * PSA screen (06/22/2020 7:37 AM FACILITY SPECIALIST) PSA-Total 0.34 <=3.90 ng/mL SHAMAR HORNE Comment: Interpretive Data AGE SEX REFERENCE INTERVAL 0 minutes-150 years Female None 0 minutes-49 years Male None 50-59 years Male 0-3.90 60-69 years Male 0-5.40 70-79 years Male 0-6.20 80-150 years Male 0-6.20 Current interpretive data last revised 2018. Blood specimen (specimen) 06/22/2020 7:37 AM FACILITY SPECIALIST 06/22/2020 8:39 AM FACILITY SPECIALIST us Uriel Rodriguez MD LAB BLOOD ORDERABLES Final Result SHAMAR JOHNS [facility] [place] [address] from Last 3 Months or Most Recently Relevant to Health Maintenance Insurance [facility] MEDICARE SOLUTIONS MEDICARE [place]GA MEDICARE SOLUTIONS [facility] Care Teams Business Communications Instructor Relationship Specialty Start Date End Date Manuel Rangel DO [address] [place] [address] [facility] - General 03/13/22
--- OUTSIDE RECORDS SUMMARY | 2024-10-10 21:22 | XMS_ITS ---
Author Organization [facility] Address [address] [place] [address] Care Team Providers Care Paradi Operator Name Role Phone Manuel Rangel DO [...]
--- OUTSIDE RECORDS SUMMARY | 2024-10-10 21:22 | XMS_ITS | Patient Health Record ---
Author Organization [facility] Address [address] [place], [place] [id number] Care Team Providers Care Trimmer Machine Name Role Phone Manuel Rangel Primary Care Provider UnavailAKI Odell Unavailable [phone] EVELYN CHRISTIANSEN Unavailable [phone] CHARISRIC Unavailable [phone] Allergies Allergen (clinical drug ingredient) Drug/Non Drug Allergy documented on EMR Reaction Allergy Type Onset Date Status Iodinated contrast media (substance) IVP Dye, Iodine Containing (uncoded) Unknown Allergy 03/14/2020 active Reason For Referral No Information Medications Medication SIG (Take, Route, Frequency, Duration) Notes Start Date End Date Status HYDROcodone-Acetaminophen 5-325 MG Oral for 7 Days Active Methocarbamol 500 MG Oral for 10 Days Active Fluticasone Propionate 50 MCG/ACT Nasal for 60 Days Active Amoxicillin-Pot Clavulanate 500-125 MG Oral for 7 Days Active Lisinopril 10 MG Oral for 90 Days Active levETIRAcetam 500 MG Oral for 30 Days Active Ammonium Lactate 12 % 1 application Exte rnally Twice a day 09/05/2023 Active Immunizations Vaccine Route Administration Date Status Comme nts Influenza, seasonal, injecta ble, preservative free, 3 yrs and above Unknown 05/08/2023 Administered Vital Signs Height-cm 185.42 cm 01/09/2024 Weight-kg 127.01 kg 01/09/2024 Height 73.00 in 01/09/2024 Weight 280 lbs 01/09/2024 BMI 36.94 kg/m2 01/09/2024 Encounters Encounter Location Date Provider Diagnosis [address] [id number] 2024 EVELYN CHRISTIANSEN Tinea unguium B35.1 [facility] [address] [place], [place] [id number] 11/07/2023 RIC DAVYDOV Tinea unguium B35.1 ; Xerosis cutis L85.3 ; Unspecified atherosclerosis of [place] arteries of extremities, bilateral legs I70.203 ; Other hammer toe(s) (acquired), right foot M20.41 ; Other hammer toe(s) (acquired), left foot M20.42 ; Pain in right toe(s) M79.674 and Pain in left toe(s) M79.675 [facility] [address] [id number] 01/09/2024 RIC DAVYDOV Tinea unguium B35.1 ; Xerosis cutis L85.3 ; Unspecified atherosclerosis of [place] arteries of extremities, bilateral legs I70.203 ; Other hammer toe(s) (acquired), right foot M20.41 ; Other hammer toe(s) (acquired), left foot M20.42 ; Pain in right toe(s) M79.674 and Pain in left toe(s) M79.[address] [id number] 03/12/2024 RIC DAVYDOV Tinea unguium B35.1 ; Xerosis cutis L85.3 ; Unspecified atherosclerosis of [place] arteries of extremities, bilateral legs I70.203 ; Other hammer toe(s) (acquired), right foot M20.41 ; Other hammer toe(s) (acquired), left foot M20.42 ; Pain in right toe(s) M79.674 and Pain in left toe(s) M79.675 [facility] [address] [place], [place] [id number] 06/04/2024 RIC DAVYDOV Tinea unguium B35.1 ; Xerosis cutis L85.3 ; Unspecified atherosclerosis of [place] arteries of extremities, bilateral legs I70.203 ; Other hammer toe(s) (acquired), right foot M20.41 ; Other hammer toe(s) (acquired), left foot M20.42 ; Pain in right toe(s) M79.674 and Pain in left toe(s) M79.675 [facility] [address] [place], [place] [id number] 08/06/2024 EVELYN CHRISTIANSEN Tinea unguium B35.1 ; Pain in right toe(s) M79.674 ; Pain in left toe(s) M79.675 and Atherosclerosis of [place] arteries of extremities with intermittent claudication, bilateral [...] Pain in right toe(s) (ICD-10 - M79.674) 2024 Tinea unguium (ICD-10 - B35.1) FUNGAL TOENAILS: Discussed various treatment options for fungal toenails including debridement, topical antifungals, oral antifungals, toenail avulsion, or toenail matrixectomy. NAIL DEBRIDEMENT: Nails 1-5 Bilateral were debrided extensively with nail nippers and emery board, reducing length and girth to pink healthy tissue with any subungual debris and necrotic tissue removed 08/06/2024 Pain in left toe(s) (ICD-10 - M79.675) 06/04/2024 Unspecified atherosclerosis of [place] arteries of extremities, 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 - I70.203) Patient educated on risks and aggravating factors of PVD, including conservative treatment options such as a diet and exercise regimen to aid in slowing progression of vascular disease 03/12/2024 Unspecified atherosclerosis of [place] arteries of extremities, 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 - I70.203) Patient educated on risks and aggravating factors of PVD, including conservative treatment options such as a diet and exercise regimen to aid in slowing progression of vascular disease 01/09/2024 Unspecified atherosclerosis of [place] arteries of extremities, 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 - I70.203) Patient educated on risks and aggravating factors of PVD, including conservative treatment options such as a diet and exercise regimen to aid in slowing progression of vascular disease 11/07/2023 Unspecified atherosclerosis of [place] arteries of extremities, 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 - [...] conservative options were emphasized. 08/06/2024 Atherosclerosis of [place] arteries of extremities with intermittent claudication, bilateral [...] Of Treatment Next Appt Details Provider Name:KALINA VIVAS, 12/10/2024 08:50:00 AM, [address] [place] [address], [id number], Insurance Providers Payer Name Payer Address Payer Phone Subscriber Number Group Number Insured Name Patient Relationship to Insured Coverage Start Date Coverage End Date [facility] [address] [address] [place], [place] [id number] MOHINDER BEAR Self - patient is the insured
--- OUTSIDE RECORDS SUMMARY | 2024-10-10 21:22 | XMS_ITS | Encounter Summary ---
Author Organization [facility] Address [address] [place] [address] Phone Care Team Providers Care Library Services Coordinator Name Role Phone Augustin Parrish MD Primary Care Provider [phone] Giuseppe Pemberton DO Primary Care Provider + [phone] Augustin Parrish MD Primary Care Provider [phone] Giuseppe Pemberton DO Primary Care Provider + [phone] Augustin Parrish MD Primary Care Provider [phone] Giuseppe Pemberton DO Primary Care Provider + 5-2220 Augustin Parrish MD Primary Care Provider [phone] Giuseppe Pemberton DO Primary Care Provider + 5-2220 Augustin Parrish MD Primary Care Provider + [phone] Giuseppe Pemberton DO Primary Care Provider + [phone] Augustin Parrish MD Primary Care Provider [phone] Giuseppe Pemberton DO Primary Care Provider + 5-2220 Augustin Parrish MD Primary Care Provider [phone] Augustin Parrish MD Primary Care Provider [phone] Giuseppe Pemberton DO Primary Care Provider + 5-2220 Augustin Parrish MD Primary Care Provider [phone] Giuseppe Pemberton DO Primary Care Provider [phone] Augustin Parrish MD Primary Care Provider [phone] Giuseppe Pemberton DO Primary Care Provider [phone] Augustin Parrish MD Primary Care Provider [phone] Giuseppe Pemberton DO Primary Care Provider [phone] Augustin Parrish MD Primary Care Provider [phone] Miscellaneous, Not In File Primary Care Provider Unavailable No, Physician Primary Care Provider [phone] Manuel Rangel DO Primary Care Provider Encounter Details Date Type Department Care Team (Latest Contact Info) Description 1965 Orders Only [facility] Scanning, Provider Social History Tobacco Use Types Packs/Day Years Used Date Smoking Tobacco: Never Assessed Sex and Gender Information Value Date Recorded Sex Assigned at Not on file Legal 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 Gender Identity Not on file Sexual Orientation [...] on filedocumented in this encounter Care Teams Library Services Coordinator Relationship Specialty Start Date End Date Augustin Parrish MD [address] [address] PCP - General 11/08/16 11/26/16 Giuseppe Pemberton DO [address] [place] [address] PCP - General 11/27/16 01/01/17 Augustin Parrish MD [address] [place] [address] PCP - General 01/02/17 01/08/17 Giuseppe Pemberton DO [address] [place] [address] PCP - General 01/09/17 01/09/17 Augustin Parrish MD [address] [place] [address] PCP - General 01/10/17 01/24/17 Giuseppe Pemberton DO [address] [place] [address] PCP - General 01/25/17 02/06/17 Augustin Parrish MD [address] [place] [address] PCP - General 02/07/17 04/30/17 Giuseppe Pemberton DO [address] [place] [address] PCP - General 05/01/17 05/01/17 Augustin Parrish MD [address] [place] [address] PCP - General 05/02/17 05/21/17 Giuseppe Pemberton DO [address] [place] [address] PCP - General 05/22/17 07/30/17 Augustin Parrish MD [address] [employer] [place] [address] PCP - General 07/31/17 08/15/17 Giuseppe Pemberton DO [address] [place] [address] PCP - General 08/16/17 08/22/17 Augustin Parrish MD [address] [employer] [place] [address] PCP - General 08/23/17 08/25/17 Augustin Parrish MD [address] [place] [address] PCP - General 08/26/17 08/27/17 Giuseppe Pemberton DO [address] [place] [address] PCP - General 08/28/17 11/24/17 Augustin Parrish MD [address] [employer] [place] [address] PCP - General 11/25/17 12/04/17 Giuseppe Pemberton DO [address] [place] [address] PCP - General Internal Medicine 12/05/17 12/08/17 Augustin Parrish MD [address] [employer] [place] [address] PCP - General 12/09/17 12/10/17 Giuseppe Pemberton DO [address] [place] [address] PCP - General 12/11/17 12/15/17 Augustin Parrish MD [address] [place] [address] PCP - General 12/16/17 12/17/17 Giuseppe Pemberton DO [address] [place] [address] PCP - General 12/18/17 06/17/18 Augustin Parrish MD [address] [employer] [place] [address] PCP - General 06/18/18 12/15/20 Miscellaneous, Not In File PCP - General 12/16/20 No, Physician PCP - General 04/24/21 03/12/22 Manuel Rangel [place] [facility] [place] [address] PCP - General 03/13/22 documented as of this encounter
--- OUTSIDE RECORDS SUMMARY | 2024-10-10 21:22 | XMS_ITS | Clinical Summary ---
Author Organization [facility] Address [address] [place] [address] Care Team Providers Care Aged Or Disabled Carer Name Role Phone BobtjManuelh Primary Care Provider [...] Department Care Team Description 09/02/2024 9:00 AM LEACH RUNNER Office Visit [facility] Epilepsy [address] [place] [address] Wilman Knott MD PhD Temporal lobe epilepsy, intractable (HCC) (Primary Dx); Seizure (HCC) from Last 3 Months Immunizations Immunization Administration Dates Next Due Influenza, Trivalent, IM (MDV) 05/08/2012 Influenza, Unspecified 06/03/2020 Pneumococcal Polysaccharide PPV23 10/01/2014 Surgical History Surgery Date Site/Laterality Comments [place] ORCHIECTOMY RADICAL TUMOR INGUINAL APPROACH Radical Orchiectomy [...] on file Legal 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 Gender Identity Not on file Sexual Orientation Not on file Obstetrics History Last Filed Vital Signs Vital Sign Reading Time Taken Comments Blood Pressure 114/77 09/02/2024 7:32 AM LEACH RUNNER Pulse 109 09/02/2024 7:32 AM LEACH RUNNER Temperature 36.7 C (98 F) 12/26/2023 8:22 AM CDT Respiratory Rate 16 12/26/2023 8:22 AM CDT Oxygen Saturation 95% 12/26/2023 8:22 AM CDT Inhaled Oxygen Concentration - - Weight 124.3 kg (274 lb) 09/02/2024 7:32 AM LEACH RUNNER Height 177.8 cm (5' 10 ) 09/02/2024 7:32 AM LEACH RUNNER Body Mass Index 39.31 09/02/2024 7:32 AM LEACH RUNNER Plan of Treatment Health Maintenance Due Date [...] Comments PSA SCREEN Routine 06/22/2020 7:37 AM LEACH RUNNER from Last 3 Months or Most Recently Relevant to Health Maintenance Results * PSA screen (06/22/2020 7:37 AM LEACH RUNNER) PSA-Total 0.34 <=3.90 ng/mL SHAMAR HORNE Comment: Interpretive Data AGE SEX REFERENCE INTERVAL 0 minutes-150 years Female None 0 minutes-49 years Male None 50-59 years Male 0-3.90 60-69 years Male 0-5.40 70-79 years Male 0-6.20 80-150 years Male 0-6.20 Current interpretive data last revised 2018. Blood specimen (specimen) 06/22/2020 7:37 AM LEACH RUNNER 06/22/2020 8:39 AM LEACH RUNNER us Uriel Rodriguez MD LAB BLOOD ORDERABLES Final Result SHAMAR JOHNS [facility] [place] [address] from Last 3 Months or Most Recently Relevant to Health Maintenance Insurance [employer] MEDICARE IDPA MED[employer] [facility] Care Teams Aged Or Disabled Carer Relationship Specialty Start Date End Date Manuel Rangel DO [address] [place] [address] PCP - General 03/13/22
--- OUTSIDE RECORDS SUMMARY | 2024-10-10 21:22 | XMS_ITS ---
Author Organization [facility] Address [address] [place], [place] [address] Care Team Providers Care Osteopathy Doctor Name Role Phone Manuel Rangel Primary Care Provider UnavailAKI Odell Unavailable [phone] EVELYN CHRISTIANSEN Unavailable [phone] Allergies Allergen (clinical drug ingredient) Drug/Non Drug [...] Active Encounters Encounter Location Date Provider Diagnosis [address] [id number] 2024 EVELYN CHRISTIANSEN Tinea unguium B35.1 Assessments Encounter Date Diagnosis (ICD Code) Assessment Notes Treatment Notes Treatment Clinical Notes Section Notes 2024 Tinea unguium (ICD-10 - B35.1) FUNGAL TOENAILS: Discussed various treatment options for fungal toenails including debridement, topical antifungals, oral antifungals, toenail avulsion, or toenail matrixectomy. NAIL DEBRIDEMENT: Nails 1-5 Bilateral were debrided extensively with nail nippers and emery board, reducing length and girth to pink healthy tissue with any subungual debris and necrotic tissue removed Plan Of Treatment Treatment Notes Assessment Notes [...] Foot care, sooner if problems arise Provider Name:KALINA VIVAS, 12/10/2024 08:50:00 AM, [address] [place] [address], [id number], Progress Notes * MOHINDER BEAR FDOB: 6 (59 yo M)Acc No.[id number]:2024 Patient: Tarah SPENCERMOHINDER Provider: María Elena Christiansen DPM :1965 A ge:59 Y S ex:Male Date:2024 Address:[address] [place], [place] [id number] Pcp:Manuel Rangel Subjective: * Chief Complaints: * 1 . Patient presents for at-risk foot care . The patient has painful toenails that cause difficulty with ambulation and shoegear. The onset is gradual. * HPI: H PI: General care P atient presents to the office for at risk foot care. Patient states that their nails are thickened, elongated and painful. Patient states that it is aggravated by shoe gear. Onset is gradual. Patient denies being diabetic., Patient denies taking blood thinners., Date last seen by Dr. Rangel was October 2024., Initials LB. sample. * ROS: G eneral / Constitutional: Patient denies w eakness. R espiratory: Patient denies c hronic cough, shortness of breath, sputum production. C ardiovascular: Patient denies c hest pain, history of [place], irregular heartbeat. M usculoskeletal: Patient complains of h ammertoes. P eripheral Vascular: Patient denies b lanching of skin, cold extremities, decreased sensation in extremities. S kin: Patient complains of f ungal nails, nail changes. ? N eurologic: Patient denies d izziness, gait abnormality, headache. * Medical History: * Family History: F ather: PRN - Father: :: Cancer,,known absent , :: Pneumonia,,known absent . M other: PRN - Mother: :: Diabetes,,known absent . S ister: SIB - Sister: :: Cancer,,known absent . * Social History: M igrated Social History: M igrated Social History: Smoking Status : Never used tobacco , History of tobacco use :. * Medications: T aking levETIRAcetam 500 MG Tablet Oral , Taking Lisinopril 10 MG Tablet Oral , Taking Amoxicillin-Pot Clavulanate 500-125 MG Tablet Oral , Taking Fluticasone Propionate 50 MCG/ACT Suspension Nasal , Taking Methocarbamol 500 MG Tablet Oral , Taking HYDROcodone-Acetaminophen 5-325 MG Tablet Oral , Taking Ammonium Lactate 12 % Lotion 1 application Externally Twice a day , Medication List reviewed and reconciled with the patient * Allergies: I WATCH CRYSTAL EDGE GRINDER Dye, Iodine Containing: Allergy - Onset Date 03/14/2020. Objective: * Vitals: * Examination: C onstitutional: [...] lower extremities. ? Assessment: * Assessment: 1. Ilana elena zengleo - B35.1 (Primary) Plan: * Treatment: * Follow Up: 1 0-12 Weeks (Reason: At Risk Foot care, sooner if problems arise) * Billing Information: * Visit Code: * Procedure Codes: * Electronic signature of EVELYN CHRISTIANSEN DPM on 10/10/2024 at 09:22 PM SALES AND MARKETING ANALYST Sign off status: Pending * Provider: María Elena Christiansen DPM Date: 0 2024 Generated for Curtis mejia/Lani/Romeo on: 0 10/10/2024 09:22 PM SALES AND MARKETING ANALYST History and Physical Notes * HPI (History [...] Date last seen by Dr. Rangel was October 2024., Initials LB sample Examination Category Sub-Category Detail Notes Category [...]
--- OUTSIDE RECORDS SUMMARY | 2024-10-10 21:22 | XMS_ITS | Clinical Summary ---
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
--- OUTSIDE RECORDS SUMMARY | 2024-10-10 21:22 | XMS_ITS ---
Author Organization [facility] Address [address] [place], [place] [phone] Care Team Providers Care Ethnoarchaeologist Name Role Phone Manuel Rangel Primary Care Provider AKI Teixeira Unavailable [phone] RIC VIZCAINO Unavailable [phone] Allergies Allergen (clinical drug ingredient) Drug/Non Drug [...] Active Encounters Encounter Location Date Provider Diagnosis [facility] [address] [place], [place] [id number] 06/04/2024 RIC VIZCAINO Tinea unguium B35.1 ; Xerosis cutis L85.3 ; Unspecified atherosclerosis of [place] arteries of extremities, bilateral legs I70.203 ; [...] to feet daily. 06/04/2024 Unspecified atherosclerosis of [place] arteries of extremities, 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 - [...] applied to feet daily. Unspecified atherosclerosis of [place] arteries of extremities, bilateral legs Patient educated [...] Details Follow Up: 3 Months, Reason: Provider Name:KALINA VIVAS, 12/10/2024 08:50:00 AM, [address] [place] [address], [id number], Progress Notes * MOHINDER BEAR FDOB: 6 (58 yo M)Acc No.[id number]:06/04/2024 Patient: MOHINDER SAPP Provider: Ilana VIZCAINO :1965 A ge:58 Y S ex:Male Date:06/04/2024 [facility] Pcp:Manuel Rangel Subjective: * Chief Complaints: [...] Patient denies c hest pain, history of [place], irregular heartbeat. M usculoskeletal: Patient complains of [...] Externally Twice a day * Allergies: I GATE MANAGER Dye, Iodine Containing: Allergy - Onset Date [...] - L85.3 ?3. U nspecified atherosclerosis of [place] arteries of extremities, bilateral legs - I70.203? [...] feet daily. 3. U nspecified atherosclerosis of [place] arteries of extremities, bilateral legs Notes: Patient [...] Months * Billing Information: * Visit Code: 82517 Office Visit, Est Pt., Level 3. * Procedure Codes: * ARIAL MANAGER Sign off status: Completed true * Provider: Ilana VIZCAINO Date: 1 Generated for Curtis mejia/Lani/Romeo on: 0 10/10/2024 09:22 PM ACTUARIAL MANAGER History and Physical Notes * HPI [...]
--- OUTSIDE RECORDS SUMMARY | 2024-10-10 21:23 | XMS_ITS ---
Author Organization [facility] Address [address] [place], [place] [address] Care Team Providers Care Van Loader Name Role Phone Manuel Rangel Primary Care Provider UnavailAKI Odell Unavailable [phone] EVELYN CHRISTIANSEN Unavailable [phone] Allergies Allergen (clinical drug ingredient) Drug/Non Drug [...] Active Encounters Encounter Location Date Provider Diagnosis [facility] [address] [place], [place] [id number] 08/06/2024 EVELYN CHRISTIANSEN Tinea unguium B35.1 ; Pain in right toe(s) M79.674 ; Pain in left toe(s) M79.675 and Atherosclerosis of [place] arteries of extremities with intermittent claudication, bilateral [...] toe(s) (ICD-10 - M79.675) 08/06/2024 Atherosclerosis of [place] arteries of extremities with intermittent claudication, bilateral [...] care, sooner if problems arise Provider Name:KALINA VIVSA, 12/10/2024 08:50:00 AM, [address] [place] [address], [id number], Progress Notes * MOIHNDER BEAR FDOB: 6 (58 yo M)Acc No.[id number]:08/06/2024 Patient: Tarah SPENCER MOHINDER Abdon Provider: María Elena Christiansen DPM :1965 A ge:58 Y S ex:Male Date:08/06/2024 Address:[address] [place], [place] [id number] Pcp:Manuel Rangel Subjective: * Chief Complaints: * [...] Patient denies c hest pain, history of [place], irregular heartbeat. M usculoskeletal: Patient complains of [...] reconciled with the patient * Allergies: I TUBE DISPATCHER Dye, Iodine Containing: Allergy - Onset Date [...] - M79.675 4 . A therosclerosis of [place] arteries of extremities with intermittent claudication, bilateral legs - I70.213 Plan: * Treatment: * Procedure Codes: * Follow Up: 1 0-12 Weeks (Reason: At Risk Foot care, sooner if problems arise) * Billing Information: * Visit Code: 75995 Office Visit, Est Pt., Level 3. * Procedure Codes: * ARCH ADMINISTRATOR Sign off status: Completed true * Provider: María Elena Christiansen DPM Date: 0 08/06/2024 Generated for Curtis mejia/Lani/Romeo on: 0 10/10/2024 09:22 PM RESEARCH ADMINISTRATOR History and Physical Notes * HPI (History [...]
--- NOTE | 2024-10-10 21:35 | ED_ITS ---
HPI - Chest Pain General Chief Complaint: Chest Pain Stated Complaint: Dizzy/Nauseated Time Seen by Provider: 10/10/24 21:09 Source: patient and EMS Mode of arrival: EMS Limitations: no limitations History of Present Illness HPI narrative: this is a 59-year-old male with history of hypertension presents with more epigastric discomfort currently no chest pain no shortness of breath no nausea or vomiting patient does have started with loose stools with no fever chills no flank pain no dysuria. complaint: chest discomfort Onset (ago): hour(s) Timing of current episode: episodic Onset: during rest Pain location: epigastric Pain radiation: none Severity: mild Related Data Home Medications ?Medication ?Instructions ?Recorded ?Confirmed ?Last Taken ?Type levetiracetam 500 mg tablet 1,500 mg PO BID 02/03/20 09/12/24 06/15/24 History multivitamin with minerals (Daily 1 tablet PO DAILY 02/03/20 09/12/24 06/15/24 History Multivitamin-Minerals tablet) acetaminophen 325 mg capsule 325 mg PO Q6H PRN Pain 11/15/23 09/12/24 06/15/24 History Allergies Allergy/AdvReac Type Severity Reaction Status Date / Time Iodinated Contrast Media Allergy Unknown Hives Verified 10/08/24 11:00 Contrast allergy Allergy Intermediate Unknown Uncoded 10/08/24 11:00 Review of Systems Review of Systems: All systems reviewed & are unremarkable except as noted in HPI and below PMFSH Past Medical History Medical History Benign essential HTN Testicle cancer Obesity (BMI 30-39.9) Seizure disorder Surgical History Surgical History H/O brain surgery Family History Family History Father History of sinus cancer Sibling Ovarian cancer Social History Social History Smoking status: Never smoker Second hand tobacco smoke exposure: No Alcohol intake: never Substance use: never Lack of Transportation: No Lack of Food: Never True Current Housing: I Have Housing Concerned About Future Housing: No Difficulty Paying Gas/Electric Bills: No Difficulty Paying for Meds: No Currently Unemployed: No Education: High School Diploma/GED Difficulty w/ Childcare or Family Care: No Living arrangements: alone Gender identity (if verbalized by the patient): Male Sexual Orientation (if Verbalized by the Patient): Straight or Heterosexual Exam Const: General: healthy appearing and no acute distress Nutritional Appearance: well nourished Orientation/consciousness: patient oriented x3 Limitations: no limitations Neck: Neck: normal visual inspection, no lymphadenopathy and no meningeal signs Chest: Chest palpation & inspection: normal inspection of the chest Resp: Effort & Inspection: normal respiratory effort Auscultation: clear to auscultation bilaterally Cardio: Rate: regular rate Rhythm: regular rhythm GI: GI Palp: Yes Soft to palpation Auscultation: normal bowel sounds : General: Yes bladder normal to palpation Skin: General skin exam: normal color Rashes: no rashes Wounds: no wounds Neuro: General: patient oriented x3, moves all extremities, no meningeal signs and no focal motor deficits Course Course Emergency Course: EKG performed shows normal sinus rhythm, labs performed and reviewed with patient. Vital Signs Vital signs: Vital Signs Pulse Rate 81 10/10/24 21:01 Respiratory Rate 15 10/10/24 21:01 Pulse Oximetry 96 10/10/24 21:01 Temperature 36.6 C 10/10/24 21:13 Pulse Rate 80 10/10/24 21:30 Respiratory Rate 16 10/10/24 21:30 Blood Pressure 115/93 H 10/10/24 21:30 Pulse Oximetry 98 10/10/24 21:30 Oxygen Delivery Room Air 10/10/24 21:13 Critical Care Time Critical Care Time Critical Care Time: No Discharge Plan Discharge Patient Language: Hong Konger Prescriptions: No Action levetiracetam 500 mg Tablet 1,500 mg PO BID Daily Multivitamin-Minerals Tablet 1 tablet PO DAILY orphenadrine citrate 100 mg tablet extended release 100 mg PO BID PRN (Reason: pain) Qty: 20 0RF acetaminophen 325 mg capsule 325 mg PO Q6H PRN (Reason: Pain) lisinopril 10 mg tablet See Rx Instructions .ROUTE .COMPLEX Qty: 90 0RF Dose Instruction: TAKE ONE TABLET BY MOUTH DAILY Rx Instructions: TAKE ONE TABLET BY MOUTH DAILY Follow-up/Referrals: Manuel Rangel DO [Primary Care Provider] -
[2024-10-10 22:38] LABS: Basophils Absolute Auto 0.06 K/mm3 (0.00-0.10); Basophils Percent Auto 0.6 % (0.0-1.0); Eosinophils Absolute Auto 0.11 K/mm3 (0.02-0.50); Eosinophils Percent Auto 1.1 % (1.0-6.0); Hematocrit 46.8 % (40.0-54.0); Hemoglobin 15.4 g/dL (14.0-18.0); Immature Granulocyte Absolute 0.07 K/mm3 (0.00-0.00); Immature Granulocyte Percent A 0.7 % (0.0-0.0); Lymphocytes Percent Auto 13.3 % (18.0-42.0); Mean Corpuscular HGB Conc 32.9 g/dL (32-36); Mean Corpuscular Hemoglobin 31.3 pg (27.0-31.0); Mean Corpuscular Volume 95.1 fL (78.0-102.0); Mean Platelet Volume 10.3 fl (8.7-11.0); Monocytes Absolute Auto 1.16 K/mm3 (0.10-0.90); Monocytes Percent Auto 11.8 % (2.0-11.0); Neutrophils Percent Auto 72.5 % (50.0-70.0); Platelet Count Result 270 K/mm3 (150-420); Red Blood Count 4.92 M/mm3 (4.70-6.10); Red Cell Distribution Width 12.2 % (11.6-14.4); White Blood Count 9.8 K/mm3 (4.8-10.8)
[2024-10-10 23:00] LABS: Alanine Aminotransferase 27 U/L (16-63); Albumin Level 3.8 g/dL (3.4-5.0); Alkaline Phosphatase 90 U/L (46-116); Anion Gap 14 mmol/L (4-12); Aspartate Amino Transferase 21 U/L (15-37); Bilirubin,Total 0.5 mg/dL (0.00-1.00); Blood Urea Nitrogen 18 mg/dL (7-18); Calcium 8.8 mg/dL (8.5-10.1); Carbon Dioxide 23 mmol/L (21-32); Chloride 103 mmol/L (98-108); Estimated CRCL calculation 69 ml/min; Estimated Glomerular Filt Rate 54; Glucose 121 mg/dL (70-99); Osmolality Calculated 292 mOsm/kg (285-295); Potassium 4.4 mmol/L (3.5-5.1); Sodium 140 mmol/L (136-145); Total Protein 6.9 g/dL (6.4-8.2); Troponin I 5.8 ng/L (0.00-60.4)
[2024-10-10 23:23] LABS: Influenza A QL RT-PCR Negative (Negative); Influenza B QL RT-PCR Negative (Negative); RSV RNA, RT-PCR Negative (Negative); SARS-CoV-2 RNA PCR Negative (Negative)
== END 2024-10-10 23:43 | disposition home or self-care (01) ==
PROVIDERS: Emergency Provider Emergency Medicine; PCP Family Medicine
DX: K52.9 Noninfective gastroenteritis and colitis, unspecified (principal); I10 Essential (primary) hypertension; Z85.47 Personal history of malignant neoplasm of testis; Z20.822 Contact with and (suspected) exposure to COVID-19
CPT/HCPCS: 36415; 80053; 84484; 85025; 87637; 93005; 99284; A9270

== ENCOUNTER 2024-10-18 01:14 | Emergency (ER) | payer MEDICAID, MEDICARE, SELFPAY ==
--- OUTSIDE RECORDS SUMMARY | 2024-10-18 01:15 | XMS_ITS | Encounter Summary ---
Author Organization [facility] Address [address] [place] [address] Phone Care Team Providers Care Spice Miller Name Role Phone Augustin Parrish MD Primary Care Provider [phone] Giuseppe Pemberton DO Primary Care Provider + 5-2220 Augustin Parrish MD Primary Care Provider [phone] Giuseppe Pemberton DO Primary Care Provider + 5-2220 Augustin Parrish MD Primary Care Provider [phone] Giuseppe Pemberton DO Primary Care Provider + 5-2220 Augustin Parrish MD Primary Care Provider [phone] Giuseppe Pemberton DO Primary Care Provider + 5-2220 Augustin Parrish MD Primary Care Provider [phone] Giuseppe Pemberton DO Primary Care Provider + [phone] Augustin Parrish MD Primary Care Provider [phone] Giuseppe Pemberton DO Primary Care Provider + 5-2220 Augustin Parrish MD Primary Care Provider [phone] Augustin Parrish MD Primary Care Provider [phone] Giuseppe Pemberton DO Primary Care Provider + 5-2220 Augustin Parrish MD Primary Care Provider [phone] Giuseppe Pemberton DO Primary Care Provider [phone] Augustin Parrish MD Primary Care Provider [phone] Giuseppe Pemberton DO Primary Care Provider +[phone] Aguustin Parrish MD Primary Care Provider [phone] Giuseppe Pemberton DO Primary Care Provider +[phone] Augustin Parrish MD Primary Care Provider [phone] Miscellaneous, Not In File Primary Care Provider Unavailable No, Physician Primary Care Provider [phone] Manuel Rangel DO Primary Care Provider Encounter Details Date Type Department Care Team (Latest Contact Info) Description 1965 Orders Only [facility] Scanning, Provider Social History Tobacco Use Types Packs/Day Years Used Date Smoking Tobacco: Never Assessed Sex and Gender Information Value Date Recorded Sex Assigned at Not on file Legal Sex 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:12 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 Gender Identity Not on file Sexual [...] on filedocumented in this encounter Care Teams Spice Miller Relationship Specialty Start Date End Date Augustin Parrish MD [address] [address] PCP - General 11/08/16 11/26/16 Giuseppe Pemberton DO [address] [place] [address] PCP - General 11/27/16 01/01/17 Augustin Parrish MD [address] [place] [address] PCP - General 01/02/17 01/08/17 Giuseppe Pemberton DO [address] [place] [address] PCP - General 01/09/17 01/09/17 Augustin Parrish MD [address] [place] [address] PCP - General 01/10/17 01/24/17 Giuseppe Pemberton DO [address] [place] [address] PCP - General 01/25/17 02/06/17 Augustin Parrish MD [address] [place] [address] PCP - General 02/07/17 04/30/17 Giuseppe Pemberton DO [address] [place] [address] PCP - General 05/01/17 05/01/17 Augustin Parrish MD [address] [place] [address] PCP - General 05/02/17 05/21/17 Giuseppe Pemberton DO [address] [place] [address] PCP - General 05/22/17 07/30/17 Augustin Parrish MD [address] [place] [address] PCP - General 07/31/17 08/15/17 Giuseppe Pemberton DO [address] [place] [address] PCP - General 08/16/17 08/22/17 Augustin Parrish MD [address] [place] [address] PCP - General 08/23/17 08/25/17 Augustin Parrish MD [address] [place] [address] PCP - General 08/26/17 08/27/17 Giuseppe Pemberton DO [address] [place] [address] PCP - General 08/28/17 11/24/17 Augustin Parrish MD [address] [place] [address] PCP - General 11/25/17 12/04/17 Giuseppe Pemberton DO [address] [place] [address] PCP - General Internal Medicine 12/05/17 12/08/17 Augustin Parrish MD [address] [place] [address] PCP - General 12/09/17 12/10/17 Giuseppe Pemberton DO [address] [place] [address] PCP - General 12/11/17 12/15/17 Augustin Parrish MD [address] [place] [address] PCP - General 12/16/17 12/17/17 Giuseppe Pemberton DO [address] [place] [address] PCP - General 12/18/17 06/17/18 Augustin Parrish MD [address] [place] [address] PCP - General 06/18/18 12/15/20 Miscellaneous, Not In File PCP - General 12/16/20 No, Physician PCP - General 04/24/21 03/12/22 Manuel Rangel DO [facility] [place] [address] PCP - General 03/13/22 documented as of this encounter
--- OUTSIDE RECORDS SUMMARY | 2024-10-18 01:15 | XMS_ITS ---
Author Organization [facility] Address [address] [place], [place] [address] Care Team Providers Care Field Hauler Name Role Phone Manuel Rangel Primary Care Provider EVELYN Brady Unavailable [phone] RIC VIZCAINO Unavailable [phone] Allergies Allergen (clinical drug ingredient) Drug/Non Drug [...] Active Encounters Encounter Location Date Provider Diagnosis [facility] [address] [place], [place] [id number] 06/04/2024 RIC VIZCAINO Tinea unguium B35.1 ; Xerosis cutis L85.3 ; Unspecified atherosclerosis of [place] arteries of extremities, bilateral legs I70.203 ; [...] to feet daily. 06/04/2024 Unspecified atherosclerosis of [place] arteries of extremities, 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 - [...] applied to feet daily. Unspecified atherosclerosis of alt[place] arteries of extremities, bilateral legs Patient educated [...] Reason: Provider Name:KALINA VIVAS, 12/10/2024 08:50:00 AM, [address] [place] [address], [phone], Progress Notes * MOHINDER BEAR FDOB: 6 (58 yo M)Acc No.[id number]:06/04/2024 Patient: MOHINDER SAPP Provider: Ilana VIZCAINO :1965 A ge:58 Y S ex:Male Date:06/04/2024 [address] Pcp:Manuel Rangel Subjective: * Chief Complaints: * [...] Patient denies c hest pain, history of [place], irregular heartbeat. M usculoskeletal: Patient complains of [...] Externally Twice a day * Allergies: I IDEA MAN Dye, Iodine Containing: Allergy - Onset Date [...] - L85.3 ?3. U nspecified atherosclerosis of alt[place] arteries of extremities, bilateral legs - I70.203? [...] feet daily. 3. U nspecified atherosclerosis of alturas arteries of extremities, bilateral legs Notes: Patient [...] Months * Billing Information: * Visit Code: 97598 Office Visit, Est Pt., Level 3. * Procedure Codes: * CAL GENETICS DIRECTOR Sign off status: Completed true * Provider: Ilana VIZCAINO Date: 1 Generated for Curtis mejia/Lani/Romeo on: 0 10/18/2024 01:15 AM CDT History and Physical Notes * HPI (History [...]
--- OUTSIDE RECORDS SUMMARY | 2024-10-18 01:15 | XMS_ITS | Clinical Summary ---
Author Organization [facility] Address [facility] [place] [address] Care Team Providers Care Script Writer Name Role Phone Manuel Rangel DO Primary Care Provider [phone] Allergies Active Allergy Reactions Criticality Noted Date [...] on file Legal Sex Male 5:54 PM HOUSING COORDINATOR Gender Identity Not on file Sexual [...] this topic Insurance AET MEDICAID Care Teams Script Writer Relationship Specialty Start Date End Date Manuel Rangel DO [address] [place] [address] PCP - General FAMILY PRACTICE 02/21/24
--- OUTSIDE RECORDS SUMMARY | 2024-10-18 01:15 | XMS_ITS ---
Author Organization [facility] Address [address] [place], [place] [phone] Care Team Providers Care Military Science Instructor Name Role Phone Manuel Rangel Primary Care Provider EVELYN Brady Unavailable [phone] Allergies Allergen (clinical drug ingredient) Drug/Non Drug [...] Active Encounters Encounter Location Date Provider Diagnosis [address] [id number] 2024 EVELYN CHRISTIANSEN Tinea unguium B35.1 ; Pain in right toe(s) M79.674 ; Pain in left toe(s) M79.675 and Atherosclerosis of [place]ak[place] arteries of extremities with intermittent claudication, bilateral [...] any subungual debris and necrotic tissue removed 2024 Pain in right toe(s) (ICD-10 - M79.674) 2024 Pain in left toe(s) (ICD-10 - M79.675) 2024 Atherosclerosis of [place] arteries of extremities with intermittent claudication, bilateral [...] arise Provider Name:KALINA VIVAS, 12/10/2024 08:50:00 AM, [address] [place] [address], [id number], Progress Notes * MOHINDER BEAR FDOB: 6 (59 yo M)Acc No.[id number]:2024 Patient: Tarah JOHANNAANNIAL Abdon Provider: María Elena Christiansen DPM :1965 A ge:59 Y S ex:Male Date:2024 Address:[address] [place], [place] [id number] Pcp:Manuel Rangel Subjective: * Chief Complaints: * [...] Patient denies c hest pain, history of [place], irregular heartbeat. M usculoskeletal: Patient complains of [...] reconciled with the patient * Allergies: I PIGMENT SUPPLIER Dye, Iodine Containing: Allergy - Onset Date [...] - M79.675 4 . A therosclerosis of [place] arteries of extremities with intermittent claudication, bilateral legs - I70.213 Plan: * Treatment: * Follow Up: 1 0-12 Weeks (Reason: At Risk Foot care, sooner if problems arise) * Billing Information: * Visit Code: 39793 Office Visit, Est Pt., Level 3. * Procedure Codes: * Electronic signature of EVELYN CHRISTIANSEN DPM on 10/18/2024 at 01:15 AM CDT Sign off status: Pending * Provider: María Elena Christiansen DPM Date: 0 2024 Generated for Curtis mejia/Lani/Romeo on: 0 10/18/2024 [...]
[2024-10-18 01:16] VITALS: BP 153/84; PULSE 82; RESP 18; TEMP 36.6; O2SAT 98
--- OUTSIDE RECORDS SUMMARY | 2024-10-18 01:16 | XMS_ITS | Patient Health Record ---
Author Organization [facility] Address [address] [place], [place] [id number] Care Team Providers Care Section Supervisor Name Role Phone Manuel Rangel Primary Care Provider EVELYN Brady Unavailable [phone] RIC VIZCAINO Unavailable [phone] Allergies Allergen (clinical drug ingredient) Drug/Non Drug [...] 01/09/2024 Encounters Encounter Location Date Provider Diagnosis [address] [id number] 2024 EVELYN SNOOK Tinea unguium B35.1 ; Pain in right toe(s) M79.674 ; Pain in left toe(s) M79.675 and Atherosclerosis of [place] arteries of extremities with intermittent claudication, bilateral legs I70.213 [facility] [address] [place], [place] [id number] 11/07/2023 RIC DAVYDOV Tinea unguium B35.1 ; Xerosis cutis L85.3 ; Unspecified atherosclerosis of [place] arteries of extremities, bilateral legs I70.203 ; Other hammer toe(s) (acquired), right foot M20.41 ; Other hammer toe(s) (acquired), left foot M20.42 ; Pain in right toe(s) M79.674 and Pain in left toe(s) M79.675 [facility] [address] [place], [place] [id number] 01/09/2024 RIC DAVYDOV Tinea unguium B35.1 ; Xerosis cutis L85.3 ; Unspecified atherosclerosis of [place] arteries of extremities, bilateral legs I70.203 ; Other hammer toe(s) (acquired), right foot M20.41 ; Other hammer toe(s) (acquired), left foot M20.42 ; Pain in right toe(s) M79.674 and Pain in left toe(s) M79.[address] [id number] 03/12/2024 RIC DAVYDOV Tinea unguium B35.1 ; Xerosis cutis L85.3 ; Unspecified atherosclerosis of [place] arteries of extremities, bilateral legs I70.203 ; Other hammer toe(s) (acquired), right foot M20.41 ; Other hammer toe(s) (acquired), left foot M20.42 ; Pain in right toe(s) M79.674 and Pain in left toe(s) M79.[address] [id number] 06/04/2024 RIC DAVYDOV Tinea unguium B35.1 ; Xerosis cutis L85.3 ; Unspecified atherosclerosis of [place] arteries of extremities, bilateral legs I70.203 ; Other hammer toe(s) (acquired), right foot M20.41 ; Other hammer toe(s) (acquired), left foot M20.42 ; Pain in right toe(s) M79.674 and Pain in left toe(s) M79.675 [facility] [address] [place], [place] [id number] 08/06/2024 EVELYN CHRISTIANSEN Tinea unguium B35.1 ; Pain in right toe(s) M79.674 ; Pain in left toe(s) M79.675 and Atherosclerosis of [place]et[place] arteries of extremities with intermittent claudication, bilateral [...] in left toe(s) (ICD-10 - M79.675) 08/06/2024 Pain in left toe(s) (ICD-10 - M79.675) 06/04/2024 Unspecified atherosclerosis of [place]etie arteries of extremities, 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 - I70.203) Patient educated on risks and aggravating factors of PVD, including conservative treatment options such as a diet and exercise regimen to aid in slowing progression of vascular disease 03/12/2024 Unspecified atherosclerosis of [place] arteries of extremities, 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 - I70.203) Patient educated on risks and aggravating factors of PVD, including conservative treatment options such as a diet and exercise regimen to aid in slowing progression of vascular disease 01/09/2024 Unspecified atherosclerosis of [place] arteries of extremities, 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 - I70.203) Patient educated on risks and aggravating factors of PVD, including conservative treatment options such as a diet and exercise regimen to aid in slowing progression of vascular disease 11/07/2023 Unspecified atherosclerosis of [place] arteries of extremities, 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 - [...] conservative options were emphasized. 08/06/2024 Atherosclerosis of [place]ie arteries of extremities with intermittent claudication, 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 - I70.213) 2024 Atherosclerosis of [place]etie arteries of extremities with intermittent claudication, bilateral [...] Of Treatment Next Appt Details Provider Name:KALINA BOYKIN SANGEETHA, 12/10/2024 08:50:00 AM, [address] [place] [address], [id number], Insurance Providers Payer Name Payer Address Payer Phone Subscriber Number Group Number Insured Name Patient Relationship to Insured Coverage Start Date Coverage End Date [facility] [address] [address] [place], [place] [phone] [id number] MOHINDER BEAR Self - patient is the insured
--- OUTSIDE RECORDS SUMMARY | 2024-10-18 01:16 | XMS_ITS | Referral Summary ---
Author Organization [facility] Address [address] [place] [address] Care Team Providers Care Fac Engineer Name Role Phone BobtjManuelh Primary Care Provider Encounters Date Type Department Care Team Description 09/02/2024 9:00 AM FURNACE MECHANIC HELPER Office Visit [facility] Epilepsy [address] [facility] 6th [place] [address] [place] [address] Wilman Knott MD PhD Temporal [...] on file Legal Sex Male 9:12 PM FURNACE MECHANIC HELPER Gender Identity Not on file Sexual Orientation Not on file Last Filed Vital Signs Vital Sign Reading Time Taken Comments Blood Pressure 114/77 09/02/2024 7:32 AM FURNACE MECHANIC HELPER Pulse 109 09/02/2024 7:32 AM FURNACE MECHANIC HELPER Temperature 36.7 C (98 F) 12/26/2023 8:22 AM CDT Respiratory Rate 16 12/26/2023 8:22 AM CDT Oxygen Saturation 95% 12/26/2023 8:22 AM CDT Inhaled Oxygen Concentration - - Weight 124.3 kg (274 lb) 09/02/2024 7:32 AM FURNACE MECHANIC HELPER Height 177.8 cm (5' 10 ) 09/02/2024 7:32 AM FURNACE MECHANIC HELPER Body Mass Index 39.31 09/02/2024 7:32 AM FURNACE MECHANIC HELPER Plan of Treatment Not on file Procedures Procedure Name Priority Date/Time Associated Diagnosis Comments PSA SCREEN Routine 06/22/2020 7:37 AM FURNACE MECHANIC HELPER from Last 3 Months or Most Recently Relevant to Health Maintenance Results * PSA screen (06/22/2020 7:37 AM FURNACE MECHANIC HELPER) PSA-Total 0.34 <=3.90 ng/mL SHAMAR HORNE Comment: Interpretive Data AGE SEX REFERENCE INTERVAL 0 minutes-150 years Female None 0 minutes-49 years Male None 50-59 years Male 0-3.90 60-69 years Male 0-5.40 70-79 years Male 0-6.20 80-150 years Male 0-6.20 Current interpretive data last revised 2018. Blood specimen (specimen) 06/22/2020 7:37 AM FURNACE MECHANIC HELPER 06/22/2020 8:39 AM FURNACE MECHANIC HELPER us Uriel Rodriguez MD LAB BLOOD ORDERABLES Final Result SHAMAR JOHNS [facility] Department [place] [address] from Last 3 Months or Most Recently Relevant to Health Maintenance Insurance [facility] MEDICARE SOLUTIONS MEDICARE ID[employer] MEDICARE SOLUTIONS [facility] Care Teams Fac Engineer Relationship Specialty Start Date End Date Manuel Rangel DO [address] [place] [address] [facility] - General 03/13/22
--- OUTSIDE RECORDS SUMMARY | 2024-10-18 01:16 | XMS_ITS ---
Author Organization [facility] Address [address] [place], [place] [address] Care Team Providers Care Project Engineer Chemicals Name Role Phone Manuel Rangel Primary Care Provider EVELYN Brady Unavailable [phone] Allergies Allergen (clinical drug ingredient) Drug/Non Drug [...] Active Encounters Encounter Location Date Provider Diagnosis [facility] [address] [place], [place] [id number] 08/06/2024 EVELYN CHRISTIANSEN Tinea unguium B35.1 ; Pain in right toe(s) M79.674 ; Pain in left toe(s) M79.675 and Atherosclerosis of elem arteries of extremities with intermittent claudication, bilateral [...] toe(s) (ICD-10 - M79.675) 08/06/2024 Atherosclerosis of elem arteries of extremities with intermittent claudication, bilateral [...] arise Provider Name:KALINA VIVAS, 12/10/2024 08:50:00 AM, [address] [place] [address], [id number], Progress Notes * MOHINDER BEAR FDOB: [birth year] (58 yo M)Acc No.[id number]:08/06/2024 Patient: Tarah JOHANNAANNIAL Abdon Provider: María Elena Christiansen DPM :1965 A ge:58 Y S ex:Male Date:08/06/2024 Address:[address] [place], [place] [id number] Pcp:Manuel Rangel Subjective: * Chief Complaints: * [...] blood thinners., Date last seen by Dr. aRngel was 08/2023., Initials mca. sample. * ROS: G eneral / Constitutional: Patient denies w eakness. R espiratory: Patient denies c hronic cough, shortness of breath, sputum production. C ardiovascular: Patient denies c hest pain, history of [place], irregular heartbeat. M usculoskeletal: Patient complains of [...] reconciled with the patient * Allergies: I WELDING SUPERVISOR Dye, Iodine Containing: Allergy - Onset [...] - M79.675 4 . A therosclerosis of elem arteries of extremities with intermittent claudication, bilateral legs - I70.213 Plan: * Treatment: * Procedure Codes: * Follow Up: 1 0-12 Weeks (Reason: At Risk Foot care, sooner if problems arise) * Billing Information: * Visit Code: 70050 Office Visit, Est Pt., Level 3. * Procedure Codes: * ER Sign off status: Completed true * Provider: María Elena Christiansen DPM Date: 0 08/06/2024 Generated for Curtis mejia/Lani/Romeo on: 0 10/18/2024 01:16 AM CDT History and Physical Notes * [...]
--- OUTSIDE RECORDS SUMMARY | 2024-10-18 01:16 | XMS_ITS ---
Author Organization [facility] Address [address] [place] [address] Care Team Providers Care Lead Pressman Name Role Phone Manuel Rangel DO Primary [...]
--- OUTSIDE RECORDS SUMMARY | 2024-10-18 01:16 | XMS_ITS | Clinical Summary ---
Author Organization [facility] Address [address] [place] [address] Care Team Providers Care Hatchery Laborer Name Role Phone BobtjManuelh Primary Care Provider [...] Department Care Team Description 09/02/2024 9:00 AM INSTRUMENTATION FITTER Office Visit [facility] Epilepsy [address] 6th [place] [address] [place] [address] Wilman Knott MD PhD Temporal lobe epilepsy, intractable (HCC) (Primary Dx); Seizure (HCC) from Last 3 Months Immunizations Immunization Administration Dates Next Due Influenza, Trivalent, IM (MDV) 05/08/2012 Influenza, Unspecified 06/03/2020 Pneumococcal Polysaccharide PPV23 10/01/2014 Surgical History Surgery Date Site/Laterality Comments RI ORCHIECTOMY RADICAL TUMOR INGUINAL APPROACH Radical Orchiectomy [...] on file Legal Sex Male 9:12 PM INSTRUMENTATION FITTER Gender Identity Not on file Sexual Orientation Not on file Obstetrics History Last Filed Vital Signs Vital Sign Reading Time Taken Comments Blood Pressure 114/77 09/02/2024 7:32 AM INSTRUMENTATION FITTER Pulse 109 09/02/2024 7:32 AM INSTRUMENTATION FITTER Temperature 36.7 C (98 F) 12/26/2023 8:22 AM CDT Respiratory Rate 16 12/26/2023 8:22 AM CDT Oxygen Saturation 95% 12/26/2023 8:22 AM CDT Inhaled Oxygen Concentration - - Weight 124.3 kg (274 lb) 09/02/2024 7:32 AM INSTRUMENTATION FITTER Height 177.8 cm (5' 10 ) 09/02/2024 7:32 AM INSTRUMENTATION FITTER Body Mass Index 39.31 09/02/2024 7:32 AM INSTRUMENTATION FITTER Plan of Treatment Health Maintenance Due Date [...] Comments PSA SCREEN Routine 06/22/2020 7:37 AM INSTRUMENTATION FITTER from Last 3 Months or Most Recently Relevant to Health Maintenance Results * PSA screen (06/22/2020 7:37 AM INSTRUMENTATION FITTER) PSA-Total 0.34 <=3.90 ng/mL SHAMAR HORNE Comment: Interpretive Data AGE SEX REFERENCE INTERVAL 0 minutes-150 years Female None 0 minutes-49 years Male None 50-59 years Male 0-3.90 60-69 years Male 0-5.40 70-79 years Male 0-6.20 80-150 years Male 0-6.20 Current interpretive data last revised 2018. Blood specimen (specimen) 06/22/2020 7:37 AM INSTRUMENTATION FITTER 06/22/2020 8:39 AM INSTRUMENTATION FITTER us Uriel Rodriguez MD LAB BLOOD ORDERABLES Final Result SHAMAR JOHNS [facility] [place] [address] from Last 3 Months or Most Recently Relevant to Health Maintenance Insurance [employer] MEDICARE SOLUTIONS MEDICARE IDPA MEDICARE SOLUTIONS IDPA [facility] Care Teams Hatchery Laborer Relationship Specialty Start Date End Date Manuel Rangel DO [address] [place] [address] PCP - General 03/13/22
--- NOTE | 2024-10-18 01:31 | ED_ITS ---
HPI - Extremity Problem General Chief complaint: Extremity Problem,Nontraumatic Stated complaint: knee pain History of Present Illness HPI Narrative: Patient reports spontaneous onset of right knee pain approximately 0100 on 10/18/2024 ( i.e. about 30 minutes ago). He states that the pain started when he was laying in bed unable to fall asleep. He has had intermittent pain this knee over the past several years. 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 He denies any redness or swelling in the knee. He denies any history of injury to the knee prior to tonight. He voices no other complaints. He is otherwise in his usual state of health and denies having shortness breath or chest pain. Related Data Home Medications ?Medication ?Instructions ?Recorded ?Confirmed ?Last Taken ?Type levetiracetam 500 mg tablet 1,500 mg PO BID 02/03/20 09/12/24 06/15/24 History multivitamin with minerals (Daily 1 tablet PO DAILY 02/03/20 09/12/24 06/15/24 History Multivitamin-Minerals tablet) acetaminophen 325 mg capsule 325 mg PO Q6H PRN Pain 11/15/23 09/12/24 06/15/24 History Allergies Allergy/AdvReac Type Severity Reaction Status Date / Time Iodinated Contrast Media Allergy Unknown Hives Verified 10/08/24 11:00 Contrast allergy Allergy Intermediate Unknown Uncoded 10/08/24 11:00 [facility] Past Medical History Medical History Benign essential HTN Testicle cancer Obesity (BMI 30-39.9) Seizure disorder Surgical History Surgical History H/O brain surgery Family History Family History Father History of sinus cancer Sibling Ovarian cancer Social History Social History Smoking status: Never smoker Second hand tobacco smoke exposure: No Alcohol intake: never Substance use: never Lack of Transportation: No Lack of Food: Never True Current Housing: I Have Housing Concerned About Future Housing: No Difficulty Paying Gas/Electric Bills: No Difficulty Paying for Meds: No Currently Unemployed: No Education: High School Diploma/GED Difficulty w/ Childcare or Family Care: No Living arrangements: alone Gender identity (if verbalized by the patient): Male Sexual Orientation (if Verbalized by the Patient): Straight or Heterosexual Exam Narrative: Patient awake, alert, oriented, in no apparent distress. General: No antalgic gait, limp or other gait abnormality noted. No varus or valgus deformities noted. Inspection: No ecchymosis noted. No evident effusion. No surgical scars. No atrophy of quadriceps muscles.?? Palpation: No tenderness to palpation over the patella, the tibial tubercle, the patellar tendon, the quadriceps tendon, nor over the joint line. No tenderness over the popliteal fossa. Patella is not ballotable.? Active and Passive ROM: Flexion to 135? and extension to 0? both preserved?? Strength: Intact throughout.?? Special Tests: Nasima negative. No deformity under varus or valgus stress.??? Course Vital Signs Vital signs: Vital Signs Temperature 36.6 C 10/18/24 01:16 Pulse Rate 82 10/18/24 01:16 Respiratory Rate 18 10/18/24 01:16 Blood Pressure 153/84 H 10/18/24 01:16 Pulse Oximetry 98 10/18/24 01:16 Oxygen Delivery Room Air 10/18/24 01:16 Temperature 36.6 C 10/18/24 01:16 Pulse Rate 82 10/18/24 01:16 Respiratory Rate 18 10/18/24 01:16 Blood Pressure 153/84 H 10/18/24 01:16 Pulse Oximetry 98 10/18/24 01:16 Oxygen Delivery Room Air 10/18/24 01:16 MDM - Extremity (Nontraumatic) MDM Narrative Medical decision making narrative: Patient was placed in Room #:? One Independent Historian: none External Source Review: patient medical records Differential diagnosis includes but not limited to:? suspect this is most likely osteoarthritis given the patient's age, weight, work history. Could be early early stage of another process such as gout or infection however there is no evidence of that at this time. Extremely unlikely to be an acute traumatic injuries there is no mechanism. Medications were Reviewed: Home medications Independently Interpreted by me: physical exam Medications, treatment, ED course: 1000 mg of acetaminophen Social situation impacting patients care: lives independently in the community Shared decision making:? patient amenable to discharge home and follow-up with his primary care physician Discharge Plan Discharge Clinical Impression: Acute knee pain Patient Disposition: Home, Self-Care Condition: Stable Instructions: Antibiotic Form, Knee Pain (ED) Additional Instructions: you may have arthritis in your right knee. Things that can help with arthritis are medicines like ibuprofen or Tylenol which he told me that you are ready have at home. I also recommend you lose about 10% of your body weight here case that would be approximately 30 lb. I am also giving you home exercise program that she can work on to help strengthen the muscles in your legs specifically the quadriceps muscles. I recommend that she follow-up with her primary care doctor to discuss this further as this is only a preliminary diagnosis. He may also want to get an x-ray or some other testing to see if there is evidence of arthritis in your knee. Return to the emergency department or call 911 if? you develop high fever, shaking chills, or are unable to tolerate food or? fluids, have decreased urination, or are too sick to get out of bed. Patient Language: Kyrgyz Prescriptions: No Action levetiracetam 500 mg Tablet 1,500 mg PO BID Daily Multivitamin-Minerals Tablet 1 tablet PO DAILY orphenadrine citrate 100 mg tablet extended release 100 mg PO BID PRN (Reason: pain) Qty: 20 0RF acetaminophen 325 mg capsule 325 mg PO Q6H PRN (Reason: Pain) lisinopril 10 mg tablet See Rx Instructions .ROUTE .COMPLEX Qty: 90 0RF Dose Instruction: TAKE ONE TABLET BY MOUTH DAILY Rx Instructions: TAKE ONE TABLET BY MOUTH DAILY Follow-up/Referrals: Manuel Rangel DO [Primary Care Provider] - Time of Disposition: 01:39
[2024-10-18] MEDS: ACETAMINOPHEN 500 MG TABLET 1000 MG PO (01:33)
== END 2024-10-18 01:43 | disposition home or self-care (01) ==
PROVIDERS: Emergency Provider Family Medicine; PCP Family Medicine
DX: M25.561 Pain in right knee (principal); I10 Essential (primary) hypertension; Z85.47 Personal history of malignant neoplasm of testis
CPT/HCPCS: 99282

== ENCOUNTER 2024-10-27 08:31 | Outpatient (CLI) | payer MEDICARE, MEDICAID, SELFPAY ==
--- NOTE | ~2024-10-27 | XR_ITS ---
XR knee RT 3V Ordering provider: Manuel Rangel DO History: . KNEE PAIN X1WK,NKI . Comparison: None. FINDINGS: BONES: No acute fracture or dislocation. JOINT SPACES: Normal. SOFT TISSUES: Normal. IMPRESSION: No acute osseous abnormality right knee. Reviewed, dictated and finalized at location A.
--- OUTSIDE RECORDS SUMMARY | 2024-10-27 08:59 | XMS_ITS ---
Author Organization [facility] Address [address] [place], [place] [address] Care Team Providers Care Costume Cutter Name Role Phone Manuel Rangel Primary Care Provider EVELYN Brady Unavailable [phone] Allergies Allergen (clinical drug ingredient) Drug/Non Drug [...] Active Encounters Encounter Location Date Provider Diagnosis [address] [id number] 2024 EVELYN CHRISTIANSEN Tinea unguium B35.1 ; Pain in right toe(s) M79.674 ; Pain in left toe(s) M79.675 and Atherosclerosis of tunica-biloxi arteries of extremities with intermittent claudication, bilateral [...] toe(s) (ICD-10 - M79.675) 2024 Atherosclerosis of tunica-biloxi arteries of extremities with intermittent claudication, bilateral [...] arise Provider Name:KALINA VIVAS, 12/10/2024 08:50:00 AM, [address] [place] [address], [id number], Progress Notes * MOHINDER BEAR FDOB: 6 (59 yo M)Acc No.[id number] Patient: Tarah JOHANNAANNIAL Abdon Provider: María Elena Christiansen DPM :1965 A ge:59 Y S ex:Male Date:2024 Address:[address] [place], [place] [address] Pcp:Manuel Rangel Subjective: * Chief Complaints: * [...] reconciled with the patient * Allergies: I LOW PRESSURE 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 A therosclerosis of tunica-biloxi arteries of extremities with intermittent claudication, bilateral legs - I70.213 Plan: * Treatment: * Follow Up: 1 0-12 Weeks (Reason: At Risk Foot care, sooner if problems arise) * Billing Information: * Visit Code: 81859 Office Visit, Est Pt., Level 3. * Procedure Codes: * Electronic signature of EVELYN CHRISTIANSEN DPM on 10/27/2024 at 08:14 AM CDT Sign off status: Pending * Provider: María Elena Christiansen DPM Date: 0 2024 Generated for Curtis mejia/Lani/Romeo on: 0 10/27/2024 08:14 AM CDT History and Physical Notes * [...]
--- OUTSIDE RECORDS SUMMARY | 2024-10-27 08:59 | XMS_ITS | Referral Summary ---
Author Organization [facility] Address [address] [place] [address] Care Team Providers Care Replenishment Specialist Name Role Phone BobtjManuelh Primary Care Provider Encounters Date Type Department Care Team Description 09/02/2024 9:00 AM MUSHROOM PRESS OPERATOR Office Visit [facility] Epilepsy [address] 6th [place] [address] [place] [address] Wilman Knott MD PhD Temporal [...] on file Legal Sex Male 9:12 PM MUSHROOM PRESS OPERATOR Gender Identity Not on file Sexual Orientation Not on file Last Filed Vital Signs Vital Sign Reading Time Taken Comments Blood Pressure 114/77 09/02/2024 7:32 AM MUSHROOM PRESS OPERATOR Pulse 109 09/02/2024 7:32 AM MUSHROOM PRESS OPERATOR Temperature 36.7 C (98 F) 12/26/2023 8:22 AM CDT Respiratory Rate 16 12/26/2023 8:22 AM CDT Oxygen Saturation 95% 12/26/2023 8:22 AM CDT Inhaled Oxygen Concentration - - Weight 124.3 kg (274 lb) 09/02/2024 7:32 AM MUSHROOM PRESS OPERATOR Height 177.8 cm (5' 10 ) 09/02/2024 7:32 AM MUSHROOM PRESS OPERATOR Body Mass Index 39.31 09/02/2024 7:32 AM MUSHROOM PRESS OPERATOR Plan of Treatment Not on file Procedures Procedure Name Priority Date/Time Associated Diagnosis Comments PSA SCREEN Routine 06/22/2020 7:37 AM MUSHROOM PRESS OPERATOR from Last 3 Months or Most Recently Relevant to Health Maintenance Results * PSA screen (06/22/2020 7:37 AM MUSHROOM PRESS OPERATOR) PSA-Total 0.34 <=3.90 ng/mL SHAMAR HORNE Comment: Interpretive Data AGE SEX REFERENCE INTERVAL 0 minutes-150 years Female None 0 minutes-49 years Male None 50-59 years Male 0-3.90 60-69 years Male 0-5.40 70-79 years Male 0-6.20 80-150 years Male 0-6.20 Current interpretive data last revised 2018. Blood specimen (specimen) 06/22/2020 7:37 AM MUSHROOM PRESS OPERATOR 06/22/2020 8:39 AM MUSHROOM PRESS OPERATOR us Uriel Rodriguez MD LAB BLOOD ORDERABLES Final Result SHAMAR JOHNS [facility] Department [place] [address] from Last 3 Months or Most Recently Relevant to Health Maintenance Insurance [facility] UHC MEDICARE ADVANTAGE MEDICARE IDMA UHC MEDICARE ADVANTAGE [facility] Care Teams Replenishment Specialist Relationship Specialty Start Date End Date Manuel Rangel DO [address] [place] [address] [facility] - General 03/13/22
--- OUTSIDE RECORDS SUMMARY | 2024-10-27 08:59 | XMS_ITS | Encounter Summary ---
Author Organization [facility] Address [address] [place] [address] Phone Care Team Providers Care Procurement Intern Name Role Phone Augustin Parrish MD Primary Care Provider [phone] Giuseppe Pemberton DO Primary Care Provider + 5-2220 Augustin Parrish MD Primary Care Provider [phone] Giuseppe Pemberton DO Primary Care Provider + 5-2220 Augustin Parrish MD Primary Care Provider [phone] Giuseppe Pemberton DO Primary Care Provider + 5-2220 Augustin Parrish MD Primary Care Provider [phone] Giuseppe Pemberton DO Primary Care Provider + 5-2220 Augustin Parrish MD Primary Care Provider + [phone] Giuseppe Pemberton DO Primary Care Provider + [phone] Augustin Parrish MD Primary Care Provider [phone] Giuseppe Pemberton DO Primary Care Provider + 5-2220 Augustin Parrish MD Primary Care Provider [phone] Augustin Parrish MD Primary Care Provider [phone] Giuseppe Pemberton DO Primary Care Provider + 5-2220 Augustin Parrish MD Primary Care Provider [phone] Giuseppe Pemberton DO Primary Care Provider +[phone] Augustin Parrish MD Primary Care Provider [phone] Giuseppe Pemberton DO Primary Care Provider +[phone] Augustin Parrish MD Primary Care Provider [phone] Giuseppe Pemberton DO Primary Care Provider +[phone] Augustin Parrish MD Primary Care Provider [phone] Miscellaneous, Not In File Primary Care Provider Unavailable No, Physician Primary Care Provider [phone] Manuel Rangel DO Primary Care Provider Encounter Details Date Type Department Care Team (Latest Contact Info) Description 1965 Orders Only [facility] Scanning, Provider Social History Tobacco Use Types Packs/Day Years Used Date Smoking Tobacco: Never Assessed Sex and Gender Information Value Date Recorded Sex Assigned at Not on file Legal Sex Male 9:12 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 Gender Identity Not on file Sexual [...] on filedocumented in this encounter Care Teams Procurement Intern Relationship Specialty Start Date End Date Augustin Parrish MD [address] [address] PCP - General 11/08/16 11/26/16 Giuseppe Pemberton DO [address] [place] [address] PCP - General 11/27/16 01/01/17 Augustin Parrish MD [address] [place] [address] PCP - General 01/02/17 01/08/17 Giuseppe Pemberton DO [address] [place] [address] PCP - General 01/09/17 01/09/17 Augustin Parrish MD [address] [place] [address] PCP - General 01/10/17 01/24/17 Giuseppe Pemberton DO [address] [place] [address] PCP - General 01/25/17 02/06/17 Augustin Parrish MD [address] [place] [address] PCP - General 02/07/17 04/30/17 Giuseppe Pemberton DO [address] [place] [address] PCP - General 05/01/17 05/01/17 Augustin Parrish MD [address] [place] [address] PCP - General 05/02/17 05/21/17 Giuseppe Pemberton DO [address] [place] [address] PCP - General 05/22/17 07/30/17 Augustin Parrish MD [address] [place] [address] PCP - General 07/31/17 08/15/17 Giuseppe Pemberton DO [address] [place] [address] PCP - General 08/16/17 08/22/17 Augustin Parrish MD [address] [place] [address] PCP - General 08/23/17 08/25/17 Augustin Parrish MD [address] [place] [address] PCP - General 08/26/17 08/27/17 Giuseppe Pemberton DO [address] [place] [address] PCP - General 08/28/17 11/24/17 Augustin Parrish MD [address] [place] [address] PCP - General 11/25/17 12/04/17 Giuseppe Pemberton DO [address] [place] [address] PCP - General Internal Medicine 12/05/17 12/08/17 Augustin Parrish MD [address] [place] [address] PCP - General 12/09/17 12/10/17 Giuseppe Pemberton DO [address] [place] [address] PCP - General 12/11/17 12/15/17 Augustin Parrish MD [address] [place] [address] PCP - General 12/16/17 12/17/17 Giuseppe Pemberton DO [address] [place] [address] PCP - General 12/18/17 06/17/18 Augustin Parrish MD [address] [place] [address] PCP - General 06/18/18 12/15/20 Miscellaneous, Not In File PCP - General 12/16/20 No, Physician PCP - General 04/24/21 03/12/22 Manuel Rangel DO [facility] [place] [address] PCP - General 03/13/22 documented as of this encounter
--- OUTSIDE RECORDS SUMMARY | 2024-10-27 08:59 | XMS_ITS | Clinical Summary ---
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
--- OUTSIDE RECORDS SUMMARY | 2024-10-27 08:59 | XMS_ITS | Clinical Summary ---
Author Organization [facility] Address [address] [place] [address] Care Team Providers Care Coffee Shop Attendant Name Role Phone BobtjManuelh Primary Care Provider [...] Department Care Team Description 09/02/2024 9:00 AM PUMP ERECTOR HELPER Office Visit [facility] Epilepsy [address] [facility] [facility] 6th [place] [address] [place] [address] Wilman Knott MD PhD Temporal [...] on file Legal Sex Male 9:12 PM PUMP ERECTOR HELPER Gender Identity Not on file Sexual Orientation Not on file Obstetrics History Last Filed Vital Signs Vital Sign Reading Time Taken Comments Blood Pressure 114/77 09/02/2024 7:32 AM PUMP ERECTOR HELPER Pulse 109 09/02/2024 7:32 AM PUMP ERECTOR HELPER Temperature 36.7 C (98 F) 12/26/2023 8:22 AM CDT Respiratory Rate 16 12/26/2023 8:22 AM CDT Oxygen Saturation 95% 12/26/2023 8:22 AM CDT Inhaled Oxygen Concentration - - Weight 124.3 kg (274 lb) 09/02/2024 7:32 AM PUMP ERECTOR HELPER Height 177.8 cm (5' 10 ) 09/02/2024 7:32 AM PUMP ERECTOR HELPER Body Mass Index 39.31 09/02/2024 7:32 AM PUMP ERECTOR HELPER Plan of Treatment Health Maintenance Due [...] Comments PSA SCREEN Routine 06/22/2020 7:37 AM PUMP ERECTOR HELPER from Last 3 Months or Most Recently Relevant to Health Maintenance Results * PSA screen (06/22/2020 7:37 AM PUMP ERECTOR HELPER) PSA-Total 0.34 <=3.90 ng/mL SHAMAR HORNE Comment: Interpretive Data AGE SEX REFERENCE INTERVAL 0 minutes-150 years Female None 0 minutes-49 years Male None 50-59 years Male 0-3.90 60-69 years Male 0-5.40 70-79 years Male 0-6.20 80-150 years Male 0-6.20 Current interpretive data last revised 2018. Blood specimen (specimen) 06/22/2020 7:37 AM PUMP ERECTOR HELPER 06/22/2020 8:39 AM PUMP ERECTOR HELPER us Uriel Rodriguez MD LAB BLOOD ORDERABLES Final Result SHAMAR JOHNS [facility] [place] [address] from Last 3 Months or Most Recently Relevant to Health Maintenance Insurance [facility] MEDICARE ADVANTAGE MEDICARE [facility] UHC MEDICARE ADVANTAGE ID[facility] Care Teams Coffee Shop Attendant Relationship Specialty Start Date End Date Manuel Rangel DO [address] [place] [address] PCP - General 03/13/22
--- OUTSIDE RECORDS SUMMARY | 2024-10-27 08:59 | XMS_ITS ---
Author Organization [facility] Address [address] [place] [address] Care Team Providers Care Physician Advisor Name Role Phone Manuel Rangel DO [...]
== END 2024-10-27 08:32 | disposition home or self-care (01) ==
PROVIDERS: PCP Family Medicine; Visit Provider Family Medicine
DX: M25.561 Pain in right knee (principal)
CPT/HCPCS: 73562

== ENCOUNTER 2024-11-18 00:04 | Emergency (ER) | payer MEDICARE, MEDICAID, SELFPAY ==
--- OUTSIDE RECORDS SUMMARY | 2024-11-18 00:06 | XMS_ITS ---
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 06/04/2024 Unspecified atherosclerosis of wichita arteries of extremities, 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 - [...] applied to feet daily. Unspecified atherosclerosis of wichita arteries of extremities, bilateral legs Patient educated [...] Reason: Provider Name:KALINA VIVAS, 12/10/2024 08:50:00 AM, [address] [place] [address], [phone], Progress Notes * MOHINDER BEAR FDOB: [birth year] (58 yo M)Acc No.[id number]:06/04/2024 Patient: MOHINDER SAPP Provider: Ilana VIZCAINO :1965 A ge:58 Y S ex:Male Date:06/04/2024 Address:[address] [facility] Pcp:Manuel Rangel Subjective: * Chief [...] Patient denies c hest pain, history of OR, irregular heartbeat. M usculoskeletal: Patient complains of [...] Externally Twice a day * Allergies: I RN BURN Dye, Iodine Containing: Allergy - Onset Date [...] - L85.3 ?3. U nspecified atherosclerosis of wichita arteries of extremities, bilateral legs - I70.203? [...] feet daily. 3. U nspecified atherosclerosis of wichita arteries of extremities, bilateral legs Notes: Patient [...] Months * Billing Information: * Visit Code: 83200 Office Visit, Est Pt., Level 3. * Procedure Codes: * ORICAL ARCHEOLOGIST Sign off status: Completed true * Provider: Ilana VIZCAINO Date: 1 Generated for Curtis mejia/Lani/Romeo on: 0 11/18/2024 12:06 AM CDT History and Physical Notes * [...]
--- OUTSIDE RECORDS SUMMARY | 2024-11-18 00:06 | XMS_ITS | Clinical Summary ---
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 Gender Identity Not on file Sexual Orientation [...] 1965 Annual Physical 1968 Hepatitis C 10/09/1983 Zoster Vaccines (1 of 2) 10/09/2015 COVID-19 Vaccine (4 - 2023-2 5 season) 2024 11/22/2021, 12/13/2020, 11/15/2020 DTaP, Tdap and Td Vaccines ( 2 - Td or Tdap) 02/02/2030 02/03/2020 Pneumococcal Vaccine: Pediatrics (0 to 5 Years) and At-Risk Patients (6 to 49 Years) Aged Out 10/01/2014 No longer eligible [...] this topic Insurance [employer] MEDICAID Care Teams Sales Support Associate Relationship Specialty Start Date End Date Manuel Rangel DO [address] [place] [address] PCP - General FAMILY PRACTICE 02/21/24
--- OUTSIDE RECORDS SUMMARY | 2024-11-18 00:07 | XMS_ITS ---
Author Organization [facility] Address [address] [place] [address] Care Team Providers Care Digital Strategy Manager Name Role Phone Manuel Rangel DO [...]
--- OUTSIDE RECORDS SUMMARY | 2024-11-18 00:07 | XMS_ITS | Referral Summary ---
Author Organization [facility] Address [address] [place] [address] Care Team Providers Care Fifth Grade Teacher Name Role Phone BobtjManuelh Primary Care Provider Encounters Date Type Department Care Team Description 09/02/2024 9:00 AM MOSAIC FLOOR LAYER Office Visit [facility] Epilepsy [address] 6th [place] [address] [place] [address] Wilman Knott MD PhD Temporal [...] on file Legal Sex Male 9:12 PM MOSAIC FLOOR LAYER Gender Identity Not on file Sexual Orientation Not on file Last Filed Vital Signs Vital Sign Reading Time Taken Comments Blood Pressure 114/77 09/02/2024 7:32 AM MOSAIC FLOOR LAYER Pulse 109 09/02/2024 7:32 AM MOSAIC FLOOR LAYER Temperature 36.7 C (98 F) 12/26/2023 8:22 AM CDT Respiratory Rate 16 12/26/2023 8:22 AM CDT Oxygen Saturation 95% 12/26/2023 8:22 AM CDT Inhaled Oxygen Concentration - - Weight 124.3 kg (274 lb) 09/02/2024 7:32 AM MOSAIC FLOOR LAYER Height 177.8 cm (5' 10 ) 09/02/2024 7:32 AM MOSAIC FLOOR LAYER Body Mass Index 39.31 09/02/2024 7:32 AM MOSAIC FLOOR LAYER Plan of Treatment Not on file Procedures Procedure Name Priority Date/Time Associated Diagnosis Comments PSA SCREEN Routine 06/22/2020 7:37 AM MOSAIC FLOOR LAYER from Last 3 Months or Most Recently Relevant to Health Maintenance Results * PSA screen (06/22/2020 7:37 AM MOSAIC FLOOR LAYER) PSA-Total 0.34 <=3.90 ng/mL SHAMAR HORNE Comment: Interpretive Data AGE SEX REFERENCE INTERVAL 0 minutes-150 years Female None 0 minutes-49 years Male None 50-59 years Male 0-3.90 60-69 years Male 0-5.40 70-79 years Male 0-6.20 80-150 years Male 0-6.20 Current interpretive data last revised 2018. Blood specimen (specimen) 06/22/2020 7:37 AM MOSAIC FLOOR LAYER 06/22/2020 8:39 AM MOSAIC FLOOR LAYER us Uriel Rodriguez MD LAB BLOOD ORDERABLES Final Result SHAMAR JOHNS [facility] [place] [address] from Last 3 Months or Most Recently Relevant to Health Maintenance Insurance [facility] UHC MEDICARE ADVANTAGE MEDICARE [employer] UHC MEDICARE ADVANTAGE [facility] Care Teams Fifth Grade Teacher Relationship Specialty Start Date End Date Manuel Rangel DO [address] [place] [address] [facility] - General 03/13/22
--- OUTSIDE RECORDS SUMMARY | 2024-11-18 00:07 | XMS_ITS ---
Author Organization [facility] Address [address] [place], [place] [id number] Care Team Providers Care Rope Cleaner Name Role Phone Manuel Rangel Primary Care Provider EVELYN Brady Unavailable [phone] Allergies Allergen (clinical drug ingredient) Drug/Non Drug [...] Active Encounters Encounter Location Date Provider Diagnosis [facility] [address] [place], [place] [id number] 08/06/2024 EVELYN CHRISTIANSEN Tinea unguium B35.1 ; Pain in right toe(s) M79.674 ; Pain in left toe(s) M79.675 and Atherosclerosis of [place] arteries of extremities with intermittent claudication, bilateral [...] toe(s) (ICD-10 - M79.675) 08/06/2024 Atherosclerosis of [place] arteries of extremities with intermittent claudication, bilateral [...] arise Provider Name:KALINA VIVAS, 12/10/2024 08:50:00 AM, [address] [place] [address], [id number], Progress Notes * MOHINDER BEAR FDOB: 6 (58 yo M)Acc No.[id number]:08/06/2024 Patient: Tarah JOHANNAANNIAL Abdon Provider: María Elena Christiansen DPM :1965 A ge:58 Y S ex:Male Date:08/06/2024 Address:[address] [place], [place] [id number] Pcp:Manuel Rangel Subjective: * Chief Complaints: * [...] Patient denies c hest pain, history of [place], irregular heartbeat. M usculoskeletal: Patient complains of [...] reconciled with the patient * Allergies: I WALLPAPERER Dye, Iodine Containing: Allergy - Onset Date [...] - M79.675 4 . A therosclerosis of [place] arteries of extremities with intermittent claudication, bilateral legs - I70.213 Plan: * Treatment: * Procedure Codes: * Follow Up: 1 0-12 Weeks (Reason: At Risk Foot care, sooner if problems arise) * Billing Information: * Visit Code: 23544 Office Visit, Est Pt., Level 3. * Procedure Codes: * UREMENT REPRESENTATIVE Sign off status: Completed true * Provider: María Elena Christiansen DPM Date: 0 08/06/2024 Generated for Curtis mejia/Lani/Romeo on: 0 11/18/2024 12:07 AM CDT History and Physical Notes * [...]
--- OUTSIDE RECORDS SUMMARY | 2024-11-18 00:07 | XMS_ITS | Encounter Summary ---
Author Organization [facility] Address [address] [place] [address] Phone Care Team Providers Care Exhibition Organiser Name Role Phone Augustin Parrish MD Primary Care Provider [phone] Giuseppe Pemberton DO Primary Care Provider + 5-2220 Augustin Parrish MD Primary Care Provider [phone] Giuseppe Pemberton DO Primary Care Provider + 5-2220 Augustin Parrish MD Primary Care Provider [phone] Giuseppe Pmeberton DO Primary Care Provider + 5-2220 Augustin Parrish MD Primary Care Provider [phone] Giuseppe Pemberton DO Primary Care Provider + 5-2220 Augustin Parrish MD Primary Care Provider + [phone] Giuseppe Pemberton DO Primary Care Provider + [phone] Augustin Parrish MD Primary Care Provider [phone] Giuseppe Pemberton DO Primary Care Provider + 5-2220 Augustin Parrish MD Primary Care Provider [phone] Augustin Parrish MD Primary Care Provider [phone] Giuseppe Pemberton DO Primary Care Provider + 5-2220 Augustin Parrish MD Primary Care Provider [phone] Giuseppe Pemberton DO Primary Care Provider +5-48 Augustin Parrish MD Primary Care Provider [phone] Giuseppe Pemberton DO Primary Care Provider +[phone] Augustin Parrish MD Primary Care Provider [phone] Giuseppe Pemberton DO Primary Care Provider +[phone] Augustin Parrish MD Primary Care Provider [phone] Miscellaneous, Not In File Primary Care Provider Unavailable No, Physician Primary Care Provider [phone] Manuel Rangel DO Primary Care Provider Encounter Details Date Type Department Care Team (Latest Contact Info) Description 1965 Orders Only [facility] Scanning, Provider Social History Tobacco Use Types Packs/Day Years Used Date Smoking Tobacco: Never Assessed Sex and Gender Information Value Date Recorded Sex Assigned at Not on file 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 Gender Identity Not on file Sexual Orientation [...] on filedocumented in this encounter Care Teams Exhibition Organiser Relationship Specialty Start Date End Date Augustin Parrish MD [address] [address] PCP - General 11/08/16 11/26/16 Giuseppe Pemberton DO [address] [place] [address] PCP - General 11/27/16 01/01/17 Augustin Parrish MD [address] [place] [address] PCP - General 01/02/17 01/08/17 Giuseppe Pemberton DO [address] [place] [address] PCP - General 01/09/17 01/09/17 Augustin Parrish MD [address] [place] [address] PCP - General 01/10/17 01/24/17 Giuseppe Pemberton DO [address] [place] [address] PCP - General 01/25/17 02/06/17 Augustin Parrish MD [address] [place] [address] PCP - General 02/07/17 04/30/17 Giuseppe Pemberton DO [address] [place] [address] PCP - General 05/01/17 05/01/17 Augustin Parrish MD [address] [place] [address] PCP - General 05/02/17 05/21/17 Giuseppe Pemberton DO [address] [place] [address] PCP - General 05/22/17 07/30/17 Augustin Parrish MD [address] [place] [address] PCP - General 07/31/17 08/15/17 Giuseppe Pemberton DO [address] [place] [address] PCP - General 08/16/17 08/22/17 Augustin Parrish MD [address] [place] [address] PCP - General 08/23/17 08/25/17 Augustin Parrish MD [address] [place] [address] PCP - General 08/26/17 08/27/17 Giuseppe Pemberton DO [address] [place] [address] PCP - General 08/28/17 11/24/17 Augustin Parrish MD [address] [place] [address] PCP - General 11/25/17 12/04/17 Giuseppe Pemberton DO [address] [place] [address] PCP - General Internal Medicine 12/05/17 12/08/17 Augustin Parrish MD [address] [place] [address] PCP - General 12/09/17 12/10/17 Giuseppe Pemberton DO [address] [place] [address] PCP - General 12/11/17 12/15/17 Augustin Parrish MD [address] [place] [address] PCP - General 12/16/17 12/17/17 Giuseppe Pemberton DO [address] [place] [address] PCP - General 12/18/17 06/17/18 Augustin Parrish MD [address] [place] [address] PCP - General 06/18/18 12/15/20 Miscellaneous, Not In File PCP - General 12/16/20 No, Physician PCP - General 04/24/21 03/12/22 Manuel Rangel DO [facility] [place] [address] PCP - General 03/13/22 documented as of this encounter
--- OUTSIDE RECORDS SUMMARY | 2024-11-18 00:07 | XMS_ITS | Clinical Summary ---
Author Organization [facility] Address [address] [place] [address] Care Team Providers Care Supervisor Finishing Department Name Role Phone BobtjManuelh Primary Care Provider [...] Department Care Team Description 09/02/2024 9:00 AM SMOKE ROOM OPERATOR Office Visit [facility] Epilepsy [address] [facility] 6th [place] [address] [place] [address] Wilman Knott MD PhD Temporal lobe epilepsy, intractable (HCC) (Primary Dx); Seizure (HCC) from Last 3 Months Immunizations Immunization Administration Dates Next Due Influenza, Trivalent, IM (MDV) 05/08/2012 Influenza, Unspecified 06/03/2020 Pneumococcal Polysaccharide PPV23 10/01/2014 Surgical History Surgery Date Site/Laterality Comments MA ORCHIECTOMY RADICAL TUMOR INGUINAL APPROACH Radical Orchiectomy [...] on file Legal Sex Male 9:12 PM SMOKE ROOM OPERATOR Gender Identity Not on file Sexual Orientation Not on file Obstetrics History Last Filed Vital Signs Vital Sign Reading Time Taken Comments Blood Pressure 114/77 09/02/2024 7:32 AM SMOKE ROOM OPERATOR Pulse 109 09/02/2024 7:32 AM SMOKE ROOM OPERATOR Temperature 36.7 C (98 F) 12/26/2023 8:22 AM CDT Respiratory Rate 16 12/26/2023 8:22 AM CDT Oxygen Saturation 95% 12/26/2023 8:22 AM CDT Inhaled Oxygen Concentration - - Weight 124.3 kg (274 lb) 09/02/2024 7:32 AM SMOKE ROOM OPERATOR Height 177.8 cm (5' 10 ) 09/02/2024 7:32 AM SMOKE ROOM OPERATOR Body Mass Index 39.31 09/02/2024 7:32 AM SMOKE ROOM OPERATOR Plan of Treatment Health Maintenance Due Date Last Done Comments Colon Cancer Screening-Colonoscopy 1965 Depression Screening 1965 Hepatitis C Screening 1965 DTaP/Tdap/Td Vaccine (1 - Tdap) 1976 Hepatitis B Screening 10/09/1983 Regular Well Visit/Exam 18-64 10/09/1983 Zoster Vaccine (1 of 2) 10/09/2015 Prostate Cancer Screening-PSA 06/22/2022, 06/24/2019, 06/23/2018 Influenza Vaccine (Season Ended) 2025 06/03/2020, 05/08/2012 Pneumococcal vaccine <65 Aged Out 10/01/2014 No longer eligible based on patient's age to complete this topic Procedures Procedure Name Priority Date/Time Associated Diagnosis Comments PSA SCREEN Routine 06/22/2020 7:37 AM SMOKE ROOM OPERATOR from Last 3 Months or Most Recently Relevant to Health Maintenance Results * PSA screen (06/22/2020 7:37 AM SMOKE ROOM OPERATOR) PSA-Total 0.34 <=3.90 ng/mL SHAMAR HORNE Comment: Interpretive Data AGE SEX REFERENCE INTERVAL 0 minutes-150 years Female None 0 minutes-49 years Male None 50-59 years Male 0-3.90 60-69 years Male 0-5.40 70-79 years Male 0-6.20 80-150 years Male 0-6.20 Current interpretive data last revised 2018. Blood specimen (specimen) 06/22/2020 7:37 AM SMOKE ROOM OPERATOR 06/22/2020 8:39 AM SMOKE ROOM OPERATOR us Uriel Rodriguez MD LAB BLOOD ORDERABLES Final Result SHAMAR JOHNS [facility] [place] [address] from Last 3 Months or Most Recently Relevant to Health Maintenance Insurance [facility] MEDICARE ADVANTAGE MEDICARE [facility] UHC MEDICARE ADVANTAGE [employer] Care Teams Supervisor Finishing Department Relationship Specialty Start Date End Date Manuel Rangel DO [address] [place] [address] PCP - General 03/13/22
--- OUTSIDE RECORDS SUMMARY | 2024-11-18 00:07 | XMS_ITS | Patient Health Record ---
Author Organization [facility] Address [address] [place], [place] [id number] Care Team Providers Care Chiller Tender Name Role Phone Manuel Rangel Primary Care Provider EVELYN Brady Unavailable [phone] RIC VIZCAINO Unavailable [phone] Allergies Allergen (clinical drug ingredient) Drug/Non Drug [...] 01/09/2024 Encounters Encounter Location Date Provider Diagnosis [address] [id number] 2024 EVELYN SNOOK Tinea unguium B35.1 ; Pain in right toe(s) M79.674 ; Pain in left toe(s) M79.675 and Atherosclerosis of [place] arteries of extremities with intermittent claudication, bilateral legs I70.213 [facility] [address] [place], [place] [id number] 01/09/2024 RIC DAVYDOV Tinea unguium B35.1 ; Xerosis cutis L85.3 ; Unspecified atherosclerosis of [place] arteries of extremities, bilateral legs I70.203 ; Other hammer toe(s) (acquired), right foot M20.41 ; Other hammer toe(s) (acquired), left foot M20.42 ; Pain in right toe(s) M79.674 and Pain in left toe(s) M79.[address] [id number] 03/12/2024 RIC DAVYDOV Tinea unguium B35.1 ; Xerosis cutis L85.3 ; Unspecified atherosclerosis of [place] arteries of extremities, bilateral legs I70.203 ; Other hammer toe(s) (acquired), right foot M20.41 ; Other hammer toe(s) (acquired), left foot M20.42 ; Pain in right toe(s) M79.674 and Pain in left toe(s) M79.[address] [id number] 06/04/2024 RIC DAVYDOV Tinea unguium B35.1 ; Xerosis cutis L85.3 ; Unspecified atherosclerosis of [place] arteries of extremities, bilateral legs I70.203 ; Other hammer toe(s) (acquired), right foot M20.41 ; Other hammer toe(s) (acquired), left foot M20.42 ; Pain in right toe(s) M79.674 and Pain in left toe(s) M79.[address] [id number] 08/06/2024 EVELYN SNOOK Tinea unguium B35.1 ; Pain in right toe(s) M79.674 ; Pain in left toe(s) M79.675 and Atherosclerosis of [place] arteries of extremities with intermittent claudication, bilateral legs I70.213 Assessments Encounter Date Diagnosis (ICD Code) Assessment Notes Treatment Notes Treatment Clinical Notes Section Notes 01/09/2024 Tinea unguium (ICD-10 - B35.1) Aseptic [...] (ICD-10 - M79.675) 06/04/2024 Unspecified atherosclerosis of [place] arteries of extremities, 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 - I70.203) Patient educated on risks and aggravating factors of PVD, including conservative treatment options such as a diet and exercise regimen to aid in slowing progression of vascular disease 03/12/2024 Unspecified atherosclerosis of [place] arteries of extremities, 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 - I70.203) Patient educated on risks and aggravating factors of PVD, including conservative treatment options such as a diet and exercise regimen to aid in slowing progression of vascular disease 01/09/2024 Unspecified atherosclerosis of [place] arteries of extremities, 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 - [...] conservative options were emphasized. 08/06/2024 Atherosclerosis of [place] arteries of extremities with intermittent claudication, 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 - I70.213) 2024 Atherosclerosis of [place] arteries of extremities with intermittent claudication, bilateral [...] Details Provider Name:KALINA VIVAS, 12/10/2024 08:50:00 AM, [address] [place] [address], [id number], Insurance Providers Payer Name Payer Address Payer Phone Subscriber Number Group Number Insured Name Patient Relationship to Insured Coverage Start Date Coverage End Date [facility] [address] [address] [place], [place] [id number] MOHINDER BEAR Self - patient is the insured
--- OUTSIDE RECORDS SUMMARY | 2024-11-18 00:07 | XMS_ITS ---
Author Organization [facility] Address [address] [place], [place] [id number] Care Team Providers Care Celery Stripper Name Role Phone Manuel Rangel Primary Care Provider EVELYN Brady Unavailable [phone] Allergies Allergen (clinical drug ingredient) Drug/Non Drug [...] Active Encounters Encounter Location Date Provider Diagnosis [address] [id number] 2024 EVELYN CHRISTIANSEN Tinea unguium B35.1 ; Pain in right toe(s) M79.674 ; Pain in left toe(s) M79.675 and Atherosclerosis of [place] arteries of extremities with intermittent claudication, bilateral [...] toe(s) (ICD-10 - M79.675) 2024 Atherosclerosis of [place] arteries of extremities with intermittent claudication, bilateral [...] arise Provider Name:KALINA VIVAS, 12/10/2024 08:50:00 AM, [address] [place] [address], [id number], Progress Notes * MOHINDER BEAR FDOB: [birth year] (59 yo M)Acc No.[id number] Patient: Tarah JOHANNAANNIAL Abdon Provider: María Elena Christiansen DPM :1965 A ge:59 Y S ex:Male Date:2024 Address:[address] [place], [place] [address] Pcp:Manuel Rangel Subjective: * Chief Complaints: * [...] Patient denies c hest pain, history of [place], irregular heartbeat. 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 A therosclerosis of [place] arteries of extremities with intermittent claudication, bilateral legs - I70.213 Plan: * Treatment: * Follow Up: 1 0-12 Weeks (Reason: At Risk Foot care, sooner if problems arise) * Billing Information: * Visit Code: 17984 Office Visit, Est Pt., Level 3. * Procedure Codes: * Electronic signature of EVELYN CHRISTIANSEN DPM on 11/18/2024 at 12:06 AM CDT Sign off status: Pending * Provider: María Elena Christiansen DPM Date: 0 2024 Generated for Curtis mejia/Lani/Romeo on: 0 11/18/2024 [...]
[2024-11-18 00:08] VITALS: BP 132/81; PULSE 76; RESP 18; TEMP 36.4; O2SAT 98
--- NOTE | 2024-11-18 00:33 | ED.URI ---
HPI - URI/Sore Throat General Chief Complaint: Upper Respiratory Infection Stated Complaint: COUGH Time Seen by Provider: 11/18/24 00:12 Source: patient Mode of arrival: ambulatory Limitations: no limitations History of Present Illness HPI Narrative: patient is a 59-year-old male with a significant past medical history presents today with a cough. Patient states that he has a cough that started 2 hours ago. He said he was coughing a lot and consent coughing. He said now he is not coughing the cough is gone and he feels just fine. He felt like he still need to come in no I do not know why. He has no cough he has no other symptoms he is symptomatic free. He is asymptomatic. MD elicited complaint: cough Onset (ago): minute(s) Consistency: intermittent Severity: mild Description of mucous: clear Able to tolerate fluids by mouth: Yes Exacerbating factors: nothing Relieving factors: nothing Associated symptoms: denies other symptoms Related Data Home Medications ?Medication ?Instructions ?Recorded ?Confirmed ?Last Taken ?Type levetiracetam 500 mg tablet 1,500 mg PO BID 02/03/20 11/10/24 06/15/24 History multivitamin with minerals (Daily 1 tablet PO DAILY 02/03/20 11/10/24 06/15/24 History Multivitamin-Minerals tablet) acetaminophen 325 mg capsule 325 mg PO Q6H PRN Pain 11/15/23 11/10/24 06/15/24 History Allergies Allergy/AdvReac Type Severity Reaction Status Date / Time Iodinated Contrast Media Allergy Unknown Hives Verified 11/10/24 12:59 Contrast allergy Allergy Intermediate Unknown Uncoded 11/10/24 12:59 Review of Systems Review of Systems: All systems reviewed & are unremarkable except as noted in HPI and below Constitutional: Constitutional: Reports as per HPI and Reports no additional constitutional complaints Eyes: Eyes: Reports no additional eye complaints ENT: Reports system reviewed and no additional complaints, except as documented Cardiovascular: Cardiovascular: Reports no additional cardiovascular complaints Respiratory: Respiratory: Reports as per HPI and Reports cough Gastrointestinal: Gastrointestinal: Reports no additional gastrointestinal complaints Genitourinary: Genitourinary: Reports no additional male genitourinary complaints Musculoskeletal: Musculoskeletal: Reports no additional musculoskeletal complaints Integumentary/Breasts: Skin/Breast: Reports system reviewed and no additional complaints, except as docu Neurologic: Reports system reviewed and no additional complaints, except as documented Psychiatric: Psychiatric: Reports no additional psychiatric complaints Endocrine: Endocrine: Reports no additional endocrine complaints Hematologic/Lymphatic: Hematologic/Lymphatic: Reports no additional hematologic/lymphatic complaints Allergic/Immunologic: Allergic/Immunologic: Reports no additional allergic/immunologic complaints [facility] Past Medical History Medical History Benign essential HTN Testicle cancer Obesity (BMI 30-39.9) Seizure disorder Surgical History Surgical History H/O brain surgery Family History Family History Father History of sinus cancer Sibling Ovarian cancer Social History Social History Smoking status: Never smoker Second hand tobacco smoke exposure: No Alcohol intake: never Substance use: never Lack of Transportation: No Lack of Food: Never True Current Housing: I Have Housing Concerned About Future Housing: No Difficulty Paying Gas/Electric Bills: No Difficulty Paying for Meds: No Currently Unemployed: No Education: High School Diploma/GED Difficulty w/ Childcare or Family Care: No Living arrangements: alone Gender identity (if verbalized by the patient): Male Sexual Orientation (if Verbalized by the Patient): Straight or Heterosexual Exam Const: General: healthy appearing Nutritional Appearance: well nourished Orientation/consciousness: patient oriented x3 Limitations: no limitations HENMT: Head: normal to inspection Ears: external ears normal Face/Nose/Sinus: Normal external nose present Face and sinus: normal facial exam Mouth: Yes Normal oral and palatal mucosa present Eyes: Conjunctivae: conjunctivae normal Pupils: Equal, round and reactive pupils present EOM: EOMs intact bilaterally Direct Ophthalmoscopy: no photophobia Neck: Neck: normal visual inspection Chest: Chest palpation & inspection: normal inspection of the chest Resp: Effort & Inspection: normal respiratory effort Auscultation: clear to auscultation bilaterally Cardio: Rate: regular rate Rhythm: regular rhythm Heart sounds: Murmur heart sound present GI: GI Palp: Yes Soft to palpation Back/Spine/Pelvis: Back: no CVA tenderness Skin: General skin exam: normal color Rashes: no rashes Wounds: no wounds Neuro: General: patient oriented x3 Cranial nerves: Yes Nystagmus not present Speech: normal speech Extrem: General: normal to inspection Psych: Mental Status: mental status grossly normal Affect: normal affect Attitude: cooperative Course Vital Signs Vital signs: Vital Signs Temperature 97.5 F L 11/18/24 00:08 Pulse Rate 76 11/18/24 00:08 Respiratory Rate 18 11/18/24 00:08 Blood Pressure 132/81 11/18/24 00:08 Pulse Oximetry 98 11/18/24 00:08 Oxygen Delivery Room Air 11/18/24 00:08 Temperature 97.5 F L 11/18/24 00:08 Pulse Rate 76 11/18/24 00:08 Respiratory Rate 18 11/18/24 00:08 Blood Pressure 132/81 11/18/24 00:08 Pulse Oximetry 98 11/18/24 00:08 Oxygen Delivery Room Air 11/18/24 00:08 MDM - URI/Sore Throat MDM Narrative Medical decision making narrative: Patient only has a cough and has no other symptoms. He is currently asymptomatic and has no symptoms whatsoever. I am not sure why he even came in. Will swab for COVID RSV and flu. Her these are negative he can go home. Differential Diagnosis Differential diagnosis: Likely other ( Cough) Medical Records Attestation: I reviewed the patient's medical records. Lab Data Attestation: I reviewed the patient's lab results. Labs: Lab Results 11/18/24 Range/Units 00:09 Influenza A (RT-PCR) Pending Influenza B (RT-PCR) Pending RSV (RT-PCR) Pending SARS-CoV-2 RNA (RT-PCR) Pending Discharge Plan Discharge Clinical Impression: Cough Patient Disposition: Home Condition: Stable Instructions: Chronic Cough (ED) Patient Language: Macanese Prescriptions: No Action levetiracetam 500 mg Tablet 1,500 mg PO BID Daily Multivitamin-Minerals Tablet 1 tablet PO DAILY orphenadrine citrate 100 mg tablet extended release 100 mg PO BID PRN (Reason: pain) Qty: 20 0RF acetaminophen 325 mg capsule 325 mg PO Q6H PRN (Reason: Pain) trazodone 50 mg tablet 50 mg PO QHS PRN (Reason: insomnia) Qty: 30 0RF lisinopril 10 mg tablet See Rx Instructions .ROUTE .COMPLEX Qty: 90 0RF Dose Instruction: TAKE ONE TABLET BY MOUTH DAILY Rx Instructions: TAKE ONE TABLET BY MOUTH DAILY Follow-up/Referrals: Manuel Rangel DO [Primary Care Provider] - Time of Disposition: 00:37
[2024-11-18 00:48] LABS: Influenza A QL RT-PCR Negative (Negative); Influenza B QL RT-PCR Negative (Negative); RSV RNA, RT-PCR Negative (Negative); SARS-CoV-2 RNA PCR Negative (Negative)
== END 2024-11-18 00:55 | disposition home or self-care (01) ==
PROVIDERS: Emergency Provider Family Medicine; PCP Family Medicine
DX: R05.9 Cough, unspecified (principal); I10 Essential (primary) hypertension; Z85.47 Personal history of malignant neoplasm of testis; Z20.822 Contact with and (suspected) exposure to COVID-19
CPT/HCPCS: 87637; 99283

== ENCOUNTER 2024-12-24 13:46 | Outpatient (CLI) | payer MEDICARE, MEDICAID, SELFPAY ==
--- NOTE | ~2024-12-24 | XR_ITS ---
CHEST RADIOGRAPH, PA AND LATERAL CLINICAL HISTORY: COUGH WITH MIDSTERNAL CP . COMPARISON: 09/12/2024 TECHNIQUE: PA and lateral views of the chest. FINDINGS The cardiomediastinal silhouette is unremarkable. The lungs are clear. Visualized osseous structures and soft tissues are unremarkable. IMPRESSION: No focal infiltrate or effusion. Reviewed, dictated and finalized at location A.
== END 2024-12-24 13:47 | disposition home or self-care (01) ==
LOC: CHSIMG 13:47
PROVIDERS: PCP Family Medicine; Visit Provider Family Medicine
DX: R05.9 Cough, unspecified (principal)
CPT/HCPCS: 71046

== ENCOUNTER 2025-01-01 15:12 | Outpatient (NON) | payer MEDICARE, SELFPAY ==
--- NOTE | 2025-01-01 | S_PTH ---
PATIENT: Tim Núñez [place] [facility]#:[id number] AGE/SX: 59/M ROOM: RE01/01/[address]: Manuel Rangel DO : 1965 BED: DIS: 01/01/2025 SPEC #: [id number] RECD: 01/01/25 15:30 STATUS: INEZ GRANT #: [id number] CAMILO: 01/01/25 00:[address]: Manuel Rangel DEPT: [facility] Surgical RECD BY: Janie Randhawa MLT, ([facility]) Tissues: A - Skin Bx Procedures: Hematoxylin and Eosin Stain Gross and Microscopic Level 4
--- OUTSIDE RECORDS SUMMARY | 2025-01-01 15:16 | XMS_ITS | Clinical Summary ---
Author Organization [facility] Address [address] [place] [address] Care Team Providers Care Nuisance Wildlife Specialist Name Role Phone Manuel Rangel DO [...] Encounters Date Type Department Care Team Description 12/31/2024 9:00 AM CDT Office Visit [facility] Oncology [address] [place] [id number] Uriel Rodriguez MD Seminoma of testis, unspecified laterality (HCC) (Primary Dx); Seminoma of left testis (HCC) 12/31/2024 8:30 AM CDT Lab [facility] Cancer [address] [address] Seminoma of left testis (HCC) 12/31/2024 6:17 AM CDT - 12/31/2024 11:59 PM CDT Hospital Encounter [facility] Radiology at [facility] [address] [place] [address] Seminoma of left testis (HCC) Discharge Disposition: Discharge to home or self care from Last 3 Months Immunizations Immunization Administration Dates Next Due Influenza, Trivalent, IM (MDV) 05/08/2012 Influenza, Unspecified 06/03/2020 Pneumococcal Polysaccharide PPV23 10/01/2014 Surgical History Surgery Date Site/Laterality Comments OK ORCHIECTOMY RADICAL TUMOR INGUINAL APPROACH Radical Orchiectomy [...] on file 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 Gender Identity Not on file Sexual Orientation Not on file Obstetrics History Last Filed Vital Signs Vital Sign Reading Time Taken Comments Blood Pressure 138/88 12/31/2024 8:31 AM CDT Pulse 72 12/31/2024 8:31 AM CDT Temperature 36.5 C (97.7 F) 12/31/2024 8:31 AM CDT Respiratory Rate 18 12/31/2024 8:31 AM CDT Oxygen Saturation 94% 12/31/2024 8:31 AM CDT Inhaled Oxygen Concentration - - Weight 122 kg (269 lb) 12/31/2024 8:31 AM CDT Height 177 cm (5' 9.69) 12/31/2024 8:31 AM CDT Body Mass Index 38.95 12/31/2024 8:31 AM CDT Plan of Treatment Health Maintenance Due [...] Procedure Name Priority Date/Time Associated Diagnosis Comments [id number], TUMOR MARKER Routine 12/31/2024 7:28 AM CDT Seminoma of left testis (HCC) HCG, BLOOD, QUANTITATIVE Routine 12/31/2024 7:28 AM CDT Seminoma of left testis (HCC) LACTATE DEHYDROGENASE Routine 12/31/2024 7:28 AM CDT Seminoma of left testis (HCC) CT ABDOMEN PELVIS WO CONTRAST Schedule Routine, Read Routine (OP Routine) 12/31/2024 7:00 AM CDT Seminoma of left testis (HCC) PSA SCREEN Routine 06/22/2020 7:37 AM PLODDING MACHINE OPERATOR from Last 3 Months or Most Recently Relevant to Health Maintenance Results * Qsies-1-Dvegwlfddgp, Tumor Marker (12/31/2024 7:28 AM CDT) alpha Fetoprotein 2.6 <=8.3 ng/mL Comment: Interpretive Data The Tyree AFP assay procedure was used. Results from different manufacturers or methods may not be comparable. Serial testing should be performed using the same method. 0-1 month. AFP concentrations may reach or exceed 100,000 ng/mL after depending on gestational age and weight. 1-3 months 50 1000 ng/ml 3-6 months 10 500 ng/ml 6-12 months 3.0 100 ng/ml >1 year 0.0 8.3 ng/ml References Tsuchida Y. et al. J. Ped Surg 1978;13:155-156 Nahun Quintanilla et al. Clin Chem Lab Med 2018;57:783-797 Amber Gooden et al. Clin Chem 2014;[id number]. Current interpretive data was last revised 2022. Blood 12/31/2024 7:28 AM CDT 12/31/2024 8:33 AM CDT Lavonne Roman LAB BLOOD ORDERABLES Fin al Result Performing Organization Address [facility] [place] [address] * hCG, blood, quantitative (12/31/2024 7:28 AM CDT) hCG, quant <5.0 0.0 - 5.0 IUnits/L Comment: Interpretive Data Male: < 5 IU/L Non- premenopausal Female: <5 IU/L The Tyree hCG Beta Quant assay procedure was used. Results from different manufacturers or methods may not be comparable. Serial testing should be performed using the same method. Interpretive Data was last revised on 2023 Blood 12/31/2024 7:28 AM CDT 12/31/2024 8:33 AM CDT Lavonne Roman NP LAB BLOOD ORDERABLES Fin al Result Performing Organization Address [facility] de Phone Number [facility] [place] [address] * Lactate dehydrogenase (LD) (12/31/2024 7:28 AM CDT) Lactate dehydrogenase (LDH) 150 100 - 250 Units/L Comment:Testing performed by : [facility], [address] [place] [id number] Blood 12/31/2024 7:28 AM CDT 12/31/2024 7:28 AM CDT us Lavonne Roman CLAMP JIG ASSEMBLER LAB BLOOD ORDERABLES Fin al Result SHAMAR Leal [facility] Department [place] [address] * CT Abdomen Pelvis WO Contrast (12/31/2024 7:00 AM CDT) Anatomical Region Laterality Modality Body N/A Computed Tomogra phy 12/31/2024 9:01 AM CDT Impressions 12/31/2024 9:33 AM CDT 1. Stable partially calcified left para-aortic lymph node compatible with treated disease. No new or progressive metastatic disease in the abdomen or pelvis. Dictated by: Jef Arriaza MD The radiology attending physician has personally reviewed this study, and had reviewed and/or edited this written report and agrees with it. Electronically signed by: Rodney Barksdale M.D. Narrative 12/31/2024 9:33 AM CDT EXAMINATION: CT ABDOMEN PELVIS WO CONTRAST HISTORY: Left testicular seminoma TECHNIQUE: Transaxial computed tomographic images of the abdomen and pelvis were obtained without intravenous contrast according to the standard protocol COMPARISON: 12/27/2022 FINDINGS: Lung bases are clear without consolidation, pleural effusion, or basilar pneumothorax. There is no pericardial effusion. No suspicious liver lesion. Unchanged appearance of a nonobstructing gallstone in the gallbladder fundus. There is no biliary duct dilatation. Fat density lesions within the spleen are unchanged. A peripherally calcified 1.6 cm left para-aortic lymph node has decreased in size since 2022. There is no new suspicious lymphadenopathy. The left kidney is mildly atrophic. There is no hydronephrosis. Punctate nonobstructing left nephrolithiasis.. The urinary bladder is partially decompressed. There is no bowel obstruction. The appendix is normal. Unchanged indeterminant patchy fat stranding within the central mesentery, likely mesenteric panniculitis. Left orchiectomy. No acute fracture or aggressive osseous lesion. Procedure Note Rodney Barksdale MD - 12/31/2024 EXAMINATION: CT ABDOMEN PELVIS WO CONTRAST HISTORY: Left testicular seminoma TECHNIQUE: Transaxial computed tomographic images of the abdomen and pelvis were obtained without intravenous contrast according to the standard protocol COMPARISON: 12/27/2022 FINDINGS: Lung bases are clear without consolidation, pleural effusion, or basilar pneumothorax. There is no pericardial effusion. No suspicious liver lesion. Unchanged appearance of a nonobstructing gallstone in the gallbladder fundus. There is no biliary duct dilatation. Fat density lesions within the spleen are unchanged. A peripherally calcified 1.6 cm left para-aortic lymph node has decreased in size since 2022. There is no new suspicious lymphadenopathy. The left kidney is mildly atrophic. There is no hydronephrosis. Punctate nonobstructing left nephrolithiasis.. The urinary bladder is partially decompressed. There is no bowel obstruction. The appendix is normal. Unchanged indeterminant patchy fat stranding within the central mesentery, likely mesenteric panniculitis. Left orchiectomy. No acute fracture or aggressive osseous lesion. IMPRESSION: 1. Stable partially calcified left para-aortic lymph node compatible with treated disease. No new or progressive metastatic disease in the abdomen or pelvis. Dictated by: Jef Arriaza MD The radiology attending physician has personally reviewed this study, and had reviewed and/or edited this written report and agrees with it. Electronically signed by: Rodney Barksdale M.D. Lavonne Roman CLAMP JIG ASSEMBLER IMG CT PROCEDURES Final Result * PSA screen (06/22/2020 7:37 AM PLODDING MACHINE OPERATOR) PSA-Total 0.34 <=3.90 ng/mL SHAMAR JOHNS Comment: Interpretive Data AGE SEX REFERENCE INTERVAL 0 minutes-150 years Female None 0 minutes-49 years Male None 50-59 years Male 0-3.90 60-69 years Male 0-5.40 70-79 years Male 0-6.20 80-150 years Male 0-6.20 Current interpretive data last revised 2018. Blood specimen (specimen) 06/22/2020 7:37 AM PLODDING MACHINE OPERATOR 06/22/2020 8:39 AM PLODDING MACHINE OPERATOR Uriel Rodriguez MD LAB BLOOD ORDERABLES Final Result SHAMAR JOHNS [facility] Department [place] [address] from Last 3 Months or Most Recently Relevant to Health Maintenance Insurance [facility] MEDICARE ADVANTAGE MEDICARE [facility] MEDICARE ADVANTAGE [facility] MEDICARE ADVANTAGE IDPA Care Teams Nuisance Wildlife Specialist Relationship Specialty Start Date End Date Manuel Rangel DO [address] [place] [address] PCP - General 03/13/22
--- OUTSIDE RECORDS SUMMARY | 2025-01-01 15:16 | XMS_ITS | Encounter Summary ---
Author Organization [facility] Healthcare Address [address] [place] [address] Care Team Providers Care Fur Repairer Name Role Phone EduardoManuel llanes Primary Care Provider Encounter Details Date Type Department Care Team (Late st Contact Info) Description 12/31/2024 8:30 AM CDT Lab [address] [address] Seminoma of left testis (HCC) Social History Tobacco Use Types Packs/Day Years Used Date Smoking Tobacco: Never Smokeless Tobacco: Never Alcohol Use Standard Drinks/Week Comments No 0 (1 standard drink = 0.6 oz pur e alcohol) Sex and Gender Information Value Date Recorded Sex Assigned at Not on file 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.] ng/ml >1 year 0.0 8.3 ng/ml References Dangelo Zavala. et al. J. Ped Surg 1978;13:155-156 Nahun Nguyen. et al. Clin Chem Lab Med 2018;57:783-797 Amber Gooden et al. Clin Chem 2014;[id number]. Current interpretive data was last revised 2022. Blood 12/31/2024 7:28 AM CDT 12/31/2024 8:33 AM CDT Lavonne Roman NP LAB BLOOD ORDERABLES Fin al Result Performing Organization Address [facility] Co de Phone Number SHAMAR [facility] Department [place] [address] * hCG, blood, quantitative (12/31/2024 7:28 AM [...] ORDERABLES Fin al Result Performing Organization Address [facility] Co de [facility] [place] [address] * Lactate dehydrogenase (LD) (12/31/2024 7:28 AM CDT) Lactate dehydrogenase (LDH) 150 100 - 250 Units/L Comment:Testing performed by : [address] [address] Blood 12/31/2024 7:28 AM CDT 12/31/2024 7:28 AM CDT us Lavonne Roman DISPATCHER CHIEF OIL LAB BLOOD ORDERABLES Fin al Result Performing Organization Address [facility] Co de Phone Number [facility] [place] [place] [address] documented in this encounter Visit Diagnoses Diagnosis Seminoma of left testis (HCC) documented in this encounter Orders Appointment Requests Count Last Ordered Date Fi rst Ordered Date ONCBCN LAB APPOINTMENT 1 12/31/2024 documented in this encounter Care Teams Fur Repairer Relationship Specialty Start Date End Date Manuel Rangel DO [address] [place] [address] PCP - General 03/13/22 documented as of this encounter
--- OUTSIDE RECORDS SUMMARY | 2025-01-01 15:16 | XMS_ITS | Encounter Summary ---
Author Organization [facility] Address [address] [place] [address] Phone Care Team Providers Care Receptionist/Telephone Operator Name Role Phone Augustin Parrish MD Primary Care Provider [phone] Giuseppe Pemberton DO Primary Care Provider + 5-1 Augustin Parrish MD Primary Care Provider [phone] Giuseppe Pemberton DO Primary Care Provider + 5-2221 Augustin Parrish MD Primary Care Provider + [phone] Giuseppe Pemberton DO Primary Care Provider + 5-2221 Augustin Parrish MD Primary Care Provider + [phone] Giuseppe Pemberton DO Primary Care Provider + 5-2221 Augustin Parrish MD Primary Care Provider + [phone] Giuseppe Pemberton DO Primary Care Provider + 5-2221 Augustin Parrish MD Primary Care Provider [phone] Giuseppe Pemberton DO Primary Care Provider + 5-1 Augustin Parrish MD Primary Care Provider [phone] Augustin Parrish MD Primary Care Provider [phone] Giuseppe Pemberton DO Primary Care Provider +23 Augustin Parrish MD Primary Care Provider [phone] Giuseppe Pemberton DO Primary Care Provider +[phone] Augustin Parrish MD Primary Care Provider [phone] Giuseppe Pemberton DO Primary Care Provider +[phone] Augustin Parrish MD Primary Care Provider [phone] Giuseppe Pemberton DO Primary Care Provider +[phone] Augustin Parrish MD Primary Care Provider [phone] Miscellaneous, Not In File Primary Care Provider Unavailable No, Physician Primary Care Provider [phone] Manuel Rangel DO Primary Care Provider Encounter Details Date Type Department Care Team (Latest Contact Info) Description 1965 Orders Only [facility] Scanning, Provider Social History Tobacco Use Types Packs/Day Years Used Date Smoking Tobacco: Never Assessed Sex and Gender Information Value Date Recorded Sex Assigned at Not on file 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 Gender Identity Not on file Sexual Orientation [...] on filedocumented in this encounter Care Teams Receptionist/Telephone Operator Relationship Specialty Start Date End Date Augustin Parrish MD [address] [place] [address] PCP - General 11/08/16 11/26/16 Giuseppe Pemberton DO [address] [place] [address] PCP - General 11/27/16 01/01/17 Augustin Parrish MD [address] [place] [address] PCP - General 01/02/17 01/08/17 Giuseppe Pemberton DO [address] [place] [address] PCP - General 01/09/17 01/09/17 Augustin Parrish MD [address] [place] [address] PCP - General 01/10/17 01/24/17 Giuseppe Pemberton DO [address] [place] [address] PCP - General 01/25/17 02/06/17 Augustin Parrish MD [address] [place] [address] PCP - General 02/07/17 04/30/17 Giuseppe Pemberton DO [address] [place] [address] PCP - General 05/01/17 05/01/17 Augustin Parrish MD [address] [place] [address] PCP - General 05/02/17 05/21/17 Giuseppe Pemberton DO [address] [place] [address] PCP - General 05/22/17 07/30/17 Augustin Parrish MD [address] [place] [address], [place] [address] PCP - General 07/31/17 08/15/17 Giuseppe Pemberton DO [address] [place] [address] PCP - General 08/16/17 08/22/17 Augustin Parirsh MD [address] [facility] [address] [place] [address], [place] [address] PCP - General 08/23/17 08/25/17 Augustin Parrish MD [address] [facility] [address] [place] [address], [place] [address] PCP - General 08/26/17 08/27/17 Giuseppe Pemberton DO [address] [place] [address] PCP - General 08/28/17 11/24/17 Augustin Parrish MD [address] [facility] [address] [place] [address], [place] [address] PCP - General 11/25/17 12/04/17 Giuseppe Pemberton DO [address] [place] [address] PCP - General Internal Medicine 12/05/17 12/08/17 Augustin Parrish MD [address], [place] [id number] PCP - General 12/09/17 12/10/17 Giuseppe Pemberton DO [address] [place] [address] PCP - General 12/11/17 12/15/17 Augustin Parrish MD [address] [place] [address] PCP - General 12/16/17 12/17/17 Giuseppe Pemberton DO [address] [place] [address] PCP - General 12/18/17 06/17/18 Augustin Parrish MD [address] [place] [address] PCP - General 06/18/18 12/15/20 Miscellaneous, Not In File PCP - General 12/16/20 No, Physician PCP - General 04/24/21 03/12/22 Manuel Rangel DO [address] [place] [address] PCP - General 03/13/22 documented as of this encounter
--- OUTSIDE RECORDS SUMMARY | 2025-01-01 15:16 | XMS_ITS | Referral Summary ---
Author Organization [facility] al Address [address] [place] [address] Care Team Providers Care Automat Watcher Name Role Phone Manuel Rangel DO Primary Care Provider Encounters Date Type Department Care Team Description 12/31/2024 8:30 AM CDT Lab [facility] [address] [place] [address] Seminoma of left testis (HCC) 12/31/2024 9:00 AM CDT Office Visit [facility] [address] [place] [phone] Uriel Rodriguez MD Seminoma of testis, unspecified laterality (HCC) (Primary Dx); Seminoma of left testis (HCC) 12/31/2024 6:17 AM CDT - 12/31/2024 11:59 PM CDT Hospital Encounter [facility] at [facility] [address] [place] [address] Seminoma of left testis (HCC) Discharge Disposition: Discharge to home or self care from Last 3 Months Allergies Active Allergy [...] on file 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 Gender Identity Not on file Sexual Orientation [...] 12/31/2024 8:31 AM CDT Plan of Treatment Not on file Procedures Procedure Name Priority Date/Time Associated Diagnosis Comments [id number], TUMOR MARKER Routine 12/31/2024 7:28 AM CDT Seminoma of left testis (HCC) HCG, BLOOD, QUANTITATIVE Routine 12/31/2024 7:28 AM CDT Seminoma of left testis (HCC) LACTATE DEHYDROGENASE Routine 12/31/2024 7:28 AM CDT Seminoma of left testis (HCC) CT ABDOMEN PELVIS WO CONTRAST Schedule Routine, Read Routine (OP Routine) 12/31/2024 7:00 AM CDT Seminoma of left testis (HCC) PSA SCREEN Routine 06/22/2020 7:37 AM HEATING EQUIPMENT INSTALLER from Last 3 Months or Most Recently Relevant to Health Maintenance Results * [id number], Tumor Marker (12/31/2024 7:28 AM CDT) alpha [...] >1 year 0.0 8.3 ng/ml References Dangelo Y. et al. J. Ped Surg 1978;13:155-156 Nahun S. et al. Clin Chem Lab Med 2018;57:783-797 Amber Gooden et al. Clin Chem 2014;2448-0594. Current interpretive data was last revised 2022. Blood 12/31/2024 7:28 AM CDT 12/31/2024 8:33 AM CDT us Lavonne Roman NP LAB BLOOD ORDERABLES Fin al Result [facility] Department [place] [address] * hCG, blood, quantitative (12/31/2024 7:28 AM [...] ORDERABLES Fin al Result Performing Organization Address [facility] Co de Phone Number [facility] Department [place] [address] * Lactate dehydrogenase (LD) (12/31/2024 7:28 AM CDT) Lactate dehydrogenase (LDH) 150 100 - 250 Units/L Comment:Testing performed by : [address] [address] Blood 12/31/2024 7:28 AM CDT 12/31/2024 7:28 AM CDT Lavonne Roman NP LAB BLOOD ORDERABLES Fin al Result Performing Organization Address [facility] de Phone Number [facility] Department [place] [address] * CT Abdomen Pelvis WO Contrast (12/31/2024 [...] it. Electronically signed by: Rodney Barksdale M.D. us Lavonne Roman NP IMG CT PROCEDURES Final Result * PSA screen (06/22/2020 7:37 AM HEATING EQUIPMENT INSTALLER) PSA-Total 0.34 <=3.90 ng/mL [facility] Comment: Interpretive Data AGE SEX REFERENCE INTERVAL 0 minutes-150 years Female None 0 minutes-49 years Male None 50-59 years Male 0-3.90 60-69 years Male 0-5.40 70-79 years Male 0-6.20 80-150 years Male 0-6.20 Current interpretive data last revised 2018. Blood specimen (specimen) 06/22/2020 7:37 AM HEATING EQUIPMENT INSTALLER 06/22/2020 8:39 AM HEATING EQUIPMENT INSTALLER Uriel Rodriguez MD LAB BLOOD ORDERABLES Final Result Performing Organization Address City/State/[facility] Co de Phone Number [facility] [place]NOTE 2[facility] Department [place] [address] from Last 3 Months or Most Recently Relevant to Health Maintenance Insurance [facility] MEDICARE ADVANTAGE MEDICARE [facility] ADVANTAGE [facility] MEDIC[facility] ADVANTAGE [employer] Care Teams Automat Watcher Relationship Specialty Start Date End Date Manuel Rangel DO [address] [place] [address] PCP - General 03/13/22
--- OUTSIDE RECORDS SUMMARY | 2025-01-01 15:16 | XMS_ITS | Encounter Summary ---
Author Organization [facility] Address [address] [place] [address] Phone Care Team Providers Care Can Filler Name Role Phone Manuel Rangel Primary Care Provider Encounter Details Date Type Department Care Team (Late st Contact Info) Description 12/31/2024 9:00 AM CDT Office Visit 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 male. Chief Complaint: Here for evaluation and management of a history of recurrent seminoma Oncology History Overview Note DIAGNOSIS: Recurrent metastatic seminoma. TREATMENT: 1. Status post left orchiectomy, 12/27/2014. 2. Status post 4 cycles of cisplatin plus BUTCHER CHICKEN AND FISH-16 with objective response and subsequent relapse noted 09/28/2015. 3. Status post 4 cycles of salvage chemotherapy with vinblastine plus ifosfamide plus cisplatin with minimal radiographic response initially completed December 2015, but with continued reduction in size of the mass since that time. Seminoma of testis (HCC) 05/23/2015 Initial Diagnosis Seminoma of testis (CMS/HCC) Interval History: Mr. Núñez returns for further follow-up of his history of refractory seminoma, and is now 9 yearsout from completion of salvage chemotherapy. We have been seeing him on an annual basis and repeat CT scans every 2 years. He returns with repeat tumor markers, CXR, and CT A/P. He looks and feels well and has no specific complaints at this time. His CT scans have not yet been interpreted, but I have reviewed this and I see no difference in the size of this left PA calcified node consistent with scar tissue. REVIEW OF SYSTEMS: As per HPI, all other systems negative Current Outpatient Medications: levETIRAcetam (KEPPRA) 500 mg tablet lisinopriL (PRINIVIL,ZESTRIL) 10 mg tablet multivitamin tablet PreviDent 5000 Booster Plus 1.1 % paste PHYSICAL EXAMINATION: BP 138/88 (BP Location: Left arm) Pulse 72 Temp 36.5 ??C (97.7 ??F) (Oral) Resp 18 Ht 177 cm (5' 9.69) Wt 122 kg (269 lb) SpO2 94% BMI 38.95 kg/m?? General: This is an alert, oriented individual in no acute distress. HEENT: Unremarkable. Neck: Supple without adenopathy, masses or tenderness. Lymph nodes: No palpable peripheral adenopathy. Chest: Lungs clear to ascultation and percussion bilaterally. Spine: No percussion tenderness or deformity identified. Cardiovascular: S1 and S2 were within normal limits. There is no S3 or S4. No murmurs, heaves or rubs. Abdomen: Supple. No hepatosplenomegaly, masses or tenderness. Extremities: No clubbing, cyanosis, or edema. Neurologic: Non-focal. Recent Results (from the past week) Lactate dehydrogenase (LD) Collection Time: 12/31/24 7:28 AM Result Value Ref Range Lactate dehydrogenase (LDH) 150 100 - 250 Units/L Radiology: No results found. Assessment/Plan Diagnoses and all orders for this visit: Seminoma of testis, unspecified laterality (HCC) (Primary) - XR Chest Pa Lateral 2 Views; Future Seminoma of left testis (HCC) - Clinic Appointment Request Follow up; URIEL LONDONO MD; Clinic Appointment Location: [facility] History of refractory seminoma, now 9 years out from completion of salvage chemotherapy and remainsclinically disease-free. We will plan on seeing him back in 1 year with repeat CXR and tumor markers. Uriel Londono MD documented in this encounter Plan of Treatment Scheduled Orders Name Type Priority Associated Diagnoses Orde r Schedule XR Chest Pa Lateral 2 Views Imaging Schedule LAURA, Read LAURA (Appt Today, Awaiting Results) Seminoma of testis, unspecified laterality (HCC) Expected: 12/31/2024, Expires: 12/22/2025 [id number], Tumor Marker Lab Routine Seminoma of testis, unspecified laterality (HCC) Seminoma of left testis (HCC) Expected: 12/30/2025, Expires: 07/03/2026 hCG, blood, quantitative Lab Routine Seminoma of testis, unspecified laterality (HCC) Seminoma of left testis (HCC) Expected: 12/30/2025, Expires: 07/03/2026 Lactate dehydrogenase (LD) Lab Routine Seminoma of testis, unspecified laterality (HCC) Seminoma of left testis (HCC) Expected: 12/30/2025, Expires: 07/03/2026 XR Chest Pa Lateral 2 Views Imaging Schedule Routine, Read Routine (OP Routine) Seminoma of testis, unspecified laterality (HCC) Seminoma of left testis (HCC) Expected: 12/30/2025, Expires: 07/03/2026 documented as of this encounter Visit Diagnoses Diagnosis Seminoma of testis, unspecified laterality (HCC)- Primary Seminoma of left testis (HCC) documented in this encounter Orders Appointment Requests Count Last Ordered Date Fi rst Ordered Date ONCBCN CLINIC APPOINTMENT REQUEST 2 025 ONCBCN LAB APPOINTMENT 1 12/31/2024 documented in this encounter Care Teams Can Filler Relationship Specialty Start Date End Date Manuel Rangel DO [address] [place] [address] PCP - General 03/13/22 documented as of this encounter
--- OUTSIDE RECORDS SUMMARY | 2025-01-01 15:16 | XMS_ITS ---
Author Organization [facility] Address [address] [place] [address] Care Team Providers Care Ice Guard Inspector Name Role Phone Manuel Rangel DO [...] Dose Automatic Entry Manual Entr y DLP 7,420 mGycm 7,420 mGycm 0 mGycm
--- OUTSIDE RECORDS SUMMARY | 2025-01-01 15:16 | XMS_ITS | Encounter Summary ---
Author Organization [facility] Healthcare Address [facility] [place] [address] Care Team Providers Care Assistant Art Director Name Role Phone Manuel Rangel DO Primary Care Provider Reason for Referral * Diagnostic Imaging (Routine) - Closed Specialty Diagnoses / Procedures Referred By Contac t Referred To Contact Radiology Diagnoses Seminoma of left testis (HCC) Procedures CT Abdomen Pelvis WO Contrast Lavonne Roman NP [address] [address] Phone: tel: fax: [facility] Referral ID Status Reason Start Date Expiration Date Visits Re quested Visits Authorized [id number] Closed 12/26/2023 01/24/2025 1 1 Reason for Visit * Diagnostic Imaging (Routine) - Closed Specialty Diagnoses / Procedures Referred By Contac t Referred To Contact Radiology Diagnoses Seminoma of left testis (HCC) Procedures CT Abdomen Pelvis WO Contrast Lavonne Roman NP [address] [address] Phone: tel: fax: [facility] Referral ID Status Reason Start Date Expiration Date Visits Re quested Visits Authorized [id number] Closed 12/26/2023 01/24/2025 1 1 Encounter Details Date Type Department Care Team (Latest Contact Info) Description 12/31/2024 6:17 AM CDT - 12/31/2024 11:59 PM CDT Hospital Encounter [facility] Radiology at [facility] [address] [place] [address] Seminoma of left testis (HCC) Discharge Disposition: Discharge to home or self care Social History Tobacco Use Types Packs/Day Years Used Date Smoking Tobacco: Never Smokeless Tobacco: Never Alcohol Use Standard Drinks/Week Comments No 0 (1 standard drink = 0.6 oz pur e alcohol) Sex and Gender Information Value Date Recorded Sex Assigned at Not on file 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 Gender Identity Not on file Sexual Orientation Not on file documented as of this encounter Medications at Time of Discharge levETIRAcetam (KEPPRA) 500 mg tablet Take 3 tablets (1,500 mg total) by mouth 2 (two) times a day 540 tablet 3 09/02/2024 09/02/2025 lisinopriL (PRINIVIL,ZESTRIL ) 10 mg tablet 10/13/2020 multivitamin tabletIndications :Vitamin Deficiency Prevention PreviDent 5000 Booster Plus 1.1 % paste 08/10/2021 documented as of this encounter Discharge Disposition Disposition Code Departure Means Destination Discharge to home or self care documented in this encounter Plan of Treatment Not on file documented as of this encounter Procedures Procedure Name Priority Date/Time Associated Diagnosis Comments CT ABDOMEN PELVIS WO CONTRAST Schedule Routine, Read Routine (OP Routine) 12/31/2024 7:00 AM CDT Seminoma of left testis (HCC) documented in this encounter Results * CT Abdomen Pelvis WO Contrast (12/31/2024 [...] and agrees with it. Electronically signed by: Noble Garcia 12/31/2024 9:33 AM CDT EXAMINATION: CT ABDOMEN [...] signed by: Rodney Barksdale M.D. Lavonne Roman AEROSPACE ASSEMBLER IMG CT PROCEDURES Final Result documented in this encounter Visit Diagnoses Diagnosis Seminoma of left testis (HCC) documented in this encounter Care Teams Assistant Art Director Relationship Specialty Start Date End Date Manuel Rangel DO [address] [place] [address] PCP - General 03/13/22 documented as of this encounter
== END 2025-01-01 15:13 | disposition home or self-care (01) ==
LOC: CHSLAB 15:14
PROVIDERS: PCP Family Medicine; Visit Provider Family Medicine
DX: D18.01 Hemangioma of skin and subcutaneous tissue (principal)
CPT/HCPCS: 88305

== ENCOUNTER 2025-01-11 17:45 | Emergency (ER) | payer MEDICARE, SELFPAY ==
[2025-01-11 17:45] VITALS: BP 126/91; PULSE 98; RESP 16; TEMP 36.6; O2SAT 97
--- OUTSIDE RECORDS SUMMARY | 2025-01-11 17:47 | XMS_ITS | Encounter Summary ---
Author Organization [facility] Address [address] [place] [address] Phone Care Team Providers Care Hospital Education Coordinator Name Role Phone Augustin Parrish MD Primary Care Provider [phone] Giuseppe Pemberton DO Primary Care Provider + [phone] Augustin Parrish MD Primary Care Provider [phone] Giuseppe Pemberton DO Primary Care Provider + [phone] Augustin Parrish MD Primary Care Provider + [phone] Giuseppe Pemberton DO Primary Care Provider + [phone] Augustin Parrish MD Primary Care Provider + [phone] Giuseppe Pemberton DO Primary Care Provider + [phone] Augustin Parrish MD Primary Care Provider + [phone] Giuseppe Pemberton DO Primary Care Provider + [phone] Augustin Parrish MD Primary Care Provider [phone] Giuseppe Pemberton DO Primary Care Provider + [phone] Augustin Parrish MD Primary Care Provider [phone] Augustin Parrish MD Primary Care Provider [phone] Giuseppe Pemberton DO Primary Care Provider +[phone] Augustin Parrish MD Primary Care Provider [phone] Giuseppe Pemberton DO Primary Care Provider +[phone] Augustin Parrish MD Primary Care Provider [phone] Giuseppe Pemberton DO Primary Care Provider +[phone] Augustin Parrish MD Primary Care Provider [phone] Giuseppe Pemberton DO Primary Care Provider +[phone] Augustin Parrish MD Primary Care Provider [phone] Miscellaneous, Not In File Primary Care Provider Unavailable No, Physician Primary Care Provider [phone] Manuel Rangel DO Primary Care Provider Encounter Details Date Type Department Care Team (Latest Contact Info) Description 1965 Orders Only [facility] Scanning, Provider Social History Tobacco Use Types Packs/Day Years Used Date Smoking Tobacco: Never Assessed Sex and Gender Information Value Date Recorded Sex Assigned at Not on file 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 Gender Identity Not on file Sexual Orientation [...] on filedocumented in this encounter Care Teams Hospital Education Coordinator Relationship Specialty Start Date End Date Augustin Parrish MD [address] [place] [address] PCP - General 11/08/16 11/26/16 Giuseppe Pemberton DO [address] [place] [address] PCP - General 11/27/16 01/01/17 Augustin Parrish MD [address] [place] [address] PCP - General 01/02/17 01/08/17 Giuseppe Pemberton DO [address] [place] [address] PCP - General 01/09/17 01/09/17 Augustin Parrish MD [address] [place] [address] PCP - General 01/10/17 01/24/17 Giuseppe Pemberton DO [address] [place] [address] PCP - General 01/25/17 02/06/17 Augustin Parrish MD [address] [place] [address] PCP - General 02/07/17 04/30/17 Giuseppe Pemberton DO [address] [place] [address] PCP - General 05/01/17 05/01/17 Augustin Parrish MD [address] [place] [address] PCP - General 05/02/17 05/21/17 Giuseppe Pemberton DO [address] [place] [address] PCP - General 05/22/17 07/30/17 Augustin Parrish MD [address] [place] [address], [place] [address] PCP - General 07/31/17 08/15/17 Giuseppe Pemberton DO [address] [place] [address] PCP - General 08/16/17 08/22/17 Augustin Parrish MD [address] [facility] [address] [place] [address], [place] [address] PCP - General 08/23/17 08/25/17 Augustin Parrish MD [address] [facility] [address] [place] [address], [place] [address] PCP - General 08/26/17 08/27/17 Giuseppe Pemberton DO [address] [place] [address] PCP - General 08/28/17 11/24/17 Augustin Parrish MD [address] [facility] [address] [place] [address], [place] [address] PCP - General 11/25/17 12/04/17 Giuseppe Pemberton DO [address] [place] [address] PCP - General Internal Medicine 12/05/17 12/08/17 Augustin Parrish MD [address], [place] [address] PCP - General 12/09/17 12/10/17 Giuseppe Pemberton DO [address] [place] [address] PCP - General 12/11/17 12/15/17 Augustin Parrish MD [address] [place] [address] PCP - General 12/16/17 12/17/17 Giuseppe Pemberton DO [address] [place] [address] PCP - General 12/18/17 06/17/18 Augustin Parrish MD [address] [place] [address] PCP - General 06/18/18 12/15/20 Miscellaneous, Not In File PCP - General 12/16/20 No, Physician PCP - General 04/24/21 03/12/22 Manuel Rangel DO [address] [place] [address] PCP - General 03/13/22 documented as of this encounter
--- OUTSIDE RECORDS SUMMARY | 2025-01-11 17:47 | XMS_ITS | Clinical Summary ---
Author Organization [facility] Address [address] [place] [address] Care Team Providers Care Automotive Fleet Supervisor Name Role Phone Manuel Rangel DO [...] Description 12/31/2024 9:00 AM CDT Office Visit [facility] Oncology [address] [place] [phone] Uriel Rodriguez MD Seminoma of testis, unspecified laterality (HCC) (Primary Dx); Seminoma of left testis (HCC) 12/31/2024 8:30 AM CDT Lab [facility] Cancer [address] [address] Seminoma of left testis (HCC) 12/31/2024 6:17 AM CDT - 12/31/2024 11:59 PM CDT Hospital Encounter [facility] Radiology at [facility] [address] [place] [address] Seminoma of left testis (HCC) Discharge Disposition: Discharge to home or self care from Last 3 Months Immunizations Immunization Administration Dates Next Due Influenza, Trivalent, IM (MDV) 05/08/2012 Influenza, Unspecified 06/03/2020 Pneumococcal Polysaccharide PPV23 10/01/2014 Surgical History Surgery Date Site/Laterality Comments ME ORCHIECTOMY RADICAL TUMOR INGUINAL APPROACH Radical Orchiectomy [...] on file Legal Sex Male 9:12 PM CREW CLERK Gender Identity Not on file Sexual [...] Procedure Name Priority Date/Time Associated Diagnosis Comments [id number], TUMOR MARKER Routine 12/31/2024 7:28 AM CDT Seminoma of left testis (HCC) HCG, BLOOD, QUANTITATIVE Routine 12/31/2024 7:28 AM CDT Seminoma of left testis (HCC) LACTATE DEHYDROGENASE Routine 12/31/2024 7:28 AM CDT Seminoma of left testis (HCC) CT ABDOMEN PELVIS WO CONTRAST Schedule Routine, Read Routine (OP Routine) 12/31/2024 7:00 AM CDT Seminoma of left testis (HCC) PSA SCREEN Routine 06/22/2020 7:37 AM CREW CLERK from Last 3 Months or Most Recently Relevant to Health Maintenance Results * [id number], Tumor Marker (12/31/2024 7:28 AM CDT) alpha [...] 2018;57:783-797 Amber Gooden et al. Clin Chem 2014;0496-4304. Current interpretive data was last revised 2022. Blood 12/31/2024 7:28 AM CDT 12/31/2024 8:33 AM CDT Lavonne Roman LAB BLOOD ORDERABLES Fin al Result Performing Organization Address [facility] [place] [address] * hCG, blood, quantitative (12/31/2024 7:28 AM [...] ORDERABLES Fin al Result Performing Organization Address [facility] de Phone Number [facility] [place] [address] * Lactate dehydrogenase (LD) (12/31/2024 7:28 AM CDT) Lactate dehydrogenase (LDH) 150 100 - 250 Units/L Comment:Testing performed by : [facility], [address] [place] [address] Blood 12/31/2024 7:28 AM CDT 12/31/2024 7:28 AM CDT us Lavonne Roman CHARTERED WEALTH MANAGER LAB BLOOD ORDERABLES Fin al Result SHAMAR Leal [facility] Department [place] [address] * CT Abdomen Pelvis WO Contrast (12/31/2024 [...] signed by: Rodney Barksdale M.D. Lavonne Roman CHARTERED WEALTH MANAGER IMG CT PROCEDURES Final Result * PSA screen (06/22/2020 7:37 AM CREW CLERK) PSA-Total 0.34 <=3.90 ng/mL SHAMAR JOHNS Comment: Interpretive Data AGE SEX REFERENCE INTERVAL 0 minutes-150 years Female None 0 minutes-49 years Male None 50-59 years Male 0-3.90 60-69 years Male 0-5.40 70-79 years Male 0-6.20 80-150 years Male 0-6.20 Current interpretive data last revised 2018. Blood specimen (specimen) 06/22/2020 7:37 AM CREW CLERK 06/22/2020 8:39 AM CREW CLERK Uriel Rodriguez MD LAB BLOOD ORDERABLES Final Result SHAMAR JOHNS [facility] Department [place] [address] from Last 3 Months or Most Recently Relevant to Health Maintenance Insurance [facility] MEDICARE ADVANTAGE MEDICARE [facility] MEDICARE ADVANTAGE [facility] MEDICARE ADVANTAGE ID[employer] Care Teams Automotive Fleet Supervisor Relationship Specialty Start Date End Date Manuel Rangel DO [address] [place] [address] PCP - General 03/13/22
--- OUTSIDE RECORDS SUMMARY | 2025-01-11 17:47 | XMS_ITS | Referral Summary ---
Author Organization [facility] Address [address] [place] [address] Care Team Providers Care Comb Setter Name Role Phone Manuel Rangel DO Primary Care Provider Encounters Date Type Department Care Team Description 12/31/2024 8:30 AM CDT Lab [facility] [address] [place] [address] Seminoma of left testis (HCC) 12/31/2024 9:00 AM CDT Office Visit [facility] Oncology [address] [place] [phone] Uriel Rodriguez MD Seminoma of testis, unspecified laterality (HCC) (Primary Dx); Seminoma of left testis (HCC) 12/31/2024 6:17 AM CDT - 12/31/2024 11:59 PM CDT Hospital Encounter [facility] [address] [place] [address] Seminoma of left testis (HCC) Discharge Disposition: [...] on file Legal Sex Male 9:12 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 Gender Identity Not on file Sexual Orientation [...] Procedure Name Priority Date/Time Associated Diagnosis Comments [id number], TUMOR MARKER Routine 12/31/2024 7:28 AM CDT Seminoma of left testis (HCC) HCG, BLOOD, QUANTITATIVE Routine 12/31/2024 7:28 AM CDT Seminoma of left testis (HCC) LACTATE DEHYDROGENASE Routine 12/31/2024 7:28 AM CDT Seminoma of left testis (HCC) CT ABDOMEN PELVIS WO CONTRAST Schedule Routine, Read Routine (OP Routine) 12/31/2024 7:00 AM CDT Seminoma of left testis (HCC) PSA SCREEN Routine 06/22/2020 7:37 AM RADIO TIME SALESPERSON from Last 3 Months or Most Recently Relevant to Health Maintenance Results * [id number]-4-[id number], Tumor Marker (12/31/2024 7:28 AM CDT) alpha [...] 2018;57:783-797 Amber Gooden et al. Clin Chem 2014;[id number]. Current interpretive data was last revised 2022. Blood 12/31/2024 7:28 AM CDT 12/31/2024 8:33 AM CDT us Lavonne Roman NP LAB BLOOD ORDERABLES Fin al Result SHAMAR [facility] Department [place] [address] * hCG, blood, quantitative (12/31/2024 [...] ORDERABLES Fin al Result Performing Organization Address [facility] Co de Phone Number [facility] Department [place] [address] * Lactate dehydrogenase (LD) (12/31/2024 7:28 AM CDT) Lactate dehydrogenase (LDH) 150 100 - 250 Units/L Comment:Testing performed by : [address] [address] Blood 12/31/2024 7:28 AM CDT 12/31/2024 7:28 AM CDT Lavonne Roman NP LAB BLOOD ORDERABLES Fin al Result Performing Organization Address [facility] de Phone Number [facility] Department [place] [address] * CT Abdomen Pelvis WO Contrast (12/31/2024 [...] Result * PSA screen (06/22/2020 7:37 AM RADIO TIME SALESPERSON) PSA-Total 0.34 <=3.90 ng/mL SHAMAR JOHNS Comment: Interpretive Data AGE SEX REFERENCE INTERVAL 0 minutes-150 years Female None 0 minutes-49 years Male None 50-59 years Male 0-3.90 60-69 years Male 0-5.40 70-79 years Male 0-6.20 80-150 years Male 0-6.20 Current interpretive data last revised 2018. Blood specimen (specimen) 06/22/2020 7:37 AM RADIO TIME SALESPERSON 06/22/2020 8:39 AM RADIO TIME SALESPERSON Uriel Rodriguez MD LAB BLOOD ORDERABLES Final Result Performing Organization Address City/State/[facility] Co de Phone Number [facility] Department [place] [address] from Last 3 Months or Most Recently Relevant to Health Maintenance Insurance [facility] MEDICARE ADVANTAGE [facility] MEDICARE Address: [facility] [address] [place] [address] MEDICARE [facility] MEDICARE ADVANTAGE [facility] MEDICARE ADVANTAGE [facility] MEDICARE Address: [address] [address] [place] [address] IDPA Care Teams Comb Setter Relationship Specialty Start Date End Date Manuel Rangel DO [address] [place] [address] PCP - General 03/13/22
--- OUTSIDE RECORDS SUMMARY | 2025-01-11 17:47 | XMS_ITS ---
Author Organization [facility] Address [address] [place] [address] Care Team Providers Care Vessel Captain Name Role Phone Manuel Rangel DO Primary [...]
--- OUTSIDE RECORDS SUMMARY | 2025-01-11 17:47 | XMS_ITS ---
Author Organization [facility] Address [address] [place], [place] [id number] Care Team Providers Care Check Embosser Name Role Phone Manuel Rangel Primary Care Provider UnavailEVELYN Murdock Unavailable [phone] KALINA CHIU Unavailable [phone] REASON FOR VISIT *General care Encounters Encounter Location Date Provider Diagnosis [address] [id number] 12/10/2024 KALINA CHIU Plan Of Treatment Next Appt Details Provider Name:KALINA VIVAS, 03/11/2025 08:10:00 AM, [address] [place] [address], [phone], Progress Notes * MOHINDER BEAR FDOB: 6 (59 yo M)Acc No.[id number]:12/10/2024 Patient: MOHINDER SAPP Provider: Luciano CHIU :1965 A ge:59 Y S ex:Male Date:12/10/2024 Address:[address] [place] [place], [place] Pcp:Manuel Rangel Subjective: * Chief Complaints: * 1 . *General care. * Medical History: Objective: * Vitals: Assessment: Plan: * Treatment: * Billing Information: * Visit Code: * Procedure Codes: * Electronic signature of LIZA CHIU DPM on 01/11/2025 at 05:47 PM CDT Sign off status: Pending * Provider: Luciano CHIU Date: 0 12/10/2024 Generated for Curtis mejia/Lani/Romeo on: 0 01/11/2025 05:47 PM CDT
--- OUTSIDE RECORDS SUMMARY | 2025-01-11 17:47 | XMS_ITS ---
Author Organization [facility] Address [address] [place], [place] [id number] Care Team Providers Care Senior Power Plant Operator Name Role Phone Manuel Rangel Primary Care Provider EVELYN Brady Unavailable [phone] KALINA CHIU Unavailable [phone] Allergies Allergen (clinical drug ingredient) Drug/Non Drug Allergy documented on EMR Reaction Allergy Type Onset Date Status Iodinated contrast media (substance) IVP Dye, Iodine Containing (uncoded) Unknown Allergy 03/14/2020 active REASON FOR VISIT *General care Medications Medication SIG (Take, Route, Frequency, Duration) Notes Start Date End Date Status levETIRAcetam 500 MG Oral for 30 Days Active Fluticasone Propionate 50 MCG/ACT Nasal for 60 Days Active Lisinopril 10 MG Oral for 90 Days Active Clotrimazole 1 % 1 application Director Quality Assurance ally Once a day for 30 days 01/07/2025 07/05/2025 Active Amoxicillin-Pot Clavulanate 500-125 MG Oral for 7 Days Ac tive Ammonium Lactate 12 % 1 application Exte rnally Twice a day 09/05/2023 Active Methocarbamol 500 MG Oral for 10 Days Active HYDROcodone-Acetaminophen 5-325 MG Oral for 7 Days Active Vital Signs Weight 280 lbs 01/07/2025 Weight-kg 127.01 kg 01/07/2025 Height 73.00 in 01/07/2025 Height-cm 185.42 cm 01/07/2025 BMI 36.94 kg/m2 01/07/2025 Encounters Encounter Location Date Provider Diagnosis [address] [id number] 01/07/2025 KALINA ARIASFORD Tinea unguium B35.1 ; Pain in right toe(s) M79.674 ; Pain in left toe(s) M79.675 and Atherosclerosis of minto arteries of extremities with intermittent claudication, bilateral [...] toe(s) (ICD-10 - M79.675) 01/07/2025 Atherosclerosis of minto arteries of extremities with intermittent claudication, 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 - I70.213) Check and protect LE bilateral daily. Call if any changes or concerns. Plan Of Treatment Medication Medication Name Sig Start Date Stop Date Notes Clotrimazole 1 % 1 application Director Quality Assurance ally Once a day for 30 days 01/07/2025 07/05/2025 Treatment Notes Assessment Notes Tinea unguium FUNGAL TOENAILS: Discussed various treatment options for fungal toenails including debridement, topical antifungals, oral antifungals, toenail avulsion, or toenail matrixectomy. NAIL DEBRIDEMENT: Nails 1-5 Bilateral were debrided extensively with nail nippers and emery board, reducing length and girth to pink healthy tissue with any subungual debris and necrotic tissue removed Atherosclerosis of minto ar teries of extremities with intermittent claudication, bilateral legs Check and protect LE bilateral daily. Call if any changes or concerns. Next Appt Details Follow Up: 10-12 Weeks, Reas on: At Risk Foot care, sooner if problems arise Provider Name:KALINA VIVAS, 03/11/2025 08:10:00 AM, [address] [place] [address], [phone], Progress Notes * OPHTHALMIC PATHOLOGIST, MOHINDER FDOB: 6 (59 yo M)Acc No.[id number]:01/07/2025 Patient: MOHINDER SAPP Provider: Luciano CHIU :1965 A ge:59 Y S ex:Male Date:01/07/2025 Address:[address] [place], [place] [id number] Pcp:Manuel Rangel Subjective: * Chief Complaints: * [...] eurologic: Patient denies d izziness, gait abnormality, headache.? * Medical History: * Family History: F [...] reconciled with the patient * Allergies: I HOUSING COUNSELOR Dye, Iodine Containing: Allergy - Onset Date [...] - M79.675 4 . A therosclerosis of minto arteries of extremities with intermittent claudication, bilateral legs - I70.213 Plan: * Treatment: 2. A therosclerosis of minto arteries of extremities with intermittent claudication, bilateral [...] CHIU Date: 0 01/07/2025 Generated for Curtis mejia/Lani/eTransmitting on: 0 01/11/2025 05:47 PM CDT History and Physical Notes * HPI [...]
--- OUTSIDE RECORDS SUMMARY | 2025-01-11 17:47 | XMS_ITS | Patient Health Record ---
Author Organization [facility] Address [address] [place], [place] [phone] Care Team Providers Care Prior Authorization Technician Name Role Phone Manuel Rangel Primary Care Provider UnavailEVELYN Murdock Unavailable [phone] MILAKEJUANRIC Unavailable [phone] KALINA CHIU Unavailable [phone] Allergies Allergen (clinical drug ingredient) Drug/Non Drug [...] 500 MG Oral for 10 Days Active Lisinopril 10 MG Oral for 90 Days Active Clotrimazole 1 % 1 application Sales Mgr ally Once a day for 30 days 01/07/2025 07/05/2025 Active Amoxicillin-Pot Clavulanate 500-125 MG Oral for 7 Days Ac tive HYDROcodone-Acetaminophen 5-325 MG Oral for 7 Days Active Immunizations Vaccine Route Administration Date Status Comme nts Influenza (split), 3 yrs and above Unknown 05/08/2012 A dministered Influenza, seasonal, injecta ble, preservative free, 3 yrs and above Unknown 05/08/2023 Administered Influenza, unspecified formulation Unknown 06/03/2020 A dministered Pneumococcal polysaccharide PPV23 Unknown 10/01/2014 Ad ministered Vital Signs Height-cm 185.42 cm 01/07/2025 Weight-kg 127.01 kg 01/07/2025 Height 73.00 in 01/07/2025 Weight 280 lbs 01/07/2025 BMI 36.94 kg/m2 01/07/2025 Encounters Encounter Location Date Provider Diagnosis [facility] [address] [place], [place] [id number] 01/07/2025 KALINA CHIU Tinea unguium B35.1 ; Pain in right toe(s) M79.674 ; Pain in left toe(s) M79.675 and Atherosclerosis of [place] arteries of extremities with intermittent claudication, bilateral legs I70.[address] [id number] 03/12/2024 RIC VIZCAINO Tinea unguium B35.1 ; Xerosis cutis L85.3 ; Unspecified atherosclerosis of [place] arteries of extremities, bilateral legs I70.203 ; Other hammer toe(s) (acquired), right foot M20.41 ; Other hammer toe(s) (acquired), left foot M20.42 ; Pain in right toe(s) M79.674 and Pain in left toe(s) M79.675 [facility] [address] [place], [place] [id number] 06/04/2024 RIC VIZCAINO Tinea unguium B35.1 ; Xerosis cutis L85.3 ; Unspecified atherosclerosis of [place] arteries of extremities, bilateral legs I70.203 ; Other hammer toe(s) (acquired), right foot M20.41 ; Other hammer toe(s) (acquired), left foot M20.42 ; Pain in right toe(s) M79.674 and Pain in left toe(s) M79.675 [facility] [address] [place], [place] [id number] 08/06/2024 EVELYN CHRISTIANSEN Tinea unguium B35.1 ; Pain in right toe(s) M79.674 ; Pain in left toe(s) M79.675 and Atherosclerosis of [place] arteries of extremities with intermittent claudication, bilateral legs I70.[address] [id number] 2024 EVELYN CHRISTIANSEN Tinea unguium B35.1 ; Pain in right toe(s) M79.674 ; Pain in left toe(s) M79.675 and Atherosclerosis of [place] arteries of extremities with intermittent claudication, bilateral legs I70.213 Assessments Encounter Date Diagnosis (ICD Code) Assessment Notes Treatment Notes Treatment Clinical Notes Section Notes 03/12/2024 Xerosis cutis (ICD-10 - L85.3) The [...] in right toe(s) (ICD-10 - M79.674) 01/07/2025 Tinea unguium (ICD-10 - B35.1) FUNGAL [...] in left toe(s) (ICD-10 - M79.675) 2024 Pain in left toe(s) (ICD-10 - M79.675) 08/06/2024 Pain in left toe(s) (ICD-10 - M79.675) 06/04/2024 Unspecified atherosclerosis of [place] arteries of extremities, 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 - I70.203) Patient educated on risks and aggravating factors of PVD, including conservative treatment options such as a diet and exercise regimen to aid in slowing progression of vascular disease 03/12/2024 Unspecified atherosclerosis of [place] arteries of extremities, 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 - [...] conservative options were emphasized. 08/06/2024 Atherosclerosis of [place] arteries of extremities with intermittent claudication, 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 - I70.213) 2024 Atherosclerosis of [place] arteries of extremities with intermittent claudication, 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 - I70.213) 01/07/2025 Atherosclerosis of [place] arteries of extremities with intermittent claudication, 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 - I70.213) Check and protect LE bilateral daily. Call if any changes or concerns. 06/04/2024 Other hammer toe(s) (acquired), left foot [...] Details Provider Name:KALINA VIVAS, 03/11/2025 08:10:00 AM, [address] [place] [address], [phone], Insurance Providers Payer Name Payer Address Payer Phone Subscriber Number Group Number Insured Name Patient Relationship to Insured Coverage Start Date Coverage End Date [facility] [address] [address] [place], [place] [id number] MOHINDER BEAR Self - patient is the insured
--- NOTE | 2025-01-11 17:53 | ED_ITS ---
HPI - Wound/Laceration General Chief Complaint: Wound/Laceration Stated Complaint: shoulder pain Time Seen by Provider: 01/11/25 17:48 Source: patient Mode of arrival: ambulatory Limitations: no limitations History of Present Illness HPI narrative: 59 year old male presents to the Emergency Department complaining of some pain to posterior left shoulder region where he had a skin lesion removed 01/01/25. Patient states it hurts when he lays on his left side. Has not taken anything for pain. Is scheduled to have sutures removed 01/16/25. No drainage, fever or other symptoms. Onset (ago): day(s) (10) Extremity Location: Left: shoulder Associated symptoms: pain Related Data Home Medications ?Medication ?Instructions ?Recorded ?Confirmed ?Last Taken ?Type levetiracetam 500 mg tablet 1,500 mg PO BID 02/03/20 11/10/24 06/15/24 History multivitamin with minerals (Daily 1 tablet PO DAILY 02/03/20 11/10/24 06/15/24 History Multivitamin-Minerals tablet) acetaminophen 325 mg capsule 325 mg PO Q6H PRN Pain 11/15/23 11/10/24 06/15/24 History Allergies Allergy/AdvReac Type Severity Reaction Status Date / Time Iodinated Contrast Media Allergy Unknown Hives Verified 01/01/25 10:30 Contrast allergy Allergy Intermediate Unknown Uncoded 01/01/25 10:30 Review of Systems Review of Systems: All systems reviewed & are unremarkable except as noted in HPI and below Constitutional: Constitutional: Reports as per HPI and Reports no additional constitutional complaints Eyes: Eyes: Reports as per HPI and Reports no additional eye complaints ENT: Reports system reviewed and no additional complaints, except as documented Cardiovascular: Cardiovascular: Reports as per HPI and Reports no additional cardiovascular complaints Respiratory: Respiratory: Reports as per HPI and Reports no additional respiratory complaints Gastrointestinal: Gastrointestinal: Reports as per HPI and Reports no additional gastrointestinal complaints Genitourinary: Genitourinary: Reports no additional male genitourinary complaints Musculoskeletal: Musculoskeletal: Reports no additional musculoskeletal complaints Integumentary/Breasts: Skin/Breast: Reports system reviewed and no additional complaints, except as docu Neurologic: Reports system reviewed and no additional complaints, except as documented Endocrine: Endocrine: Reports no additional endocrine complaints Hematologic/Lymphatic: Hematologic/Lymphatic: Reports no additional hematologic/lymphatic complaints Allergic/Immunologic: Allergic/Immunologic: Reports no additional allergic/immunologic complaints [facility] Past Medical History Medical History Benign essential HTN Testicle cancer Obesity (BMI 30-39.9) Seizure disorder Surgical History Surgical History H/O brain surgery Family History Family History Father History of sinus cancer Sibling Ovarian cancer Social History Social History Smoking status: Never smoker Second hand tobacco smoke exposure: No Alcohol intake: never Substance use: never Lack of Transportation: No Lack of Food: Never True Current Housing: I Have Housing Concerned About Future Housing: No Difficulty Paying Gas/Electric Bills: No Difficulty Paying for Meds: No Currently Unemployed: No Education: High School Diploma/GED Difficulty w/ Childcare or Family Care: No Living arrangements: alone Gender identity (if verbalized by the patient): Male Sexual Orientation (if Verbalized by the Patient): Straight or Heterosexual Exam Const: General: healthy appearing Nutritional Appearance: obese Orientation/consciousness: patient oriented x3 Limitations: no limitations HENMT: Head: normal to inspection Ears: external ears normal Face/Nose/Sinus: Normal external nose present Face and sinus: normal facial exam Teeth and gingiva: abnormal tooth and associated gingiva (extensive decay) Eyes: Pupils: Equal, round and reactive pupils present EOM: EOMs intact bilaterally Direct Ophthalmoscopy: no photophobia Neck: Neck: normal visual inspection Chest: Chest palpation & inspection: normal inspection of the chest Resp: Effort & Inspection: normal respiratory effort Auscultation: clear to auscultation bilaterally Cardio: Rate: regular rate Rhythm: regular rhythm GI: Inspection: non-distended GI Palp: Yes Soft to palpation and No Tenderness to palpation present (GI) Back/Spine/Pelvis: Back: no CVA tenderness Skin: General skin exam: normal color Rashes: no rashes Other: surgical excision site to posterior left shoulder with sutures in place, appears to be healing well, small erythema surrounding sutures, no fluctuance or drainage Neuro: General: patient oriented x3, moves all extremities and no meningeal signs Cranial nerves: Yes Nystagmus not present Speech: normal speech Gait exam (Neuro): Normal gait present Other: grossly normal Extrem: General: normal to inspection Course Course Emergency Course: 59 y/o male presents to the ED c/o pain at skin lesion excision site to po sterior left shoulder. Had excised 10 days ago. Hurts to lay on left side. Has not taken anything for pain. Scheduled to have sutures removed 01/16. PE: well healing excision site posterior left shoulder with sutures in place, small surrounding erythema, no evidence of infection Instructions Vital Signs Vital signs: Vital Signs Temperature 36.6 C 01/11/25 17:45 Pulse Rate 98 01/11/25 17:45 Respiratory Rate 16 01/11/25 17:45 Blood Pressure 126/91 H 01/11/25 17:45 Pulse Oximetry 97 01/11/25 17:45 Oxygen Delivery Room Air 01/11/25 17:45 Temperature 36.6 C 01/11/25 17:45 Pulse Rate 98 01/11/25 17:45 Respiratory Rate 16 01/11/25 17:45 Blood Pressure 126/91 H 01/11/25 17:45 Pulse Oximetry 97 01/11/25 17:45 Oxygen Delivery Room Air 01/11/25 17:45 Discharge Plan Discharge Clinical Impression: Encounter for post surgical wound check Patient Disposition: Home Condition: Stable Instructions: Excision of Skin Lesion (DC) Additional Instructions: Tylenol, Ibuprofen and Aleve as needed Follow up Primary Care Provider 01/16 as scheduled Patient Language: Azeri Prescriptions: No Action levetiracetam 500 mg Tablet 1,500 mg PO BID Daily Multivitamin-Minerals Tablet 1 tablet PO DAILY orphenadrine citrate 100 mg tablet extended release 100 mg PO BID PRN (Reason: pain) Qty: 20 0RF acetaminophen 325 mg capsule 325 mg PO Q6H PRN (Reason: Pain) prednisone 10 mg tablet 10 mg PO DIRECTED Qty: 15 0RF Rx Instructions: 5-4-3-2-1 lisinopril 10 mg tablet See Rx Instructions .ROUTE .COMPLEX Qty: 90 0RF Dose Instruction: TAKE ONE TABLET BY MOUTH DAILY Rx Instructions: TAKE ONE TABLET BY MOUTH DAILY trazodone 50 mg tablet 50 mg PO QHS PRN (Reason: insomnia) Qty: 30 0RF Follow-up/Referrals: Manuel Rangel DO [Primary Care Provider] - Time of Disposition: 17:56
[2025-01-11 18:04] VITALS: BP 131/74; PULSE 80; RESP 18; O2SAT 99
== END 2025-01-11 18:04 | disposition home or self-care (01) ==
PROVIDERS: Emergency Provider Emergency Medicine; PCP Family Medicine
DX: M25.512 Pain in left shoulder (principal); I10 Essential (primary) hypertension; Z85.47 Personal history of malignant neoplasm of testis; Z98.890 Other specified postprocedural states
CPT/HCPCS: 99281

== ENCOUNTER 2025-02-09 15:40 | Emergency (ER) | payer MEDICARE, SELFPAY ==
[2025-02-09] VITALS (31 sets, daily range): BP systolic 111–145; BP diastolic 69–89; PULSE 78–88; RESP 12–21; TEMP 36.3; O2SAT 92–97
--- NOTE | ~2025-02-09 | XR_ITS ---
XR chest 1V portable Ordering provider: Lalo Correia MD History: 59 years Male with . chest pain . Comparison: December 24, 2024 FINDINGS: MEDIASTINUM: The cardiac silhouette is not enlarged. LUNGS: No infiltrates, effusions or pneumothorax. Prominent bronchovascular markings seen in the left lower lobe. OTHER: No free air under the diaphragm. IMPRESSION: No acute cardiopulmonary pathology. Reviewed, dictated and finalized at location A.
--- NOTE | 2025-02-09 15:42 | ECG_ITS ---
Test Date: 2025-02-09 15:52:36 Measurements Intervals [place] Rate: 80 P: 56 [place]: 163 QRS: -64 QRSD: 98 T: 36 QT: 364 QTc: 422 Interpretive Statements SINUS RHYTHM LEFT AXIS DEVIATION ABNORMAL ECG Compared to ECG 10/10/2024 21:33:15 NO SIGNIFICANT CHANGE Electronically Signed On 02-10-2025 07:59:55 CDT by Raman Mcpherson M.D.
--- OUTSIDE RECORDS SUMMARY | 2025-02-09 15:43 | XMS_ITS | Clinical Summary ---
Author Organization [facility] Address [address] [place] [address] Care Team Providers Care Scagliola Mechanic Name Role Phone Manuel Rangel DO Primary [...] Description 12/31/2024 9:00 AM CDT Office Visit [facility] [address] [place] [phone] Uriel Rodriguez MD Seminoma of testis, unspecified laterality (HCC) (Primary Dx); Seminoma of left testis (HCC) 12/31/2024 8:30 AM CDT Lab [facility] [address] [address] Seminoma of left testis (HCC) 12/31/2024 6:17 AM CDT - 12/31/2024 11:59 PM CDT Hospital Encounter [facility] [address] [place] [address] Seminoma of left testis (HCC) Discharge Disposition: Discharge to home or self care from Last 3 Months Immunizations Immunization Administration Dates Next Due Influenza, Trivalent, IM (MDV) 05/08/2012 Influenza, Unspecified 06/03/2020 Pneumococcal Polysaccharide PPV23 10/01/2014 Surgical History Surgery Date Site/Laterality Comments [place] ORCHIECTOMY RADICAL TUMOR INGUINAL APPROACH Radical Orchiectomy [...] on file Legal 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 Gender Identity Not on file Sexual Orientation [...] Screening-PSA 06/22/2022, 06/24/2019, 06/23/2018 Influenza Vaccine (#1) 2025 0, 05/08/2012 Pneumococcal vaccine <65 Aged Out 10/01/2014 No longer eligible based on patient's age to complete this topic Procedures Procedure Name Priority Date/Time Associated Diagnosis Comments [id number], TUMOR MARKER Routine 12/31/2024 7:28 AM CDT Seminoma of left testis (HCC) HCG, BLOOD, QUANTITATIVE Routine 12/31/2024 7:28 AM CDT Seminoma of left testis (HCC) LACTATE DEHYDROGENASE Routine 12/31/2024 7:28 AM CDT Seminoma of left testis (HCC) CT ABDOMEN PELVIS WO CONTRAST Schedule Routine, Read Routine (OP Routine) 12/31/2024 7:00 AM CDT Seminoma of left testis (HCC) PSA SCREEN Routine 06/22/2020 7:37 AM SENIOR INTERACTIVE PRODUCER from Last 3 Months or Most Recently Relevant to Health Maintenance Results * [id number], Tumor Marker (12/31/2024 7:28 AM CDT) alpha [...] >1 year 0.0 8.3 ng/ml References Dangelo Calderon et al. J. Ped Surg 1978;13:155-156 Nahun Quintanilla et al. Clin Chem Lab Med 2018;57:783-797 Amber Gooden et al. Clin Chem 2014;0741-8455. Current interpretive data was last revised 2022. Blood 12/31/2024 7:28 AM CDT 12/31/2024 8:33 AM CDT Lavonne Roman LAB BLOOD ORDERABLES Fin al Result Performing Organization Address [facility] [place] [address] * hCG, blood, quantitative (12/31/2024 7:28 AM [...] ORDERABLES Fin al Result Performing Organization Address [facility] de Phone Number [facility] Department [place] [address] * Lactate dehydrogenase (LD) (12/31/2024 7:28 AM CDT) Lactate dehydrogenase (LDH) 150 100 - 250 Units/L Comment:Testing performed by : [facility], [address] [place] [id number] Blood 12/31/2024 7:28 AM CDT 12/31/2024 7:28 AM CDT us Lavonne Roman HEAD BUCKER LAB BLOOD ORDERABLES Fin al Result SHAMAR Leal [facility] Department [place] [address] * CT Abdomen Pelvis WO Contrast (12/31/2024 [...] signed by: Rodney Barksdale M.D. Lavonne Roman NP IMG CT PROCEDURES Final Result * PSA screen (06/22/2020 7:37 AM SENIOR INTERACTIVE PRODUCER) PSA-Total 0.34 <=3.90 ng/mL SHAMAR JOHNS Comment: Interpretive Data AGE SEX REFERENCE INTERVAL 0 minutes-150 years Female None 0 minutes-49 years Male None 50-59 years Male 0-3.90 60-69 years Male 0-5.40 70-79 years Male 0-6.20 80-150 years Male 0-6.20 Current interpretive data last revised 2018. Blood specimen (specimen) 06/22/2020 7:37 AM SENIOR INTERACTIVE PRODUCER 06/22/2020 8:39 AM SENIOR INTERACTIVE PRODUCER Uriel Rodriguez MD LAB BLOOD ORDERABLES Final Result SHAMAR JOHNS [facility] Department [place] [address] from Last 3 Months or Most Recently Relevant to Health Maintenance Insurance [facility] MEDICARE ADVANTAGE MEDICARE [facility] MEDICARE ADVANTAGE [facility] MEDICARE ADVANTAGE IDPA Care Teams Scagliola Mechanic Relationship Specialty Start Date End Date Manuel Rangel DO [address] [place] [address] PCP - General 03/13/22
--- OUTSIDE RECORDS SUMMARY | 2025-02-09 15:43 | XMS_ITS | Patient Health Record ---
Author Organization [facility] Address [address] [place], [place] [id number] Care Team Providers Care Wholesale Diamond Broker Name Role Phone Manuel Rangel Primary Care Provider UnavailEVELYN Murdock Unavailable [phone] MILARIC YOST Unavailable [phone] KALINA CHIU Unavailable [phone] Allergies Allergen (clinical drug ingredient) Drug/Non Drug [...] a day 09/05/2023 Active levETIRAcetam 500 MG Oral; Duration: 30 Days Active Fluticasone Propionate 50 MCG/ACT Nasal; Duration: 60 Days Act kris Methocarbamol 500 MG Oral; Duration: 10 Days Active Lisinopril 10 MG Oral; Duration: 90 Days Active Clotrimazole 1 % 1 application Well Flow Operator ally Once a day; Duration: 30 days 01/07/2025 07/05/2025 Active Amoxicillin-Pot Clavulanate 500-125 MG Oral; Duration: 7 Days Active HYDROcodone-Acetaminophen 5-325 MG Oral; Duration: 7 Days Activ e Immunizations Vaccine Route Administration Date Status Comme [...] 01/07/2025 Encounters Encounter Location Date Provider Diagnosis [address] [id number] 01/07/2025 KALINA ARIASFORD Tinea unguium B35.1 ; Pain in right toe(s) M79.674 ; Pain in left toe(s) M79.675 and Atherosclerosis of [place] arteries of extremities with intermittent claudication, bilateral legs I70.[address] [id number] 03/12/2024 RIC VIZCAINO Tinea unguium B35.1 ; Xerosis cutis L85.3 ; Unspecified atherosclerosis of [place] arteries of extremities, bilateral legs I70.203 ; Other hammer toe(s) (acquired), right foot M20.41 ; Other hammer toe(s) (acquired), left foot M20.42 ; Pain in right toe(s) M79.674 and Pain in left toe(s) M79.[address] [id number] 06/04/2024 RIC VIZCAINO Tinea unguium B35.1 ; Xerosis cutis L85.3 ; Unspecified atherosclerosis of [place] arteries of extremities, bilateral legs I70.203 ; Other hammer toe(s) (acquired), right foot M20.41 ; Other hammer toe(s) (acquired), left foot M20.42 ; Pain in right toe(s) M79.674 and Pain in left toe(s) M79.[address] [id number] 08/06/2024 EVELYN CHRISTIANSEN Tinea unguium B35.1 ; Pain in right toe(s) M79.674 ; Pain in left toe(s) M79.675 and Atherosclerosis of [place] arteries of extremities with intermittent claudication, bilateral legs I70.[address] [id number] 2024 EVELYN CHRISTIANSEN Tinea unguium B35.1 ; Pain in right toe(s) M79.674 ; Pain in left toe(s) M79.675 and Atherosclerosis of [place] arteries of extremities with intermittent claudication, bilateral [...] (ICD-10 - M79.675) 06/04/2024 Unspecified atherosclerosis of [place] arteries of extremities, 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 - I70.203) Patient educated on risks and aggravating factors of PVD, including conservative treatment options such as a diet and exercise regimen to aid in slowing progression of vascular disease 03/12/2024 Unspecified atherosclerosis of [place] arteries of extremities, 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 - [...] conservative options were emphasized. 08/06/2024 Atherosclerosis of [place] arteries of extremities with intermittent claudication, 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 - I70.213) 2024 Atherosclerosis of [place] arteries of extremities with intermittent claudication, 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 - I70.213) 01/07/2025 Atherosclerosis of [place] arteries of extremities with intermittent claudication, bilateral [...] Details Provider Name:KALINA VIVAS, 03/11/2025 08:10:00 AM, [address] [place] [address], [phone], Insurance Providers Payer Name Payer Address Payer Phone Subscriber Number Group Number Insured Name Patient Relationship to Insured Coverage Start Date Coverage End Date [facility] [address] [address] [place], [place] [id number] MOHINDER BEAR Self - patient is the insured
--- OUTSIDE RECORDS SUMMARY | 2025-02-09 15:43 | XMS_ITS | Clinical Summary ---
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 Gender Identity Not on file Sexual Orientation [...] 1965 Annual Physical 1968 Hepatitis C 10/09/1983 Pneumococcal Vaccine: 50+ Years (2 of 2 - PCV) 10/09/2015 10/01/2014 Zoster Vaccines (1 of 2) 10/09/2015 COVID-19 Vaccine (4 - 2023-2 5 season) 2024 11/22/2021, 12/13/2020, 11/15/2020 DTaP, Tdap and Td Vaccines ( 2 - Td or Tdap) 02/02/2030 02/03/2020 Meningococcal B Vaccine Aged Out No l onger eligible based on patient's age to complete this topic Meningococcal Vaccine Aged Out No yuri helen eligible based on patient's age to complete this topic RSV Immunizations Under 20 Months Aged Out No longer eligible b ased on patient's age to complete this topic Insurance [facility] MEDICA[employer] Care Teams Collections Technician Relationship Specialty Start Date End Date Manuel Rangel DO [address] [place] [address] PCP - General FAMILY PRACTICE 02/21/24
--- OUTSIDE RECORDS SUMMARY | 2025-02-09 15:43 | XMS_ITS | Referral Summary ---
Author Organization [facility] Address [address] [place] [address] Care Team Providers Care Director Of Sports Medicine Name Role Phone Manuel Rangel DO Primary Care Provider Encounters Date Type Department Care Team Description 12/31/2024 8:30 AM CDT Lab [facility] [address] [place] [address] Seminoma of left testis (HCC) 12/31/2024 9:00 AM CDT Office Visit [facility] [address] [place] [phone] Uriel Rodriguez MD Seminoma of testis, unspecified laterality (HCC) (Primary Dx); Seminoma of left testis (HCC) 12/31/2024 6:17 AM CDT - 12/31/2024 11:59 PM CDT Hospital Encounter [facility] [address] [place] [address] Seminoma of left testis (HCC) Discharge Disposition: [...] on file 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 Gender Identity Not on file Sexual Orientation [...] Procedure Name Priority Date/Time Associated Diagnosis Comments [id number], TUMOR MARKER Routine 12/31/2024 7:28 AM CDT Seminoma of left testis (HCC) HCG, BLOOD, QUANTITATIVE Routine 12/31/2024 7:28 AM CDT Seminoma of left testis (HCC) LACTATE DEHYDROGENASE Routine 12/31/2024 7:28 AM CDT Seminoma of left testis (HCC) CT ABDOMEN PELVIS WO CONTRAST Schedule Routine, Read Routine (OP Routine) 12/31/2024 7:00 AM CDT Seminoma of left testis (HCC) PSA SCREEN Routine 06/22/2020 7:37 AM STEMHOLE BORER from Last 3 Months or Most Recently Relevant to Health Maintenance Results * [id number]-7-Snwqyqesddm, Tumor Marker (12/31/2024 7:28 AM CDT) alpha [...] 2018;57:783-797 Amber Gooden et al. Clin Chem 2014;6229-7404. Current interpretive data was last revised 2022. Blood 12/31/2024 7:28 AM CDT 12/31/2024 8:33 AM CDT us Lavonne Roman NP LAB BLOOD ORDERABLES Fin al Result [facility] Department [place] [address] * hCG, blood, quantitative (12/31/2024 [...] ORDERABLES Fin al Result Performing Organization Address [facility] Co de Phone Number [facility] Department [place] [address] * Lactate dehydrogenase (LD) (12/31/2024 7:28 AM CDT) Lactate dehydrogenase (LDH) 150 100 - 250 Units/L Comment:Testing performed by : [address] [address] Blood 12/31/2024 7:28 AM CDT 12/31/2024 7:28 AM CDT Lavonne Roman NP LAB BLOOD ORDERABLES Fin al Result Performing Organization Address [facility] de Phone Number [facility] Department [place] [address] * CT Abdomen Pelvis WO Contrast (12/31/2024 [...] Result * PSA screen (06/22/2020 7:37 AM STEMHOLE BORER) PSA-Total 0.34 <=3.90 ng/mL SHAMAR JOHNS Comment: Interpretive Data AGE SEX REFERENCE INTERVAL 0 minutes-150 years Female None 0 minutes-49 years Male None 50-59 years Male 0-3.90 60-69 years Male 0-5.40 70-79 years Male 0-6.20 80-150 years Male 0-6.20 Current interpretive data last revised 2018. Blood specimen (specimen) 06/22/2020 7:37 AM STEMHOLE BORER 06/22/2020 8:39 AM STEMHOLE BORER Uriel Rodriguez MD LAB BLOOD ORDERABLES Final Result Performing Organization Address City/State/[facility] Co de Phone Number [facility] Department [place] [address] from Last 3 Months or Most Recently Relevant to Health Maintenance Insurance [facility] Address: [facility] [address] [place] [address] MEDICARE [facility] MEDICARE ADVANTAGE [facility] MEDICARE [facility] Address: [address] [address] [place] [address] [employer] Care Teams Director Of Sports Medicine Relationship Specialty Start Date End Date Manuel Rangel DO [address] [place] [address] PCP - General 03/13/22
--- OUTSIDE RECORDS SUMMARY | 2025-02-09 15:43 | XMS_ITS ---
Author Organization [facility] Address [address] [place], [place] [phone] Care Team Providers Care Network Consultant Name Role Phone Manuel Rangel Primary Care Provider EVELYN Brady Unavailable [phone] KALINA CHIU Unavailable [phone] Allergies Allergen (clinical drug ingredient) Drug/Non Drug [...] Days Active Clotrimazole 1 % 1 application Machine Plate Stacker ally Once a day; Duration: 30 days [...] 01/07/2025 Encounters Encounter Location Date Provider Diagnosis [address] [id number] 01/07/2025 KALINA APPLE Tinea unguium B35.1 ; Pain in right toe(s) M79.674 ; Pain in left toe(s) M79.675 and Atherosclerosis of [place] arteries of extremities with intermittent claudication, bilateral [...] toe(s) (ICD-10 - M79.675) 01/07/2025 Atherosclerosis of [place] arteries of extremities with intermittent claudication, 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 - I70.213) Check and protect LE bilateral daily. Call if any changes or concerns. Plan Of Treatment Medication Medication Name Sig Start Date Stop Date Notes Clotrimazole 1 % 1 application Machine Plate Stacker ally Once a day; Duration: 30 days [...] debris and necrotic tissue removed Atherosclerosis of [place] ar teries of extremities with intermittent claudication, bilateral legs Check and protect LE bilateral daily. Call if any changes or concerns. Next Appt Details Follow Up: 10-12 Weeks, Reas on: At Risk Foot care, sooner if problems arise Provider Name:KALINA VIVAS, 03/11/2025 08:10:00 AM, [address] [place] [address], [phone], Progress Notes * MOHINDER BEAR FDOB: 6 (59 yo M)Acc No.[id number]:01/07/2025 Patient: MOHINDER SAPP Provider: Luciano CHIU :1965 A ge:59 Y S ex:Male Date:01/07/2025 Address:[address] [place], [place] [id number] Pcp:Manuel Rangel Subjective: * Chief Complaints: * [...] seen by Dr. Rangel was 12/2024., Initials [facility]. * ROS: G eneral / Constitutional: Patient [...] reconciled with the patient * Allergies: I BRADDISHER Dye, Iodine Containing: Allergy - Onset Date [...] - M79.675 4 . A therosclerosis of [place] arteries of extremities with intermittent claudication, bilateral legs - I70.213 Plan: * Treatment: 2. A therosclerosis of [place] arteries of extremities with intermittent claudication, bilateral legs Notes: Check and protect LE bilateral daily. Call if any changes or concerns. * Immunizations: Immunization record has been reviewed and updated. * Follow Up: 1 0-12 Weeks (Reason: At Risk Foot care, sooner if problems arise) * Billing Information: * Visit Code: 12955 Office Visit, Est Pt., Level 3. * Procedure Codes: * Electronic signature of LIZA CHIU DPM on 02/09/2025 at 03:43 PM CDT Sign off status: Pending * Provider: Luciano CHIU Date: 0 01/07/2025 Generated for Curtis mejia/Lani/Romeo on: 0 02/09/2025 03:43 PM CDT History and Physical Notes * [...]
--- OUTSIDE RECORDS SUMMARY | 2025-02-09 15:43 | XMS_ITS | Encounter Summary ---
Author Organization [facility] Address [address] [place] [address] Phone Care Team Providers Care Tow Truck Dispatcher Name Role Phone Augustin Parrish MD Primary Care Provider [phone] Giuseppe Pemberton DO Primary Care Provider + [phone] Augustin Parrish MD Primary Care Provider [phone] Giuseppe Pemberton DO Primary Care Provider + [phone] Augustin Parrish MD Primary Care Provider + [phone] Giuseppe Pemberton DO Primary Care Provider + [phone] Augustin Parrish MD Primary Care Provider [phone] Giuseppe Pemberton DO Primary Care Provider + [phone] Augustin Parrish MD Primary Care Provider + [phone] Giuseppe Pemberton DO Primary Care Provider + [phone] Augustin Parrish MD Primary Care Provider [phone] Giuseppe Pemberton DO Primary Care Provider + [phone] Augustin Parrish MD Primary Care Provider [phone] Augustin Parrish MD Primary Care Provider [phone] Giuseppe Pemberton DO Primary Care Provider +[phone] Augustin Parrish MD Primary Care Provider [phone] Giuseppe Pemberton DO Primary Care Provider +[phone] Augustin Parrish MD Primary Care Provider [phone] Giuseppe Pemberton DO Primary Care Provider +[phone] Augustin Parrish MD Primary Care Provider [phone] Giuseppe Pemberton DO Primary Care Provider +[phone] Augustin Parrish MD Primary Care Provider [phone] Miscellaneous, Not In File Primary Care Provider Unavailable No, Physician Primary Care Provider [phone] Manuel Rangel DO Primary Care Provider Encounter Details Date Type Department Care Team (Latest Contact Info) Description 1965 Orders Only [facility] Scanning, Provider Social History Tobacco Use Types Packs/Day Years Used Date Smoking Tobacco: Never Assessed Sex and Gender Information Value Date Recorded Sex Assigned at Not on file 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 Gender Identity Not on file Sexual Orientation [...] on filedocumented in this encounter Care Teams Tow Truck Dispatcher Relationship Specialty Start Date End Date Augustin Parrish MD [address] [place] [address] PCP - General 11/08/16 11/26/16 Giuseppe Pemberton DO [address] [place] [address] PCP - General 11/27/16 01/01/17 Augustin Parrish MD [address] [place] [address] PCP - General 01/02/17 01/08/17 Giuseppe Pemberton DO [address] [place] [address] PCP - General 01/09/17 01/09/17 Augustin Parrish MD [address] [place] [address] PCP - General 01/10/17 01/24/17 Giuseppe Pemberton DO [address] [place] [address] PCP - General 01/25/17 02/06/17 Augustin Parrish MD [address] [place] [address] PCP - General 02/07/17 04/30/17 Giuseppe Pemberton DO [address] [place] [address] PCP - General 05/01/17 05/01/17 Augustin Parrish MD [address] [place] [address] PCP - General 05/02/17 05/21/17 Giuseppe Pemberton DO [address] [place] [address] PCP - General 05/22/17 07/30/17 Augustin Parrish MD [address] [place] [address], [place] [address] PCP - General 07/31/17 08/15/17 Giuseppe Pemberton DO [address] [place] [address] PCP - General 08/16/17 08/22/17 Augustin Parrish MD [address] [facility] [address] [place] [address], [place] [address] PCP - General 08/23/17 08/25/17 Augustin Parrish MD [address] [facility] [address] [place] [address], [place] [address] PCP - General 08/26/17 08/27/17 Giuseppe Pemberton DO [address] [place] [address] PCP - General 08/28/17 11/24/17 Augustin Parrish MD [address] [facility] [address] [place] [address], [place] [address] PCP - General 11/25/17 12/04/17 Giuseppe Pemberton DO [address] [place] [address] PCP - General Internal Medicine 12/05/17 12/08/17 Augustin Parrish MD [address], [place] [address] PCP - General 12/09/17 12/10/17 Giuseppe Pemberton DO [address] [place] [address] PCP - General 12/11/17 12/15/17 Augustin Parrish MD [address] [place] [address] PCP - General 12/16/17 12/17/17 Giuseppe Pemberton DO [address] [place] [address] PCP - General 12/18/17 06/17/18 Augustin Parrish MD [address] [place] [address] PCP - General 06/18/18 12/15/20 Miscellaneous, Not In File PCP - General 12/16/20 No, Physician PCP - General 04/24/21 03/12/22 Manuel Rangel DO [address] [place] [address] PCP - General 03/13/22 documented as of this encounter
--- OUTSIDE RECORDS SUMMARY | 2025-02-09 15:43 | XMS_ITS ---
Author Organization [facility] Address [address] [place], [place] [id number] Care Team Providers Care Aesthetician Name Role Phone Manuel Rangel Primary Care Provider UnavailEVELYN Murdock Unavailable [phone] KALINA CHIU Unavailable [phone] REASON FOR VISIT *General care Encounters Encounter Location Date Provider Diagnosis [address] [id number] 12/10/2024 KALINA CHIU Plan Of Treatment Next Appt Details Provider Name:KALINA VIVAS, 03/11/2025 08:10:00 AM, [address] [place] [address], [phone], Progress Notes * MOHINDER BEAR FDOB: [birth year] (59 yo M)Acc No.[id number]:12/10/2024 Patient: MOHINDER SAPP Provider: Luciano CHIU :1965 A ge:59 Y S ex:Male Date:12/10/2024 Address:[place], [place] Pcp:Manuel Rangel Subjective: * Chief Complaints: * 1 . *General care. * Medical History: Objective: * Vitals: Assessment: Plan: * Treatment: * Billing Information: * Visit Code: * Procedure Codes: * Electronic signature of LIZA CHIU DPM on 02/09/2025 at 03:43 PM CDT Sign off status: Pending * Provider: Luciano CHIU Date: 0 12/10/2024 Generated for Curtis mejia/Lani/Romeo on: 0 02/09/2025 03:43 PM CDT
--- OUTSIDE RECORDS SUMMARY | 2025-02-09 15:43 | XMS_ITS ---
Author Organization [facility] Address [address] [place] [address] Care Team Providers Care Testing Projects Administrator Name Role Phone Manuel Rangel DO Primary [...]
--- NOTE | 2025-02-09 15:58 | ED_ITS ---
HPI - Chest Pain General Chief Complaint: Chest Pain Stated Complaint: chest pain History of Present Illness HPI narrative: 59-year-old white male finished eating a subway then started having left chest pain sharp upper chest lasted for about 10 minutes now it is gone. Denies any nausea vomiting diaphoresis cough or difficulty breathing. Denies any lung or heart disease or GERD. He had this pain maybe a year ago does not really remember he said he saw his primary care provider that at that time. Denies any other complaints. He is eating drinking voiding and stooling fine without any fever cough runny nose sore throat difficulty breathing swelling lumps or bumps rash or itching dizziness or lightheadedness or any other complaints. Related Data Home Medications ?Medication ?Instructions ?Recorded ?Confirmed ?Last Taken ?Type levetiracetam 500 mg tablet 1,500 mg PO BID 02/03/20 11/10/24 06/15/24 History multivitamin with minerals (Daily 1 tablet PO DAILY 02/03/20 11/10/24 06/15/24 History Multivitamin-Minerals tablet) acetaminophen 325 mg capsule 325 mg PO Q6H PRN Pain 11/15/23 11/10/24 06/15/24 History Allergies Allergy/AdvReac Type Severity Reaction Status Date / Time Iodinated Contrast Media Allergy Unknown Hives Verified 01/15/25 08:24 Contrast allergy Allergy Intermediate Unknown Uncoded 01/15/25 08:24 Review of Systems 2 Review of Systems: All systems reviewed & are unremarkable except as noted in HPI and below PMFSH Past Medical History Medical History Benign essential HTN Testicle cancer Obesity (BMI 30-39.9) Seizure disorder Surgical History Surgical History H/O brain surgery Family History Family History Father History of sinus cancer Sibling Ovarian cancer Social History Social History Smoking status: Never smoker Second hand tobacco smoke exposure: No Alcohol intake: never Substance use: never Lack of Transportation: No Lack of Food: Never True Current Housing: I Have Housing Concerned About Future Housing: No Difficulty Paying Gas/Electric Bills: No Difficulty Paying for Meds: No Currently Unemployed: No Education: High School Diploma/GED Difficulty w/ Childcare or Family Care: No Living arrangements: alone Gender identity (if verbalized by the patient): Male Sexual Orientation (if Verbalized by the Patient): Straight or Heterosexual Exam 2 Narrative: ?White male patient with no apparent distress.? Head normocephalic, atraumatic.? Eyes conjunctiva pink sclera nonicteric.? Extraocular movements are intact.? Ears externally normal.? Oropharynx is clear with moist mucous membranes without exudates.? Neck is supple nontender no lymphadenopathy.? Back is nontender.? Lungs are clear.? Heart is regular rate and rhythm without murmurs gallops or rubs.? Chest wall nontender. Abdomen is soft and nontender no hepatosplenomegaly or masses no CVA tenderness no abdominal bruits.? Extremities no cyanosis clubbing or edema.? Skin is warm and dry without rashes or lesions.? Neurological patient is alert and oriented x 4. Motor and sensory grossly intact.? Gait is normal. Course Vital Signs Vital signs: Vital Signs Temperature 36.3 C L 02/09/25 15:40 Pulse Rate 88 02/09/25 15:40 Respiratory Rate 20 02/09/25 15:40 Blood Pressure 126/83 02/09/25 15:40 Pulse Oximetry 95 02/09/25 15:40 Oxygen Delivery Room Air 02/09/25 15:40 Temperature 36.3 C L 02/09/25 15:40 Pulse Rate 81 02/09/25 18:35 Respiratory Rate 14 02/09/25 18:35 Blood Pressure 145/79 H 02/09/25 18:35 Pulse Oximetry 97 02/09/25 18:35 Oxygen Delivery Room Air 02/09/25 16:30 MDM - Chest Pain MDM Narrative Medical decision making narrative: Patient Placed in room 1 history and physical was performed. Chest x-ray showed no active disease he had a normal or unremarkable CBC coags CMP magnesium troponin BNP. Second troponin was normal Independent Historian: ? patient Differential Dx includes but not limited to: Medications were Reviewed:? ? Medications treatments given: aspirin 324 mg Independently Interpreted by me:? ?? EKG shows sinus rhythm at rate 80 with left anterior fascicular block. No acute ST T wave abnormalities impression abnormal EKG as independently interpreted by me. ? External Source Review:?? Medical conditions/social Situation Impacting Patients Care:?? Shared decision Making:? evaluation was discussed all questions were asked and answered patient agreed with the plan. Discussed with ? Clinical impression:? ? atypical chest pain ? Patient disposition: ? discharge home ? Condition at discharge: stable Lab Data 02/09/25 16:09 02/09/25 16:09 Labs: Lab Results 02/09/25 02/09/25 02/09/25 Range/Units 16:00 16:09 18:33 WBC 5.9 (4.8-10.8) K/mm3 RBC 4.84 (4.70-6.10) M/mm3 Hgb 15.5 (14.0-18.0) g/dL Hct 44.5 (40.0-54.0) % MCV 91.9 (78.0-102.0) fL MCH 32.0 H (27.0-31.0) pg MCHC 34.8 (32-36) g/dL RDW 11.7 (11.6-14.4) % Plt Count 233 (150-420) K/mm3 MPV 10.0 (8.7-11.0) fl PT 10.3 (9.50-12.1) Seconds INR 0.9 APTT 27.8 (23.9-30.70) Sec D-Dimer 0.19 (0.19-0.50) mg/L Sodium 137 (137-145) mmol/L Potassium 3.9 (3.4-5.0) mmol/L Chloride 107 (98-107) mmol/L Carbon Dioxide 23 (22-30) mmol/L Anion Gap 7 (4-12) mmol/L BUN 18 (9-20) mg/dL Creatinine 1.20 (0.7-1.3) mg/dL Estim Creat Clear Calc 77 ml/min Estimated GFR > 60 (59 - ) Glucose 120 H (65-110) mg/dL Calculated Osmolality 286 (285-295) mOsm/kg Calcium 8.6 (8.4-10.2) mg/dL Magnesium 1.8 (1.6-2.3) mg/dL Total Bilirubin 0.6 (0.2-1.3) mg/dL AST 29 (17-59) U/L ALT 27 (6-50) U/L Alkaline Phosphatase 59 (38-126) U/L Troponin I < 0.012 < 0.012 (0.000-0.034) ng/mL NT-Pro-B Natriuret Pep < 20 (19.9-100) pg/mL Total Protein 6.9 (6.3-8.2) g/dL Albumin 4.0 (3.5-5.1) g/dL Lipase 165 (23-300) U/L Discharge Plan Discharge Clinical Impression: Acute chest pain, Atypical chest pain Patient Disposition: Home Condition: Stable Instructions: Antibiotic Form, Chest Pain (ED) Additional Instructions: follow-up with your primary care provider. Return if you get worse or develops any new symptoms. Patient Language: Norwegian Prescriptions: No Action levetiracetam 500 mg Tablet 1,500 mg PO BID Daily Multivitamin-Minerals Tablet 1 tablet PO DAILY orphenadrine citrate 100 mg tablet extended release 100 mg PO BID PRN (Reason: pain) Qty: 20 0RF acetaminophen 325 mg capsule 325 mg PO Q6H PRN (Reason: Pain) prednisone 10 mg tablet 10 mg PO DIRECTED Qty: 15 0RF Rx Instructions: 5-4-3-2-1 lisinopril 10 mg tablet See Rx Instructions .ROUTE .COMPLEX Qty: 90 0RF Dose Instruction: TAKE ONE TABLET BY MOUTH DAILY Rx Instructions: TAKE ONE TABLET BY MOUTH DAILY trazodone 50 mg tablet 50 mg PO QHS PRN (Reason: insomnia) Qty: 30 0RF Follow-up/Referrals: Manuel Rangel DO [Primary Care Provider] -
[2025-02-09 16:13] LABS: Hematocrit 44.5 % (40.0-54.0); Hemoglobin 15.5 g/dL (14.0-18.0); Mean Corpuscular HGB Conc 34.8 g/dL (32-36); Mean Corpuscular Hemoglobin 32.0 pg (27.0-31.0); Mean Corpuscular Volume 91.9 fL (78.0-102.0); Platelet Count Result 233 K/mm3 (150-420); Red Blood Count 4.84 M/mm3 (4.70-6.10); White Blood Count 5.9 K/mm3 (4.8-10.8)
--- OUTSIDE RECORDS SUMMARY | 2025-02-09 16:18 | XMS_ITS | Clinical Summary ---
Author Organization [facility] Address [address] [place] [address] Care Team Providers Care Tool And Die Maker/Designer Name Role Phone Manuel Rangel DO Primary [...] 12/31/2024 9:00 AM CDT Office Visit [facility] [address] [place] [phone] Uriel Rodriguez MD Seminoma of testis, unspecified laterality (HCC) (Primary Dx); Seminoma of left testis (HCC) 12/31/2024 8:30 AM CDT Lab [facility] [address] [address] Seminoma of left testis (HCC) 12/31/2024 6:17 AM CDT - 12/31/2024 11:59 PM CDT Hospital Encounter [facility] Radiology at [facility] [address] [place] [address] Seminoma of left testis (HCC) Discharge Disposition: Discharge to home or self care from Last 3 Months Immunizations Immunization Administration Dates Next Due Influenza, Trivalent, IM (MDV) 05/08/2012 Influenza, Unspecified 06/03/2020 Pneumococcal Polysaccharide PPV23 10/01/2014 Surgical History Surgery Date Site/Laterality Comments MI ORCHIECTOMY RADICAL TUMOR INGUINAL APPROACH Radical Orchiectomy [...] on file Legal Sex Male 9:12 PM PLASTERER STUCCO Gender Identity Not on file Sexual Orientation [...] Procedure Name Priority Date/Time Associated Diagnosis Comments [id number], TUMOR MARKER Routine 12/31/2024 7:28 AM CDT Seminoma of left testis (HCC) HCG, BLOOD, QUANTITATIVE Routine 12/31/2024 7:28 AM CDT Seminoma of left testis (HCC) LACTATE DEHYDROGENASE Routine 12/31/2024 7:28 AM CDT Seminoma of left testis (HCC) CT ABDOMEN PELVIS WO CONTRAST Schedule Routine, Read Routine (OP Routine) 12/31/2024 7:00 AM CDT Seminoma of left testis (HCC) PSA SCREEN Routine 06/22/2020 7:37 AM PLASTERER STUCCO from Last 3 Months or Most Recently Relevant to Health Maintenance Results * [id number]-2-Ayaltoijpir, Tumor Marker (12/31/2024 7:28 AM CDT) alpha [...] 2018;57:783-797 Amber Gooden et al. Clin Chem 2014;[id number]. Current interpretive data was last revised 2022. Blood 12/31/2024 7:28 AM CDT 12/31/2024 8:33 AM CDT Lavonne Roman LAB BLOOD ORDERABLES Fin al Result Performing Organization Address [facility] [place] [address] * hCG, blood, quantitative (12/31/2024 7:28 AM [...] ORDERABLES Fin al Result Performing Organization Address [facility] de Phone Number [facility] Department [place] [address] * Lactate dehydrogenase (LD) (12/31/2024 7:28 AM CDT) Lactate dehydrogenase (LDH) 150 100 - 250 Units/L Comment:Testing performed by : [facility], [address] [place] [address] Blood 12/31/2024 7:28 AM CDT 12/31/2024 7:28 AM CDT us Lavonne Roman UI ARCHITECT LAB BLOOD ORDERABLES Fin al Result SHAMAR [facility] [place] [address] * CT Abdomen Pelvis WO Contrast (12/31/2024 [...] Result * PSA screen (06/22/2020 7:37 AM PLASTERER STUCCO) PSA-Total 0.34 <=3.90 ng/mL SHAMAR JOHNS Comment: Interpretive Data AGE SEX REFERENCE INTERVAL 0 minutes-150 years Female None 0 minutes-49 years Male None 50-59 years Male 0-3.90 60-69 years Male 0-5.40 70-79 years Male 0-6.20 80-150 years Male 0-6.20 Current interpretive data last revised 2018. Blood specimen (specimen) 06/22/2020 7:37 AM PLASTERER STUCCO 06/22/2020 8:39 AM PLASTERER STUCCO Uriel Rodriguez MD LAB BLOOD ORDERABLES Final Result SHAMAR JOHNS [facility] Department [place] [address] from Last 3 Months or Most Recently Relevant to Health Maintenance Insurance [facility] MEDICARE ADVANTAGE MEDICARE [facility] MEDICARE ADVANTAGE [facility] MEDICARE ADVANTAGE IDPA Care Teams Tool And Die Maker/Designer Relationship Specialty Start Date End Date Manuel Rangel DO [address] [place] [address] PCP - General 03/13/22
--- OUTSIDE RECORDS SUMMARY | 2025-02-09 16:18 | XMS_ITS | Referral Summary ---
Author Organization [facility] al Address [address] [place] [address] Care Team Providers Care Longwall Machine Operator Helper Name Role Phone Manuel Rangel DO Primary Care Provider Encounters Date Type Department Care Team Description 12/31/2024 8:30 AM CDT Lab [facility] [address] [place] [address] Seminoma of left testis (HCC) 12/31/2024 9:00 AM CDT Office Visit [facility] Oncology [address] [place] [phone] Uriel Rodriguez MD Seminoma of testis, unspecified laterality (HCC) (Primary Dx); Seminoma of left testis (HCC) 12/31/2024 6:17 AM CDT - 12/31/2024 11:59 PM CDT Hospital Encounter [facility] at [facility] [address] [place] [address] Seminoma of left testis (HCC) Discharge Disposition: [...] on file Legal Sex Male 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 Gender Identity Not on file Sexual Orientation [...] Procedure Name Priority Date/Time Associated Diagnosis Comments [id number], TUMOR MARKER Routine 12/31/2024 7:28 AM CDT Seminoma of left testis (HCC) HCG, BLOOD, QUANTITATIVE Routine 12/31/2024 7:28 AM CDT Seminoma of left testis (HCC) LACTATE DEHYDROGENASE Routine 12/31/2024 7:28 AM CDT Seminoma of left testis (HCC) CT ABDOMEN PELVIS WO CONTRAST Schedule Routine, Read Routine (OP Routine) 12/31/2024 7:00 AM CDT Seminoma of left testis (HCC) PSA SCREEN Routine 06/22/2020 7:37 AM DIRECTOR 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 from Last 3 Months or Most Recently Relevant to Health Maintenance Results * [id number]-5-Vfragqhcwsd, Tumor Marker (12/31/2024 7:28 AM CDT) alpha [...] 2018;57:[id number] Amber Gooden et al. Clin Chem 2014;[id number]. Current interpretive data was last revised 2022. Blood 12/31/2024 7:28 AM CDT 12/31/2024 8:33 AM CDT us Lavonne Roman NP LAB BLOOD ORDERABLES Fin al Result SHAMAR [facility] Department [place] [address] * hCG, blood, quantitative (12/31/2024 [...] ORDERABLES Fin al Result Performing Organization Address [facility] Co de Phone Number [facility] Department [place] [address] * Lactate dehydrogenase (LD) (12/31/2024 7:28 AM CDT) Lactate dehydrogenase (LDH) 150 100 - 250 Units/L Comment:Testing performed by : [address] [address] Blood 12/31/2024 7:28 AM CDT 12/31/2024 7:28 AM CDT Lavonne Roman NP LAB BLOOD ORDERABLES Fin al Result Performing Organization Address [facility] de Phone Number [facility] Department [place] [address] * CT Abdomen Pelvis WO Contrast (12/31/2024 [...] Result * PSA screen (06/22/2020 7:37 AM DIRECTOR 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) PSA-Total 0.34 <=3.90 ng/mL SHAMAR JOHNS Comment: Interpretive Data AGE SEX REFERENCE INTERVAL 0 minutes-150 years Female None 0 minutes-49 years Male None 50-59 years Male 0-3.90 60-69 years Male 0-5.40 70-79 years Male 0-6.20 80-150 years Male 0-6.20 Current interpretive data last revised 2018. Blood specimen (specimen) 06/22/2020 7:37 AM DIRECTOR 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 06/22/2020 8:39 AM DIRECTOR 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 Uriel Rodriguez MD LAB BLOOD ORDERABLES Final Result Performing Organization Address City/State/[facility] Co de Phone Number [facility] Department [place] [address] from Last 3 Months or Most Recently Relevant to Health Maintenance Insurance [facility] MEDICARE ADVANTAGE [facility] Address[facility] [address] [place] [address] MEDICARE [facility] MEDICARE ADVANTAGE [facility]ICARE ADVANTAGE [facility] Address: [address] [address] [place] [address] IDPA Care Teams Longwall Machine Operator Helper Relationship Specialty Start Date End Date Manuel Rangel DO [address] [place] [address] PCP - General 03/13/22
--- OUTSIDE RECORDS SUMMARY | 2025-02-09 16:18 | XMS_ITS ---
Author Organization [facility] Address [address] [place] [address] Care Team Providers Care Clinical Coordinator Name Role Phone Manuel Rangel DO Primary [...]
--- OUTSIDE RECORDS SUMMARY | 2025-02-09 16:18 | XMS_ITS | Encounter Summary ---
Author Organization [facility] Address [address] [place] [address] Phone Care Team Providers Care Blasting Coal Miner Name Role Phone Augustin Parrish MD Primary Care Provider [phone] Giuseppe Pemberton DO Primary Care Provider + [phone] Augustin Parrish MD Primary Care Provider [phone] Giuseppe Pemberton DO Primary Care Provider + 5-2221 Augustin Parrish MD Primary Care Provider + [phone] Giuseppe Pemberton DO Primary Care Provider + 5-2221 Augustin Parrish MD Primary Care Provider [phone] Giuseppe Pemberton DO Primary Care Provider + 5-2221 Augustin Parrish MD Primary Care Provider + [phone] Giuseppe Pemberton DO Primary Care Provider + 5-2221 Augustin Parrish MD Primary Care Provider [phone] Giuseppe Pemberton DO Primary Care Provider + 5-1 Augustin Parrish MD Primary Care Provider [phone] Augustin Parrish MD Primary Care Provider [phone] Giuseppe Pemberton DO Primary Care Provider +[phone] Augustin Parrish MD Primary Care Provider [phone] Giuseppe Pemberton DO Primary Care Provider +[phone] Augustin Parrish MD Primary Care Provider [phone] Giuseppe Pemberton DO Primary Care Provider +28 Augustin Parrish MD Primary Care Provider [phone] Giuseppe Pemberton DO Primary Care Provider +[phone] Augustin Parrish MD Primary Care Provider [phone] Miscellaneous, Not In File Primary Care Provider Unavailable No, Physician Primary Care Provider [phone] Manuel Rangel DO Primary Care Provider Encounter Details Date Type Department Care Team (Latest Contact Info) Description 1965 Orders Only [facility] Scanning, Provider Social History Tobacco Use Types Packs/Day Years Used Date Smoking Tobacco: Never Assessed Sex and Gender Information Value Date Recorded Sex Assigned at Not on file Legal Sex Male 9:12 PM 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 CLERK Gender Identity Not on file Sexual [...] on filedocumented in this encounter Care Teams Blasting Coal Miner Relationship Specialty Start Date End Date Augustin Parrish MD [address] [place] [address] PCP - General 11/08/16 11/26/16 Giuseppe Pemberton DO [address] [place] [address] PCP - General 11/27/16 01/01/17 Augustin Parrish MD [address] [place] [address] PCP - General 01/02/17 01/08/17 Giuseppe Pemberton DO [address] [place] [address] PCP - General 01/09/17 01/09/17 Augustin Parrish MD [address] [place] [address] PCP - General 01/10/17 01/24/17 Giuseppe Pemberton DO [address] [place] [address] PCP - General 01/25/17 02/06/17 Augustin Parrish MD [address] [place] [address] PCP - General 02/07/17 04/30/17 Giuseppe Pemberton DO [address] [place] [address] PCP - General 05/01/17 05/01/17 Augustin Parrish MD [address] [place] [address] PCP - General 05/02/17 05/21/17 Giuseppe Pemberton DO [address] [place] [address] PCP - General 05/22/17 07/30/17 Augustin Parrish MD [address] [place] [address], [place] [address] PCP - General 07/31/17 08/15/17 Giuseppe Pemberton DO [address] [place] [address] PCP - General 08/16/17 08/22/17 Augustin Parrish MD [address] [facility] [address] [place] [address], [place] [address] PCP - General 08/23/17 08/25/17 Augustin Parrish MD [address] [facility] [address] [place] [address], [place] [address] PCP - General 08/26/17 08/27/17 Giuseppe Pemberton DO [address] [place] [address] PCP - General 08/28/17 11/24/17 Augustin Parrish MD [address] [facility] [address] [place] [address], [place] [address] PCP - General 11/25/17 12/04/17 Giuseppe Pemberton DO [address] [place] [address] PCP - General Internal Medicine 12/05/17 12/08/17 Augustin Parrish MD [address], [place] [id number] PCP - General 12/09/17 12/10/17 Giuseppe Pemberton DO [address] [place] [address] PCP - General 12/11/17 12/15/17 Augustin Parrish MD [address] [place] [address] PCP - General 12/16/17 12/17/17 Giuseppe Pemberton DO [address] [place] [address] PCP - General 12/18/17 06/17/18 Augustin Parrish MD [address] [place] [address] PCP - General 06/18/18 12/15/20 Miscellaneous, Not In File PCP - General 12/16/20 No, Physician PCP - General 04/24/21 03/12/22 Manuel Rangel DO [address] [place] [address] PCP - General 03/13/22 documented as of this encounter
--- OUTSIDE RECORDS SUMMARY | 2025-02-09 16:18 | XMS_ITS | Clinical Summary ---
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
[2025-02-09 16:28] LABS: Alanine Aminotransferase 27 U/L (6-50); Albumin Level 4.0 g/dL (3.5-5.1); Alkaline Phosphatase 59 U/L (38-126); Anion Gap 7 mmol/L (4-12); Aspartate Amino Transferase 29 U/L (17-59); Bilirubin,Total 0.6 mg/dL (0.2-1.3); Blood Urea Nitrogen 18 mg/dL (9-20); Calcium 8.6 mg/dL (8.4-10.2); Carbon Dioxide 23 mmol/L (22-30); Chloride 107 mmol/L (98-107); Estimated CRCL calculation 77 ml/min; Estimated Glomerular Filt Rate > 60; Glucose 120 mg/dL (65-110); INR 0.9; Lipase 165 U/L (23-300); Magnesium 1.8 mg/dL (1.6-2.3); Osmolality Calculated 286 mOsm/kg (285-295); Partial Thromboplastin Time 27.8 Sec (23.9-30.70); Potassium 3.9 mmol/L (3.4-5.0); Prothrombin Time 10.3 Seconds (9.50-12.1); Sodium 137 mmol/L (137-145); Total Protein 6.9 g/dL (6.3-8.2)
[2025-02-09 16:40] LABS: Troponin I < 0.012 ng/mL (0.000-0.034)
[2025-02-09 16:56] LABS: NT Pro B Type Natriuretic Pept < 20 pg/mL (19.9-100)
[2025-02-09] MEDS: ASPIRIN 81 MG CHEWABLE TABLET 324 MG PO (18:04)
[2025-02-09 18:59] LABS: Troponin I < 0.012 ng/mL (0.000-0.034)
== END 2025-02-09 19:11 | disposition home or self-care (01) ==
PROVIDERS: Emergency Provider Emergency Medicine; PCP Family Medicine
DX: R07.89 Other chest pain (principal); I10 Essential (primary) hypertension; Z85.47 Personal history of malignant neoplasm of testis
CPT/HCPCS: 36415; 71045; 80053; 83690; 83735; 83880; 84484; 85027; 85380; 85610; 85730; 93005; 99284; A9270

== ENCOUNTER 2025-03-08 08:08 | Outpatient (RCR) | payer MEDICARE, SELFPAY ==
--- NOTE | 2025-03-08 08:48 | PTOPEVAL1 ---
Assessment and note entered by Raman Arnold Evaluation Information Assessment Status Evaluation ICD-10 Condition Codes (PT) Pain in low back M54.50,Radiculopathy, lumbar region M54.16 Onset 01/06/25 Subjective Information Pt. reports that his low back has been painful for the past couple months. He reports having a gradual onset of back pain. He states that he did not have x-rays. He reports that pain is most notable after getting up out of chair. He states that he also has increased pain with prolonged standing. He reports that pain is increased with any type of lifting and states that making his bed can be difficult due to pain. He reports that he enjoys bowling, but cannot currently bowl due to pain. He reports that he sleeps pretty good despite pain, but pain with occasionally wake him. He reports that his goal is to reduce his low back pain. Reported Pain Level Pain Score 3: Self Report Assessment PT Clinical Summary Pt. is a 59 year old male who enters the clinic with a diagnosis of low back pain. He presents with impaired postural awareness, impaired proximal l.e. strength, impaired flexibility, and functional decline. Continued skilled PT is indicated in order to improve these areas to allow the pt. to be able to complete all IADL's with improved comfort and efficiency. Plan of Care Interventions Electrical Stimulation,Gait Training,Hot Pack/Cold Pack,Manual Therapy,Mechanical Traction,Neuro Re- education,Patient/Caregiver Education,Therapeutic Activities,Therapeutic Exercise PT Services Indicated Yes Treatment Frequency and 3x/week x 12 visits Duration These treatments will address the objective and functional deficits as defined above. The patient will be advanced safely and appropriately in order for the patient to progress towards his/her prior level of function. Additional exercises will be introduced and as well as a comprehensive home exercise program upon discharge, if needed, ?to ensure carryover of functional gains achieved in the clinic. This treatment plan has been reviewed and agreement upon by the patient.
--- NOTE | 2025-03-29 08:38 | OPREHPOC ---
Outpatient Therapy Plan of Care This is a Multidisciplinary Plan of Care that may contain components documented by all disciplines (PT, OT, and ST.) PT Problem 1 PT Problem #1 Knowledge Deficit PT Goal 1 Goal / Goal Update Pt. will be independent with a HEP focusing on l.e . strength and core stability. Target Visit 2 Progress Met PT Problem 2 PT Problem #2 Pain PT Goal 1 Goal / Goal Update Pt. will report 2/10 pain at worst with prolonged standing activities. met Pt. will improve his Oswestry score to less than 5 % limitation Pt. will report being able to sleep throughout the night without pain disturbance. Target Visit 12 Progress Partially Met PT Problem 3 PT Problem #3 Impaired Flexibility PT Goal 1 Goal / Goal Update pt. will present at 15 degrees from full knee extension Target Visit 12 PT Problem 4 PT Problem #4 Impaired Functional Mobility PT Goal 1 Goal / Goal Update Pt. will be able to safely lift 15# from floor to waist without pain and proper mechanics. Pt. will demonstrate the ability to participate in 20-30 minutes of standing therapeutic activities without report pain increase. met Target Visit 12 Progress Partially Met PT Problem 5 PT Problem #5 Impaired Strength PT Goal 1 Goal / Goal Update Pt. will present with 4+/5 hip abduction and hip extension strength on right and left. Target Visit 12
--- NOTE | 2025-03-29 08:39 | PTOPPROGNS ---
Assessment and note entered by JT File, PT Evaluation Information Assessment Status Progress ICD-10 Condition Codes (PT) Pain in low back M54.50,Radiculopathy, lumbar region M54.16 Onset 01/06/25 Subjective Information patient reports he feels Good today. he reports he has no pain in the lower back, and has been feeling good lately. he reports he has been compliant with his HEP at home. he reports he reports he has full mobility of the back without pain. Assessment PT Clinical Summary mr. frank presents to skilled PT services for his 10th skilled PT visit today. he reports no pain in the lower back, and improvement in mobility without pain. he has met his HEP goal, and partially met other goals thus far. 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 Plan of Care Interventions Electrical Stimulation,Gait Training,Hot Pack/Cold Pack,Manual Therapy,Mechanical Traction,Neuro Re- education,Patient/Caregiver Education,Therapeutic Activities,Therapeutic Exercise PT Services Indicated Yes Treatment Frequency and continue per initial POC Duration These treatments will address the objective and functional deficits as defined above. The patient will be advanced safely and appropriately in order for the patient to progress towards his/her prior level of function. Additional exercises will be introduced and as well as a comprehensive home exercise program upon discharge, if needed, ?to ensure carryover of functional gains achieved in the clinic. This treatment plan has been reviewed and agreement upon by the patient.
--- NOTE | 2025-04-02 08:53 | OPREHPOC ---
Outpatient Therapy Plan of Care This is a Multidisciplinary Plan of Care that may contain components documented by all disciplines (PT, OT, and ST.) PT Problem 1 PT Problem #1 Knowledge Deficit PT Goal 1 Goal / Goal Update Pt. will be independent with a HEP focusing on l.e . strength and core stability. Target Visit 2 Progress Met PT Problem 2 PT Problem #2 Pain PT Goal 1 Goal / Goal Update Pt. will report 2/10 pain at worst with prolonged standing activities. met Pt. will improve his Oswestry score to less than 5 % limitation Pt. will report being able to sleep throughout the night without pain disturbance. Target Visit 12 Progress Met PT Problem 3 PT Problem #3 Impaired Flexibility PT Goal 1 Goal / Goal Update pt. will present at 15 degrees from full knee extension Target Visit 12 Progress Not Met PT Problem 4 PT Problem #4 Impaired Functional Mobility PT Goal 1 Goal / Goal Update Pt. will be able to safely lift 15# from floor to waist without pain and proper mechanics. met Pt. will demonstrate the ability to participate in 20-30 minutes of standing therapeutic activities without report pain increase. met Target Visit 12 Progress Met PT Problem 5 PT Problem #5 Impaired Strength PT Goal 1 Goal / Goal Update Pt. will present with 4+/5 hip abduction and hip extension strength on right and left. Target Visit 12 Progress Met
--- NOTE | 2025-04-02 08:53 | PTOPDC ---
Assessment and note entered by JT File, PT Evaluation Information Assessment Status Discharge ICD-10 Condition Codes (PT) Pain in low back M54.50,Radiculopathy, lumbar region M54.16 Onset 01/06/25 Subjective Information patient reports he continues to feel really good. he reports he has had no pain. he reports he is returning to bowling. Reported Pain Level Pain Score 0: Self Report Assessment PT Clinical Summary mr. frank presents to skilled PT for his 12th skilled PT visit today. he has met all goals for skilled PT. he is compliant with his HEP at home, and will continue this on his own at home. Plan of Care PT Services Indicated Yes
== END 2025-04-02 14:45 | disposition home or self-care (01) ==
LOC: CHSPT 08:08
PROVIDERS: PCP Family Medicine; Visit Provider Family Medicine
DX: M54.59 Other low back pain (principal); M54.16 Radiculopathy, lumbar region
CPT/HCPCS: 97014; 97110; 97150; 97161; 97530; G0283

== ENCOUNTER 2025-03-25 02:15 | Emergency (ER) | payer MEDICARE, SELFPAY ==
--- OUTSIDE RECORDS SUMMARY | 2024-12-10 03:50 | XMS_ITS ---
Author Organization [facility] Address [address] [place], [place] [id number] Care Team Providers Care Fiberglass Model Maker Name Role Phone Manuel Rangel Primary Care Provider UnavailEVELYN Murdock Unavailable [phone] KALINA CHIU Unavailable [phone] REASON FOR VISIT *General care Encounters Encounter Location Date Provider Diagnosis [address] [id number] 12/10/2024 KALINA CHIU Plan Of Treatment No Information Progress Notes * MHOINDER BEAR FDOB: 6 (59 yo M)Acc No.[id number]:12/10/2024 Patient: MOHINDER SAPP Provider: Luciano CHIU :1965 A ge:59 Y S ex:Male Date:12/10/2024 [address] [id number] Pcp:Manuel Rangel Subjective: * Chief Complaints: * 1 . *General care. * Medical History: Objective: * Vitals: Assessment: Plan: * Treatment: * Billing Information: * Visit Code: * Procedure Codes: * Electronic signature of LIZA CHIU DPM on 03/25/2025 at 02:20 AM CDT Sign off status: Pending * Provider: Luciano CHIU Date: 12/10/2024 Generated for Magalyi ng/Fajadeng/eTransmitting on: 03/25/2025 02:20 AM CDT
--- OUTSIDE RECORDS SUMMARY | 2025-01-07 04:50 | XMS_ITS ---
Author Organization [facility] Address [address] [place], [place] [id number] Care Team Providers Care Tag Marker Name Role Phone Manuel Rangel Primary Care Provider EVELYN Brady Unavailable [phone] KALINA CHIU Unavailable [phone] Allergies Allergen (clinical drug ingredient) Drug/Non Drug Allergy documented on EMR Reaction Allergy Type Onset Date Status Iodinated contrast media (substance) IVP Dye, Iodine Containing (uncoded) Unknown Allergy 03/14/2020 active REASON FOR VISIT *General care Medications Medication SIG (Take, Route, Frequency, Duration) Notes Start Date End Date Status levETIRAcetam 500 MG Oral; Duration: 30 Days Active Fluticasone Propionate 50 MCG/ACT Nasal; Duration: 60 Days Act kris Lisinopril 10 MG Oral; Duration: 90 Days Active Clotrimazole 1 % 1 application Palliative Care Coordinator ally Once a day; Duration: 30 days 01/07/2025 07/05/2025 Active Amoxicillin-Pot Clavulanate 500-125 MG Oral; Duration: 7 Days Active Ammonium Lactate 12 % 1 application Exte rnally Twice a day 09/05/2023 Active Methocarbamol 500 MG Oral; Duration: 10 Days Active HYDROcodone-Acetaminophen 5-325 MG Oral; Duration: 7 Days Activ e Vital Signs Height 73.00 in 01/07/2025 Weight 280 lbs 01/07/2025 BMI 36.94 kg/m2 01/07/2025 Height-cm 185.42 cm 01/07/2025 Weight-kg 127.01 kg 01/07/2025 Encounters Encounter Location Date Provider Diagnosis [address] [id number] 01/07/2025 KALINA CHIU Tinea unguium B35.1 ; Pain in right toe(s) M79.674 ; Pain in left toe(s) M79.675 and Atherosclerosis of choctaw arteries of extremities with intermittent claudication, bilateral [...] toe(s) (ICD-10 - M79.675) 01/07/2025 Atherosclerosis of choctaw arteries of extremities with intermittent claudication, 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 - I70.213) Check and protect LE bilateral daily. Call if any changes or concerns. Plan Of Treatment Medication Medication Name Sig Start Date Stop Date Notes Clotrimazole 1 % 1 application Palliative Care Coordinator ally Once a day; Duration: 30 days 01/07/2025 [...] debris and necrotic tissue removed Atherosclerosis of choctaw ar teries of extremities with intermittent claudication, bilateral legs Check and protect LE bilateral daily. Call if any changes or concerns. Next Appt Details Follow Up: 10-12 Weeks, Reas on: At Risk Foot care, sooner if problems arise Progress Notes * MOHINDER BEAR FDOB: [birth year] (59 yo M)Acc No.[id number]:01/07/2025 Patient: MOHINDER SAPP Provider: Luciano CHIU :1965 A ge:59 Y S ex:Male Date:01/07/2025 [address] [facility] Pcp:Manuel Rangel Subjective: * Chief Complaints: [...] seen by Dr. Rangel was 12/2024., Initials [facility]. * ROS: G eneral / [...] reconciled with the patient * Allergies: I EPIC PRELUDE ANALYST Dye, Iodine Containing: Allergy - Onset Date 03/14/2020. Objective: * Vitals: W t:280lbs, Wt-k.01 kg, [...] - M79.675 4 . A therosclerosis of choctaw arteries of extremities with intermittent claudication, bilateral legs - I70.213 Plan: * Treatment: 2. A therosclerosis of choctaw arteries of extremities with intermittent claudication, bilateral legs Notes: Check and protect LE bilateral daily. Call if any changes or concerns. * Immunizations: Immunization record has been reviewed and updated. * Follow Up: 1 0-12 Weeks (Reason: At Risk Foot care, sooner if problems arise) * Billing Information: * Visit Code: 32569 Office Visit, Est Pt., Level 3. * Procedure Codes: * Electronic signature of LIZA CHIU DPM on 03/25/2025 at 02:21 AM CDT Sign off status: Pending * Provider: Luciano CHIU Date: 0 01/07/2025 Generated for Curtis mejia/Lani/Romeo on: 0 03/25/2025 02:21 AM CDT History and Physical Notes * [...]
--- OUTSIDE RECORDS SUMMARY | 2025-03-11 03:10 | XMS_ITS ---
Author Organization [facility] Address [address] [place], [place] [id number] Care Team Providers Care Audio Visual Collections Coordinator Name Role Phone Manuel Rangel Primary Care Provider UnavailEVELYN Murdock Unavailable [phone] KALINA CHIU Unavailable [phone] Allergies Allergen (clinical drug ingredient) Drug/Non Drug Allergy documented on EMR Reaction Allergy Type Onset Date Status Iodinated contrast media (substance) IVP Dye, Iodine Containing (uncoded) Unknown Allergy 03/14/2020 active REASON FOR VISIT *General care Medications Medication SIG (Take, Route, Frequency, Duration) Notes Start Date End Date Status Methocarbamol 500 MG Oral; Duration: 10 Days Active Amoxicillin-Pot Clavulanate 500-125 MG Oral; Duration: 7 Days Activ e Fluticasone Propionate 50 MCG/ACT Nasal; Duration: 60 Days Act kris HYDROcodone-Acetaminophen 5-325 MG Oral; Duration: 7 Days Activ e Ammonium Lactate 12 % 1 application Exte rnally Twice a day 09/05/2023 Active levETIRAcetam 500 MG Oral; Duration: 30 Days Active Lisinopril 10 MG Oral; Duration: 90 Days Active Clotrimazole 1 % 1 application Director Media ally Once a day; Duration: 30 days Active Vital Signs Height 73.00 in 03/11/2025 Weight 280 lbs 03/11/2025 BMI 36.94 kg/m2 03/11/2025 Height-cm 185.42 cm 03/11/2025 Weight-kg 127.01 kg 03/11/2025 Encounters Encounter Location Date Provider Diagnosis [address] [id number] 03/11/2025 KALINA CHIU Tinea unguium B35.1 ; Pain in right toe(s) M79.674 ; Pain in left toe(s) M79.675 and Atherosclerosis of [place] arteries of extremities with intermittent claudication, bilateral [...] toe(s) (ICD-10 - M79.675) 03/11/2025 Atherosclerosis of [place] arteries of extremities with intermittent claudication, 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 - I70.213) Check and protect LE bilateral daily. Call if any changes or concerns. Plan Of Treatment Medication Medication Name Sig Start Date Stop Date Notes Clotrimazole 1 % 1 application Director Media ally Once a day; Duration: 30 days Treatment [...] debris and necrotic tissue removed Atherosclerosis of [place] ar teries of extremities with intermittent claudication, bilateral legs Check and protect LE bilateral daily. Call if any changes or concerns. Next Appt Details Follow Up: 10-12 Weeks, Reas on: At Risk Foot care, sooner if problems arise Progress Notes * MOHINDER BEAR FDOB: [birth year] (59 yo M)Acc No.[id number]:03/11/2025 Patient: MOHINDER SAPP Provider: Luciano CHIU :1965 A ge:59 Y S ex:Male Date:03/11/2025 [address] [facility] Pcp:Manuel Rangel Subjective: * Chief Complaints: * [...] izziness, gait abnormality, headache. * Medical History: N o Reported Medical History.Medical History Verified. * Surgical History: D enies Past Surgical History. * Hospitalization/Major Diagno stic Procedure: D enies Past Hospitalization. * Family History: F ather: PRN - [...] 1 application Externally Twice a day , Taking Clotrimazole 1 % Cream 1 application Externally Once a day , stop date 07/05/2025, Medication List reviewed and reconciled with the patient * Allergies: I SEWING MACHINE TESTER Dye, Iodine Containing: Allergy - Onset Date [...] - M79.675 4 . A therosclerosis of [place] arteries of extremities with intermittent claudication, bilateral legs - I70.213 Plan: * Treatment: 2. A therosclerosis of [place] arteries of extremities with intermittent claudication, bilateral [...] CHIU Date: 0 03/11/2025 Generated for Curtis mejia/Faxing/eTransmitting on: 0 03/25/2025 02:21 AM CDT History [...]
[2025-03-25 02:21] VITALS: BP 119/83; PULSE 79; RESP 18; TEMP 36.1; O2SAT 96
--- OUTSIDE RECORDS SUMMARY | 2025-03-25 02:21 | XMS_ITS | Clinical Summary ---
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
--- OUTSIDE RECORDS SUMMARY | 2025-03-25 02:21 | XMS_ITS ---
Author Organization [facility] Address [address] [place] [address] Care Team Providers Care Distillery Laborer Name Role Phone Manuel Rangel DO Primary [...]
--- OUTSIDE RECORDS SUMMARY | 2025-03-25 02:21 | XMS_ITS | Patient Health Record ---
Author Organization [facility] Address [address] [place], [place] [address] Care Team Providers Care College Teacher Name Role Phone Manuel Rangel Primary Care Provider UnavailEVELYN Murdock Unavailable [phone] MILARIC YOST Unavailable [phone] KALINA CHIU Unavailable [phone] Allergies Allergen (clinical drug ingredient) Drug/Non Drug [...] 10 MG Oral; Duration: 90 Days Active Methocarbamol 500 MG Oral; Duration: 10 Days Active Amoxicillin-Pot Clavulanate 500-125 MG Oral; Duration: 7 Days Activ e Fluticasone Propionate 50 MCG/ACT Nasal; Duration: 60 Days Act kris Clotrimazole 1 % 1 application Salon Stylist ally Once a day; Duration: 30 days Active HYDROcodone-Acetaminophen 5-325 MG Oral; Duration: 7 Days Activ e Ammonium Lactate 12 % 1 application Exte rnally Twice a day 09/05/2023 Active Immunizations Vaccine Route Administration Date Status Comme nts Pneumococcal polysaccharide PPV23 Unknown 10/01/2014 Ad ministered Influenza, unspecified formulation Unknown 06/03/2020 A dministered Influenza, seasonal, injecta ble, preservative free, 3 yrs and above Unknown 05/08/2023 Administered Influenza (split), 3 yrs and above Unknown 05/08/2012 A dministered Vital Signs Height-cm 185.42 cm 03/11/2025 Weight-kg 127.01 kg 03/11/2025 Height 73.00 in 03/11/2025 Weight 280 lbs 03/11/2025 BMI 36.94 kg/m2 03/11/2025 Encounters Encounter Location Date Provider Diagnosis [address] [id number] 01/07/2025 KALINA APPLE Tinea unguium B35.1 ; Pain in right toe(s) M79.674 ; Pain in left toe(s) M79.675 and Atherosclerosis of [place] arteries of extremities with intermittent claudication, bilateral legs I70.[address] [id number] 03/11/2025 KALINA CHIU Tinea unguium B35.1 ; Pain in right toe(s) M79.674 ; Pain in left toe(s) M79.675 and Atherosclerosis of [place] arteries of extremities with intermittent claudication, bilateral legs I70.[address] [id number] 06/04/2024 RIC DAVYDOV Tinea unguium B35.1 ; Xerosis cutis L85.3 ; Unspecified atherosclerosis of [place] arteries of extremities, bilateral legs I70.203 ; Other hammer toe(s) (acquired), right foot M20.41 ; Other hammer toe(s) (acquired), left foot M20.42 ; Pain in right toe(s) M79.674 and Pain in left toe(s) M79.[address] [id number] 08/06/2024 EVELYN SNOOK Tinea unguium B35.1 ; Pain in right toe(s) M79.674 ; Pain in left toe(s) M79.675 and Atherosclerosis of [place] arteries of extremities with intermittent claudication, bilateral legs I70.[address] [id number] 2024 EVELYN SNOOK Tinea unguium B35.1 ; Pain in right toe(s) M79.674 ; Pain in left toe(s) M79.675 and Atherosclerosis of [place] arteries of extremities with intermittent claudication, bilateral [...] in right toe(s) (ICD-10 - M79.674) 03/11/2025 Tinea unguium (ICD-10 - B35.1) FUNGAL [...] in left toe(s) (ICD-10 - M79.675) 01/07/2025 Pain in left toe(s) (ICD-10 - M79.675) 2024 Pain in left toe(s) (ICD-10 - M79.675) 08/06/2024 Pain in left toe(s) (ICD-10 - M79.675) 06/04/2024 Unspecified atherosclerosis of [place] arteries of extremities, [...] conservative options were emphasized. 08/06/2024 Atherosclerosis of [place] arteries of extremities with intermittent claudication, 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 - I70.213) 2024 Atherosclerosis of [place] arteries of extremities with intermittent claudication, 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 - I70.213) 01/07/2025 Atherosclerosis of [place] arteries of extremities with intermittent claudication, 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 - I70.213) Check and protect LE bilateral daily. Call if any changes or concerns. 03/11/2025 Atherosclerosis of [place] arteries of extremities with intermittent claudication, bilateral [...] Insured Coverage Start Date Coverage End Date [facility] [address] [address] [place], [place] [id number] MOHINDER BEAR Self - patient is the insured
--- OUTSIDE RECORDS SUMMARY | 2025-03-25 02:21 | XMS_ITS | Encounter Summary ---
Author Organization [facility] Address [address] [place] [address] Phone Care Team Providers Care Humid System Operator Name Role Phone Augustin Parrish MD Primary Care Provider [phone] Giuseppe Pemberton DO Primary Care Provider + [phone] Augustin Parrish MD Primary Care Provider [phone] Giuseppe Pemberton DO Primary Care Provider + [phone] Augustin Parrish MD Primary Care Provider + [phone] Giuseppe Pemberton DO Primary Care Provider + [phone] Augustin Parrish MD Primary Care Provider [phone] Giuseppe Pemberton DO Primary Care Provider + [phone] Augustin Parrish MD Primary Care Provider + [phone] Giuseppe Pemberton DO Primary Care Provider + [phone] Augustin Parrish MD Primary Care Provider [phone] Giuseppe Pemberton DO Primary Care Provider + [phone] Augustin Parrish MD Primary Care Provider [phone] Augustin Parrish MD Primary Care Provider [phone] Giuseppe Pemberton DO Primary Care Provider +[phone] Augustin Parrish MD Primary Care Provider [phone] Giuseppe Pemberton DO Primary Care Provider +[phone] Augustin Parrish MD Primary Care Provider [phone] Giuseppe Pemberton DO Primary Care Provider +[phone] Augustin Parrish MD Primary Care Provider [phone] Giuseppe Pemberton DO Primary Care Provider +[phone] Augustin Parrish MD Primary Care Provider [phone] Miscellaneous, Not In File Primary Care Provider Unavailable No, Physician Primary Care Provider [phone] Manuel Rangel DO Primary Care Provider Encounter Details Date Type Department Care Team (Latest Contact Info) Description 1965 Orders Only [facility] Scanning, Provider Social History Tobacco Use Types Packs/Day Years Used Date Smoking Tobacco: Never Assessed Sex and Gender Information Value Date Recorded Sex Assigned at Not on file 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 Gender Identity Not on file Sexual [...] on filedocumented in this encounter Care Teams Humid System Operator Relationship Specialty Start Date End Date Augustin Parrish MD [address] [place] [address] PCP - General 11/08/16 11/26/16 Giuseppe Pemberton DO [address] [place] [address] PCP - General 11/27/16 01/01/17 Augustin Parrish MD [address] [place] [address] PCP - General 01/02/17 01/08/17 Giuseppe Pemberton DO [address] [place] [address] PCP - General 01/09/17 01/09/17 Augustin Parrish MD [address] [place] [address] PCP - General 01/10/17 01/24/17 Giuseppe Pemberton DO [address] [place] [address] PCP - General 01/25/17 02/06/17 Augustin Parrish MD [address] [place] [address] PCP - General 02/07/17 04/30/17 Giuseppe Pemberton DO [address] [place] [address] PCP - General 05/01/17 05/01/17 Augustin Parrish MD [address] [place] [address] PCP - General 05/02/17 05/21/17 Giuseppe Pemberton DO [address] [place] [address] PCP - General 05/22/17 07/30/17 Augustin Parrish MD [address] [place] [address], [place] [address] PCP - General 07/31/17 08/15/17 Giuseppe Pemberton DO [address] [place] [address] PCP - General 08/16/17 08/22/17 Augustin Parrish MD [address] [facility] [address] [place] [address], [place] [address] PCP - General 08/23/17 08/25/17 Augustin Parrish MD [address] [facility] [address] [place] [address], [place] [address] PCP - General 08/26/17 08/27/17 Giuseppe Pemberton DO [address] [place] [address] PCP - General 08/28/17 11/24/17 Augustin Parrish MD [address] [facility] [address] [place] [address], [place] [address] PCP - General 11/25/17 12/04/17 Giuseppe Pemberton DO [address] [place] [address] PCP - General Internal Medicine 12/05/17 12/08/17 Augustin Parrish MD [address], [place] [address] PCP - General 12/09/17 12/10/17 Giuseppe Pemberton DO [address] [place] [address] PCP - General 12/11/17 12/15/17 Augustin Parrish MD [address] [place] [address] PCP - General 12/16/17 12/17/17 Giuseppe Pemberton DO [address] [place] [address] PCP - General 12/18/17 06/17/18 Augustin Parrish MD [address] [place] [address] PCP - General 06/18/18 12/15/20 Miscellaneous, Not In File PCP - General 12/16/20 No, Physician PCP - General 04/24/21 03/12/22 Manuel Rangel DO [address] [place] [address] PCP - General 03/13/22 documented as of this encounter
--- OUTSIDE RECORDS SUMMARY | 2025-03-25 02:21 | XMS_ITS | Clinical Summary ---
Author Organization [facility] Address [address] [place] [address] Care Team Providers Care Programmer Analyst Name Role Phone Manuel Rangel DO Primary [...] Description 12/31/2024 9:00 AM CDT Office Visit [facility] Medicine Oncology [address] [place] [phone] Uriel Rodriguez MD Seminoma of testis, unspecified laterality (HCC) (Primary Dx); Seminoma of left testis (HCC) 12/31/2024 8:30 AM CDT Lab [facility] Cancer [address] [address] Seminoma of left testis (HCC) 12/31/2024 6:17 AM CDT - 12/31/2024 11:59 PM CDT Hospital Encounter [facility] Radiology at [facility] [address] [place] [address] Seminoma of left testis (HCC) Discharge Disposition: [...] on file 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 Gender Identity Not on file Sexual Orientation [...] Procedure Name Priority Date/Time Associated Diagnosis Comments [id number], TUMOR MARKER Routine 12/31/2024 7:28 AM CDT Seminoma of left testis (HCC) HCG, BLOOD, QUANTITATIVE Routine 12/31/2024 7:28 AM CDT Seminoma of left testis (HCC) LACTATE DEHYDROGENASE Routine 12/31/2024 7:28 AM CDT Seminoma of left testis (HCC) CT ABDOMEN PELVIS WO CONTRAST Schedule Routine, Read Routine (OP Routine) 12/31/2024 7:00 AM CDT Seminoma of left testis (HCC) PSA SCREEN Routine 06/22/2020 7:37 AM ROLE PLAYER from Last 3 Months or Most Recently Relevant to Health Maintenance Results * [id number]-4-Raiehzenmyx, Tumor Marker (12/31/2024 7:28 AM CDT) alpha [...] 2018;57:783-797 Amber Gooden et al. Clin Chem 2014;7227-9179. Current interpretive data was last revised 2022. Blood 12/31/2024 7:28 AM CDT 12/31/2024 8:33 AM CDT Lavonne Roman LAB BLOOD ORDERABLES Fin al Result Performing Organization Address [facility] [place] [address] * hCG, blood, quantitative (12/31/2024 7:28 AM [...] ORDERABLES Fin al Result Performing Organization Address [facility] de Phone Number [facility] Department [place] [address] * Lactate dehydrogenase (LD) (12/31/2024 7:28 AM CDT) Lactate dehydrogenase (LDH) 150 100 - 250 Units/L Comment:Testing performed by : [facility], [address] [place] [address] Blood 12/31/2024 7:28 AM CDT 12/31/2024 7:28 AM CDT us Lavonne Roman PRIVATE [employer]ANCH EXCHANGE INSTALLER LAB BLOOD ORDERABLES Fin al Result SHAM[facility] Department [place] [address] * CT Abdomen Pelvis WO Contrast (12/31/2024 [...] Result * PSA screen (06/22/2020 7:37 AM ROLE PLAYER) PSA-Total 0.34 <=3.90 ng/mL SHAMAR JOHNS Comment: Interpretive Data AGE SEX REFERENCE INTERVAL 0 minutes-150 years Female None 0 minutes-49 years Male None 50-59 years Male 0-3.90 60-69 years Male 0-5.40 70-79 years Male 0-6.20 80-150 years Male 0-6.20 Current interpretive data last revised 2018. Blood specimen (specimen) 06/22/2020 7:37 AM ROLE PLAYER 06/22/2020 8:39 AM ROLE PLAYER Uriel Rodriguez MD LAB BLOOD ORDERABLES Final Result [facility] [place] [address] from Last 3 Months or Most Recently Relevant to Health Maintenance Insurance [facility]IC[facility] ADVANTAGE MEDIC[facility] MEDICARE ADVANTAGE [facility] MEDICARE ADVANTAGE ID[employer] Care Teams Programmer Analyst Relationship Specialty Start Date End Date Manuel Rangel DO [address] [place] [address] PCP - General 03/13/22
--- NOTE | 2025-03-25 02:25 | ED.URI ---
HPI - URI/Sore Throat General Chief Complaint: Upper Respiratory Infection Stated Complaint: sore throat Time Seen by Provider: 03/25/25 02:23 Source: patient Mode of arrival: ambulatory Limitations: no limitations History of Present Illness HPI Narrative: 59-year-old male with a history of hypertension, seizure disorder, testicular cancer presents to the ED with a 2 hour history of -- sore throat -- nonproductive cough no fever or chills no chest pain or shortness of breath no nasal congestion or postnasal drip MD elicited complaint: cough and sore throat Onset (ago): hour(s) ( 2 hours) Consistency: constant Severity: mild Able to tolerate fluids by mouth: Yes Exacerbating factors: nothing Relieving factors: nothing Associated symptoms: denies other symptoms, sore throat and cough Treatments prior to arrival: none Related Data Home Medications ?Medication ?Instructions ?Recorded ?Confirmed ?Last Taken ?Type levetiracetam 500 mg tablet 1,500 mg PO BID 02/03/20 03/02/25 06/15/24 History multivitamin with minerals (Daily 1 tablet PO DAILY 02/03/20 03/02/25 06/15/24 History Multivitamin-Minerals tablet) acetaminophen 325 mg capsule 325 mg PO Q6H PRN Pain 11/15/23 03/02/25 06/15/24 History Allergies Allergy/AdvReac Type Severity Reaction Status Date / Time Iodinated Contrast Media Allergy Unknown Hives Verified 03/25/25 02:48 Contrast allergy Allergy Intermediate Hives Uncoded 03/25/25 02:48 Review of Systems Review of Systems: All systems reviewed & are unremarkable except as noted in HPI and below Constitutional: Constitutional: Reports as per HPI and Reports no additional constitutional complaints Eyes: Eyes: Reports as per HPI and Reports no additional eye complaints ENT: Reports system reviewed and no additional complaints, except as documented, Reports as per HPI and Reports sore throat Cardiovascular: Cardiovascular: Reports as per HPI and Reports no additional cardiovascular complaints Respiratory: Respiratory: Reports as per HPI, Reports no additional respiratory complaints and Reports cough Gastrointestinal: Gastrointestinal: Reports as per HPI and Reports no additional gastrointestinal complaints Genitourinary: Genitourinary: Reports no additional male genitourinary complaints and Reports as per HPI Musculoskeletal: Musculoskeletal: Reports no additional musculoskeletal complaints and Reports as per HPI Integumentary/Breasts: Skin/Breast: Reports system reviewed and no additional complaints, except as docu and Reports as per HPI Neurologic: Reports system reviewed and no additional complaints, except as documented and Reports as per HPI Psychiatric: Psychiatric: Reports no additional psychiatric complaints and Reports as per HPI Endocrine: Endocrine: Reports no additional endocrine complaints and Reports as per HPI Hematologic/Lymphatic: Hematologic/Lymphatic: Reports no additional hematologic/lymphatic complaints and Reports as per HPI Allergic/Immunologic: Allergic/Immunologic: Reports no additional allergic/immunologic complaints and Reports as per HPI [facility] Past Medical History Medical History Benign essential HTN Testicle cancer Obesity (BMI 30-39.9) Seizure disorder Surgical History Surgical History H/O brain surgery Family History Family History Father History of sinus cancer Sibling Ovarian cancer Social History Social History Smoking status: Never smoker Second hand tobacco smoke exposure: No Alcohol intake: never Substance use: never Lack of Transportation: No Lack of Food: Never True Current Housing: I Have Housing Concerned About Future Housing: No Difficulty Paying Gas/Electric Bills: No Difficulty Paying for Meds: No Currently Unemployed: No Education: High School Diploma/GED Difficulty w/ Childcare or Family Care: No Living arrangements: alone Gender identity (if verbalized by the patient): Male Sexual Orientation (if Verbalized by the Patient): Straight or Heterosexual Exam Narrative: afebrile Const: Orientation/consciousness: patient oriented x3 Limitations: no limitations HENMT: Head: normal to inspection Ears: external ears normal Face/Nose/Sinus: Normal external nose present Face and sinus: normal facial exam Mouth: Yes Normal oral and palatal mucosa present Throat: posterior oropharynx normal Eyes: Conjunctivae: conjunctivae normal Pupils: Equal, round and reactive pupils present EOM: EOMs intact bilaterally Direct Ophthalmoscopy: no photophobia Neck: Neck: normal visual inspection, no lymphadenopathy and no meningeal signs Chest: Chest palpation & inspection: normal inspection of the chest Resp: Effort & Inspection: normal respiratory effort Auscultation: clear to auscultation bilaterally Cardio: Rate: regular rate Rhythm: regular rhythm GI: GI Palp: Yes Soft to palpation Auscultation: normal bowel sounds Other: no tenderness/rigidity / rebound. : General: Yes no CVA tenderness Back/Spine/Pelvis: Back: no CVA tenderness Skin: General skin exam: normal color Rashes: no rashes Wounds: no wounds Neuro: General: patient oriented x3, moves all extremities, no meningeal signs, no focal motor deficits and CN's II-XI intact bilaterally Cranial nerves: Yes Nystagmus not present Speech: normal speech Extrem: General: normal to inspection and no clubbing, cyanosis or edema Psych: Mental Status: mental status grossly normal Affect: normal affect Attitude: cooperative Course Course Emergency Course: Upper respiratory tract infection-- exam is unremarkable. Tested negative for influenza /RSV / COVID/strep Vital Signs Vital signs: Vital Signs Temperature 36.1 C L 03/25/25 02:21 Pulse Rate 79 03/25/25 02:21 Respiratory Rate 18 03/25/25 02:21 Blood Pressure 119/83 03/25/25 02:21 Pulse Oximetry 96 03/25/25 02:21 Oxygen Delivery Room Air 03/25/25 02:21 Temperature 36.1 C L 03/25/25 02:21 Pulse Rate 79 03/25/25 02:21 Respiratory Rate 18 03/25/25 02:21 Blood Pressure 119/83 03/25/25 02:21 Pulse Oximetry 96 03/25/25 02:21 Oxygen Delivery Room Air 03/25/25 02:21 MDM - URI/Sore Throat MDM Narrative Medical decision making narrative: upper respiratory tract infection Differential Diagnosis Differential diagnosis: Likely viral infection Medical Records Attestation: I reviewed the patient's medical records. Lab Data Attestation: I reviewed the patient's lab results. Labs: Lab Results 03/25/25 Range/Units 02:23 Influenza A (RT-PCR) Negative (Negative) Influenza B (RT-PCR) Negative (Negative) RSV (RT-PCR) Negative (Negative) SARS-CoV-2 RNA (RT-PCR) Negative (Negative) Group A Strep (PCR) Not detected (Negative) Discharge Plan Discharge Clinical Impression: Upper respiratory infection Patient Disposition: Home Condition: Stable Instructions: Antibiotic Form, Upper Respiratory Infection (ED) Patient Language: [place] Citizen Prescriptions: No Action levetiracetam 500 mg Tablet 1,500 mg PO BID Daily Multivitamin-Minerals Tablet 1 tablet PO DAILY acetaminophen 325 mg capsule 325 mg PO Q6H PRN (Reason: Pain) meloxicam 15 mg tablet 15 mg PO DAILY Qty: 30 0RF cyclobenzaprine 10 mg tablet 10 mg PO TID PRN (Reason: muscle spasm) Qty: 30 0RF trazodone 50 mg tablet 50 mg PO QHS PRN (Reason: insomnia) Qty: 30 0RF lisinopril 10 mg tablet See Rx Instructions .ROUTE .COMPLEX Qty: 90 3RF Dose Instruction: TAKE ONE TABLET BY MOUTH DAILY Rx Instructions: TAKE ONE TABLET BY MOUTH DAILY Follow-up/Referrals: Manuel Rangel DO [Primary Care Provider, Family Practice] Time of Disposition: 03:41
[2025-03-25 03:05] LABS: Strep Group A RT-PCR NOT DETECTED (Negative)
[2025-03-25 03:15] LABS: Influenza A QL RT-PCR Negative (Negative); Influenza B QL RT-PCR Negative (Negative); RSV RNA, RT-PCR Negative (Negative); SARS-CoV-2 RNA PCR Negative (Negative)
--- NOTE | 2025-03-25 03:15 | PC.NURSE ---
PT CALLED OUT, GIVEN 2 WARM BLANKETS FOR COMFORT PER REQUEST. RN MONITORING, UPDATE PROVIDED. CALL LIGHT REMAINS WITHIN REACH.
--- NOTE | 2025-03-25 03:42 | PC.NURSE ---
ERP DR. MATA SPEAKING WITH PT REGARDING RESULTS AND PLAN OF CARE.
[2025-03-25 03:53] VITALS: BP 132/80; PULSE 80; RESP 18; TEMP 36.2; O2SAT 97
== END 2025-03-25 03:55 | disposition home or self-care (01) ==
PROVIDERS: Emergency Provider Internal Medicine Critical Care Medicine; PCP Family Medicine
DX: J06.9 Acute upper respiratory infection, unspecified (principal); I10 Essential (primary) hypertension; Z85.47 Personal history of malignant neoplasm of testis; Z20.822 Contact with and (suspected) exposure to COVID-19
CPT/HCPCS: 87637; 87651; 99283

== ENCOUNTER 2025-06-01 09:38 | Outpatient (CLI) | payer MEDICARE, SELFPAY ==
[2025-06-01 10:33] LABS: Cholesterol 157 mg/dL (0-200); HDL Direct 27 mg/dL; Hemoglobin A1C 5.6 % (<5.7); Triglycerides 176 mg/dL (<150)
--- OUTSIDE RECORDS SUMMARY | 2025-06-01 10:39 | XMS_ITS ---
Author Organization [facility] Address [address] [place] [address] Care Team Providers Care Innovations Paraprofessional Name Role Phone Manuel Rangel DO Primary [...]
--- OUTSIDE RECORDS SUMMARY | 2025-06-01 10:39 | XMS_ITS | Clinical Summary ---
Author Organization [facility] Address [address] [place] [address] Care Team Providers Care Insurance Salesman Name Role Phone Manuel Rangel DO Primary [...] Encounters Date Type Department Care Team Description 05/27/2025 Telephone [facility] Medicine Oncology [address] [place] [address] Sabina Morris RN from Last 3 Months Immunizations Immunization Administration Dates Next Due Influenza, Trivalent, IM (MDV) 05/08/2012 Influenza, Unspecified 06/03/2020 Pneumococcal Polysaccharide PPV23 10/01/2014 Surgical History Surgery Date Site/Laterality Comments VT ORCHIECTOMY RADICAL TUMOR INGUINAL APPROACH Radical Orchiectomy Right - inguinal orchiectomy 09/09/14 (Added by NETTE Conv) Family History Medical History Relation Name Comments Febrile seizures Mother Febrile milli ramose - (Added by NETTE Conv) Ovarian cancer Sister Ovarian cance r - (Added by NETTE Conv) Relation Name Status Comments Mother Sister Social History Tobacco Use Types Packs/Day Years Used Date Smoking Tobacco: Never Smokeless Tobacco: Never Tobacco Cessation:Counseling Given: No Alcohol Use Standard Drinks/Week Comments No 0 (1 standard drink = 0.6 oz pur e alcohol) Sex and Gender Information Value Date Recorded Sex Assigned at Not on file Legal Sex 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 Blood specimen (specimen) 06/22/2020 7:37 AM MEETING COORDINATOR 06/22/2020 8:39 AM MEETING COORDINATOR us Uriel Rodriguez MD LAB BLOOD ORDERABLES Final Result SHAMAR [facility] Department [place] [address] from Last 3 Months or Most Recently Relevant to Health Maintenance Insurance [facility] MEDICARE [facility]ANT[facility] MEDICARE Address: [facility] [address] [place] [address] MEDICARE IDPA [facility] MEDICARE ADVANTAGE [facility] MEDICARE ADVANTAGE IDPA Care Teams Insurance Salesman Relationship Specialty Start Date End Date Manuel Rangel DO [address], [place] [id number] PCP - General 03/13/22
--- OUTSIDE RECORDS SUMMARY | 2025-06-01 10:39 | XMS_ITS | Encounter Summary ---
Author Organization [facility] Address [address] [place] [address] Phone Care Team Providers Care Kitchen Chef Name Role Phone Augustin Parrish MD Primary Care Provider [phone] Nilay, Giuseppe DO Primary Care Provider + 5-2220 Augustin Parrish MD Primary Care Provider [phone] Nilay, Giuseppe DO Primary Care Provider + 5-2220 Augustin Parrish MD Primary Care Provider [phone] Nilay, Giuseppe DO Primary Care Provider + 5-2220 Augustin Parrish MD Primary Care Provider [phone] Nilay, Giuseppe DO Primary Care Provider + 5-2220 Augustin Parrish MD Primary Care Provider [phone] Nilay, Giuseppe DO Primary Care Provider + 5-2220 Augustin Parrish MD Primary Care Provider [phone] Nilay, Giuseppe DO Primary Care Provider + 5-2220 Augustin Parrish MD Primary Care Provider [phone] Augustin Parrish MD Primary Care Provider [phone] Nilay, Giuspepe DO Primary Care Provider + 5-2220 Augustin Parrish MD Primary Care Provider [phone] Giuseppe Pemberton DO Primary Care Provider [phone] Augustin Parrish MD Primary Care Provider [phone] Giuseppe Pemberton DO Primary Care Provider [phone] Augustin Parrish MD Primary Care Provider [phone] Giuseppe Pemberton DO Primary Care Provider [phone] Augustin Parrish MD Primary Care Provider [phone] Miscellaneous, Not In File Primary Care Provider Unavailable No, Physician Primary Care Provider [phone] Manuel Rangel DO Primary Care Provider Encounter Details Date Type Department Care Team (Latest Contact Info) Description 1965 Orders Only [facility] Scanning, Provider Social History Tobacco Use Types Packs/Day Years Used Date Smoking Tobacco: Never Assessed Sex and Gender Information Value Date Recorded Sex Assigned at Not on file 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 Gender Identity Not on file Sexual Orientation [...] on filedocumented in this encounter Care Teams Kitchen Chef Relationship Specialty Start Date End Date Augustin Parrish MD PCP - General 11/08/16 11/26/16 Giuseppe Pemberton DO [address] [place] [address] PCP - General 11/27/16 01/01/17 Augustin Parrish MD PCP - General 01/02/17 01/08/17 Giuseppe Pemberton DO [address] [place] [address] PCP - General 01/09/17 01/09/17 Augustin Parrish MD PCP - General 01/10/17 01/24/17 Giuseppe Pemberton DO [address] [place] [address] PCP - General 01/25/17 02/06/17 Augustin Parrish MD PCP - General 02/07/17 04/30/17 Giuseppe Pemberton DO [address] [place] [address] PCP - General 05/01/17 05/01/17 Augustin Parrish MD PCP - General 05/02/17 05/21/17 Giuseppe Pemberton DO [address] [place] [address] PCP - General 05/22/17 07/30/17 Augustin Parrish MD PCP - General 07/31/17 08/15/17 Giuseppe Pemberton DO [address] [place] [address] PCP - General 08/16/17 08/22/17 Augustin Parrish MD PCP - General 08/23/17 08/25/17 Augustin Parrish MD PCP - General 08/26/17 08/27/17 Giuseppe Pemberton DO [address] [place] [address] PCP - General 08/28/17 11/24/17 Augustin Parrish MD PCP - General 11/25/17 12/04/17 Giuseppe Pemberton DO [address] [place] [address] PCP - General Internal Medicine 12/05/17 12/08/17 Augustin Parrish MD PCP - General 12/09/17 12/10/17 Giuseppe Pemberton DO [address] [place] [address] PCP - General 12/11/17 12/15/17 Augustin Parrish MD PCP - General 12/16/17 12/17/17 Giuseppe Pemberton DO [address] [place] [address] PCP - General 12/18/17 06/17/18 Augustin Parrish MD PCP - General 06/18/18 12/15/20 Miscellaneous, Not In File PCP - General 12/16/20 No, Physician PCP - General 04/24/21 03/12/22 Manuel Rangel DO [address] [place] [address] PCP - General 03/13/22 documented as of this encounter
--- OUTSIDE RECORDS SUMMARY | 2025-06-01 10:39 | XMS_ITS | Clinical Summary ---
Author Organization [facility] Address [facility] [place] [address] Care Team Providers Care Seal Mixer Name Role Phone Manuel Rangel DO Primary Care Provider [phone] Allergies Active Allergy Reactions Criticality Noted Date Comments Iodinated Contrast Media Hives 02/21/2024 Medications acetaminophen (TYLENOL) 325 MG tablet Take 1 tablet (325 mg total) by mouth daily. Active levETIRAcetam (KEPPRA) 500 MG tablet Take 3 tablets (1,500 mg total) by mouth 2 (two) times daily. Active lisinopril (PRINIVIL) 10 MG tablet Take 1 tablet (10 mg total) by mouth daily. Active melatonin 1 MG tablet Take 1 tablet (1 mg total) by mouth nightly as needed. Active Multiple Vitamins-Minera ls (MULTIVITAMIN ADULT, MINERALS, OR) Active Active Problems No known active problems Encounters Date Type Department Care Team Description 05/19/2025 10:08 AM CDT [place]esthesia [place] [address] Yessi Serrano CRNA 05/19/2025 9:30 AM CDT - 05/19/2025 10:00 AM CDT [place] [address] Sapna Schroeder MD extaction cataract LEFT eye with lens implant 05/19/2025 8:24 AM CDT - 05/19/2025 11:07 AM CDT Hospital En[facility] 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 Gender Identity Not on file Sexual Orientation Not on file Last Filed Vital Signs Vital Sign Reading Time Taken Comments Blood Pressure 123/86 05/19/2025 10:27 AM CDT Pulse 82 05/19/2025 10:27 AM CDT Temperature 36.3 C (97.4 F) 05/19/2025 10:27 AM CDT Respiratory Rate 16 05/19/2025 10:27 AM CDT Oxygen Saturation 98% 05/19/2025 10:27 AM CDT Inhaled Oxygen Concentration - - Weight 120.2 kg (265 lb) 05/12/2025 8:53 AM CDT Height 182.9 cm (6') 05/12/2025 8:53 AM CDT Body Mass Index 35.94 05/12/2025 8:53 AM CDT Plan of Treatment Health Maintenance Due Date Last Done Comments Colorectal Cancer Screening Colonoscopy (10 Years) 1965 Annual Physical 1968 Hepatitis C 10/09/1983 Pneumococcal Vaccine: 50+ Years (2 of 2 - PCV) 10/09/2015 10/01/2014 Zoster Vaccines (1 of 2) 10/09/2015 COVID-19 Vaccine ( - season) 2025 11/22/2021, 12/13/2020, 12/13/2020, Additional history exists Influenza Adult (#1) 2025 05/25/2021, 06/03/2020, 05/03/2020, Additional history exists DTaP, Tdap and Td Vaccines (3 - Td or Tdap) 11/22/2031 11/21/2021, 02/03/2020 Hepatitis A Vaccines Aged Out No long er eligible based on patient's age to complete this topic Meningococcal B Vaccine Aged Out No l onger eligible based on patient's age to complete this topic Meningococcal Vaccine Aged Out No yuri helen eligible based on patient's age to complete this topic RSV Immunizations Under 20 Months Aged Out No longer eligible based on patient's age to complete this topic Medical Devices Implanted Type Area Feeder Operator Device Identifier Shelf Expiration Date Model / Serial / Lot [employer] Aspheric Us Implanted:Qty: 1 on 05/19/2025 by Sapna Schroeder MD at [facility] Left: Eye 01/14/2030 [id number] / [id number] / [id number] Procedures Procedure Name Priority Date/Time Associated Diagnosis Comments REMV CATARACT EXTRACAP,INSERT LENS 05/19/2025 10:03 AM CDT h25.13 from Last 3 Months Insurance [employer] MEDICARE Care Teams Seal Mixer Relationship Specialty Start Date End Date Manuel Rangel DO [address] [place] [address] PCP - General FAMILY PRACTICE 02/21/24
== END 2025-06-01 09:39 | disposition home or self-care (01) ==
LOC: CHSLAB 09:39
PROVIDERS: PCP Family Medicine; Visit Provider Family Medicine
DX: E11.9 Type 2 diabetes mellitus without complications (principal)
CPT/HCPCS: 36415; 80061; 83036

== ENCOUNTER 2025-06-28 07:28 | Outpatient (CLI) | payer MEDICARE, SELFPAY ==
[2025-06-28 08:00] LABS: Hematocrit 47.9 % (40.0-54.0); Hemoglobin 16.1 g/dL (14.0-18.0); Immature Granulocyte Percent A 0.2 % (0.0-0.0); Lymphocytes Absolute Auto 1.63 K/mm3 (1.10-4.50); Mean Corpuscular HGB Conc 33.6 g/dL (32-36); Mean Corpuscular Hemoglobin 30.8 pg (27.0-31.0); Mean Corpuscular Volume 91.6 fL (78.0-102.0); Nucleated Red Blood Cells Absolute Auto 0.00 K/mm3 (0.00-0.00); Nucleated Red Blood Cells Perc 0.0 % (0-0.0); Platelet Count Result 253 K/mm3 (150-420); Red Blood Count 5.23 M/mm3 (4.70-6.10); White Blood Count 6.2 K/mm3 (4.8-10.8)
[2025-06-28 08:23] LABS: Alanine Aminotransferase 29 U/L (6-50); Albumin Level 4.6 g/dL (3.5-5.1); Alkaline Phosphatase 79 U/L (38-126); Anion Gap 12 mmol/L (4-12); Aspartate Amino Transferase 25 U/L (17-59); Bilirubin,Total 1.0 mg/dL (0.2-1.3); Blood Urea Nitrogen 14 mg/dL (9-20); Carbon Dioxide 22 mmol/L (22-30); Chloride 105 mmol/L (98-107); Estimated Glomerular Filt Rate 56; Potassium 4.4 mmol/L (3.4-5.0); Sodium 139 mmol/L (137-145); Total Protein 7.1 g/dL (6.3-8.2)
[2025-06-28 09:00] LABS: Hemoglobin A1C 5.5 % (<5.7)
[2025-06-28 09:27] LABS: Thyroid Stimulating Hormone Reflex 2.340 uIU/mL (0.465-4.68)
[2025-06-28 09:28] LABS: Calcium 9.7 mg/dL (8.4-10.2); Glucose 116 mg/dL (65-110); Osmolality Calculated 289 mOsm/kg (285-295)
== END 2025-06-28 07:29 | disposition home or self-care (01) ==
LOC: CHSLAB 07:30
PROVIDERS: PCP Nurse Practitioner Family; Visit Provider Nurse Practitioner Family
DX: Z13.1 Encounter for screening for diabetes mellitus (principal); I10 Essential (primary) hypertension
CPT/HCPCS: 36415; 80053; 83036; 84443; 85025

== ENCOUNTER 2025-07-04 21:13 | Emergency (ER) | payer MEDICARE, SELFPAY ==
--- OUTSIDE RECORDS SUMMARY | 2024-05-14 03:10 | XMS_ITS ---
Author Organization [facility] Address [address] [place], [place] [id number] Care Team Providers [employer] Name Role Phone Manuel Rangel Primary Care Provider EVELYN Brady Unavailable [phone] RIC VIZCAINO Unavailable [phone] REASON FOR VISIT *General care Encounters Encounter Location Date Provider Diagnosis [address] [id number] 05/14/2024 RIC VIZCAINO Plan Of Treatment Next Appt Details Provider Name:KALINA Rony VIVAS, 07/15/2025 08:40:00 AM, [address] [place] [address], [id number], Progress Notes * MOHINDER BEAR FDOB: 6 (59 yo M)Acc No.[id number]:05/14/2024 Patient: MOHINDER SAPP Provider: Ilana VIZCAINO :1965 A ge:58 Y S ex:Male Date:05/14/2024 Address:[address] [place] [id number] Pcp:Manuel Rangel Subjective: * Chief Complaints: * * General care Billing Information: * Procedure Codes: * Electronic signature of JOSEFINA VIZCAINO DPM on 07/04/2025 at 09:15 PM COMPUTER SYSTEMS CONSULTANT Sign off status: Pending * Provider: Ilana VIZCAINO Date: 1 Generated for Curtis mejia/Lani/Romeo on: 1 09/03/2024 09:15 PM COMPUTER SYSTEMS CONSULTANT
--- OUTSIDE RECORDS SUMMARY | 2025-01-07 03:50 | XMS_ITS ---
Author Organization [facility] Address [address] [place], [place] [id number] Care Team Providers Care Water Resources Engineer Name Role Phone Manuel Rangel Primary Care Provider EVELYN Brady Unavailable [phone] KALINA CHIU Unavailable [phone] Allergies Allergen (clinical drug ingredient) Drug/Non Drug Allergy documented on EMR Reaction Allergy Type Onset Date Status Information temporarily unavailable IVP Dye, Iodine Containing (uncoded) Unknown Allergy 03/14/2020 active REASON FOR VISIT *General care Medications Medication SIG (Take, Route, Frequency, Duration) Notes Start Date End Date Status levETIRAcetam 500 MG Tablet Oral; Duration: 30 Days Acti ve Fluticasone Propionate 50 MCG/ACT Suspension Nasal; Duration: 60 Days Active Lisinopril 10 MG Tablet Oral; Duration: 90 Days Active Clotrimazole 1 % Cream 1 application Ext ernally Once a day; Duration: 30 days 01/07/2025 07/05/2025 Active Amoxicillin-Pot Clavulanate 500-125 MG Tablet Oral; Duration: 7 Days Activ e Ammonium Lactate 12 % Lotion 1 application Externally Twice a day 09/05/2023 Active Methocarbamol 500 MG Tablet Oral; Duration: 10 Days Acti ve HYDROcodone-Acetaminophen 5-325 MG Tablet Oral; Duration: 7 Days Ac tive Social History Social History Additional Details Category Social Info Options Details Migrated Social History Migrated Social History Smoking Status : Never used tobacco , History of tobacco use : Vital Signs Height 73.00 in 01/07/2025 Weight 280 lbs 01/07/2025 BMI 36.94 kg/m2 01/07/2025 Height-cm 185.42 cm 01/07/2025 Weight-kg 127.01 kg 01/07/2025 Encounters Encounter Location Date Provider Diagnosis [address] [id number] 01/07/2025 KALINA CHIU Tinea unguium B35.1 ; Pain in right toe(s) M79.674 ; Pain in left toe(s) M79.675 and Atherosclerosis of chippewa-cree arteries of extremities with intermittent claudication, bilateral legs I70.213 Assessments Encounter Date Diagnosis (ICD Code) Assessment Notes Treatment Notes Treatment Clinical Notes Section Notes 01/07/2025 Tinea unguium (ICD-10 - B35.1) FUNGAL TOENAILS: Discussed various treatment options for fungal toenails including debridement, topical antifungals, oral antifungals, toenail avulsion, or toenail matrixectomy. NAIL DEBRIDEMENT: Nails 1-5 Bilateral were debrided extensively with nail nippers and emery board, reducing length and girth to pink healthy tissue with any subungual debris and necrotic tissue removed 01/07/2025 Pain in right toe(s) (ICD-10 - M79.674) 01/07/2025 Pain in left toe(s) (ICD-10 - M79.675) 01/07/2025 Atherosclerosis of chippewa-cree arteries of extremities with intermittent claudication, 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 - I70.213) Check and protect LE bilateral daily. Call if any changes or concerns. Plan Of Treatment Medication Medication Name Sig Start Date Stop Date Notes Clotrimazole 1 % Cream 1 application Ext ernally Once a day; Duration: 30 days 01/07/2025 07/05/2025 Treatment Notes Assessment Notes Tinea unguium FUNGAL TOENAILS: Discussed various treatment options for fungal toenails including debridement, topical antifungals, oral antifungals, toenail avulsion, or toenail matrixectomy. NAIL DEBRIDEMENT: Nails 1-5 Bilateral were debrided extensively with nail nippers and emery board, reducing length and girth to pink healthy tissue with any subungual debris and necrotic tissue removed Atherosclerosis of chippewa-cree ar teries of extremities with intermittent claudication, bilateral legs Check and protect LE bilateral daily. Call if any changes or concerns. Next Appt Details Follow Up: 10-12 Weeks, Reas on: At Risk Foot care, sooner if problems arise Provider Name:KALINA VIVAS, 07/15/2025 08:40:00 AM, [address] [place] [address], [phone], History and Physical Notes * HPI (History [...] Date last seen by Dr. Rangel was 12/2024., Initials [facility] Examination Category Sub-Category Detail Notes [...] well developed, well groomed and well nourished Progress Notes * MOHINDER BEAR FDOB: [birth year] (59 yo M)Acc No.[id number]:01/07/2025 Patient: MOHINDER SAPP Provider: Luciano CHIU :1965 A ge:59 Y S ex:Male Date:01/07/2025 Address:[address] [place], [place] [id number] Pcp:Manuel Rangel Subjective: * Chief Complaints: * * General care * HPI: H PI: General care P atient presents to the office for at risk foot care. Patient states that their nails are thickened, elongated and painful. Patient states that it is aggravated by shoe gear. Onset is gradual. Patient denies being diabetic., Patient denies taking blood thinners., Date last seen by Dr. Rangel was 12/2024., Initials [facility]. * ROS: G eneral / Constitutional: Patient denies w eakness. M usculoskeletal: Patient complains of h ammertoes. P eripheral Vascular: Patient denies b lanching of skin, cold extremities, decreased sensation in extremities. S kin: Patient complains of f ungal nails, nail changes. ? N eurologic: Patient denies d izziness, gait abnormality, headache. * Family History: F ather: PRN - Father: :: Cancer,,known absent , :: Pneumonia,,known absent . M other: PRN - Mother: :: Diabetes,,known absent . S ister: SIB - Sister: :: Cancer,,known absent . F amily History Verified.. * Social History: M igrated Social History: M igrated Social History: Smoking Status : Never used tobacco , History of tobacco use :. Social History Verified. * Medications: T akinglevETIRAcetam 500 MG Tablet [...] reconciled with the patient * Allergies: I ROLL PANNER Dye, Iodine Containing: Allergy - Onset Date 03/14/2020yesAllergies Verified. Objective: * Vitals: W t:280lbs, Wt-k.01 kg, Ht: 73.00 in, Ht-cm: 185.42 cm, BMI:36.94Index, Body Surface Area: 2.56. * Examination: C onstitutional: Constitutional T he [...] - M79.675 4 . A therosclerosis of chippewa-cree arteries of extremities with intermittent claudication, bilateral legs - I70.213 Plan: * Treatment: 2. A therosclerosis of chippewa-cree arteries of extremities with intermittent claudication, bilateral legs Notes: Check and protect LE bilateral daily. Call if any changes or concerns. * Immunizations: Immunization record has been reviewed and updated. * Follow Up: 1 0-12 Weeks (Reason: At Risk Foot care, sooner if problems arise) Billing Information: * Visit Code: 71078 Office Visit, Est Pt., Level 3. * Procedure Codes: * Electronic signature of LIZA CHIU DPM on 07/04/2025 at 09:15 PM DIESEL POWER MECHANIC Sign off status: Pending * Provider: Luciano CHIU Date: 0 01/07/2025 Generated for Curtis mejia/Lain/Romeo on: 09/03/2024 09:15 PM DIESEL POWER MECHANIC
--- OUTSIDE RECORDS SUMMARY | 2025-03-11 02:10 | XMS_ITS ---
Author Organization [facility] Address [address] [place], [place] [address] Care Team Providers Care Linux Kernel Developer Name Role Phone Manuel Rangel Primary Care Provider EVELYN Brady Unavailable [phone] KALINA CHIU Unavailable [phone] Allergies Allergen (clinical drug ingredient) Drug/Non Drug Allergy documented on EMR Reaction Allergy Type Onset Date Status Information temporarily unavailable IVP Dye, Iodine Containing (uncoded) Unknown Allergy 03/14/2020 active REASON FOR VISIT *General care Medications Medication SIG (Take, Route, Frequency, Duration) Notes Start Date End Date Status Methocarbamol 500 MG Tablet Oral; Duration: 10 Days Active Amoxicillin-Pot Clavulanate 500-125 MG Tablet Oral; Duration: 7 Days Active Fluticasone Propionate 50 MCG/ACT Suspension Nasal; Duration: 60 Days Active HYDROcodone-Acetaminophen 5-325 MG Tablet Oral; Duration: 7 Days Ac tive Ammonium Lactate 12 % Lotion 1 application Externally Twice a day 09/05/2023 Active levETIRAcetam 500 MG Tablet Oral; Duration: 30 Days Active Lisinopril 10 MG Tablet Oral; Duration: 90 Days Active Clotrimazole 1 % Cream 1 application Ext ernally Once a day; Duration: 30 days Active Social History Social History Additional Details Category Social Info Options Details Migrated Social History Migrated Social History Smoking Status : Never used tobacco , History of tobacco use : Vital Signs Height 73.00 in 03/11/2025 Weight 280 lbs 03/11/2025 BMI 36.94 kg/m2 03/11/2025 Height-cm 185.42 cm 03/11/2025 Weight-kg 127.01 kg 03/11/2025 Encounters Encounter Location Date Provider Diagnosis [address] [id number] 03/11/2025 KALINA CHIU Tinea unguium B35.1 ; Pain in right toe(s) M79.674 ; Pain in left toe(s) M79.675 and Atherosclerosis of [place] arteries of extremities with intermittent claudication, bilateral legs I70.213 Assessments Encounter Date Diagnosis (ICD Code) Assessment Notes Treatment Notes Treatment Clinical Notes Section Notes 03/11/2025 Tinea unguium (ICD-10 - B35.1) FUNGAL TOENAILS: Discussed various treatment options for fungal toenails including debridement, topical antifungals, oral antifungals, toenail avulsion, or toenail matrixectomy. NAIL DEBRIDEMENT: Nails 1-5 Bilateral were debrided extensively with nail nippers and emery board, reducing length and girth to pink healthy tissue with any subungual debris and necrotic tissue removed 03/11/2025 Pain in right toe(s) (ICD-10 - M79.674) 03/11/2025 Pain in left toe(s) (ICD-10 - M79.675) 03/11/2025 Atherosclerosis of [place] arteries of extremities with intermittent claudication, 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 - I70.213) Check and protect LE bilateral daily. Call if any changes or concerns. Plan Of Treatment Medication Medication Name Sig Start Date Stop Date Notes Clotrimazole 1 % Cream 1 application Ext ernally Once a day; Duration: 30 days Treatment Notes Assessment Notes Tinea unguium FUNGAL TOENAILS: Discussed various treatment options for fungal toenails including debridement, topical antifungals, oral antifungals, toenail avulsion, or toenail matrixectomy. NAIL DEBRIDEMENT: Nails 1-5 Bilateral were debrided extensively with nail nippers and emery board, reducing length and girth to pink healthy tissue with any subungual debris and necrotic tissue removed Atherosclerosis of [place] ar teries of extremities with intermittent claudication, bilateral legs Check and protect LE bilateral daily. Call if any changes or concerns. Next Appt Details Follow Up: 10-12 Weeks, Reas on: At Risk Foot care, sooner if problems arise Provider Name:KALINA VIVAS, 07/15/2025 08:40:00 AM, [address] [place] [address], [phone], History and Physical Notes * HPI (History [...] Date last seen by Dr. Rangel was 02/2025., Initials nd Examination Category Sub-Category Detail Notes Category Not [...] MOHINDER BEAR FDOB: [birth year] (59 yo M)Acc No.[id number]:03/11/2025 Patient: MOHINDER SAPP Provider: Luciano CHIU :1965 A ge:59 Y S ex:Male Date:03/11/2025 Address:[address] [place], [place] [id number] Pcp:Manuel Rangel Subjective: * Chief Complaints: * [...] Date last seen by Dr. Rangel was 02/2025., Initials nd. * ROS: G eneral / Constitutional: Patient denies w eakness. M usculoskeletal: Patient complains of h ammertoes. P eripheral Vascular: Patient denies b lanching of skin, cold extremities, decreased sensation in extremities. S kin: Patient complains of f ungal nails, nail changes. ? N eurologic: Patient denies d izziness, gait abnormality, headache. * Medical History: Denies Past Medical History No Medical History Documented Medical History Verified * Surgical History: Denies Past Surgical History. Surgical History verified. * Hospitalization/Major Diagno stic Procedure: Denies Past Hospitalization. Hospitalization Verified. * Family History: F ather: PRN - [...] Lotion 1 application Externally Twice a day Clotrimazole 1 % Cream 1 application Externally Once a day , stop date 07/05/2025Medication List reviewed and reconciled with the patientTaking levETIRAcetam 500 MG Tablet Oral Taking Lisinopril 10 MG Tablet Oral Taking Amoxicillin-Pot Clavulanate 500-125 MG Tablet Oral Taking Fluticasone Propionate 50 MCG/ACT Suspension Nasal Taking Methocarbamol 500 MG Tablet Oral Taking HYDROcodone-Acetaminophen 5-325 MG Tablet Oral Taking Ammonium Lactate 12 % Lotion 1 application Externally Twice a day Taking Clotrimazole 1 % Cream 1 application Externally Once a day , stop date 07/05/2025Medication List reviewed and reconciled with the patient * Allergies: I QUOTATION CHECKER Dye, Iodine Containing: Allergy - Onset Date [...] - M79.675 4 . A therosclerosis of [place] arteries of extremities with intermittent claudication, bilateral legs - I70.213 Plan: * Treatment: 2. A therosclerosis of [place] arteries of extremities with intermittent claudication, bilateral legs Notes: Check and protect LE bilateral daily. Call if any changes or concerns. * Follow Up: 1 0-12 Weeks (Reason: At Risk Foot care, sooner if problems arise) Billing Information: * Visit Code: 31628 Office Visit, Est Pt., Level 3. * Procedure Codes: * Electronic signature of LIZA CHIU DPM on 07/04/2025 at 09:15 PM MUSIC TEACHER Sign off status: Pending * Provider: Luciano CHIU Date: 0 03/11/2025 Generated for Curtis mejia/Lani/Romeo on: 09/03/2024 09:15 PM MUSIC TEACHER
[2025-07-04 21:13] VITALS: BP 157/94; PULSE 63; RESP 18; TEMP 36.2; O2SAT 99
--- OUTSIDE RECORDS SUMMARY | 2025-07-04 21:15 | XMS_ITS | Clinical Summary ---
Author Organization [facility] Address Formerly [facility] [place] [address] Care Team Providers Care Feeder Associate Name Role Phone Manuel Rangel DO Primary Care Provider [phone] Allergies Active Allergy Reactions Criticality Noted Date [...] Description 05/19/2025 10:08 AM CDT Anesthesia [place] [address] Yessi Serrano CRNA 05/19/2025 9:30 AM CDT - 05/19/2025 10:00 AM CDT [place] [address] Sapna Schroeder MD extaction cataract LEFT eye with lens implant 05/19/2025 8:24 AM CDT - 05/19/2025 11:07 AM CDT Hospital En[facility] 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 Gender Identity Not on file Sexual [...] this topic Medical Devices Implanted Type Area Web Worker Device Identifier Shelf Expiration Date Model / Serial / Lot Rayone Aspheric Us Implanted:Qty: 1 on 05/19/2025 by Sapna Schroeder MD at [facility] Left: Eye 01/14/2030 [id number] / [id number] / [id number] Procedures Procedure Name Priority Date/Time Associated Diagnosis Comments REMV CATARACT EXTRACAP,INSERT LENS 05/19/2025 10:03 AM CDT h25.13 from Last 3 Months Insurance U[employer] MEDICARE Care Teams Feeder Associate Relationship Specialty Start Date End Date Manuel Rangel DO [address] [place] [address] PCP - General FAMILY PRACTICE 02/21/24
--- OUTSIDE RECORDS SUMMARY | 2025-07-04 21:15 | XMS_ITS | Patient Health Record ---
Author Organization [facility] Address [address] [place], [place] [id number] Care Team Providers Care Classification Case Manager Name Role Phone Manuel Rangel Primary Care Provider EVELYN Brady Unavailable [phone] KALINA CHIU Unavailable [phone] Allergies Allergen (clinical drug ingredient) Drug/Non Drug Allergy documented on EMR Reaction Allergy Type Onset Date Status Information temporarily unavailable IVP Dye, Iodine Containing (uncoded) Unknown Allergy 03/14/2020 active Reason For Referral No Information Medications Medication SIG (Take, Route, Frequency, Duration) Notes Start Date End Date Status levETIRAcetam 500 MG Tablet Oral; Duration: 30 Days Active Clotrimazole 1 % Cream 1 application Ext ernally Once a day; Duration: 30 days Active Fluticasone Propionate 50 MCG/ACT Suspension Nasal; Duration: 60 Days Active Amoxicillin-Pot Clavulanate 500-125 MG Tablet Oral; Duration: 7 Days Active Lisinopril 10 MG Tablet Oral; Duration: 90 Days Active Ammonium Lactate 12 % Lotion 1 application Externally Twice a day 09/05/2023 Active HYDROcodone-Acetaminophen 5-325 MG Tablet Oral; Duration: 7 Days Ac tive Methocarbamol 500 MG Tablet Oral; Duration: 10 Days Active Immunizations Vaccine Route Administration Date Status Comme nts Influenza (split), 3 yrs and above Unknown 05/08/2012 A dministered Influenza, seasonal, injecta ble, preservative free, 3 yrs and above Unknown 05/08/2023 Administered Influenza, unspecified formulation Unknown 06/03/2020 A dministered Pneumococcal polysaccharide PPV23 Unknown 10/01/2014 Ad ministered Social History Social History Additional Details Category Social Info Options Details Migrated Social History Migrated Social History Smoking Status : Never used tobacco , History of tobacco use : Vital Signs Height-cm 185.42 cm 05/13/2025 Weight-kg 127.01 kg 05/13/2025 Height 73.00 in 05/13/2025 Weight 280 lbs 05/13/2025 BMI 36.94 kg/m2 05/13/2025 Encounters Encounter Location Date Provider Diagnosis [address] [id number] 01/07/2025 KALINA CHIU Tinea unguium B35.1 ; Pain in right toe(s) M79.674 ; Pain in left toe(s) M79.675 and Atherosclerosis of [place] arteries of extremities with intermittent claudication, bilateral legs I70.[address] [id number] 03/11/2025 KALINA CHIU Tinea unguium B35.1 ; Pain in right toe(s) M79.674 ; Pain in left toe(s) M79.675 and Atherosclerosis of [place] arteries of extremities with intermittent claudication, bilateral legs I70.[address] [id number] 05/13/2025 KALINA CHIU Tinea unguium B35.1 ; Pain in right toe(s) M79.674 ; Pain in left toe(s) M79.675 and Atherosclerosis of [place] arteries of extremities with intermittent claudication, bilateral legs I70.213 [facility] [address] [place], [place] [id number] 08/06/2024 EVELYN SNOOK Tinea unguium B35.1 ; Pain in right toe(s) M79.674 ; Pain in left toe(s) M79.675 and Atherosclerosis of [place] arteries of extremities with intermittent claudication, bilateral legs I70.[address] [id number] 2024 EVELYN SNOOK Tinea unguium B35.1 ; [...] Pain in right toe(s) (ICD-10 - M79.674) 05/13/2025 Tinea unguium (ICD-10 - B35.1) FUNGAL TOENAILS: Discussed various treatment options for fungal toenails including debridement, topical antifungals, oral antifungals, toenail avulsion, or toenail matrixectomy. NAIL DEBRIDEMENT: Nails 1-5 Bilateral were debrided extensively with nail nippers and emery board, reducing length and girth to pink healthy tissue with any subungual debris and necrotic tissue removed 05/13/2025 Pain in right toe(s) (ICD-10 - M79.674) 05/13/2025 Pain in left toe(s) (ICD-10 - M79.675) 03/11/2025 Pain in left toe(s) (ICD-10 - M79.675) 01/07/2025 Pain in left toe(s) (ICD-10 - M79.675) 2024 Pain in left toe(s) (ICD-10 - M79.675) 08/06/2024 Pain in left toe(s) (ICD-10 - M79.675) 08/06/2024 Atherosclerosis of [place] arteries of extremities with intermittent claudication, 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 - I70.213) 2024 Atherosclerosis of [place] arteries of extremities with intermittent claudication, 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 - I70.213) 01/07/2025 Atherosclerosis of [place] arteries of extremities with intermittent claudication, 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 - I70.213) Check and protect LE bilateral daily. Call if any changes or concerns. 03/11/2025 Atherosclerosis of [place] arteries of extremities with intermittent claudication, 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 - I70.213) Check and protect LE bilateral daily. Call if any changes or concerns. 05/13/2025 Atherosclerosis of [place] arteries of extremities with intermittent claudication, 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 - I70.213) Check and protect LE bilateral daily. Call if any changes or concerns. Plan Of Treatment Next Appt Details Provider Name:KALINA VIVAS, 07/15/2025 08:40:00 AM, [address] [place] [address], [phone], Insurance Providers Payer Name Payer Address Payer Phone Subscriber Number Group Number Insured Name Patient Relationship to Insured Coverage Start Date Coverage End Date [facility] [address] [address] [place], [place] [id number] MOHINDER BEAR Self - patient is the insured
--- OUTSIDE RECORDS SUMMARY | 2025-07-04 21:15 | XMS_ITS ---
Author Organization [facility] Address [address] [place] [address] Care Team Providers Care Inorganic Chemistry Professor Name Role Phone Manuel Rangel DO Primary [...]
--- OUTSIDE RECORDS SUMMARY | 2025-07-04 21:15 | XMS_ITS | Clinical Summary ---
Author Organization [facility] Address [address] [place] [address] Care Team Providers Care Organizational Development Consultant Name Role Phone Manuel Rangel DO Primary [...] Encounters Date Type Department Care Team Description 06/24/2025 Telephone [facility] Medicine Oncology [address] [place] [id number] Sabina Morris, RN 05/27/2025 Telephone [facility] Medicine Oncology [address] [place] [address] Sabina Morris, RN from Last 3 Months Immunizations Immunization Administration Dates Next Due Influenza, Trivalent, IM (MDV) 05/08/2012 Influenza, Unspecified 06/03/2020 Pneumococcal Polysaccharide PPV23 10/01/2014 Surgical History Surgery Date Site/Laterality Comments DE ORCHIECTOMY RADICAL TUMOR INGUINAL APPROACH Radical Orchiectomy Right - inguinal orchiectomy 09/09/14 (Added by TW Conv) Family History Medical History Relation Name Comments Febrile seizures Mother Febrile milli espinoza - (Added by TW Conv) Ovarian cancer Sister Ovarian john r - (Added by TW Conv) Relation [...] on file 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 Blood specimen (specimen) 06/22/2020 7:37 AM VACUUM FRAME OPERATOR 06/22/2020 8:39 AM VACUUM FRAME OPERATOR Uriel Rodriguez MD LAB BLOOD ORDERABLES Final Result Performing Organization Address City/State/[facility] Co de Phone Number [facility] Department [place] [address] from Last 3 Months or Most Recently Relevant to Health Maintenance Insurance [facility] MEDICARE [facility] MEDICARE Address: [facility] [address] [place] [address] MEDICARE [facility] MEDICARE ADVANTAGE [facility] MEDICARE ADVANTAGE [facility] MEDICARE Address: [address] [address] [place] [address] IDPA Care Teams Organizational Development Consultant Relationship Specialty Start Date End Date Manuel Rangel DO [address] [place] [address] PCP - General 03/13/22
--- OUTSIDE RECORDS SUMMARY | 2025-07-04 21:15 | XMS_ITS | Encounter Summary ---
Author Organization [facility] Address [address] [place] [address] Phone Care Team Providers Care Auto Machinist Name Role Phone Augustin Parrish MD Primary Care Provider [phone] Nilay, Giuseppe DO Primary Care Provider + 5-2220 Augustin Parrish MD Primary Care Provider [phone] Nilay, Giuseppe DO Primary Care Provider + 5-2220 Augustin Parrish MD Primary Care Provider [phone] Nilay, Giuseppe DO Primary Care Provider + 5-2220 Augustin Parrish MD Primary Care Provider [phone] Nilay, Giuseppe DO Primary Care Provider + 5-2220 Augustin Parrish MD Primary Care Provider [phone] Nilay, Giuseppe DO Primary Care Provider + 5-2220 Augustin Parrish MD Primary Care Provider [phone] Nilay, Giuseppe DO Primary Care Provider + 5-2220 Augustin Parrish MD Primary Care Provider [phone] Augustin Parrish MD Primary Care Provider [phone] Nilay, Giuseppe DO Primary Care Provider + 5-2220 Augustin Parrish MD Primary Care Provider [phone] Giuseppe Pemberton DO Primary Care Provider [phone] Augustin Parrish MD Primary Care Provider [phone] Giuseppe Pemberton DO Primary Care Provider [phone] Augustin Parrish MD Primary Care Provider [phone] Giuseppe Pemberton DO Primary Care Provider [phone] Augustin Parrish MD Primary Care Provider [phone] Miscellaneous, Not In File Primary Care Provider Unavailable No, Physician Primary Care Provider [phone] Manuel Rangel DO Primary Care Provider Encounter Details Date Type Department Care Team (Latest Contact Info) Description 1965 Orders Only [facility] Scanning, Provider Social History Tobacco Use Types Packs/Day Years Used Date Smoking Tobacco: Never Assessed Sex and Gender Information Value Date Recorded Sex Assigned at Not on file 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 Gender Identity Not on file Sexual Orientation [...] on filedocumented in this encounter Care Teams Auto Machinist Relationship Specialty Start Date End Date Augustin Parrish MD PCP - General 11/08/16 11/26/16 Giuseppe Pemberton DO [address] [place] [address] PCP - General 11/27/16 01/01/17 Augustin Parrish MD PCP - General 01/02/17 01/08/17 Giuseppe Pemberton DO [address] [place] [address] PCP - General 01/09/17 01/09/17 Augustin Parrish MD PCP - General 01/10/17 01/24/17 Giuseppe Pemberton DO [address] [place] [address] PCP - General 01/25/17 02/06/17 Augustin Parrish MD PCP - General 02/07/17 04/30/17 Giuseppe Pemberton DO [address] [place] [address] PCP - General 05/01/17 05/01/17 Augustin Parrish MD PCP - General 05/02/17 05/21/17 Giuseppe Pemberton DO [address] [place] [address] PCP - General 05/22/17 07/30/17 Augustin Parrish MD PCP - General 07/31/17 08/15/17 Giuseppe Pemberton DO [address] [place] [address] PCP - General 08/16/17 08/22/17 Augustin Parrish MD PCP - General 08/23/17 08/25/17 Augustin Parrish MD PCP - General 08/26/17 08/27/17 Giuseppe Pemberton DO [address] [place] [address] PCP - General 08/28/17 11/24/17 Augustin Parrish MD PCP - General 11/25/17 12/04/17 Giuseppe Pemberton DO [address] [place] [address] PCP - General Internal Medicine 12/05/17 12/08/17 Augustin Parrish MD PCP - General 12/09/17 12/10/17 Giuseppe Pemberton DO [address] [place] [address] PCP - General 12/11/17 12/15/17 Augustin Parrish MD PCP - General 12/16/17 12/17/17 Giuseppe Pemberton DO [address] [place] [address] PCP - General 12/18/17 06/17/18 Augustin Parrish MD PCP - General 06/18/18 12/15/20 Miscellaneous, Not In File PCP - General 12/16/20 No, Physician PCP - General 04/24/21 03/12/22 Manuel Rangel DO [address] [place] [address] PCP - General 03/13/22 documented as of this encounter
--- NOTE | 2025-07-04 21:21 | PC.NURSE ---
DR CADE AT THE BEDSIDE
--- NOTE | 2025-07-04 21:26 | ED.BACK ---
HPI - Back Pain/Injury General Chief Complaint: Back Pain/Injury Stated Complaint: shoulder and back pain Time Seen by Provider: 07/04/25 21:25 Source: patient Mode of arrival: ambulatory Limitations: no limitations History of Present Illness HPI Narrative: Patient is a 59-year-old male that was shoveling snow yesterday and has pain today. His left shoulder and lower back on the left is causing pain. No other injuries or pain. MD elicited complaint: back pain (Left lower) and other (Left shoulder) Pertinent past history: other (Hypertension) Onset (ago): day(s) (2) Timing: intermittent Severity: moderate Pain scale (0-10): 5 Similar Symptoms Previously: Yes Quality: sharp Location: lumbar spine (Left lower back and left shoulder) Radiation: none Exacerbating factors: movement Relieving factors: immobilization Context: while lifting (Patient was shoveling snow yesterday and sustained pain) Associated symptoms: denies other symptoms Treatments prior to arrival: NSAIDS and acetaminophen Work related injury: Yes Related Data Home Medications ?Medication ?Instructions ?Recorded ?Confirmed ?Last Taken ?Type levetiracetam 500 mg tablet 1,500 mg PO BID 02/03/20 04/19/25 06/15/24 History multivitamin with minerals (Daily 1 tablet PO DAILY 02/03/20 04/19/25 06/15/24 History Multivitamin-Minerals tablet) acetaminophen 325 mg capsule 325 mg PO Q6H PRN Pain 11/15/23 04/19/25 06/15/24 History melatonin 5 mg capsule mg PO QHS PRN sleep 06/01/25 Unknown History Allergies Allergy/AdvReac Type Severity Reaction Status Date / Time Iodinated Contrast Media Allergy Unknown Hives Verified 07/04/25 21:37 Contrast allergy Allergy Intermediate Hives Uncoded 06/30/25 08:36 Review of Systems Review of Systems: All systems reviewed & are unremarkable except as noted in HPI and below Constitutional: Constitutional: Reports no additional constitutional complaints Eyes: Eyes: Reports no additional eye complaints ENT: Reports system reviewed and no additional complaints, except as documented Cardiovascular: Cardiovascular: Reports no additional cardiovascular complaints Respiratory: Respiratory: Reports no additional respiratory complaints Gastrointestinal: Gastrointestinal: Reports no additional gastrointestinal complaints Genitourinary: Genitourinary: Reports no additional male genitourinary complaints Musculoskeletal: Musculoskeletal: Reports no additional musculoskeletal complaints Integumentary/Breasts: Skin/Breast: Reports system reviewed and no additional complaints, except as docu Neurologic: Reports system reviewed and no additional complaints, except as documented Psychiatric: Psychiatric: Reports no additional psychiatric complaints Endocrine: Endocrine: Reports no additional endocrine complaints Hematologic/Lymphatic: Hematologic/Lymphatic: Reports no additional hematologic/lymphatic complaints Allergic/Immunologic: Allergic/Immunologic: Reports no additional allergic/immunologic complaints PMFSH Past Medical History Medical History Benign essential HTN Testicle cancer Obesity (BMI 30-39.9) Seizure disorder Surgical History Surgical History History of cataract surgery H/O brain surgery Family History Family History Father History of sinus cancer Sibling Ovarian cancer Social History Social History Smoking status: Never smoker Second hand tobacco smoke exposure: No Alcohol intake: never Substance use: never Lack of Transportation: No Lack of Food: Never True Current Housing: I Have Housing Concerned About Future Housing: No Difficulty Paying Gas/Electric Bills: No Difficulty Paying for Meds: No Currently Unemployed: No Education: High School Diploma/GED Difficulty w/ Childcare or Family Care: No Living arrangements: alone Gender identity (if verbalized by the patient): Male Sexual Orientation (if Verbalized by the Patient): Straight or Heterosexual Exam Const: General: healthy appearing Nutritional Appearance: well nourished Orientation/consciousness: patient oriented x3 Limitations: no limitations HENMT: Head: normal to inspection Ears: external ears normal Face/Nose/Sinus: Normal external nose present Eyes: Conjunctivae: conjunctivae normal Pupils: Equal, round and reactive pupils present EOM: EOMs intact bilaterally Neck: Neck: normal visual inspection Chest: Chest palpation & inspection: normal inspection of the chest Resp: Effort & Inspection: normal respiratory effort and not labored Auscultation: clear to auscultation bilaterally and no crackles Cardio: Rate: regular rate Rhythm: regular rhythm Heart sounds: no murmurs GI: Inspection: non-distended GI Palp: Yes Soft to palpation and No Tenderness to palpation present (GI) Auscultation: normal bowel sounds : General: Yes bladder normal to palpation Back/Spine/Pelvis: Back: no CVA tenderness Other: Left lower back paraspinal muscles are tender to palpation Skin: General skin exam: normal color Rashes: no rashes Wounds: no wounds Neuro: General: patient oriented x3, moves all extremities and no meningeal signs Extrem: General: normal to inspection, no clubbing, cyanosis or edema and no pedal edema Other: Left shoulder is tender to palpation Psych: Mental Status: mental status grossly normal Affect: normal affect Attitude: cooperative Course Vital Signs Vital signs: Vital Signs Temperature 36.2 C L 07/04/25 21:13 Pulse Rate 63 07/04/25 21:13 Respiratory Rate 18 07/04/25 21:13 Blood Pressure 157/94 H 07/04/25 21:13 Pulse Oximetry 99 07/04/25 21:13 Oxygen Delivery Room Air 07/04/25 21:13 Temperature 36.2 C L 07/04/25 21:13 Pulse Rate 63 07/04/25 21:13 Respiratory Rate 18 07/04/25 21:13 Blood Pressure 157/94 H 07/04/25 21:13 Pulse Oximetry 99 07/04/25 21:13 Oxygen Delivery Room Air 07/04/25 21:13 MDM - Back Pain/Injury MDM Narrative Medical decision making narrative: Patient is a 59-year-old male with left lower back pain and left shoulder pain after shoveling snow yesterday. Pain control with Toradol. X-ray is not needed at this time. No injury occurred. Discharge Plan Discharge Clinical Impression: Acute shoulder bursitis, Lumbago Patient Disposition: Home Condition: Stable Instructions: Shoulder Bursitis (ED), Back Pain (ED) Patient Language: Belarusian Prescriptions: No Action levetiracetam 500 mg Tablet 1,500 mg PO BID Daily Multivitamin-Minerals Tablet 1 tablet PO DAILY acetaminophen 325 mg capsule 325 mg PO Q6H PRN (Reason: Pain) melatonin 5 mg capsule PO QHS PRN (Reason: sleep) trazodone 50 mg tablet 50 mg PO QHS PRN (Reason: insomnia) Qty: 30 0RF lisinopril 10 mg tablet See Rx Instructions .ROUTE .COMPLEX Qty: 90 3RF Dose Instruction: TAKE ONE TABLET BY MOUTH DAILY Rx Instructions: TAKE ONE TABLET BY MOUTH DAILY Follow-up/Referrals: Manuel Rangel, [Primary Care Provider, Family Practice]
[2025-07-04] MEDS: KETOROLAC (*BKC) 60 MG/2 ML VIAL IM (21:32)
--- NOTE | 2025-07-04 21:41 | PC.NURSE ---
PATIENT RESTING QUIETLY ON STRETCHER WATCHING FOOTBALL GAME. CALL LIGHT IN REACH
[2025-07-04 22:17] VITALS: BP 118/76; PULSE 78; RESP 20; O2SAT 94
== END 2025-07-04 22:17 | disposition home or self-care (01) ==
PROVIDERS: Emergency Provider Emergency Medicine; PCP Family Medicine
DX: M75.52 Bursitis of left shoulder (principal); M54.50 Low back pain, unspecified; I10 Essential (primary) hypertension; Z85.47 Personal history of malignant neoplasm of testis
CPT/HCPCS: 96372; 99283; J1885